=== PATIENT | male | born 1950 | race Caucasian/White ===

== ENCOUNTER → 2016-11-02 | Outpatient (CLI) | payer MEDICARE, OTHER ==
[2016-07-17 03:30] VITALS: BP 88/50
[~2016-11-02] MED LIST: AMLO10TA2 PO; ASPI-630 PO; ATORVASTATIN CA80 MG PO; AZIT250T6 PO; CARV12.52 PO; CEFP200T PO; FERR325T72 PO; FURO20TA3 PO; LEVO150T5 PO; LEVO175T2 PO; LORA1TAB PO; MONT10TA6 PO; PILO5TAB16 PO; POLY17PO5 PO; POTA10CA PO; SERT100T PO; ZOLP10TA4 PO
--- NOTE | 2016-11-02 15:09 | RAD ---
Right lower extremity venous ultrasound, 11/02/2016 : History: Leg swelling, cellulitis Duplex evaluation including grayscale, color flow and spectral Doppler analysis was performed. The femoral and popliteal veins show no filling defects to suggest DVT. The visualized calf veins are unremarkable. In the anterior aspect of the right lower leg at the level of the patient's known wound there is an elongated irregularly marginated hypoechoic process in the superficial soft tissues. The appearance suggests a complex fluid collection such as an abscess or hematoma. It measures 5.8 x 3.4 x 1.8 cm. IMPRESSION: 1. There is no sonographic evidence of deep vein thrombosis in the right lower extremity. 2. Elongated complex fluid collection in the soft tissues of the right lower leg at the level the patient's known wound, raising the possibility of abscess.
== END | disposition home or self-care (01) ==
LOC: US 13:35
PROVIDERS: ATTEND Family Medicine
DX: M79.89 Other specified soft tissue disorders (principal); R22.41 Localized swelling, mass and lump, right lower limb
CPT/HCPCS: 93971

== ENCOUNTER → 2017-08-04 | Outpatient (CLI) | payer MEDICARE, OTHER ==
[2016-07-17 03:30] VITALS: BP 88/50
[~2017-08-04] MED LIST changes: -SERT100T PO; +SERT20OR PO
--- NOTE | 2017-08-04 17:15 | RAD ---
Supine and upright views of the abdomen. 08/04/2017 Clinical indication: Retained foreign body. Comparison: CT abdomen and pelvis 02/25/2016. Findings: There is a percutaneous gastrostomy tube overlying the left upper quadrant of the abdomen. Irregular sclerotic density overlying the left sacroiliac articulation and projects outside of the bowel lumen, likely related to degenerative changes. No radiopaque foreign body identified. No pneumoperitoneum. The small large bowel loops are normal in caliber without obstruction. Impression: 1. No evidence of radiopaque foreign body. 2. No bowel obstruction or pneumoperitoneum.
== END | disposition home or self-care (01) ==
LOC: RAD 16:20
PROVIDERS: ATTEND Specialist
DX: Z18.9 Retained foreign body fragments, unspecified material (principal); I11.0 Hypertensive heart disease with heart failure; I50.9 Heart failure, unspecified; E03.9 Hypothyroidism, unspecified; Z87.891 Personal history of nicotine dependence
CPT/HCPCS: 74021

== ENCOUNTER 2017-09-25 11:48 | Inpatient (IN) | payer MEDICARE, OTHER ==
[2017-09-25] VITALS (7 sets, daily range): BP systolic 96–114; BP diastolic 50–60
[~2017-09-25] VITALS: Ht 175.3 cm; Wt 86.2 kg
[~2017-09-25 11:48] MED LIST changes: +SERT100T PO; -SERT20OR PO
[2017-09-25] MEDS ORDERED: IV NORMAL SALINE 1,000ML 1,000 ML IV SCH ×2 (11:51→12:58)
[2017-09-25] MEDS ORDERED: 0.9 % SODIUM CHLORIDE 10 ML DISP.SYRIN. IV ONE (12:00)
--- NOTE | 2017-09-25 12:14 | PHYS DOC ---
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 He was actually intubated and hospitalized for a hypoxic event that occurred while on vacation in [place]. Patient is been increasingly forgetful and mildly demented on 4 L nasal cannula is at all times who presents with increasing difficulty breathing and hypoxia despite by mouth oxygen therapy. at the bedside admits he has been very stubborn not wanting to be evaluated here in the emergency department today was seen at his PCPs facility and advised immediate evaluation erythema department for possible aspiration pneumonia and admission to hospital for treatment. At this time patient is resting comfortably is able to answer all my questions in a complaint of chest pain he is mildly short of breath with a productive cough that he describes going on for last 3 or 4 days. Patient admits she's been outside in the cold weather and having decreased excess tonsil with a productive cough and increased oxygen demand they're worried he may have aspirated. He only takes small sips of fluids orally mostly when he is fed and infused into his body is through the PEG tube. Denies abdominal pain, denies any diarrhea, fevers, chills or other symptoms. Differential diagnosis: Acute myocardial ischemia, heart failure, cardiac tamponade, bronchospasm, pulmonary embolism, pneumothorax, pulmonary infection i.e. bronchitis or pneumonia, upper airway obstruction, anaphylaxis, aspiration , psychogenic, pulmonary contusion, toxidrome, pneumomediastinum, noncardiogenic pulmonary edema or ARDS, COPD, tuberculosis, cystic fibrosis, asthma, high altitude pulmonary edema, valvular dysfunction, cardiac dysrhythmia , stroke, neuromuscular diseases like myasthenia gravis gravis, ALS, Guillain- Napier syndrome, metabolic acidosis to include diabetic ketoacidosis, sepsis, and obstructive disorders like massive obesity Review of Systems Review of Systems Constitutional: Denies fever positive for subjective chills Eyes: Denies change in visual acuity, redness, or eye pain [] HENT: Denies nasal congestion or sore throat [] Respiratory positive for cough and shortness of breath on exertion. Positive for increased oxygen demand Cardiovascular: No additional information not addressed in HPI [] GI: Denies abdominal pain, nausea, vomiting, bloody stools or diarrhea [] : Denies dysuria or hematuria [] Musculoskeletal: Denies back pain or joint pain [] Integument: Denies rash or skin lesions [] Neurologic: Denies headache, focal weakness or sensory changes increased at the status confusion according to the at bedside [] Endocrine: Denies polyuria or polydipsia [] All other systems were reviewed and found to be within normal limits, except as documented in this note. Current Medications Current Medications Current Medications Medications (Trade) Dose Ordered Sig/Gauri Start Time Stop Time Status Last Admin Dose Admin Sodium Chloride 1,000 ml @ 1,000 mls/hr Q1H 09/25/17 11:51 09/25/17 12:50 Sodium Chloride (Normal Saline Flush) 10 ml 1X ONCE 09/25/17 12:00 09/25/17 12:02 DC Allergies Allergies Allergies Coded Allergies Type Severity Reaction Last Updated Verified ciprofloxacin Allergy Intermediate 07/17/16 Yes codeine Allergy Intermediate 07/17/16 Yes Physical Exam Physical Exam Other vital signs on the chart patient is noted to be hypoxia satting at 91% despite being on 4 L nasal cannulas. He isn't tachypneic or febrile he is mildly hypertensive. Constitutional: he is thin very dry in appearance cachectic but is no apparent distress nontoxic able to have conversations speaking in 12 word sentences without issue HENT: Normocephalic, atraumatic, bilateral external ears normal, oropharynx very dry with no dentition mild erythema no tonsillar hypertrophy, no oral exudates, nose normal. [] Eyes: PERRLA, EOMI, conjunctiva normal, no discharge. [] Neck: Normal range of motion, no tenderness, supple, no stridor. No anterior lymphadenopathy[] Cardiovascular:Heart rate regular rhythm, no murmur [] Lungs & Thorax: Patient has coarse breath sounds are out with significant rhonchi and rales at the bases bilaterally wound right greater than left Abdomen: Bowel sounds normal, soft, no tenderness, no masses, no pulsatile masses PEG tube in place no warmth tenderness or soft tissue swelling.. [] Skin: Warm, dry, no erythema, no rash. [] Back: No tenderness, no CVA tenderness. [] Extremities: No tenderness, no cyanosis, no clubbing, ROM intact, no edema. [] Neurologic: Alert and oriented X 3, normal motor function, Psychologic: Affect normal, judgement normal, mood normal. [] EKG EKG []Patient's EKG read by me at 12:22 PM 09/25/2017 demonstrates a heart rate of 69 there is a P wave there were QRS normal sinus rhythm NE interval 190 which is normal, QS with 90 which is normal, QTC of 409 which is also normal patient has an inferior Q wave in lead [address] segment elevation or T-wave changes consistent with acute cardiac ischemia today is an abnormal EKG Radiology/Procedures Radiology/Procedures [] Signed PATIENT: KUSH HARGROVE ACCOUNT: [id number] : 1950 LOCATION: ER AGE: 67 SEX: M EXAM STATUS: REG ER ORD. PHYSICIAN: JUSTIN BUTLER MD REASON: cough and sob PROCEDURE: CHEST PA & LATERAL CHEST PA LATERAL History: cough, short of breath Comparison: AP chest July 17, 2016. Findings: The cardiomediastinal silhouette is stable. Pulmonary vasculature is normal. The right posterior costophrenic sulcus is partially outside of the [id number] on the lateral view. There is right upper lobe airspace disease. There may also be mild airspace disease in the right lung base. There is linear airspace disease in the left lung base that may be discoid atelectasis or scarring or early infiltrate. No pleural effusion or pneumothorax is seen. There is no acute bone abnormality. IMPRESSION: 1. There is right upper lobe pneumonia or atelectasis. Radiographic follow-up to resolution is recommended to exclude malignancy. 2. Linear airspace disease in the left lung base. Electronically signed by: Foreign Mccormick MD (09/25/2017 12:20 PM) [id number] DICTATED AND SIGNED BY: FOREIGN MCCORMICK MD DATE: 09/25/17 1214 CC: JESENIA BOWSER MD; JUSTIN BUTLER MD ~ Course & Med Decision Making Course & Med Decision Making Pertinent Labs and Imaging studies reviewed. (See chart for details) []he is a pleasant 67-year-old male not feeling well for last 3-4 days with a productive cough increasing work of breathing and family is worried he might of aspiration pneumonia. He is normally on oxygen of 4 L all the time for his chronic lung issues and presents with increasing oxygen demand with satting 91% on 4 L nasal cannula's. Patient's pH is 7.425, CO2 of 54 PaO2 51 satting 85% on 4 L. Patient will definitely need more oxygenation to help reverse the parents are noted on his vital signs. Differential diagnosis: Acute myocardial ischemia, heart failure, cardiac tamponade, bronchospasm, pulmonary embolism, pneumothorax, pulmonary infection i.e. bronchitis or pneumonia, upper airway obstruction, anaphylaxis, aspiration , psychogenic, pulmonary contusion, toxidrome, pneumomediastinum, noncardiogenic pulmonary edema or ARDS, COPD, tuberculosis, cystic fibrosis, asthma, high altitude pulmonary edema, valvular dysfunction, cardiac dysrhythmia , stroke, neuromuscular diseases like myasthenia gravis gravis, ALS, Guillain- Napier syndrome, metabolic acidosis to include diabetic ketoacidosis, sepsis, and obstructive disorders like massive obesity Was considered upon arrival based on patient's presentation and decreased lung sounds in the left and right lungs by worry is an obstructive process like pneumonia or extra fluid like pulmonary edema. At this point blood cultures been completed, CBC, CMP, troponin, proBNP, chest x-ray EKG. Patient is gotten likely gastritis also drawn he'll be given Rocephin and azithromycin in anticipation is a pulmonary infection. He is also given a liter of fluids because he does not have a history of congestive heart failure. He is not hypoxic or hypotensive. He does not do any signs of Sirs Impression CBC does states a left shift with a white count of 15,100 which is likely indicative of stress and infection. Patient's troponin is also mildly elevated 0.116 this may be secondary to anoxic injury or hypoxic stress base and the fact these are hypoxic. He denies any chest pain or shortness breath at this time we will continue to monitor his symptoms is been admitted to the telemetry floor. Commercial Green Building Architect note: Dr. Grover Commercial Green Building Architect called at of the service internal medicine service Consult called back at paged initially at 12:50 PM called back at 12:52 PM Discussed the case I presented and they agreed with admission. Time of acceptance 12:52 PM "I have assessed this patient clinically and believe that their condition requires an admission to the hospital. After consulting the admitting physician about this case, they have asked that I admit this patient to their service as an inpatient based on the clinical presentation and my impression." Course of his ER stay patient became increasingly hypoxic despite being on oxygen. His pH was 7.42 with a PCO2 51 and PO2 of 50 unfortunate as he began to get more fluids over the course of his evaluation he became increasingly hypoxic. He has a history of congestive heart failure and his proBNP was 4100. Given the extra 600 mL he received her in the emergency department visit visit to include fluids with antibiotics and 350 mL of normal saline I believe patient may be having a touch of fluid overload as well. We will give him a small dose of Lasix raise that of the bed and see if we can get him to diurese and improve his oxygenation. He still mentating well we'll move him from telemetry to the ICU for continued monitoring and evaluation. Is also noted that his troponin was mildly elevated. Patient's influenza swab was negative for influenza A and B. He also exhibited a little hypertension which may be requiring pressor support. Critical Care: The high probability of sudden, clinically significant deterioration in the patient's condition required the highest level of my preparedness to intervene urgently. The services I provided to this patient were to treat and/or prevent clinically significant deterioration. Services included the following: chart data review, reviewing nursing notes and/or old charts, documentation time, contact center consultant collaboration regarding findings and treatment options, medication orders and management, direct patient care, vital sign assessments and ordering, interpreting and reviewing diagnostic studies/ lab tests. Aggregate critical care time includes only time during which I was engaged in work directly related to the patient's care, as described above, whether at the bedside or elsewhere in the Emergency Department. It did not include time spent performing other reported procedures or the services of nurses or physician assistants. Critical Care Time: 45 Dragon Disclaimer Dragon Disclaimer This electronic medical record was generated, in whole or in part, using a voice recognition dictation system. Departure Departure: Impression: Primary Impression: Community acquired pneumonia Additional Impression: Acute congestive heart failure Disposition: 09 ADMITTED INPATIENT Admitting Physician: Ariela Grover Condition: GUARDED Referrals: JESENIA BOWSER MD (PCP) Problem Qualifiers JUSTIN BUTLER MD Sep 25, 2017 12:14
--- NOTE | 2017-09-25 12:23 | RAD ---
CHEST PA LATERAL History: cough, short of breath Comparison: AP chest July 17, 2016. Findings: The cardiomediastinal silhouette is stable. Pulmonary vasculature is normal. The right posterior costophrenic sulcus is partially outside of the [id number] on the lateral view. There is right upper lobe airspace disease. There may also be mild airspace disease in the right lung base. There is linear airspace disease in the left lung base that may be discoid atelectasis or scarring or early infiltrate. No pleural effusion or pneumothorax is seen. There is no acute bone abnormality. IMPRESSION: 1. There is right upper lobe pneumonia or atelectasis. Radiographic follow-up to resolution is recommended to exclude malignancy. 2. Linear airspace disease in the left lung base. Electronically signed by: Foreign Mccormick MD (09/25/2017 12:20 PM) [id number]
[2017-09-25 12:40] LABS: BASO % 0 % (0-3); EOS % 0 % (0-3); HEMATOCRIT 37.2 % (39.0-53.0); HEMOGLOBIN 12.1 g/dL (13.0-17.5); LYMPH # 1.1 x10^3/uL (1.0-4.8); LYMPH % 8 % (24-48); MEAN CORPUSCULAR HEMOGLOBIN 30 pg (25-35); MEAN CORPUSCULAR HGB CONC 33 g/dL (31-37); MEAN CORPUSCULAR VOLUME 92 fL (79-100); MONO # 1.2 x10^3/uL (0.0-1.1); MONO % 8 % (0-9); NEUT # 12.8 x10^3uL (1.8-7.7); NEUT % 85 % (31-73); PLATELET COUNT 168 x10^3/uL (140-400); RED BLOOD COUNT 4.06 x10^6/uL (4.30-5.70); RED CELL DISTRIBUTION WIDTH 14.1 % (11.5-14.5); WHITE BLOOD COUNT 15.1 x10^3/uL (4.0-11.0)
[2017-09-25 12:54] LABS: BGAS PH 7.43 (7.35-7.46)
[2017-09-25] MEDS ORDERED: cefTRIAXone IV Push 1 GM VIAL. IVP ONE (13:00)
[2017-09-25] MEDS ORDERED: AZITHROMYCIN 500 MG in IV NORMAL SALINE 250ML 250 ML IV ONE (13:00)
[2017-09-25] MEDS ORDERED: ONDANSETRON PF 4 MG/2 ML VIAL. IV PRN (13:00)
[2017-09-25] MEDS ORDERED: AZITHROMYCIN 250 MG TABLET. PO ONE (13:00)
--- NOTE | 2017-09-25 13:01 | EKG ---
[address] [address] Test Date: 2017-09-25 Test Time: 12:22:15 Pat Name: KUSH HARGROVE Department: Room: Gender: M [facility] Customer Service: EZIO : 1950 Requested By: JUSTIN BUTLER Order Number: [id number] Reading MD: Jacinto Kemp MD Measurements Intervals [place] Rate: 69 P: 28 AR: 192 QRS: 6 QRSD: 98 T: 36 QT: 380 QTc: 409 Interpretive Statements SINUS RHYTHM Electronically Signed On 09-28-2017 14:09:59 CDT by Jacinto Kemp MD
[2017-09-25] MEDS ORDERED: IV NORMAL SALINE 250ML 250 ML ONE (13:05)
[2017-09-25] MEDS ORDERED: AZITHROMYCIN 500 MG VIAL. IV ONE (13:05)
[2017-09-25 13:08] LABS: ALBUMIN 2.7 g/dL (3.4-5.0); CALCIUM 9.2 mg/dL (8.5-10.1); CREATININE 0.8 mg/dL (0.7-1.3); DIRECT BILIRUBIN 0.2 mg/dL (0.0-0.2); GFR 96.7; MAGNESIUM 2.3 mg/dL (1.8-2.4); POTASSIUM 4.1 mmol/L (3.5-5.1); TOTAL BILIRUBIN 0.6 mg/dL (0.2-1.0); TOTAL PROTEIN 7.9 g/dL (6.4-8.2)
[2017-09-25] MEDS ORDERED: IPRATRPIUM/ALBUTEROL 0.5/2.5MG 3 ML NEBU. ONE (13:23)
[2017-09-25 13:28] LABS: INFLUENZA A PATIENT NEGATIVE (NEGATIVE); INFLUENZA B PATIENT NEGATIVE (NEGATIVE)
[2017-09-25] MEDS ORDERED: IPRATRPIUM/ALBUTEROL 0.5/2.5MG 3 ML NEBU. NEB ONE (13:30)
[2017-09-25 13:31] LABS: % BANDS 7 % (0-9); % LYMPHS 7 % (24-48); % MONOS 9 % (0-10); % SEGS 77 % (35-66); PLT ESTIMATE ADEQUATE (ADEQUATE)
[2017-09-25 13:32] LABS: TOXIC GRANULATION MOD
[2017-09-25] MEDS ORDERED: FUROSEMIDE 40 MG/4 ML VIAL IVP ONE (14:00)
[2017-09-25 14:44] LABS: BACTERIA,URINE 0 /HPF (0-FEW); BILIRUBIN,URINE NEG (NEG); CLARITY,URINE CLEAR; COLOR,URINE YELLOW; GLUCOSE,URINE NEG (NEG); HYALINE CASTS, URINE OCC /HPF; NITRITE,URINE NEG (NEG); RBC,URINE OCC /HPF (0-2); SQUAMOUS EPITHELIAL CELL,UR OCC /LPF; UROBILINOGEN,URINE 0.2 mg/dL (0.2 mg/dL); WBC,URINE OCC /HPF (0-4)
[2017-09-25] MEDS ORDERED: PIPERACILLIN/TAZOBACTAM 3.375 GM in IV NORMAL SALINE 50ML 50 ML IV SCH (18:00)
[2017-09-25] MEDS ORDERED: LORazepam 1 MG TABLET PO PRN (18:00)
[2017-09-25] MEDS: PIPERACILLIN/TAZOBACTAM 3.375 GM in IV NORMAL SALINE 50ML 50 ML IV SCH ×2 (18:40→21:32)
--- NOTE | 2017-09-25 19:14 | HP ---
ADMIT DATE: 09/25/2017 HISTORY OF PRESENT ILLNESS: The patient is a 67-year-old male patient who was noted by his to be weak and hypoxic despite increasing his oxygen to 6 liters. She could not get his oxygen saturation more than 70%. He was seen today, but his primary care physician, Dr. Alexander and basically, a decision was made to send him to the Emergency Room where he was extensively evaluated, was found to have pneumonia and leukocytosis and after obtaining appropriate culture, he was admitted for inpatient treatment with IV antibiotic given that he has propensity to aspiration. PAST MEDICAL HISTORY: Significant for tonsillectomy, radical neck dissection in 2007, and carpal tunnel 2013. He has a percutaneous endoscopic colostomy tube placed and he is now on tube feeding in the form of Fibersource. Multiple admissions for pneumonias with severe pneumonia in 2014, history of tongue cancer with radiation in 2007, hypothyroidism, hypertension, hyperlipidemia, hypercholesterolemia, myocardial infarction 09/2014, is also known to have peripheral vascular disease, gastroesophageal reflux disease, benign prostatic hypertrophy, insomnia, and B12 deficiency. FAMILY HISTORY: Positive for myocardial infarction, colon cancer, COPD, anxiety, and depression. ALLERGIES: He is allergic to CIPRO and CODEINE. MEDICATIONS: He is currently on a Flonase 2 sprays to each nostril once a day, lorazepam 1 mg as needed, sertraline 100 mg, takes hpf-aax-t-half tablet once a day, Ambien 10 mg at bedtime, pilocarpine 5 mg tablet 1 tablet by mouth 3 times a day. He is on Crestor 40 mg at bedtime, carvedilol 12.5 mg twice a day, amlodipine 10 mg once a day, furosemide 20 mg once a day, potassium chloride 10 mEq once a day, sildenafil citrate 20 mg 30 to 60 minutes prior to sexual intercourse, aspirin 81 mg once a day. REVIEW OF SYSTEMS: As per history of present illness. PHYSICAL EXAMINATION: GENERAL: On arrival to the Emergency Room, the patient was slightly tachypneic, pale, but no jaundice, cyanosis, or thyromegaly. No jugular venous distension. No lower limb edema. VITAL SIGNS: His heart rate was 76, blood pressure was 108/65, temperature was 98.6, respiratory rate was 26, and oxygen saturation was 90% on 4 liters of oxygen. HEAD, EYES, EAR, NOSE, AND THROAT: Showed normocephalic, atraumatic. NECK: Supple. HEART: Showed normal first and second heart sounds. No gallop, rub or murmur. CHEST: Shows centered trachea, equal bilateral chest expansion, air entry, vesicular breath sounds, I could not really appreciate any crepitation or rhonchi. ABDOMEN: Scaphoid, soft with gastrostomy tube in place. There is no guarding or rigidity. No organomegaly or hernial orifice intact. Bowel sounds normal. NEUROLOGIC: He was awake, alert, responding appropriately. Cranial nerves intact. EXTREMITIES: He moves extremities without difficulty, ambulates without assistance or assistive devices. LABORATORY DATA: While in the Emergency Room, he had lab work done, which showed that his white cell count was elevated at 15,100, hemoglobin 12, hematocrit 37, MCV 92, and platelet count 268,000. His chemistry showed a serum sodium 139, potassium 4.1, chloride 98, bicarbonate 35, anion gap of 6, BUN 24, creatinine 0.8, estimated GFR was 97 mL per minute, his glucose was 113, and lactic acid was 1.3. Calcium was 9.2, magnesium 2.3. Total bilirubin, AST, ALT, alkaline phosphatase were normal. His CK was 1442, and beta natriuretic peptide was 4817, troponin was 0.116. Total protein was 7.9, albumin was 2.7. Lipase was 57. Urinalysis was essentially unremarkable. His blood gases showed a pH of 7.43, pCO2 of 45, pO2 of 50, bicarbonate 36, oxygen saturation was 85% and FiO2 36%. His influenza A and B were negative. His chest x-ray showed that his cardiomediastinal silhouette is stable. Pulmonary vasculature is normal. The right posterior costophrenic sulcus is partially outside of the field of view on the lateral view. There is right upper lobe airspace disease. This may also be mild airspace disease in the right lung base. There is linear airspace disease in the left lung base and that may be discoid atelectasis, scarring or early infiltrate, no pleural effusion or pneumothorax seen. There are no acute bony abnormalities. IMPRESSION: The impression is the patient has right upper lobe pneumonia or atelectasis. Radiographic followup to resolution recommended to exclude malignancy, he has also linear airspace disease in the left lung base. The patient was admitted to the Intensive Care Unit, was started on intravenous antibiotic initially was given Zithromax and Rocephin. I decided to expand the coverage given that this is likely to be aspiration pneumonia and I switched him to get Zosyn and Zyvox. He had blood cultures sent and will continue with oxygen supplementation as needed CPAP and he had at home and obviously, if he requires that we have to use our machine here with empirical numbers by the RT, develop blood gases after an hour to make sure that he is improving. KAYLEE ANAND MD DR: AKILAH/juliana JOB#: [id number] / [id number]
[2017-09-25] MEDS: IPRATRPIUM/ALBUTEROL 0.5/2.5MG 3 ML NEBU. NEB SCH (20:32)
[2017-09-25] MEDS: LACTOBACILLUS RHAMNOSUS GG 1 CAPSULE. PO SCH (20:34)
[2017-09-25] MEDS: ZOLPIDEM 5 MG TABLET. PO SCH (20:35)
[2017-09-25] MEDS: ATORVASTATIN CALCIUM 20 MG TABLET PO SCH (20:35)
[2017-09-25] MEDS: PILOCARPINE 5 MG TABLET. PO SCH (20:35)
[2017-09-25] MEDS ORDERED: VANCOMYCIN 2 GM in IV NORMAL SALINE 500ML 500 ML IV ONE (21:30)
[2017-09-25] MEDS: VANCOMYCIN PER PHARMACY MC PRN (21:50)
[2017-09-26] VITALS (22 sets, daily range): BP systolic 90–121; BP diastolic 44–67
[2017-09-26] MEDS: PIPERACILLIN/TAZOBACTAM 3.375 GM in IV NORMAL SALINE 50ML 50 ML IV SCH ×3 (05:28→22:55)
[2017-09-26 06:06] LABS: CALCIUM 8.8 mg/dL (8.5-10.1); CREATININE 0.7 mg/dL (0.7-1.3); GFR 112.8; POTASSIUM 3.6 mmol/L (3.5-5.1)
[2017-09-26] MEDS: IPRATRPIUM/ALBUTEROL 0.5/2.5MG 3 ML NEBU. NEB SCH ×4 (06:11→21:22)
[2017-09-26 06:19] LABS: BASO % 0 % (0-3); EOS % 0 % (0-3); HEMATOCRIT 35.3 % (39.0-53.0); HEMOGLOBIN 11.6 g/dL (13.0-17.5); LYMPH # 1.2 x10^3/uL (1.0-4.8); LYMPH % 9 % (24-48); MEAN CORPUSCULAR HEMOGLOBIN 30 pg (25-35); MEAN CORPUSCULAR HGB CONC 33 g/dL (31-37); MEAN CORPUSCULAR VOLUME 92 fL (79-100); MONO # 1.3 x10^3/uL (0.0-1.1); MONO % 10 % (0-9); NEUT # 10.3 x10^3uL (1.8-7.7); NEUT % 80 % (31-73); PLATELET COUNT 176 x10^3/uL (140-400); RED BLOOD COUNT 3.83 x10^6/uL (4.30-5.70); RED CELL DISTRIBUTION WIDTH 14.1 % (11.5-14.5); WHITE BLOOD COUNT 12.9 x10^3/uL (4.0-11.0)
[2017-09-26] MEDS ORDERED: ACETAMINOPHEN 650 MG/20.3 ML SOLUTION. PO PRN (07:15)
[2017-09-26] MEDS: LACTOBACILLUS RHAMNOSUS GG 1 CAPSULE. PO SCH ×2 (07:58→21:20)
[2017-09-26] MEDS: SERTRALINE 100 MG TABLET. PO SCH (07:59)
[2017-09-26] MEDS: PILOCARPINE 5 MG TABLET. PO SCH ×2 (07:59→21:20)
[2017-09-26] MEDS: LEVOTHYROXINE 175 MCG TABLET PO SCH (07:59)
[2017-09-26] MEDS: ASPIRIN 81 MG TAB.CHEW PO SCH (07:59)
[2017-09-26] MEDS: POLYETHYLENE GLYCOL 3350 17 GM PACKET. PO SCH (08:00)
[2017-09-26] MEDS: CARVEDILOL 12.5 MG TABLET PO SCH ×2 (08:00→16:03)
[2017-09-26] MEDS ORDERED: FERROUS SULFATE 325 MG TABLET. PO SCH (08:00)
[2017-09-26] MEDS ORDERED: POTASSIUM CHLORIDE 10 MEQ TABLET.ER. PO SCH (08:00)
--- NOTE | 2017-09-26 08:12 | RAD ---
CHEST AP ONLY Clinical Indication: pneumonia Comparison: AP chest, prior day. Findings: The cardiomediastinal silhouette is stable. Right upper lobe airspace disease is unchanged. Left basilar airspace disease is worse. Mild right basilar airspace disease is unchanged. There is no pneumothorax. No pleural effusion is appreciated. No acute bone abnormality. IMPRESSION: 1. Right upper lobe pneumonia is unchanged. 2. Left basilar airspace disease is worse. Electronically signed by: Foreign Mccormick MD (09/26/2017 8:09 AM) [id number]
[2017-09-26] MEDS ORDERED: IPRATRPIUM/ALBUTEROL 0.5/2.5MG 3 ML NEBU. NEB SCH (08:30)
[2017-09-26] MEDS: amLODIPine BESYLATE 10 MG TABLET PO SCH (09:00)
[2017-09-26] MEDS: VANCOMYCIN 1.25 GM in IV NORMAL SALINE 250ML 250 ML IV SCH ×2 (09:50→21:04)
[2017-09-26] MEDS: FUROSEMIDE 20 MG TABLET PO SCH (09:50)
[2017-09-26] MEDS: ZOLPIDEM 5 MG TABLET. PO SCH (21:19)
[2017-09-26] MEDS: ATORVASTATIN CALCIUM 20 MG TABLET PO SCH (21:20)
--- NOTE | 2017-09-26 22:31 | PN ---
DATE: 09/26/2017 SUBJECTIVE: The patient is resting slightly propped up in bed, no apparent distress. He continued to have some shortness of breath, cough. Denied any fevers, chills or rigor. Denies any chest pain. PHYSICAL EXAMINATION: GENERAL: When I examined him, he was sitting slightly propped up in bed, in no apparent respiratory distress, pale. No jaundice, cyanosis, or thyromegaly. No jugular venous distension. No limb edema. VITAL SIGNS: Her heart rate was 65, blood pressure 100/57. His temperature was 98.2, respiratory rate was 20, and oxygen saturation was 93% on 4.5 liters of oxygen. HEAD, EYES, EARS, NOSE AND THROAT: Showed normocephalic, atraumatic. NECK: Supple. HEART: Showed normal first and second heart sounds with no gallop, rub or murmur. CHEST: Shows central trachea, equal bilateral expansion, air entry, vesicular sounds with crepitation mostly in the right side and to a lesser extent in the left side posteriorly inferiorly. ABDOMEN: Soft, nontender. No guarding or rigidity. No organomegaly. All hernial orifices intact. Bowel sounds normal. NEUROLOGIC: He is awake, alert, responding appropriately. Cranial nerves intact. He moves extremities without difficulty, ambulates without assistance or assistive devices. His intake over the last 24 hours was 1300, output was 1925. LABORATORY DATA: This morning showed a serum sodium 140, potassium 3.6, chloride 99, bicarbonate 36, anion gap of 5, BUN 18, creatinine 0.7, estimated GFR was 113 mL per minute. His calcium was 8.8. He has 3 sets of cardiac enzymes showed that his troponin was 0.16 and then the 2nd was 0.98 and the third one was 0.079. TSH is high at 14.5. White cell count is down to 12,900, hemoglobin 11.6, hematocrit 35, MCV 92, and platelet count of 176,000 with manual differential showed 80% polymorphs, 9% lymphocytes, 7% monocytes. ASSESSMENT: 1. This is a 67-year-old male patient who was admitted with pneumonia, most likely aspiration. 2. The patient has nasopharyngeal carcinoma, status post radical dissection. 3. Dysphagia, status post gastrostomy tube placement. 4. Apparently, he has had multiple admissions for pneumonias with severe pneumonia in 2014. He has a history of tongue cancer with radiation therapy in 2007, hypothyroidism, hypertension, hyperlipidemia, myocardial infarction on 09/2014. He is also known to have peripheral vascular disease, gastroesophageal reflux disease, benign prostatic hypertrophy, and B12 deficiency. PLAN: My plan is to continue with IV antibiotic in the form of vancomycin and Zosyn. I will check his T3, T4, free T4 and adjust the Synthroid accordingly. KAYLEE ANAND MD DR: AKILAH/juliana JOB#: [id number] / [id number]
[2017-09-27] VITALS (12 sets, daily range): BP systolic 90–123; BP diastolic 53–73
[2017-09-27] MEDS: PIPERACILLIN/TAZOBACTAM 3.375 GM in IV NORMAL SALINE 50ML 50 ML IV SCH ×3 (05:38→22:07)
[2017-09-27] MEDS: IPRATRPIUM/ALBUTEROL 0.5/2.5MG 3 ML NEBU. NEB SCH ×4 (05:49→21:17)
[2017-09-27] MEDS: amLODIPine BESYLATE 10 MG TABLET PO SCH (07:35)
[2017-09-27] MEDS: PILOCARPINE 5 MG TABLET. PO SCH ×2 (07:58→21:32)
[2017-09-27] MEDS: LEVOTHYROXINE 175 MCG TABLET PO SCH (07:58)
[2017-09-27] MEDS: SERTRALINE 100 MG TABLET. PO SCH (07:58)
[2017-09-27] MEDS: ASPIRIN 81 MG TAB.CHEW PO SCH (07:59)
[2017-09-27] MEDS: LACTOBACILLUS RHAMNOSUS GG 1 CAPSULE. PO SCH ×2 (07:59→21:32)
[2017-09-27] MEDS ORDERED: FERROUS SULFATE ORAL 220 MG/5 ML SOLUTION. PO SCH (08:00)
[2017-09-27] MEDS: CARVEDILOL 12.5 MG TABLET PO SCH ×2 (08:00→21:31)
[2017-09-27] MEDS: POTASSIUM CHLORIDE 20 MEQ/15 ML ORAL LIQUID. FT SCH (08:01)
[2017-09-27] MEDS: FUROSEMIDE 20 MG TABLET PO SCH (08:02)
[2017-09-27] MEDS: POLYETHYLENE GLYCOL 3350 17 GM PACKET. PO SCH (08:18)
--- NOTE | 2017-09-27 08:24 | RAD ---
Single view of the Chest 09/27/2017 11:00 AM Indication: pneumonia Comparison: Chest radiograph, yesterday Findings: Diffuse right-sided infiltrates, most prominent in the upper lobe are similar prior exam. No pneumothorax is seen. Probable trace left pleural effusion noted. Heart size appears to be top normal given portable technique. No acute bony abnormalities are identified. Impression: 1.Similar appearing right-sided infiltrates, most prominent in the right upper lobe. 2. Trace left pleural effusion
[2017-09-27 09:14] LABS: BASO % 0 % (0-3); EOS # 0.1 x10^3/uL (0.0-0.7); EOS % 1 % (0-3); HEMATOCRIT 36.5 % (39.0-53.0); HEMOGLOBIN 11.8 g/dL (13.0-17.5); LYMPH # 1.1 x10^3/uL (1.0-4.8); LYMPH % 9 % (24-48); MEAN CORPUSCULAR HEMOGLOBIN 30 pg (25-35); MEAN CORPUSCULAR HGB CONC 32 g/dL (31-37); MEAN CORPUSCULAR VOLUME 92 fL (79-100); MONO # 1.2 x10^3/uL (0.0-1.1); MONO % 9 % (0-9); NEUT % 81 % (31-73); PLATELET COUNT 220 x10^3/uL (140-400); RED BLOOD COUNT 3.98 x10^6/uL (4.30-5.70); RED CELL DISTRIBUTION WIDTH 14.4 % (11.5-14.5); WHITE BLOOD COUNT 12.4 x10^3/uL (4.0-11.0)
[2017-09-27 09:28] LABS: ALBUMIN 2.3 g/dL (3.4-5.0); ALBUMIN/GLOBULIN RATIO 0.5 (1.0-1.7); CALCIUM 8.9 mg/dL (8.5-10.1); CREATININE 0.7 mg/dL (0.7-1.3); GFR 112.8; POTASSIUM 4.5 mmol/L (3.5-5.1); TOTAL BILIRUBIN 0.6 mg/dL (0.2-1.0); TOTAL PROTEIN 7.3 g/dL (6.4-8.2)
[2017-09-27 09:29] LABS: VANC TR 13.7 mcg/mL (10.0-20.0)
[2017-09-27] MEDS: VANCOMYCIN 1.25 GM in IV NORMAL SALINE 250ML 250 ML IV SCH ×2 (09:48→21:30)
[2017-09-27] MEDS: VANCOMYCIN PER PHARMACY MC PRN (10:27)
--- NOTE | 2017-09-27 16:47 | CONS ---
DATE OF CONSULTATION: 09/27/2017 REASON FOR CONSULTATION: Elevated troponin. HISTORY OF PRESENT ILLNESS: The patient is a pleasant 67-year-old man with past medical history as noted below, who presents to the hospital in the setting of possible aspiration pneumonia. He is being currently treated for such. He was noted to have an elevation in his troponin in the setting of hypoxia and this acute aspiration pneumonia. The patient denies any exertional angina, dyspnea, orthopnea, PND or lower extremity edema. He has not had any palpitations or syncope. He has been increasing his intake with respect to his tube feeds and says that he has had some struggles with aspiration in the past. He was seen approximately a year and half ago in the setting of heart failure. At that time, he had evaluation including echocardiogram, which did not reveal any significant pathology and previous cardiac catheterization performed in 2014 did had no significant obstructive coronary disease. He was treated medically and discharged home in stable condition. He was also seen in our clinic recently and was in stable health. PAST MEDICAL HISTORY: 1. Type 2 non-ST elevation myocardial infarction with preserved LV systolic function and negative coronary angiogram in 2014. 2. Hypertension. 3. Neck cancer. 4. Prior history of diastolic heart failure. SOCIAL HISTORY: The patient denies any alcohol, tobacco or illicit drug use. FAMILY HISTORY: Noncontributory. REVIEW OF SYSTEMS: Negative for 10 out of 14 systems reviewed, unless otherwise mentioned above in HPI. PHYSICAL EXAMINATION: VITAL SIGNS: Stable. CARDIAC: Regular rate and rhythm without any murmurs, rubs or gallops. LUNGS: Fairly clear to auscultation bilaterally. ABDOMEN: Soft, nontender, nondistended. EXTREMITIES: No significant clubbing, cyanosis or edema. NEUROLOGIC: No focal deficits. DIAGNOSTIC TESTING: Initial troponin elevated to 0.11, now down trending to 0.079. No significant EKG changes. IMPRESSION: 1. Elevated troponin in setting of pulmonary issues. 2. Known hypertension. RECOMMENDATIONS: Continue supportive care from a cardiac standpoint. No further cardiovascular testing necessary at this time. Thank you for this consultation. HUONG JUSTICE MD DR: JORGE/juliana JOB#: [id number] / [id number]
[2017-09-27 19:13] LABS: THYROXINE 4.6 ug/dL (4.5-12.0)
--- NOTE | 2017-09-27 19:38 | PN ---
DATE: 09/27/2017 SUBJECTIVE: The patient is sitting comfortably in his chair in no apparent distress. On questioning him, he denied any complaints and that he is feeling much better. He has been up and about, walking. The nursing staff stated that he still requires about 3-1/2 liters of oxygen. OBJECTIVE: GENERAL: When I examined him, he looked pale, no jaundice, cyanosis, lymphadenopathy or thyromegaly. No jugular venous distension. No limb edema. VITAL SIGNS: Her heart rate was 67, blood pressure was 92/57, temperature was 99.2, respiratory rate was 24, and oxygen saturation was 91% on 3 liters of oxygen nasal cannula. HEAD, EYES, EARS, NOSE AND THROAT: Showed normocephalic, atraumatic. NECK: Supple. HEART: Showed normal first and second heart sounds with no gallop, rub or murmur. CHEST: Clear to auscultation. No crepitation or rhonchi. ABDOMEN: Distended, soft with gastrostomy tube in place. There is no guarding or rigidity. No organomegaly. Hernial orifice intact. Bowel sounds normal. NEUROLOGIC: He is awake, alert, responding appropriately. All cranial nerves intact. He moves extremities without difficulty. He ambulates without assistance or assistive devices. Intake was 4400, output was 4150. LABORATORY DATA: As of this morning, his serum sodium was 139, potassium 4.5, chloride 100, bicarbonate 34, anion gap of 5, BUN 14, creatinine 0.7, estimated GFR was 112 mL per minute. His glucose was 119, calcium was 8.9. Total bilirubin 0.6. AST, ALT slightly elevated. Alkaline phosphatase was normal. His total protein was 7.3, albumin 2.3. TSH was high at 14.5; however, T3, T4, free T4 are still pending at the time of this dictation. So far, his sputum and blood cultures are negative. ASSESSMENT: 1. Aspiration pneumonia. 2. History of nasopharyngeal carcinoma, status post radical neck dissection. 3. Dysphagia, status post gastrostomy tube placement. 4. Tongue cancer with addition to tracheal radiation therapy in 2007. 5. Hypothyroidism. 6. Hypertension. 7. Hyperlipidemia. 8. Coronary artery disease, status post myocardial infarction in 2014. However, his cardiac enzymes are elevated. We would consult the pretzel twister this time again. 9. Peripheral vascular disease. 10. Gastroesophageal reflux disease. 11. Benign prostatic hypertrophy. 12. B12 deficiency. PLAN: My plan is to continue with antibiotic in the form of vancomycin and Zosyn. Await the level of T3, T4, free T4, await Cardiology consult. KAYLEE ANAND MD DR: AKILAH/juliana JOB#: [id number] / [id number]
[2017-09-27] MEDS: ATORVASTATIN CALCIUM 20 MG TABLET PO SCH (21:32)
[2017-09-27] MEDS: ZOLPIDEM 5 MG TABLET. PO SCH (21:32)
[2017-09-28] MEDS: PIPERACILLIN/TAZOBACTAM 3.375 GM in IV NORMAL SALINE 50ML 50 ML IV SCH (05:52)
[2017-09-28] MEDS: IPRATRPIUM/ALBUTEROL 0.5/2.5MG 3 ML NEBU. NEB SCH ×2 (05:52→09:37)
[2017-09-28 06:00] VITALS: BP 113/65
[2017-09-28 06:28] LABS: BASO % 0 % (0-3); EOS # 0.3 x10^3/uL (0.0-0.7); EOS % 4 % (0-3); HEMATOCRIT 36.1 % (39.0-53.0); HEMOGLOBIN 11.8 g/dL (13.0-17.5); LYMPH # 1.2 x10^3/uL (1.0-4.8); LYMPH % 15 % (24-48); MEAN CORPUSCULAR HEMOGLOBIN 30 pg (25-35); MEAN CORPUSCULAR HGB CONC 33 g/dL (31-37); MEAN CORPUSCULAR VOLUME 92 fL (79-100); MONO % 12 % (0-9); NEUT # 5.7 x10^3uL (1.8-7.7); NEUT % 68 % (31-73); PLATELET COUNT 214 x10^3/uL (140-400); RED BLOOD COUNT 3.93 x10^6/uL (4.30-5.70); RED CELL DISTRIBUTION WIDTH 14.5 % (11.5-14.5); WHITE BLOOD COUNT 8.3 x10^3/uL (4.0-11.0)
[2017-09-28 06:33] LABS: CALCIUM 9.2 mg/dL (8.5-10.1); CREATININE 0.6 mg/dL (0.7-1.3); GFR 134.8
[2017-09-28] MEDS: LEVOTHYROXINE 175 MCG TABLET PO SCH (07:55)
[2017-09-28] MEDS: PILOCARPINE 5 MG TABLET. PO SCH (07:56)
[2017-09-28] MEDS: amLODIPine BESYLATE 10 MG TABLET PO SCH (07:56)
[2017-09-28] MEDS: SERTRALINE 100 MG TABLET. PO SCH (07:56)
[2017-09-28] MEDS: LACTOBACILLUS RHAMNOSUS GG 1 CAPSULE. PO SCH (07:56)
[2017-09-28] MEDS: FUROSEMIDE 20 MG TABLET PO SCH (07:56)
[2017-09-28] MEDS: ASPIRIN 81 MG TAB.CHEW PO SCH (07:56)
[2017-09-28] MEDS: POTASSIUM CHLORIDE 20 MEQ/15 ML ORAL LIQUID. FT SCH (07:57)
[2017-09-28] MEDS: CARVEDILOL 12.5 MG TABLET PO SCH (07:57)
[2017-09-28] MEDS: POLYETHYLENE GLYCOL 3350 17 GM PACKET. PO SCH (07:57)
--- NOTE | 2017-09-28 08:31 | RAD ---
Single view of the Chest 09/28/2017 11:00 AM Indication: pneumonia Comparison: Chest radiograph, yesterday Findings: Right upper lobe infiltrate persists, similar to prior exam. Left basilar infiltrate is more prominent than on comparison study. No pneumothorax is identified. There are possible trace bilateral pleural effusions. Heart size is top normal given portable technique. No acute osseous changes are identified in the interim. Impression: 1. Similar right upper lobe infiltrate 2. Increased left basilar infiltrate 3. Possible trace bilateral effusions
[2017-09-28 08:38] VITALS: BP 108/62
[2017-09-28] MEDS: VANCOMYCIN 1.25 GM in IV NORMAL SALINE 250ML 250 ML IV SCH (09:43)
[2017-09-28] MEDS ORDERED: AMOX1TAB61 PO (11:18)
--- NOTE | 2017-09-28 22:09 | DS ---
DATE OF DISCHARGE: 09/28/2017 SUBJECTIVE: The patient is a 67-year-old male patient who was admitted with acute hypoxic respiratory failure secondary to aspiration pneumonia, treated with IV antibiotic in the form of vancomycin and Zosyn. He did well, has been afebrile since admission. His white cell count as stated came down from 15,000-8300. His oxygen requirement dropped down to 1.5 liters, maintaining his oxygen saturation of 94% and the decision was made to discharge him home to continue antibiotic treatment in the form of Augmentin 875 mg twice a day for 7 days. OBJECTIVE: GENERAL: When I saw him this afternoon, he looked well and was clearly in no apparent respiratory distress, slightly pale, no jaundice, cyanosis, lymphadenopathy, or thyromegaly. No jugular venous distension. No lower limb edema. VITAL SIGNS: Her heart rate was 68, blood pressure was 108/62, temperature was 97.9, respiratory rate was 16 and oxygen saturation was 94%. HEAD, EYES, EARS, NOSE AND THROAT: Showed normocephalic, atraumatic. NECK: Supple. HEART: Showed normal first and second heart sounds with no gallop, rub or murmur. CHEST: Clear to auscultation. No crepitation or rhonchi. ABDOMEN: Distended, soft with gastrostomy tube in place. There is no guarding or rigidity. No organomegaly. Hernial orifices intact. Bowel sounds normal. NEUROLOGIC: He was awake, alert, responding appropriately. Cranial nerves intact. He moves extremities without difficulty, ambulates without assistance or assistive devices. His intake over the last 24 hours was 4,000, output was 4350. LABORATORY DATA: His lab work as of this morning showed a white cell count of 8300, hemoglobin was 11.8, hematocrit 36, MCV 92, and platelet count 214,000. His chemistry showed a serum sodium of 139, potassium 4, chloride 102, bicarbonate 34, anion gap of 3, BUN 13, creatinine 0.6, estimated GFR was 134 mL per minute. His glucose was 89, calcium was 9.2. His TSH was high at 14.5; however, his total T4 and free T4 were within normal range. ASSESSMENT: 1. Aspiration pneumonia. 2. Acute hypoxic hypercapnic respiratory failure. 3. History of nasopharyngeal carcinoma, status post radical neck dissection. 4. Dysphagia, status post gastrostomy tube placement. 5. Tongue cancer, treated with radiation therapy in 2007. 6. Hypothyroidism, although her TSH was slightly high, free T4 and total T4 were within normal range. 7. Hypertension, hyperlipidemia, coronary artery disease status post myocardial infarction in 2014, peripheral vascular disease. 8. Gastroesophageal reflux disease. 9. Benign prostatic hypertrophy. 10. B12 deficiency. KAYLEE ANAND MD DR: AKILAH/juliana JOB#: [id number] / [id number]
== END 2017-09-28 12:30 | disposition home health service (06) | DRG 177 ==
LOC: ER 11:48 → OBSVTOIN 12:53 → INTOOBSV 12:53 → ICU 12:53
PROVIDERS: ADMIT Internal Medicine; ATTEND Internal Medicine
PROC: 5A09357 Assistance with Respiratory Ventilation, Less than 24 Consecutive Hours, Continuous Positive Airway Pressure (ICD-10-PCS; 2017-09-25)
PROC: 5A09357 Assistance with Respiratory Ventilation, Less than 24 Consecutive Hours, Continuous Positive Airway Pressure (ICD-10-PCS; principal; 2017-09-27)
DX: J69.0 Pneumonitis due to inhalation of food and vomit (principal); J96.21 Acute and chronic respiratory failure with hypoxia; I11.0 Hypertensive heart disease with heart failure; I50.9 Heart failure, unspecified; J96.22 Acute and chronic respiratory failure with hypercapnia; K21.9 Gastro-esophageal reflux disease without esophagitis; E53.8 Deficiency of other specified B group vitamins; N40.0 Benign prostatic hyperplasia without lower urinary tract symptoms; E78.5 Hyperlipidemia, unspecified; I25.10 Atherosclerotic heart disease of native coronary artery without angina pectoris; I73.9 Peripheral vascular disease, unspecified; E03.9 Hypothyroidism, unspecified; E78.00 Pure hypercholesterolemia, unspecified; G47.00 Insomnia, unspecified; I25.2 Old myocardial infarction; Z82.5 Family history of asthma and other chronic lower respiratory diseases; Z82.49 Family history of ischemic heart disease and other diseases of the circulatory system; Z81.8 Family history of other mental and behavioral disorders; Z80.0 Family history of malignant neoplasm of digestive organs; Z92.3 Personal history of irradiation; Z85.810 Personal history of malignant neoplasm of tongue; Z85.818 Personal history of malignant neoplasm of other sites of lip, oral cavity, and pharynx; Z93.1 Gastrostomy status; Z93.3 Colostomy status; Z88.5 Allergy status to narcotic agent; Z88.1 Allergy status to other antibiotic agents; Z90.89 Acquired absence of other organs; Z79.899 Other long term (current) drug therapy; Z79.82 Long term (current) use of aspirin; Z92.21 Personal history of antineoplastic chemotherapy
CPT/HCPCS: 36415; 71045; 71046; 80048; 80053; 80076; 80202; 81001; 82553; 82803; 83605; 83690; 83735; 83880; 84436; 84439; 84443; 84480; 84484; 85007; 85025; 87040; 87070; 87205; 87641; 87804; 93005; 94640; 96365; 96375; G0238; J0456; J0696; J1940; J2543; J3370; J7040; J7050; J7620; 99291-25; J7030

== ENCOUNTER 2017-11-26 01:32 | Inpatient (IN) | payer MEDICARE, OTHER ==
[~2017-11-26] VITALS: Ht 175.3 cm; Wt 86.8 kg
[2017-11-26] VITALS (11 sets, daily range): BP systolic 85–111; BP diastolic 45–63
[~2017-11-26 01:32] MED LIST changes: +AMOX1TAB61 PO; +LORA-254 PO; -LORA1TAB PO
[2017-11-26] MEDS: IV RINGERS SOLUTION,LACTATED 1,000 ML IV SCH ×3 (01:47→07:19)
--- NOTE | 2017-11-26 01:47 | ED.ADGEN ---
Past History Past Medical History: CAD, Cancer, CHF, Hypertension, Hypothyroid, [place], Pneumonia, Other Past Surgical History: Cancer Surgery, Tonsillectomy, Other Alcohol Use: None Drug Use: None Adult General Chief Complaint Chief Complaint ".. I was out today a concert for about hour... and did go to [employer]... and [employer].. and I worked on a dog run... but tonight I got more short of breath.. and fevers...".. " I am coughing up some stuff... I ve had pneumonia before and this neck and tongue cancer ..." HPI HPI Patient is a 67 year old male who presents with above hx and complaints of dyspnea. Pt. hx of Throat cancer with surgery, chemo, and radiation tx. in 2008. Pt. Hx. of aspiration pneumonia since surgery in 2008. Pt. normally on 2 Lit. with CPAP at night. Pt. on arrival sats. in 80% on room air. Pt. has had some subjective complaints of fever and chills. Hx of productive cough with discolored sputum. No travel or specific ill contacts. No changes in meds. Pt. normally follow with Dr. Alexander. Review of Systems Review of Systems Constitutional: Hx of fever and chills [] Eyes: Denies change in visual acuity, redness, or eye pain [] HENT: Denies nasal congestion or sore throat [] Respiratory: Hx. cough and shortness of breath [] Cardiovascular: No additional information not addressed in HPI [] GI: Denies abdominal pain, nausea, vomiting, bloody stools or diarrhea [] : Denies dysuria or hematuria [] Musculoskeletal: Denies back pain or joint pain [] Integument: Denies rash or skin lesions [] Neurologic: Denies headache, focal weakness or sensory changes [] Endocrine: Denies polyuria or polydipsia [] All other systems were reviewed and found to be within normal limits, except as documented in this note. Family History Family History Non- contributory Current Medications Current Medications Current Medications Medications (Trade) Dose Ordered Sig/Gauri Start Time Stop Time Status Last Admin Dose Admin Azithromycin (Zithromax) 500 mg STK-MED ONCE 11/26/17 03:17 11/26/17 03:18 DC Azithromycin 500 mg/Sodium Chloride 250 ml @ 250 mls/hr 1X ONCE 11/26/17 02:15 11/26/17 03:14 DC 11/26/17 03:15 250 MLS/HR Ceftriaxone Sodium 1 gm/ Sodium Chloride 50 ml @ 100 mls/hr 1X ONCE 11/26/17 03:45 11/26/17 05:41 DC Ceftriaxone Sodium 2 gm/ Sodium Chloride 100 ml @ 200 mls/hr 1X ONCE 11/26/17 02:15 11/26/17 02:44 DC Clindamycin Phosphate 50 ml @ 100 mls/hr ONCE ONCE 11/26/17 04:00 11/26/17 04:29 DC 11/26/17 04:00 100 MLS/HR Enoxaparin Sodium (Lovenox 80mg Syringe) 80 mg 1X STAT 11/26/17 03:38 11/26/17 03:42 DC 11/26/17 03:38 80 MG Info (Anti-Coagulation Monitoring By Pharmacy) 1 each PRN DAILY PRN 11/26/17 04:00 Info (Do NOT chart on this entry -- for MONITORING) 1 each PRN DAILY PRN 11/26/17 03:45 11/28/17 03:44 Iohexol (Omnipaque 300 Mg/ml) 75 ml 1X ONCE 11/26/17 03:45 11/26/17 03:46 DC 11/26/17 04:38 75 ML Lactated Ringer's 1,000 ml @ 100 mls/hr Q10H 11/26/17 01:47 11/26/17 11:46 11/26/17 01:47 100 MLS/HR Sodium Chloride 250 ml @ As Directed STK-MED ONCE 11/26/17 03:17 11/26/17 03:18 DC See nursing for home medications Allergies Allergies Allergies Coded Allergies Type Severity Reaction Last Updated Verified ciprofloxacin Allergy Intermediate 07/17/16 Yes codeine Allergy Intermediate 07/17/16 Yes Physical Exam Physical Exam Constitutional: In acute distress, non-toxic appearance. [] HENT: Normocephalic, atraumatic, bilateral external ears normal, oropharynx moist, no oral exudates, nose normal. []Scaring on Rt. Eyes: PERRLA, EOMI, conjunctiva normal, no discharge. [] Neck: Normal range of motion, no tenderness, supple, no stridor. [] Extensive scaring Rt. Cardiovascular:Heart rate regular rhythm, no murmur [] Lungs & Thorax: Bilateral breath sounds diffuse rhonchi, more or Lt. and crackles on auscultation [] Scar. Abdomen: Bowel sounds normal, soft, no tenderness, no masses, no pulsatile masses. [] Gastric feeding tube. Skin: Warm, dry, no erythema, no rash. Poor turgor Back: No tenderness, no CVA tenderness. [] Extremities: No tenderness, no cyanosis, no clubbing, ROM intact, 2+ ankle edema. [] Neurologic: Alert and oriented X 3, moves all ext. on request, no gross focal deficits noted. [] Psychologic: Affect anxious, judgement normal, mood depressed. Current Patient Data Vital Signs Vital Signs Date Time Temp Pulse Resp B/P (MAP) Pulse Ox O2 Delivery O2 Flow Rate FiO2 11/26/17 03:30 79 16 94/49 (64) 92 Nasal Cannula 2.0 11/26/17 01:32 101.1 Lab Results Laboratory Tests Test 11/26/17 01:45 White Blood Count 12.8 x10^3/uL (4.0-11.0) H Red Blood Count 4.01 x10^6/uL (4.30-5.70) L Hemoglobin 11.8 g/dL (13.0-17.5) L Hematocrit 36.3 % (39.0-53.0) L Mean Corpuscular Volume 90 fL (79-100) Mean Corpuscular Hemoglobin 29 pg (25-35) Mean Corpuscular Hemoglobin Concent 32 g/dL (31-37) Red Cell Distribution Width 15.5 % (11.5-14.5) H Platelet Count 165 x10^3/uL (140-400) Neutrophils (%) (Auto) 87 % (31-73) H Lymphocytes (%) (Auto) 5 % (24-48) L Monocytes (%) (Auto) 7 % (0-9) Eosinophils (%) (Auto) 0 % (0-3) Basophils (%) (Auto) 1 % (0-3) Neutrophils # (Auto) 11.1 x10^3uL (1.8-7.7) H Lymphocytes # (Auto) 0.6 x10^3/uL (1.0-4.8) L Monocytes # (Auto) 0.9 x10^3/uL (0.0-1.1) Eosinophils # (Auto) 0.0 x10^3/uL (0.0-0.7) Basophils # (Auto) 0.1 x10^3/uL (0.0-0.2) Prothrombin Time 10.8 SEC (9.4-11.4) Prothrombin Time INR 1.1 (0.9-1.1) PTT 27 SEC (23-33) D-Dimer (Leela) 1.12 mg/L (0.00-0.50) H Blood pH 7.43 (7.35-7.46) Blood Gas PCO2 57 mmHg (35-46) H Blood Gas PO2 32 mmHg (80-100) *L Blood Gas HCO3 38 mmol/L (21-28) H Arterial Bld O2 Saturation (Calc) 62 % (92-99) L FiO2 21 % Sodium Level 139 mmol/L (136-145) Potassium Level 4.1 mmol/L (3.5-5.1) Chloride Level 100 mmol/L (98-107) Carbon Dioxide Level 34 mmol/L (21-32) H Anion Gap 5 (6-14) L Blood Urea Nitrogen 24 mg/dL (8-26) Creatinine 0.7 mg/dL (0.7-1.3) Estimated GFR (Cockcroft-Gault) 112.8 Glucose Level 104 mg/dL (70-99) H Calcium Level 8.6 mg/dL (8.5-10.1) Magnesium Level 2.1 mg/dL (1.8-2.4) Total Bilirubin 0.6 mg/dL (0.2-1.0) Direct Bilirubin 0.2 mg/dL (0.0-0.2) Aspartate Amino Transferase (AST) 26 U/L (15-37) Alanine Aminotransferase (ALT) 25 U/L (16-63) Alkaline Phosphatase 78 U/L (46-116) Creatine Kinase 114 U/L (39-308) Creatine Kinase MB (Mass) 0.8 ng/mL (0.0-3.6) Creatine Kinase MB Relative Index 0.7 % (0-4) Troponin I Quantitative < 0.017 ng/mL (0-0.055) IU-Mzs-E-Type Natriuretic Peptide 561 pg/mL (0-124) H Total Protein 7.2 g/dL (6.4-8.2) Albumin 2.9 g/dL (3.4-5.0) L Lipase 78 U/L (73-393) EKG EKG I interpretation of EKG shows a sinus rhythm at 81 bpm. There is left axis. No findings acute STEMI of contralateral changes.[] Radiology/Procedures Radiology/Procedures My interpretation of chest x-ray shows[]bilateral infiltrates, more consolidation or Rt. . Prominent Pul. Art. Old surgery clips CT chest pending at time of admit. Course & Med Decision Making Course & Med Decision Making Pertinent Labs and Imaging studies reviewed. (See chart for details) Critical care - 60 min. Discussed presentation, testing and tx. plan with Dr. Grover. will admit for further eval. and tx. . [] Final Impression Final Impression 1. Respiratory Failure- Hypoxia 2. Hx. Respiratory Pneumonitis 3. Hx. of Throat , neck and tongue CA- s/p surgery, chemo and radiation tx - 2008. 4. [Pneumonia 5. CHF] 6. Elevated D-dimer 7. Leukocytosis 8. Anemia 9. Malnutrition Alb. 2.9 10. CHF Dragon Disclaimer Dragon Disclaimer This electronic medical record was generated, in whole or in part, using a voice recognition dictation system. AURORA JONES MD Nov 26, 2017 01:47
[2017-11-26 02:01] LABS: BASO # 0.1 x10^3/uL (0.0-0.2); BASO % 1 % (0-3); EOS % 0 % (0-3); HEMATOCRIT 36.3 % (39.0-53.0); HEMOGLOBIN 11.8 g/dL (13.0-17.5); LYMPH # 0.6 x10^3/uL (1.0-4.8); LYMPH % 5 % (24-48); MEAN CORPUSCULAR HEMOGLOBIN 29 pg (25-35); MEAN CORPUSCULAR HGB CONC 32 g/dL (31-37); MEAN CORPUSCULAR VOLUME 90 fL (79-100); MONO # 0.9 x10^3/uL (0.0-1.1); MONO % 7 % (0-9); NEUT # 11.1 x10^3uL (1.8-7.7); NEUT % 87 % (31-73); PLATELET COUNT 165 x10^3/uL (140-400); RED BLOOD COUNT 4.01 x10^6/uL (4.30-5.70); RED CELL DISTRIBUTION WIDTH 15.5 % (11.5-14.5); WHITE BLOOD COUNT 12.8 x10^3/uL (4.0-11.0)
[2017-11-26 02:05] LABS: BGAS PH 7.43 (7.35-7.46)
[2017-11-26] MEDS ORDERED: AZITHROMYCIN 500 MG in IV NORMAL SALINE 250ML 250 ML IV ONE (02:15)
[2017-11-26 02:22] LABS: ALBUMIN 2.9 g/dL (3.4-5.0); CALCIUM 8.6 mg/dL (8.5-10.1); CREATININE 0.7 mg/dL (0.7-1.3); DIRECT BILIRUBIN 0.2 mg/dL (0.0-0.2); GFR 112.8; MAGNESIUM 2.1 mg/dL (1.8-2.4); POTASSIUM 4.1 mmol/L (3.5-5.1); TOTAL BILIRUBIN 0.6 mg/dL (0.2-1.0); TOTAL PROTEIN 7.2 g/dL (6.4-8.2)
[2017-11-26] MEDS ORDERED: IV NORMAL SALINE 250ML 250 ML ONE (03:17)
[2017-11-26] MEDS ORDERED: AZITHROMYCIN 500 MG VIAL. IV ONE (03:17)
[2017-11-26] MEDS ORDERED: ENOXAPARIN ** NOTE DOSE ** SYRINGE SQ STA (03:38)
[2017-11-26] MEDS ORDERED: IOHEXOL 300 MG/ML 75 ML VIAL. IV ONE (03:45)
[2017-11-26] MEDS ORDERED: CONTRAST GIVEN MC PRN (03:45)
[2017-11-26] MEDS ORDERED: CLINDAMYCIN 600MG PREMIX 50 ML IV SCH (03:54)
[2017-11-26] MEDS ORDERED: ANTI-COAG MONITOR BY PHARMACY. MC PRN (04:00)
[2017-11-26] MEDS ORDERED: CLINDAMYCIN 600MG PREMIX 50 ML IV ONE (04:00)
--- NOTE | 2017-11-26 05:20 | RAD ---
INDICATION: Omni 300, 75ml IV. Elevated d-dimer, respiratory failure, hx tongue/esophageal cancer COMPARISON: June 2016 TECHNIQUE: Axial CT images obtained through the chest. Intravenous contrast utilized. Angiogram 3D images processed per protocol. One or more of the following individualized dose reduction techniques were utilized for this examination: 1. Automated exposure control; 2. Adjustment of the mA and/or kV according to patient size; 3. Use of iterative reconstruction technique. FINDINGS: Bilateral dense opacities at the left greater than right lung most severe within the lower lungs but patchy opacities are seen elsewhere as well. Lymphadenopathy is again seen within the mediastinum and bilateral hilum. For example adjacent to the aortic arch on the left measuring up to 18 mm short axis and was previously 14 mm short axis. Partial visualization of large left renal cystic lesion measuring up to at least 8.3 cm. There is possible calcification within. Additional low-density lesion of the left kidney measuring approximately 24 mm. Partially visualized spleen appears prominent in size. Portions of thoracic aorta not well evaluated secondary to motion but no definite aneurysm or dissection flap in visualized portions. There is some calcific atherosclerosis of the coronary arteries. Percutaneous gastrostomy tube. Degenerative changes of spine. No central pulmonary embolus but limited peripherally secondary to the patient's airspace consolidation. The pulmonary arteries are prominent in size. For example the right main pulmonary artery measures approximately 32 mm. IMPRESSION: No definite embolus in the main, right main or left main pulmonary artery with limitation peripherally secondary to consolidation within the lungs and contrast bolus timing. The pulmonary arteries do appear prominent in size. Would correlate for possible causes such as pulmonary artery hypertension. Dense opacities within the bilateral lungs, left greater than right. Could be infectious or inflammatory in nature with some other possible causes including aspiration. Neoplastic causes also within the differential and follow-up could be obtained to ensure that this decreases in severity. Lymphadenopathy within the mediastinum and hilum is again seen and some these appear slightly increased from prior. Could be reactive or neoplastic in nature. This includes adjacent to the esophagus. Electronically signed by: Theo Nino MD (11/26/2017 5:17 AM) [id number]
--- NOTE | 2017-11-26 06:25 | EKG ---
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
[2017-11-26 06:37] LABS: BILIRUBIN,URINE NEG (NEG); CLARITY,URINE CLEAR; COLOR,URINE YELLOW; GLUCOSE,URINE NEG (NEG); NITRITE,URINE NEG (NEG); RBC,URINE 0 /HPF (0-2); UROBILINOGEN,URINE 1 mg/dL (0.2 mg/dL)
[2017-11-26 06:38] LABS: AMORPHOUS SEDIMENT,UR PRESENT /HPF; BACTERIA,URINE 0 /HPF (0-FEW); SQUAMOUS EPITHELIAL CELL,UR OCC /LPF; WBC,URINE RARE /HPF (0-4)
[2017-11-26] MEDS ORDERED: LEVO200T5 PO (07:06)
[2017-11-26] MEDS ORDERED: CRESTOR40 MG PO (07:06)
--- NOTE | 2017-11-26 08:36 | RAD ---
Portable chest, 11/26/2017: HISTORY: Dyspnea, previous congestive heart failure and pneumonia Comparison is made to a study from 09/28/2017. The heart is mildly enlarged. There is worsening infiltrate in the left lower chest with probable associated pleural fluid. Previously seen right upper lobe infiltrate has cleared. The pulmonary vascularity appears to be within normal limits. No right-sided pleural fluid is evident. IMPRESSION: 1. Interval clearing of the right upper lobe. 2. Worsening moderate left basilar infiltrate with possible pleural fluid. Pneumonia is suspected. Electronically signed by: Morales Quezada MD (11/26/2017 8:32 AM) [facility]
[2017-11-26] MEDS ORDERED: ENOXAPARIN ** NOTE DOSE ** SYRINGE SQ SCH (09:00)
--- NOTE | 2017-11-26 11:53 | RAD ---
Bilateral lower extremity venous ultrasound, 11/26/2017: History: Bilateral lower extremity swelling Duplex evaluation of the deep veins in the lower extremities was performed including grayscale, color-flow and spectral Doppler analysis. The femoral and popliteal veins demonstrate normal compressibility and normal responses to distal augmentation maneuvers. There is partial duplication of the femoral veins bilaterally. Color imaging of those vessels shows no evidence of intraluminal clot. The visualized deep veins in both calves are patent. IMPRESSION: There is no sonographic evidence of deep vein thrombosis in either lower extremity. Electronically signed by: Morales Quezada MD (11/26/2017 11:49 AM) [facility]
[2017-11-26] MEDS ORDERED: LORazepam 1 MG TABLET PO PRN (12:00)
[2017-11-26] MEDS: ENOXAPARIN 40 MG/0.4 ML SYRINGE. SQ SCH (12:52)
[2017-11-26] MEDS ORDERED: FERROUS SULFATE 325 MG TABLET. PO SCH (13:00)
[2017-11-26] MEDS ORDERED: SERT100T PO (13:44)
[2017-11-26] MEDS: FUROSEMIDE 20 MG TABLET PO SCH (14:01)
[2017-11-26] MEDS: LEVOTHYROXINE 100 MCG TABLET PO SCH (14:01)
[2017-11-26] MEDS: POTASSIUM CHLORIDE 10 MEQ TABLET.ER. PO SCH (14:01)
[2017-11-26] MEDS: LACTOBACILLUS RHAMNOSUS GG 1 CAPSULE. PO SCH ×2 (14:01→23:01)
[2017-11-26] MEDS: SERTRALINE 100 MG TABLET. PO SCH (14:02)
[2017-11-26] MEDS: ASPIRIN 81 MG TAB.CHEW PO SCH (14:02)
[2017-11-26] MEDS: CLINDAMYCIN 600MG PREMIX 50 ML IV SCH ×2 (14:02→23:01)
--- NOTE | 2017-11-26 15:27 | HP ---
ADMIT DATE: 11/26/2017 HISTORY OF PRESENT ILLNESS: The patient is a 67-year-old male patient, who came to the Emergency Room with complaint of cough, shortness of breath and fever. Apparently, his says that his temperature went up to 101.8 last night and he came to the Emergency Room where he was evaluated and was diagnosed with pneumonia and was admitted with diagnosis of acute hypoxic respiratory failure, left lower lobe pneumonia. He was also found to have anemia, elevated D-dimer. He underwent CT angio, which showed that there are no definite emboli in his main and right and left pulmonary arteries; however, the patient has dense opacities within the bilateral lungs, left greater than right. It could be infectious, inflammatory in nature with some other possible causes including aspiration neoplastic also within the differential. He has also lymphadenopathy within the mediastinum and hilum is again seen and some of these appear slightly increased from prior could be reactive or neoplastic in nature. The patient was admitted and was started on IV clindamycin as well as azithromycin together with ceftriaxone. PAST MEDICAL HISTORY: Significant for history of tongue cancer treated with radiation in 2007. He has also tonsillectomy and radical neck dissection in 2007, hypertension, hypothyroidism, hyperlipidemia, coronary artery disease, status post myocardial infarction, peripheral vascular disease, gastroesophageal reflux disease, benign prostatic hypertrophy, insomnia, vitamin B12 deficiency as well as dysphagia. PAST SURGICAL HISTORY: Significant for tonsillectomy, radical neck dissection in 2007. He has also history of tongue cancer treated with radiation in 2007 and percutaneous endoscopic gastrostomy tube placement. FAMILY HISTORY: Positive for myocardial infarction, colon cancer, COPD, anxiety and depression. ALLERGIES: He is allergic to CIPRO and CODEINE. SOCIAL HISTORY: The patient denied any alcohol, tobacco or illicit drug use. REVIEW OF SYSTEMS: As per history of present illness. MEDICATIONS: He is currently on following medications: He is on ferrous sulfate 325 mg once a day with breakfast, Crestor 40 mg at bedtime, carvedilol 12.5 mg twice a day, amlodipine besylate 10 mg once a day, aspirin 81 mg once a day, lorazepam 1 mg at bedtime, Ambien 10 mg at bedtime, potassium chloride 10 mEq daily, furosemide 20 mg once a day, levothyroxine sodium 200 mcg once a day. PHYSICAL EXAMINATION: GENERAL: On arrival to the Emergency Room; the patient was slightly pale, but not jaundiced, cyanosis, thyromegaly. No jugular venous distension. No lower limb edema. VITAL SIGNS: His heart rate was 79, blood pressure 107/70, temperature was 101.1, respiratory rate was 16 and oxygen saturation was 92%. HEAD, EYES, EARS, NOSE AND THROAT: Showed normocephalic, atraumatic. NECK: Supple. HEART: Showed normal first and second heart sounds. No gallop, rub or murmur. CHEST: Shows central trachea, equal bilateral expansion, equal air entry, vesicular sounds anteriorly. The patient has bilateral crepitation, more so on the left than the right. I could not appreciate any rhonchi. ABDOMEN: Scaphoid, soft with gastrostomy tube in place. There is no guarding or rigidity. No organomegaly. All hernial orifice intact. Bowel sounds normal. NEUROLOGIC: He is awake, alert, responding appropriately. All cranial nerves intact. EXTREMITIES: He moves extremities without difficulty. LABORATORY DATA: Showed a white cell count 12,800, hemoglobin 11.8, hematocrit 36.3, MCV 90 and platelet count of 165,000. His serum sodium was 139, potassium 4.1, chloride 100, bicarbonate 34, anion gap of 5, BUN 24, creatinine 0.7, estimated GFR was 113 mL per minute. His glucose was 104, lactic acid was only 0.9, calcium was 8.6, magnesium 2.1. Total bilirubin, AST, ALT, alkaline phosphatase were normal. His beta natriuretic peptide was 561. Total protein was 7.2, albumin 2.9. His TSH was slightly elevated at 6.039. His pH was 7.43, pCO2 of 57, pO2 of 32, bicarbonate 38, and oxygen saturation was 62% on FiO2 of 21%. His prothrombin time was 10.8, INR 1.1, aPTT was 27. His D-dimer was elevated at 1.12 mg/dL. Urinalysis was unremarkable. His chest x-ray showed an interval clearing of the right upper lobe. Worsening moderate left bibasilar infiltrate with possible pleural effusion, pneumonia suspected. Given his elevated D-dimer the patient has CT angio of the chest showed no definite embolus in the right main and left main pulmonary artery with limitation peripherally secondary to consolidation within the lung and contrast bolus timing. The pulmonary arteries do appear prominent in size, which can correlate for possible cause such as primary pulmonary artery hypertension, dense opacities within the bilateral lungs, left greater than right with the Infectious inflammatory in nature with some other possible causes including aspiration, neoplastic cause also are within the differential. Follow up could be obtained to ensure that this decrease in size. He has also lymphadenopathy within the mediastinum and hilum with again seen and some of these appear to be slightly increased from prior could be reactive or neoplastic in nature. He did have also Doppler ultrasound of both lower extremities, the result of which is still pending. IMPRESSION: In summary, this is a 67-year-old male patient with past medical history significant for tongue cancer for which he underwent tonsillectomy and radical neck dissection. He has dysphagia and came with community-acquired pneumonia involving this time left side. He has infiltrate also on the right side and he has also hilar and mediastinal lymphadenopathy. ASSESSMENT AND PLAN: The patient was started on Zithromax, Rocephin and clindamycin. We will resume all his medication and continue his tube feeding. Monitor him closely and once we have the cultures might be able to discharge him to continue treatment as an outpatient oral antibiotic through his gastrostomy tube. KAYLEE ANAND MD DR: AKILAH/juliana JOB#: [id number] / [id number]
[2017-11-26] MEDS: CARVEDILOL 12.5 MG TABLET PO SCH (18:00)
[2017-11-26] MEDS: ATORVASTATIN CALCIUM 20 MG TABLET PO SCH (23:01)
[2017-11-26] MEDS: AZITHROMYCIN 500 MG in IV NORMAL SALINE 250ML 250 ML IV SCH (23:01)
[2017-11-26] MEDS: ZOLPIDEM 5 MG TABLET. PO SCH (23:01)
[2017-11-27] VITALS (20 sets, daily range): BP systolic 80–117; BP diastolic 39–65
[2017-11-27] MEDS: CLINDAMYCIN 600MG PREMIX 50 ML IV SCH ×3 (06:05→21:16)
[2017-11-27 06:34] LABS: BASO % 0 % (0-3); EOS # 0.1 x10^3/uL (0.0-0.7); EOS % 1 % (0-3); HEMATOCRIT 39.5 % (39.0-53.0); HEMOGLOBIN 12.6 g/dL (13.0-17.5); LYMPH # 1.5 x10^3/uL (1.0-4.8); LYMPH % 16 % (24-48); MEAN CORPUSCULAR HEMOGLOBIN 30 pg (25-35); MEAN CORPUSCULAR HGB CONC 32 g/dL (31-37); MEAN CORPUSCULAR VOLUME 93 fL (79-100); MONO # 0.8 x10^3/uL (0.0-1.1); MONO % 9 % (0-9); NEUT # 6.9 x10^3uL (1.8-7.7); NEUT % 73 % (31-73); PLATELET COUNT 182 x10^3/uL (140-400); RED BLOOD COUNT 4.27 x10^6/uL (4.30-5.70); RED CELL DISTRIBUTION WIDTH 15.8 % (11.5-14.5); WHITE BLOOD COUNT 9.3 x10^3/uL (4.0-11.0)
[2017-11-27 06:50] LABS: ALBUMIN 2.8 g/dL (3.4-5.0); ALBUMIN/GLOBULIN RATIO 0.5 (1.0-1.7); CALCIUM 8.7 mg/dL (8.5-10.1); CREATININE 0.6 mg/dL (0.7-1.3); GFR 134.8; POTASSIUM 3.9 mmol/L (3.5-5.1); TOTAL BILIRUBIN 0.6 mg/dL (0.2-1.0)
[2017-11-27] MEDS: amLODIPine BESYLATE 10 MG TABLET PO SCH (07:25)
[2017-11-27] MEDS: CARVEDILOL 12.5 MG TABLET PO SCH ×2 (07:25→17:00)
[2017-11-27] MEDS: ASPIRIN 81 MG TAB.CHEW PO SCH (07:40)
[2017-11-27] MEDS: LACTOBACILLUS RHAMNOSUS GG 1 CAPSULE. PO SCH ×2 (07:40→21:15)
[2017-11-27] MEDS: POTASSIUM CHLORIDE 10 MEQ TABLET.ER. PO SCH (07:40)
[2017-11-27] MEDS: SERTRALINE 100 MG TABLET. PO SCH (07:40)
[2017-11-27] MEDS: LEVOTHYROXINE 100 MCG TABLET PO SCH (07:41)
[2017-11-27] MEDS: IPRATRPIUM/ALBUTEROL 0.5/2.5MG 3 ML NEBU. NEB SCH ×4 (08:00→20:39)
[2017-11-27] MEDS: FUROSEMIDE 20 MG TABLET PO SCH (09:00)
[2017-11-27] MEDS: ENOXAPARIN 40 MG/0.4 ML SYRINGE. SQ SCH (11:07)
[2017-11-27] MEDS: AZITHROMYCIN 500 MG in IV NORMAL SALINE 250ML 250 ML IV SCH (21:15)
[2017-11-27] MEDS: ZOLPIDEM 5 MG TABLET. PO SCH (21:15)
[2017-11-27] MEDS: ATORVASTATIN CALCIUM 20 MG TABLET PO SCH (21:15)
[2017-11-28] VITALS (8 sets, daily range): BP systolic 97–114; BP diastolic 48–68
--- NOTE | 2017-11-28 01:41 | PN ---
DATE: 11/27/2017 SUBJECTIVE: The patient is resting, slightly propped up, sleeping comfortably in no apparent distress. Nursing staff is concerned about him. His blood pressure is borderline, but has no further episodes of, no fever, no shortness of breath. OBJECTIVE: GENERAL: When I examined him, he looked well and was slightly pale, but no jaundice or cyanosis. No lymphadenopathy, no thyromegaly. No jugular venous distention. No limb edema. VITAL SIGNS: His heart rate was 57, blood pressure was 112/55, temperature was 98, respiratory rate was 18 and oxygen saturation was 98% on 4 liters of oxygen by nasal cannula. HEAD, EYES, EARS, NOSE AND THROAT: Showed normocephalic, atraumatic. NECK: Supple. HEART: Showed normal first and second sounds. No gallop, rub or murmur. ABDOMEN: Distended, soft, nontender. No guarding or rigidity. No organomegaly. Hernial orifices intact. Bowel sounds normal. CHEST: Showed as equal bilateral expansion, air entry. Diffuse bilateral scattered rhonchi and crepitation, more so on the left than the right. NEUROLOGIC: He was sleepy, but arousable. All cranial nerves are intact. He moves extremities without difficulty, ambulates without assistance or assistive devices. His intake was 6600, output was 4800. LABORATORY DATA: Showed a white cell count is down to 9300, hemoglobin 12.6, hematocrit 39, MCV 93, and platelet count of 182,000. His chemistry showed a serum sodium of 139, potassium 3.9, chloride 102, bicarbonate 37, anion gap of 0, BUN of 11, creatinine 0.6, estimated GFR was 134 mL per minute, his glucose 106, calcium was 8.7. Total bilirubin, AST, ALT, alkaline phosphatase were normal. His total protein was 8, albumin was 2.8. TSH was slightly elevated at 6.038. His blood cultures are so far negative. PLAN: Continue with IV ceftriaxone and Zithromax. Continue with all other medication. ASSESSMENT: 1. Community-acquired pneumonia with chest x-ray showing left lower lobe infiltrate for which he is now on Rocephin and Zithromax. 2. Tongue cancer for which he underwent tonsillectomy, radical neck dissection. Other medical problems include: A. Hypertension. B. Hypothyroidism. C. Hyperlipidemia. D. Coronary artery disease, status post myocardial infarction. E. Peripheral vascular disease. The patient will be evaluated again tomorrow and we will decide on the further management if the patient is ready for discharge. KAYLEE ANAND MD DR: AKILAH/juliana JOB#: [id number] / [id number]
[2017-11-28] MEDS: IPRATRPIUM/ALBUTEROL 0.5/2.5MG 3 ML NEBU. NEB SCH ×2 (04:27→10:41)
[2017-11-28] MEDS: CLINDAMYCIN 600MG PREMIX 50 ML IV SCH (05:15)
[2017-11-28] MEDS ORDERED: cefTRIAXone IV Push 1 GM VIAL. IVP SCH (06:00)
[2017-11-28 06:39] LABS: HEMATOCRIT 34.4 % (39.0-53.0); HEMOGLOBIN 11.3 g/dL (13.0-17.5); RED BLOOD COUNT 3.75 x10^6/uL (4.30-5.70); RED CELL DISTRIBUTION WIDTH 15.6 % (11.5-14.5); WHITE BLOOD COUNT 4.8 x10^3/uL (4.0-11.0)
[2017-11-28 06:52] LABS: ALBUMIN 2.3 g/dL (3.4-5.0); ALBUMIN/GLOBULIN RATIO 0.5 (1.0-1.7); CALCIUM 8.3 mg/dL (8.5-10.1); CREATININE 0.5 mg/dL (0.7-1.3); GFR 166.4; POTASSIUM 3.9 mmol/L (3.5-5.1); TOTAL BILIRUBIN 0.5 mg/dL (0.2-1.0); TOTAL PROTEIN 6.8 g/dL (6.4-8.2)
[2017-11-28] MEDS: POTASSIUM CHLORIDE 10 MEQ TABLET.ER. PO SCH (07:50)
[2017-11-28] MEDS: LACTOBACILLUS RHAMNOSUS GG 1 CAPSULE. PO SCH (07:52)
[2017-11-28] MEDS: CARVEDILOL 12.5 MG TABLET PO SCH (07:52)
[2017-11-28] MEDS: FUROSEMIDE 20 MG TABLET PO SCH (07:52)
[2017-11-28] MEDS: LEVOTHYROXINE 100 MCG TABLET PO SCH (07:52)
[2017-11-28] MEDS: amLODIPine BESYLATE 10 MG TABLET PO SCH (07:53)
[2017-11-28] MEDS: ASPIRIN 81 MG TAB.CHEW PO SCH (07:53)
[2017-11-28] MEDS: SERTRALINE 100 MG TABLET. PO SCH (07:53)
[2017-11-28] MEDS: ENOXAPARIN 40 MG/0.4 ML SYRINGE. SQ SCH (07:59)
[2017-11-28] MEDS ORDERED: CEFP200T PO (10:09)
[2017-11-28] MEDS ORDERED: AZIT250T PO (10:09)
[2017-11-28 21:11] LABS: THYROXINE 4.7 ug/dL (4.5-12.0)
== END 2017-11-28 11:00 | disposition home or self-care (01) | DRG 871 ==
LOC: ER 01:32 → ICU 04:32
PROVIDERS: ADMIT Internal Medicine; ATTEND Internal Medicine
DX: A41.9 Sepsis, unspecified organism (principal); J18.9 Pneumonia, unspecified organism; J96.01 Acute respiratory failure with hypoxia; E46 Unspecified protein-calorie malnutrition; D64.9 Anemia, unspecified; E03.9 Hypothyroidism, unspecified; E78.5 Hyperlipidemia, unspecified; I11.0 Hypertensive heart disease with heart failure; I25.10 Atherosclerotic heart disease of native coronary artery without angina pectoris; I25.2 Old myocardial infarction; I50.9 Heart failure, unspecified; I73.9 Peripheral vascular disease, unspecified; K21.9 Gastro-esophageal reflux disease without esophagitis; N40.0 Benign prostatic hyperplasia without lower urinary tract symptoms; R79.1 Abnormal coagulation profile; R13.10 Dysphagia, unspecified; G47.00 Insomnia, unspecified; Z80.0 Family history of malignant neoplasm of digestive organs; Z82.49 Family history of ischemic heart disease and other diseases of the circulatory system; Z82.5 Family history of asthma and other chronic lower respiratory diseases; Z85.810 Personal history of malignant neoplasm of tongue; Z87.01 Personal history of pneumonia (recurrent); Z92.3 Personal history of irradiation; Z90.49 Acquired absence of other specified parts of digestive tract; Z88.8 Allergy status to other drugs, medicaments and biological substances; Z68.28 Body mass index [BMI] 28.0-28.9, adult
CPT/HCPCS: 36415; 36600; 71045; 71275; 80048; 80053; 80076; 81001; 82553; 82803; 83605; 83690; 83735; 83880; 84436; 84439; 84443; 84480; 84484; 85025; 85027; 85379; 85610; 85730; 87040; 87641; 93005; 93970; 94640; 96365; 96366; 96368; 96372; J0456; J0696; J1650; J3490; J7050; J7120; J7620; Q9967; 99291-25

== ENCOUNTER → 2018-01-09 | Outpatient (CLI) | payer MEDICARE ==
[2017-11-28 07:52] VITALS: BP 97/56
[~2018-01-09] MED LIST changes: +AZIT250T PO; +CRESTOR40 MG PO; +LEVO200T5 PO
--- NOTE | 2018-01-10 10:57 | CARD ---
MR#: [id number] Date of Study: 01/09/2018 Ordering Physician: HUONG JUSTICE, Referring Physician: HUONG JUSTICE, Tech: HEATHER Schulz APPROVED REPORT EXAM: Two-dimensional and M-mode echocardiogram with Doppler and color Doppler. Other Information Quality : Good Technically limited study due to body habitus. INDICATION Lower Extremity Edema 2D DIMENSIONS Left Atrium(2D)5.8 (1.6-4.0cm)IVSd0.9 (0.7-1.1cm) LVDd5.7 (3.9-5.9cm)LVOT Diameter2.3 (1.8-2.4cm) PWd1.0 (0.7-1.1cm)LVDs4.2 (2.5-4.0cm) FS (%) 24.0 %SV78.8 ml LVEF(%)55.0 (>50%) Aortic Valve AoV Peak Siddharth.150.0cm/Justin Peak GR.9.0mmHg LVOT Peak Siddharth.84.2cm/sAVA (VMAX)2.32cm2 Mitral Valve MV E Qdfcgqju15.1cm/sMV DECEL [id number] MV A Desohfcd64.0cm/sE/A Ratio1.2 Tricuspid Valve TR P. Hjwxorrt271ge/sRAP [id number] TR Peak Gr.25kvPePUSP52myFv LEFT VENTRICLE The left ventricle is normal size. A false tendon is noted at the apex. There is normal left ventricu lar wall thickness. The left ventricular systolic function is normal and the ejection fraction is wit hin normal range. The Ejection Fraction is 55-60%. There is normal LV segmental wall motion. Tissue D oppler imaging reveals mild left ventricular diastolic dysfunction. RIGHT VENTRICLE The right ventricle is normal size. There is normal right ventricular wall thickness. The right ventr icular systolic function is normal. ATRIA The left atrium is severely dilated. The right atrium is mildly dilated. The interatrial septum is in tact with no evidence for an atrial septal defect or patent foramen ovale as noted on 2-D or Doppler imaging. AORTIC VALVE The aortic valve is probably trileaflet but not well visualized. The aortic valve is mildly sclerotic . Doppler and Color Flow revealed trace aortic regurgitation. There is no significant aortic valvular stenosis. MITRAL VALVE The mitral valve is normal in structure and function. There is no mitral valve stenosis. Doppler and Color-flow revealed trace mitral regurgitation. TRICUSPID VALVE The tricuspid valve is normal in structure and function. Doppler and Color Flow revealed trace tricus pid regurgitation. There is no tricuspid valve stenosis. PULMONIC VALVE The pulmonic valve is not well visualized. Doppler and Color Flow revealed trace pulmonic valvular re gurgitation. There is no pulmonic valvular stenosis. GREAT VESSELS The aortic root is normal in size. The pulmonary artery is mildly dilated. The IVC is normal in size and collapses >50% with inspiration. PERICARDIAL EFFUSION There is no pleural effusion. There is no evidence of significant pericardial effusion. Critical Notification Critical Value: No <Conclusion> The left ventricular systolic function is normal and the ejection fraction is within normal range. The Ejection Fraction is 55-60%. There is normal LV segmental wall motion. Signed by : Huong Justice, Electronically Approved : 01/10/2018 10:56:54
== END | disposition home or self-care (01) ==
LOC: ECHO 12:59
PROVIDERS: ATTEND Internal Medicine Cardiovascular Disease
DX: R60.0 Localized edema (principal); I11.0 Hypertensive heart disease with heart failure; I50.9 Heart failure, unspecified; K21.9 Gastro-esophageal reflux disease without esophagitis; E11.9 Type 2 diabetes mellitus without complications; E78.5 Hyperlipidemia, unspecified; E03.9 Hypothyroidism, unspecified; I25.10 Atherosclerotic heart disease of native coronary artery without angina pectoris; Z85.01 Personal history of malignant neoplasm of esophagus; Z87.891 Personal history of nicotine dependence; Z85.810 Personal history of malignant neoplasm of tongue; Z92.3 Personal history of irradiation
CPT/HCPCS: 93306

== ENCOUNTER 2018-01-21 14:12 | Emergency (ER) | payer MEDICARE ==
[~2018-01-21] VITALS: Ht 175.3 cm; Wt 82.6 kg
[2018-01-21 14:20] VITALS: BP 117/57
[2018-01-21] MEDS ORDERED: ACETAMINOPHEN 650 MG/20.3 ML SOLUTION. PO ONE (15:15)
--- NOTE | 2018-01-21 15:19 | RAD ---
EXAM: Right index finger, 3 views. HISTORY: Laceration. COMPARISON: None. FINDINGS: Frontal, lateral and oblique views of the right index finger are obtained. There is a soft tissue defect within the tip of the second finger due to a laceration. No fracture or retained foreign body is seen. IMPRESSION: Soft tissue defect at this tip of the index finger. Electronically signed by: Tiffany Samuel MD (01/21/2018 3:15 PM) [facility]
--- NOTE | 2018-01-21 15:37 | PHYS DOC ---
Past History Past Medical History: CAD, Cancer, CHF, Hypertension, Hypothyroid, IA, Pneumonia Past Surgical History: Cancer Surgery, Tonsillectomy, Other Alcohol Use: Rarely Drug Use: None Adult General Chief Complaint Chief Complaint: FINGER INJURY HPI HPI 67-year-old right-handed male patient states he was using a leaf blower and his right index finger stuck in it's fan with injury to tip of index finger patient denies other injuries. Patient rated his pain moderate. Patient is up-to-date with his tetanus immunization. Review of Systems Review of Systems Constitutional: Denies fever or chills [] Eyes: Denies change in visual acuity, redness, or eye pain [] HENT: Denies nasal congestion or sore throat [] Respiratory: Denies cough or shortness of breath [] Cardiovascular: No additional information not addressed in HPI [] GI: Denies abdominal pain, nausea, vomiting, bloody stools or diarrhea [] : Denies dysuria or hematuria [] Musculoskeletal: Denies back pain, reports joint pain [] Integument: Denies rash or skin lesions [] Neurologic: Denies headache, focal weakness or sensory changes [] Endocrine: Denies polyuria or polydipsia [] All other systems were reviewed and found to be within normal limits, except as documented in this note. Current Medications Current Medications Current Medications Medications (Trade) Dose Ordered Sig/Gauri Start Time Stop Time Status Last Admin Dose Admin Acetaminophen (Tylenol Oral Soln) 650 mg 1X ONCE 01/21/18 15:15 01/21/18 15:16 DC Allergies Allergies Allergies Coded Allergies Type Severity Reaction Last Updated Verified ciprofloxacin Allergy Intermediate 07/17/16 Yes codeine Allergy Intermediate 07/17/16 Yes Physical Exam Physical Exam Constitutional: Well developed, well nourished, mild distress, non-toxic appearance. [] HENT: Normocephalic, atraumatic Eyes: PERRLA, EOMI, conjunctiva normal, no discharge. [] Neck: Normal range of motion, no tenderness, supple, no stridor. [] Cardiovascular:Heart rate regular rhythm, no murmur [] Lungs & Thorax: Bilateral breath sounds clear to auscultation [ Abdomen: PEG tube in place] Skin: Warm, dry, no erythema, no rash. [] Extremities: Right index finger with a small part missing of tip of finger and mild injury to nail bed without neurovascular deficit or active bleeding Neurologic: Alert and oriented X 3, normal motor function, normal sensory function, no focal deficits noted. [] Psychologic: Affect normal, judgement normal, mood normal. [] Current Patient Data Vital Signs Vital Signs Date Time Temp Pulse Resp B/P (MAP) Pulse Ox O2 Delivery O2 Flow Rate FiO2 01/21/18 14:20 98.5 68 16 95 Room Air EKG EKG [] Radiology/Procedures Radiology/Procedures [][address] [address] IMAGING REPORT Signed PATIENT: KUSH HARGROVE ACCOUNT: [id number] : 1950 LOCATION: ER AGE: 67 SEX: M EXAM STATUS: PRE ER ORD. PHYSICIAN: CHARLIE AYALA MD REASON: index finger injury PROCEDURE: FINGER(S) RIGHT EXAM: Right index finger, 3 views. HISTORY: Laceration. COMPARISON: None. FINDINGS: Frontal, lateral and oblique views of the right index finger are obtained. There is a soft tissue defect within the tip of the second finger due to a laceration. No fracture or retained foreign body is seen. IMPRESSION: Soft tissue defect at this tip of the index finger. Electronically signed by: Tiffany Wilson MD (01/21/2018 3:15 PM) [facility] DICTATED AND SIGNED BY: TIFFANY WILSON MD DATE: 01/21/18 [id number] CC: JESENIA BOWSER MD; CHARLIE AYALA MD ~ Course & Med Decision Making Course & Med Decision Making Pertinent Imaging studies reviewed. (See chart for details) Evaluation of patient in ER showed 67-year-old male patient with injury to tip of right index finger with missing tissue with unremarkable x-ray. Nonadhesive dressing was applied and patient instructed to change dressing and follow with his primary care physician. Dragon Disclaimer Dragon Disclaimer This electronic medical record was generated, in whole or in part, using a voice recognition dictation system. 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
== END 2018-01-21 15:48 | disposition home or self-care (01) ==
LOC: ER 14:12
DX: S68.620A Partial traumatic transphalangeal amputation of right index finger, initial encounter (principal); I25.10 Atherosclerotic heart disease of native coronary artery without angina pectoris; I11.0 Hypertensive heart disease with heart failure; I50.9 Heart failure, unspecified; E03.9 Hypothyroidism, unspecified; I25.2 Old myocardial infarction; Z88.1 Allergy status to other antibiotic agents; Z88.5 Allergy status to narcotic agent; W31.89XA Contact with other specified machinery, initial encounter; Y93.89 Activity, other specified; Y92.89 Other specified places as the place of occurrence of the external cause; Y99.8 Other external cause status
CPT/HCPCS: 73140; 99284

== ENCOUNTER 2018-07-01 17:44 | Inpatient (IN) | payer MEDICARE ==
[~2018-07-01] VITALS: Ht 175.3 cm; Wt 81.0 kg
[~2018-07-01 17:44] MED LIST changes: -AMLO10TA2 PO; +AMLO10TA6 PO; -CARV12.52 PO; +CARV12.547 PO
--- NOTE | 2018-07-01 17:49 | ED.ADGEN ---
Past History Past Medical History: CAD, Cancer, CHF, Hypertension, Hypothyroid, [place], Pneumonia, Other Past Surgical History: Cancer Surgery, Tonsillectomy, Other Alcohol Use: Rarely Drug Use: None Adult General Chief Complaint Chief Complaint ".. I ve been getting sick the last couple days...today .. I had to turn up my oxygen... to keep my sat's up... I feel like I caught something from my ..... she been sick.. but I did have some vomiting last night several times..." HPI HPI Patient is a 68 year old male who presents with above hx. and complaints increased dyspnea, malaise and oxygen to maintain saturations. Patient has significant medical history with previous coronary artery disease, cancer, CHF, COPD, hypertension, hypothyroid, myocardial infarct. He is recently had upper respiratory bronchitis-like infection. Patient has had no recent travel or others sick contacts. Patient has been taking meds and as previous directed for his underlying chronic medical, issues. Patient normally follows Dr. Alexander. Patient normally O2 dependent at 2 L. Currently requiring 4 L maintain sats above 90%. Pt. suspect may have a component of aspiration pneumonitis. Review of Systems Review of Systems Constitutional: Checked a history of fever or chills [] Eyes: Denies change in visual acuity, redness, or eye pain [] HENT: History of nasal congestion and sore throat [] Respiratory: History of cough and shortness of breath [] Cardiovascular: No additional information not addressed in HPI [] GI: Denies abdominal pain, nausea, vomiting, bloody stools or diarrhea [] : Denies dysuria or hematuria [] Musculoskeletal: Denies back pain or joint pain [] Integument: Denies rash or skin lesions [] Neurologic: Denies headache, focal weakness or sensory changes [] Endocrine: Denies polyuria or polydipsia [] All other systems were reviewed and found to be within normal limits, except as documented in this note. Family History Family History currently ill with upper respiratory and bronchitis . Current Medications Current Medications Current Medications Medications (Trade) Dose Ordered Sig/Gauri Start Time Stop Time Status Last Admin Dose Admin Albuterol/ Ipratropium (Duoneb) 3 ml RTQID 07/01/18 20:00 07/02/18 19:59 1/13/19 21:24 3 ML Aspirin (Children'S Aspirin) 324 mg 1X ONCE 07/01/18 18:45 07/01/18 18:46 DC 07/01/18 18:53 324 MG Ceftriaxone Sodium 1 gm/ Sodium Chloride 50 ml @ 100 mls/hr 1X ONCE 07/01/18 20:00 07/01/18 20:29 DC 07/01/18 21:00 100 MLS/HR Iohexol (Omnipaque 350 Mg/ml) 100 ml 1X ONCE 07/01/18 20:00 07/01/18 20:03 DC 07/01/18 20:14 100 ML Lactated Ringer's 1,000 ml @ 100 mls/hr Q10H 07/01/18 18:13 07/02/18 04:12 07/01/18 18:54 100 MLS/HR Methylprednisolone Sodium Succinate (SOLU-Medrol 125MG VIAL) 125 mg 1X ONCE 07/01/18 20:15 07/01/18 20:16 DC 07/01/18 21:00 125 MG Ondansetron HCl (Zofran) 4 mg PRN Q4HRS PRN 07/01/18 20:00 07/02/18 19:59 Allergies Allergies Allergies Coded Allergies Type Severity Reaction Last Updated Verified ciprofloxacin Allergy Intermediate 07/01/18 Yes codeine Allergy Intermediate 07/17/16 Yes Physical Exam Physical Exam Constitutional: Moderate acute distress, non-toxic appearance. [] HENT: Normocephalic, atraumatic, bilateral external ears normal, oropharynx moist, no oral exudates, nose clear rhinorrhea Eyes: PERRLA, EOMI, conjunctiva normal, no discharge. [] Neck: Normal range of motion, no tenderness, supple, no stridor. [] Cardiovascular:Heart rate regular rhythm, PMI to the left, no murmur [] Lungs & Thorax: Bilateral breath sounds equal apexes, scattered wheezing and some marked bi- basilar rhonchi and crackle on auscultation []Seems to have more rhonchi on right. Abdomen: Bowel sounds normal, soft, no tenderness, no masses, no pulsatile masses. []G-tube. Skin: Warm, dry, no erythema, no rash. [] Poor turgor Back: No tenderness, no CVA tenderness. [] Extremities: No tenderness, no cyanosis, no clubbing, ROM intact, no edema. [] Arthritic changes Neurologic: Alert and oriented X 3, normal motor function, normal sensory function, no focal deficits noted. [] Psychologic: Affect anxious, judgement normal, mood normal. [] Current Patient Data Vital Signs Vital Signs Date Time Temp Pulse Resp B/P (MAP) Pulse Ox O2 Delivery O2 Flow Rate FiO2 07/01/18 19:36 72 20 114/66 (82) 94 Nasal Cannula 4.0 07/01/18 17:44 98.0 Lab Results Laboratory Tests Test 07/01/18 18:42 07/01/18 18:49 07/01/18 18:58 White Blood Count 6.9 x10^3/uL (4.0-11.0) Red Blood Count 3.96 x10^6/uL (4.30-5.70) L Hemoglobin 11.9 g/dL (13.0-17.5) L Hematocrit 36.4 % (39.0-53.0) L Mean Corpuscular Volume 92 fL (79-100) Mean Corpuscular Hemoglobin 30 pg (25-35) Mean Corpuscular Hemoglobin Concent 33 g/dL (31-37) Red Cell Distribution Width 13.9 % (11.5-14.5) Platelet Count 138 x10^3/uL (140-400) L Neutrophils (%) (Auto) 67 % (31-73) Lymphocytes (%) (Auto) 17 % (24-48) L Monocytes (%) (Auto) 15 % (0-9) H Eosinophils (%) (Auto) 1 % (0-3) Basophils (%) (Auto) 0 % (0-3) Neutrophils # (Auto) 4.6 x10^3uL (1.8-7.7) Lymphocytes # (Auto) 1.2 x10^3/uL (1.0-4.8) Monocytes # (Auto) 1.0 x10^3/uL (0.0-1.1) Eosinophils # (Auto) 0.1 x10^3/uL (0.0-0.7) Basophils # (Auto) 0.0 x10^3/uL (0.0-0.2) Prothrombin Time 10.8 SEC (9.4-11.4) Prothrombin Time INR 1.1 (0.9-1.1) PTT 31 SEC (23-33) D-Dimer (Leela) 1.06 mg/L (0.00-0.50) H Sodium Level 139 mmol/L (136-145) Potassium Level 4.5 mmol/L (3.5-5.1) Chloride Level 99 mmol/L (98-107) Carbon Dioxide Level 36 mmol/L (21-32) H Anion Gap 4 (6-14) L Blood Urea Nitrogen 24 mg/dL (8-26) Creatinine 0.8 mg/dL (0.7-1.3) Estimated GFR (Cockcroft-Gault) 96.4 Glucose Level 111 mg/dL (70-99) H Lactic Acid Level 0.6 mmol/L (0.4-2.0) Calcium Level 8.7 mg/dL (8.5-10.1) Magnesium Level 2.3 mg/dL (1.8-2.4) Total Bilirubin 0.6 mg/dL (0.2-1.0) Direct Bilirubin 0.2 mg/dL (0.0-0.2) Aspartate Amino Transferase (AST) 26 U/L (15-37) Alanine Aminotransferase (ALT) 26 U/L (16-63) Alkaline Phosphatase 93 U/L (46-116) Creatine Kinase 48 U/L (39-308) Troponin I Quantitative < 0.017 ng/mL (0-0.055) VV-Tey-V-Type Natriuretic Peptide 750 pg/mL (0-124) H Total Protein 7.3 g/dL (6.4-8.2) Albumin 2.8 g/dL (3.4-5.0) L Lipase 89 U/L (73-393) Urine Collection Type Unknown Urine Color Yellow Urine Clarity Clear Urine pH 7.0 Urine Specific [place] 1.010 Urine Protein Trace (NEG-TRACE) Urine Glucose (UA) Neg mg/dL (NEG) Urine Ketones (Stick) Neg mg/dL (NEG) Urine Blood Trace (NEG) Urine Nitrite Neg (NEG) Urine Bilirubin Neg (NEG) Urine Urobilinogen Dipstick 1 mg/dL (0.2 mg/dL) Urine Leukocyte Esterase Neg (NEG) Urine RBC Occ /HPF (0-2) Urine WBC Occ /HPF (0-4) Urine Squamous Epithelial Cells Few /LPF Urine Bacteria 0 /HPF (0-FEW) Urine Opiates Screen Neg (NEG) Urine Methadone Screen Neg (NEG) Urine Barbiturates Neg (NEG) Urine Phencyclidine Screen Neg (NEG) Urine Amphetamine/Methamphetamine Neg (NEG) Urine Benzodiazepines Screen Neg (NEG) Urine Cocaine Screen Neg (NEG) Urine Cannabinoids Screen Neg (NEG) Urine Ethyl Alcohol Neg (NEG) Influenza Type A (Rapid) Negative (NEGATIVE) Influenza Type B (Rapid) Negative (NEGATIVE) Group A Streptococcus Rapid Negative (NEGATIVE) EKG EKG My interpretation EKG shows a sinus rhythm at 74 bpm. There are occasional PACs. No findings acute STEMI with contralateral changes[] Radiology/Procedures Radiology/Procedures My interpretation of CXR shows cardiomegaly. Bibasilar infiltrates. Does have hilar adenopathy. No free air in the diaphragm. Lateral film shows some air broncho grams in the base. and lung consolidation. Some findings similar prior x -rays on file. Course & Med Decision Making Course & Med Decision Making Pertinent Labs and Imaging studies reviewed. (See chart for details) Pt. to be admitted to Dr. Grover - for further tx. and evaluation. Suspect probable component of Pneumonitis from aspiration with pt. hx. vomiting last night. Pt. CT pending at time of admission. [] Final Impression Final Impression 1. Dyspnea[]-Bilateral basilar pneumonia 2. Acute on Chronic Respiratory Failure- Hypoxia 3. Anemia 11.9 4. Elevated D. Dimer 1.05 5. Elevated BNP 750 6. Malnutrition Alb. 28 7. COPD exacerbation 8. Aspiration Pneumonitis. ?- Prior hx of Aspiration 9. Hx. Naso/Pharyngeal / Tongue CA- Tx. with Radiation 2007. 10. Hx. BPH Dragon Disclaimer Dragon Disclaimer This electronic medical record was generated, in whole or in part, using a voice recognition dictation system. Dragon Disclaimer This chart was dictated in whole or in part using Voice Recognition software in a busy, high-work load, and often noisy Emergency Department environment. It may contain unintended and wholly unrecognized errors or omissions. Discharge Summary Brief Hospital Course Allergies Allergies Coded Allergies Type Severity Reaction Last Updated Verified ciprofloxacin Allergy Intermediate 07/01/18 Yes codeine Allergy Intermediate 07/17/16 Yes Vital Signs Vital Signs Date Time Temp Pulse Resp B/P (MAP) Pulse Ox O2 Delivery O2 Flow Rate FiO2 07/01/18 19:36 72 20 114/66 (82) 94 Nasal Cannula 4.0 07/01/18 17:44 98.0 Lab Results Laboratory Tests Test 07/01/18 18:42 07/01/18 18:49 07/01/18 18:58 White Blood Count 6.9 x10^3/uL (4.0-11.0) Red Blood Count 3.96 x10^6/uL (4.30-5.70) Hemoglobin 11.9 g/dL (13.0-17.5) Hematocrit 36.4 % (39.0-53.0) Mean Corpuscular Volume 92 fL (79-100) Mean Corpuscular Hemoglobin 30 pg (25-35) Mean Corpuscular Hemoglobin Concent 33 g/dL (31-37) Red Cell Distribution Width 13.9 % (11.5-14.5) Platelet Count 138 x10^3/uL (140-400) Neutrophils (%) (Auto) 67 % (31-73) Lymphocytes (%) (Auto) 17 % (24-48) Monocytes (%) (Auto) 15 % (0-9) Eosinophils (%) (Auto) 1 % (0-3) Basophils (%) (Auto) 0 % (0-3) Neutrophils # (Auto) 4.6 x10^3uL (1.8-7.7) Lymphocytes # (Auto) 1.2 x10^3/uL (1.0-4.8) Monocytes # (Auto) 1.0 x10^3/uL (0.0-1.1) Eosinophils # (Auto) 0.1 x10^3/uL (0.0-0.7) Basophils # (Auto) 0.0 x10^3/uL (0.0-0.2) Prothrombin Time 10.8 SEC (9.4-11.4) Prothromb Time International Ratio 1.1 (0.9-1.1) Activated Partial Thromboplast Time 31 SEC (23-33) D-Dimer (Leela) 1.06 mg/L (0.00-0.50) Sodium Level 139 mmol/L (136-145) Potassium Level 4.5 mmol/L (3.5-5.1) Chloride Level 99 mmol/L (98-107) Carbon Dioxide Level 36 mmol/L (21-32) Anion Gap 4 (6-14) Blood Urea Nitrogen 24 mg/dL (8-26) Creatinine 0.8 mg/dL (0.7-1.3) Estimated GFR (Cockcroft-Gault) 96.4 Glucose Level 111 mg/dL (70-99) Lactic Acid Level 0.6 mmol/L (0.4-2.0) Calcium Level 8.7 mg/dL (8.5-10.1) Magnesium Level 2.3 mg/dL (1.8-2.4) Total Bilirubin 0.6 mg/dL (0.2-1.0) Direct Bilirubin 0.2 mg/dL (0.0-0.2) Aspartate Amino Transf (AST/SGOT) 26 U/L (15-37) Alanine Aminotransferase (ALT/SGPT) 26 U/L (16-63) Alkaline Phosphatase 93 U/L (46-116) Creatine Kinase 48 U/L (39-308) Troponin I Quantitative < 0.017 ng/mL (0-0.055) KW-Rot-F-Type Natriuretic Peptide 750 pg/mL (0-124) Total Protein 7.3 g/dL (6.4-8.2) Albumin 2.8 g/dL (3.4-5.0) Lipase 89 U/L (73-393) Urine Collection Type Unknown Urine Color Yellow Urine Clarity Clear Urine pH 7.0 Urine Specific [place] 1.010 Urine Protein Trace (NEG-TRACE) Urine Glucose (UA) Neg mg/dL (NEG) Urine Ketones (Stick) Neg mg/dL (NEG) Urine Blood Trace (NEG) Urine Nitrite Neg (NEG) Urine Bilirubin Neg (NEG) Urine Urobilinogen Dipstick 1 mg/dL (0.2 mg/dL) Urine Leukocyte Esterase Neg (NEG) Urine RBC Occ /HPF (0-2) Urine WBC Occ /HPF (0-4) Urine Squamous Epithelial Cells Few /LPF Urine Bacteria 0 /HPF (0-FEW) Urine Opiates Screen Neg (NEG) Urine Methadone Screen Neg (NEG) Urine Barbiturates Neg (NEG) Urine Phencyclidine Screen Neg (NEG) Urine Amphetamine/Methamphetamine Neg (NEG) Urine Benzodiazepines Screen Neg (NEG) Urine Cocaine Screen Neg (NEG) Urine Cannabinoids Screen Neg (NEG) Urine Ethyl Alcohol Neg (NEG) Influenza Type A (Rapid) Negative (NEGATIVE) Influenza Type B (Rapid) Negative (NEGATIVE) Group A Streptococcus Rapid Negative (NEGATIVE) Brief Hospital Course Mr. Bustamante is a 68 old male who presented with acute on chronic respiratory failure. Appear have bilateral basilar pneumonia and respiratory aspiration pneumonitis. Admitted to Dr. Grover Discharge Information Condition at Discharge: Improved, Comment Dischare Medications Current Medications Albuterol/ Ipratropium (Duoneb) 3 ml STK-MED ONCE .ROUTE ; Start 07/01/18 at 18: 05; Stop 07/01/18 at 18:07; Status DC Aspirin (Children'S Aspirin) 324 mg 1X ONCE PO Last administered on 07/01/18at 18:53; Admin Dose 324 MG; Start 07/01/18 at 18:45; Stop 07/01/18 at 18:46; Status DC Lactated Ringer's 1,000 ml @ 100 mls/hr Q10H IV Last administered on at 18:54; Admin Dose 100 MLS/HR; Start 07/01/18 at 18:13; Stop 07/02/18 at 04: 12 Ceftriaxone Sodium 1 gm/ Sodium Chloride 50 ml @ 100 mls/hr 1X ONCE IV Last administered on 07/01/18at 21:00; Admin Dose 100 MLS/HR; Start 07/01/18 at 20:00 ; Stop 07/01/18 at 20:29; Status DC Methylprednisolone Sodium Succinate (SOLU-Medrol 125MG VIAL) 125 mg 1X ONCE IV Last administered on 07/01/18at 21:00; Admin Dose 125 MG; Start 07/01/18 at 20: 15; Stop 07/01/18 at 20:16; Status DC Iohexol (Omnipaque 350 Mg/ml) 100 ml 1X ONCE IV Last administered on at 20:14; Admin Dose 100 ML; Start 07/01/18 at 20:00; Stop 07/01/18 at 20:03; Status DC Ondansetron HCl (Zofran) 4 mg PRN Q4HRS PRN IV NAUSEA/VOMITING; Start 07/01/18 at 20:00; Stop 07/02/18 at 19:59 Albuterol/ Ipratropium (Duoneb) 3 ml RTQID NEB Last administered on 07/01/18at 21:24; Admin Dose 3 ML; Start 07/01/18 at 20:00; Stop 07/02/18 at 19:59 Active Scripts Active Zithromax (Azithromycin) 250 Mg Tablet 250 Mg PO DAILY 7 Days Cefpodoxime Proxetil 200 Mg Tablet 1 Tab PO BID Potassium Chloride 10 Meq Capsule.er 1 Cap PO DAILY Furosemide 20 Mg Tablet 20 Mg PO DAILY Carvedilol 12.5 Mg Tablet 12.5 Mg PO BIDWMEALS Amlodipine Besylate 10 Mg Tablet 10 Mg PO DAILY Reported Zoloft (Sertraline Hcl) 100 Mg Tablet 1 Tab PO DAILY Levothyroxine Sodium 200 Mcg Tablet 200 Mcg PO DAILYAC Crestor (Rosuvastatin Calcium) 40 Mg Tablet 40 Mg PO HS Ativan (Lorazepam) 1 Mg Tablet 1 Mg PO PRN QHS PRN Zolpidem Tartrate 10 Mg Tablet 10 Mg PO HS Aspirin 81 Mg Tab.chew 81 Mg PO DAILY AURORA JONES MD Jul 01, 2018 17:49
[2018-07-01] MEDS ORDERED: IPRATRPIUM/ALBUTEROL 0.5/2.5MG 3 ML NEBU. ONE (18:05)
[2018-07-01] MEDS ORDERED: IV RINGERS SOLUTION,LACTATED 1,000 ML IV SCH (18:13)
--- NOTE | 2018-07-01 18:27 | EKG ---
[address] [address] Test Date: 2018-07-01 Test Time: 18:00:10 Pat Name: KUSH HARGROVE Department: Room: Gender: M Care Aid: : 1950 Requested By: AURORA JONES Order Number: [id number] Reading MD: Jacinto Kemp MD Measurements Intervals [place]ake Rate: 74 P: -6 ID: [id number] QRS: -1 QRSD: 94 T: 33 QT: 364 QTc: 409 Interpretive Statements SINUS RHYTHM Electronically Signed On 07-03-2018 11:10:04 [employer]NAGER [employer] by Jacinto Kemp MD
[2018-07-01] MEDS ORDERED: ASPIRIN 81 MG TAB.CHEW PO ONE (18:45)
--- NOTE | 2018-07-01 18:54 | RAD ---
Chest, PA and Lateral: Technique: PA and lateral views of the chest were obtained. History: Chest pain. Comparison: 11/26/2017. Findings: Low lung volumes accentuate heart size and pulmonary vascularity.. Mild bibasilar lung airspace opacities likely atelectasis or infiltrates.. . Impression: Mild bibasilar lung airspace opacities likely atelectasis or infiltrates. Follow-up to resolution. Electronically signed by: Neil Aguero MD (07/01/2018 6:49 PM) [id number]
[2018-07-01 19:15] LABS: BASO % 0 % (0-3); EOS # 0.1 x10^3/uL (0.0-0.7); EOS % 1 % (0-3); HEMATOCRIT 36.4 % (39.0-53.0); HEMOGLOBIN 11.9 g/dL (13.0-17.5); LYMPH # 1.2 x10^3/uL (1.0-4.8); LYMPH % 17 % (24-48); MEAN CORPUSCULAR HEMOGLOBIN 30 pg (25-35); MEAN CORPUSCULAR HGB CONC 33 g/dL (31-37); MEAN CORPUSCULAR VOLUME 92 fL (79-100); MONO % 15 % (0-9); NEUT # 4.6 x10^3uL (1.8-7.7); NEUT % 67 % (31-73); PLATELET COUNT 138 x10^3/uL (140-400); RED BLOOD COUNT 3.96 x10^6/uL (4.30-5.70); RED CELL DISTRIBUTION WIDTH 13.9 % (11.5-14.5); WHITE BLOOD COUNT 6.9 x10^3/uL (4.0-11.0)
[2018-07-01 19:16] LABS: BARBITURATES NEG (NEG); BENZODIAZEPINES NEG (NEG); CANNABINOIDS NEG (NEG); COCAINE NEG (NEG); METHADONE NEG (NEG); OPIATES NEG (NEG); PHENCYCLIDINE NEG (NEG)
[2018-07-01 19:20] LABS: AMPHETAMINE/METHAMPHETAMINE NEG (NEG)
[2018-07-01 19:26] LABS: ALBUMIN 2.8 g/dL (3.4-5.0); CALCIUM 8.7 mg/dL (8.5-10.1); CREATININE 0.8 mg/dL (0.7-1.3); DIRECT BILIRUBIN 0.2 mg/dL (0.0-0.2); GFR 96.4; MAGNESIUM 2.3 mg/dL (1.8-2.4); POTASSIUM 4.5 mmol/L (3.5-5.1); TOTAL BILIRUBIN 0.6 mg/dL (0.2-1.0); TOTAL PROTEIN 7.3 g/dL (6.4-8.2)
[2018-07-01 19:27] LABS: BILIRUBIN,URINE NEG (NEG); CLARITY,URINE CLEAR; COLOR,URINE YELLOW; GLUCOSE,URINE NEG (NEG); UROBILINOGEN,URINE 1 mg/dL (0.2 mg/dL)
[2018-07-01 19:28] LABS: BACTERIA,URINE 0 /HPF (0-FEW); NITRITE,URINE NEG (NEG); RBC,URINE OCC /HPF (0-2); SQUAMOUS EPITHELIAL CELL,UR FEW /LPF; WBC,URINE OCC /HPF (0-4)
[2018-07-01 19:33] LABS: INFLUENZA A PATIENT NEGATIVE (NEGATIVE); INFLUENZA B PATIENT NEGATIVE (NEGATIVE)
[2018-07-01] MEDS ORDERED: ONDANSETRON PF 4 MG/2 ML VIAL. IV PRN (20:00)
[2018-07-01] MEDS ORDERED: IOHEXOL 350 MG/ML 100 ML VIAL. IV ONE (20:00)
[2018-07-01] MEDS ORDERED: methylPREDNISolone SOD SUCC PF 125 MG/2 ML VIAL. IV ONE (20:15)
[2018-07-01] MEDS ORDERED: cefTRIAXone SODIUM 1 GM VIAL IV ONE (20:51)
[2018-07-01] MEDS ORDERED: IV NORMAL SALINE 50ML 50 ML ONE (20:51)
[2018-07-01] MEDS ORDERED: ENOXAPARIN ** NOTE DOSE ** SYRINGE SQ SCH (21:00)
[2018-07-01] MEDS ORDERED: AZITHROMYCIN 200 MG/5 ML ORAL.SUSP. PEG SCH (21:00)
--- NOTE | 2018-07-01 21:15 | RAD ---
Examination: CT angiography chest HISTORY: History of chest pain, shortness of breath, pneumonia COMPARISON: 11/26/2017 TECHNIQUE: Axial CT angiographic images of chest were performed with IV contrast. Coronal and sagittal 3-D MIP reformats are performed Exposure: One or more of the following individualized dose reduction techniques were utilized for this examination: 1. Automated exposure control 2. Adjustment of the mA and/or kV according to patient size 3. Use of iterative reconstruction technique FINDINGS: Moderate cardiomegaly. The caliber of the aorta grossly appears unremarkable. Coronary artery calcifications identified. There is no evidence of filling defect identified in the main pulmonary arterial trunk and right and left main pulmonary arteries and the visualized lobar, segmental branch of the pulmonary arteries. Multiple enlarged mediastinal and bilateral hilar lymph nodes again identified similar to prior exam. There is moderate narrowing of the right lower lobe bronchus. Dense bibasilar lung consolidation changes with air bronchograms and patchy diffuse airspace opacities identified in the bilateral lungs throughout likely multifocal pneumonia. The visualized liver, spleen, grossly appears unremarkable. Moderate degenerative changes thoracic spine. IMPRESSION: 1. No evidence of pulmonary embolism. 2. Dense bibasilar lung moderate consolidation changes with air bronchograms with diffuse scattered airspace opacities identified in the bilateral lungs throughout likely multifocal pneumonia. Follow-up to resolution. Underlying neoplasm is not completely excluded. There is moderate narrowing of the right lower lobe bronchus. 2. Enlarged appearing mediastinal and bilateral hilar lymph nodes identified probably reactive lymphadenopathy. Electronically signed by: Neil Aguero MD (07/01/2018 9:11 PM) [id number]
[2018-07-01] MEDS: IPRATRPIUM/ALBUTEROL 0.5/2.5MG 3 ML NEBU. NEB SCH (21:24)
[2018-07-01 21:43] VITALS: BP 132/69
[2018-07-01] MEDS: CLINDAMYCIN 600MG PREMIX 50 ML IV SCH (22:17)
[2018-07-02] MEDS: IPRATRPIUM/ALBUTEROL 0.5/2.5MG 3 ML NEBU. NEB SCH ×4 (05:35→20:25)
[2018-07-02 05:49] VITALS: BP 118/69
[2018-07-02] MEDS: CLINDAMYCIN 600MG PREMIX 50 ML IV SCH ×3 (06:00→21:11)
[2018-07-02 06:46] LABS: BASO % 0 % (0-3); EOS % 0 % (0-3); HEMATOCRIT 39.2 % (39.0-53.0); HEMOGLOBIN 12.8 g/dL (13.0-17.5); LYMPH # 0.5 x10^3/uL (1.0-4.8); LYMPH % 11 % (24-48); MEAN CORPUSCULAR HEMOGLOBIN 30 pg (25-35); MEAN CORPUSCULAR HGB CONC 33 g/dL (31-37); MEAN CORPUSCULAR VOLUME 91 fL (79-100); MONO # 0.1 x10^3/uL (0.0-1.1); MONO % 2 % (0-9); NEUT # 3.7 x10^3uL (1.8-7.7); NEUT % 87 % (31-73); PLATELET COUNT 146 x10^3/uL (140-400); RED CELL DISTRIBUTION WIDTH 14.4 % (11.5-14.5); WHITE BLOOD COUNT 4.3 x10^3/uL (4.0-11.0)
[2018-07-02 06:58] LABS: CALCIUM 8.4 mg/dL (8.5-10.1); CREATININE 0.6 mg/dL (0.7-1.3); GFR 134.4
[2018-07-02] MEDS ORDERED: SODIUM CHL/ALOE VERA NASAL GEL 14.1GM TUBE. NS PRN (08:30)
[2018-07-02] MEDS: ENOXAPARIN 40 MG/0.4 ML SYRINGE. SQ SCH (09:07)
[2018-07-02] MEDS: methylPREDNISolone SOD SUCC PF 125 MG/2 ML VIAL. IV SCH (09:12)
[2018-07-02 11:04] VITALS: BP 111/71
--- NOTE | 2018-07-02 12:22 | RAD ---
Bilateral lower extremity venous ultrasound, 07/02/2017: History: Leg edema, elevated d-dimer Duplex evaluation of the deep veins in the lower extremities was performed including grayscale, color-flow and spectral Doppler analysis. The femoral and popliteal veins demonstrate normal compressibility and normal responses to distal augmentation maneuvers. Color imaging of those vessels shows no evidence of intraluminal clot. The visualized deep veins in both calves are patent. IMPRESSION: There is no sonographic evidence of deep vein thrombosis in either lower extremity. Electronically signed by: Morales Quezada MD (07/02/2018 12:17 PM) [facility]
[2018-07-02] MEDS ORDERED: LORazepam 1 MG TABLET PO PRN (14:15)
--- NOTE | 2018-07-02 14:43 | HP ---
ADMIT DATE: 07/02/2018 HISTORY OF PRESENT ILLNESS: The patient is a 68-year-old male patient, who came to the Emergency Room complaining that he is getting sick for the last couple of days. He is hypoxic and has difficulty keeping his oxygen saturation up. He has had fever on Monday and also vomited once and was brought to the Emergency Room where he was evaluated. His chest x-ray showed that he has dense bibasilar lung with moderate consolidation changes with air bronchogram with diffuse scattered airspace opacities identified in the bilateral lung throughout, likely multifocal pneumonia. Followup the resolution, underlying neoplasm is not completely excluded. There is moderate narrowing of the right lower lobe bronchus, has enlarged appearing mediastinal and bilateral lymph nodes identified, probably reactive lymphadenopathy. D-dimer was elevated. He also had ultrasound, which showed no sonographic evidence of deep vein thrombosis in either lower extremities and was admitted with acute hypoxic respiratory failure, COPD exacerbation and community-acquired pneumonia. I start continuing on IV antibiotic in the form of Rocephin, Zithromax as well as clindamycin. He has also continued on bronchodilators and Solu-Medrol. PAST MEDICAL HISTORY: Significant for tongue cancer treated with radiation in 2007. He also had tonsillectomy and radical neck dissection in 2007, hypertension, hypothyroidism, hyperlipidemia, coronary artery disease, status post myocardial infarction, peripheral vascular disease, gastroesophageal reflux disease, benign prostatic hypertrophy, insomnia, vitamin B12 deficiency as well as dysphagia. PAST SURGICAL HISTORY: Significant for tonsillectomy, radical neck dissection in 2007. He also had a history of tongue cancer, treated with radiation in 2007; percutaneous endoscopic gastrostomy tube placement. FAMILY HISTORY: Positive for myocardial infarction, colon cancer, COPD, anxiety and depression. ALLERGIES: He is allergic to CIPRO and CODEINE. SOCIAL HISTORY: He lives with his . He does not smoke, drink alcohol or use recreational drugs. REVIEW OF SYSTEMS: As per history of present illness. MEDICATIONS: He is currently on following medications: He is on Crestor 40 mg at bedtime, carvedilol 12.5 mg twice a day with meals, amlodipine besylate 10 mg once a day, sertraline 100 mg daily, lorazepam 1 mg at bedtime, Ambien 10 mg at bedtime, potassium chloride 10 mEq daily, furosemide 20 mg once a day, levothyroxine 225 mcg daily. PHYSICAL EXAMINATION: GENERAL: On arrival to the Emergency Room, he looked well and was clearly in no apparent respiratory distress, somewhat pale, but no jaundice, cyanosis, or thyromegaly. No jugular venous distension. No lower limb edema. VITAL SIGNS: His heart rate was 73, blood pressure was 114/66, temperature was 98, respiratory rate 21 and oxygen saturation was 94%. HEAD, EYES, EARS, NOSE AND THROAT: Showed normocephalic, atraumatic. NECK: Supple. HEART: Showed normal first and second heart sounds with no gallop, rub or murmur. CHEST: Shows central trachea, equal bilateral chest expansion, air entry, vesicular sounds with bilateral crepitation. I could not appreciate any rhonchi. ABDOMEN: Distended, soft with gastrostomy tube in place. There is no tenderness. No guarding or rigidity. No organomegaly. All hernial orifices intact. Bowel sounds normal. NEUROLOGIC: He was awake, alert, responding appropriately. All cranial nerves intact. EXTREMITIES: He moves extremities without difficulty, ambulates without assistance or assistive devices. LABORATORY DATA: On arrival to the Emergency Room showed a white cell count of 6900, hemoglobin 11.9, hematocrit 36, MCV 92, and platelet count of 138,000. Serum sodium 139, potassium 4.5, chloride 99, bicarbonate 36, anion gap of 4, BUN 24, creatinine was 0.8, estimated GFR was 96 mL per minute. His glucose was 111, calcium was 8.7, magnesium was 2.3. Total bilirubin, AST, ALT, alkaline phosphatase were normal. CK was 48. Beta natriuretic peptide was 750. Total protein was 7.3, albumin was 2.8. Lipase was 89. His TSH was slightly elevated at 8.068. His prothrombin time was 10.8, INR of 1.1, aPTT was 31 and D-dimer was 1.06. Urinalysis was essentially unremarkable. Toxic screen was essentially negative and his influenza A and B were negative as well as rapid group A streptococcus test negative. His chest x-ray showed that he has mild bibasilar lung airspace opacities, likely atelectasis or infiltrate. Followup to resolution CT angio of the chest showed that the patient has no evidence of pulmonary embolism; however, he has dense bibasilar lung, moderate consolidation changes with air bronchogram with diffuse scattered airspace opacities identified in the bilateral lung throughout, likely multifocal pneumonia. Followup to resolution underlying neoplasm is not completely excluded. There is moderate narrowing of the right lower lobe bronchus. He has enlarged appearing mediastinal bilateral hilar lymph nodes identified, probably reactive lymphadenopathy. The Doppler ultrasound of both lower extremities was negative for deep vein thrombosis. ASSESSMENT: The patient was admitted with: 1. Acute hypoxic respiratory failure. 2. Chronic obstructive pulmonary disease exacerbation. 3. Community-acquired pneumonia. 4. Nasopharyngeal and tongue carcinoma resection and radiation therapy, benign prostatic hypertrophy. PLAN: To continue with IV Solu-Medrol. Continue with IV Rocephin, clindamycin as well as Zithromax. Continue with nutritional support. Continue with bronchodilator. Continue with incentive spirometry. We will follow him closely and decide on further management accordingly. KAYLEE ANAND MD DR: AKILAH/juliana JOB#: [id number] / [id number]
[2018-07-02 15:19] VITALS: BP 103/61
[2018-07-02] MEDS: cefTRIAXone IV Push 1 GM VIAL. IVP SCH (18:00)
[2018-07-02] MEDS: CARVEDILOL 12.5 MG TABLET PO SCH (18:08)
[2018-07-02 19:49] VITALS: BP 103/58
[2018-07-02] MEDS: AZITHROMYCIN 250 MG TABLET. PO SCH (20:01)
[2018-07-02] MEDS: ATORVASTATIN CALCIUM 20 MG TABLET PO SCH (20:01)
[2018-07-02] MEDS: ZOLPIDEM 5 MG TABLET. PO SCH (20:01)
[2018-07-03 01:20] VITALS: BP 107/55
[2018-07-03] MEDS: IPRATRPIUM/ALBUTEROL 0.5/2.5MG 3 ML NEBU. NEB SCH ×4 (05:19→20:31)
[2018-07-03] MEDS: CLINDAMYCIN 600MG PREMIX 50 ML IV SCH ×3 (05:27→22:12)
[2018-07-03 05:35] VITALS: BP 100/54
[2018-07-03] MEDS: LEVOTHYROXINE 125 MCG TABLET PO SCH (05:35)
[2018-07-03] MEDS: LEVOTHYROXINE 100 MCG TABLET PO SCH (05:35)
[2018-07-03] MEDS: CARVEDILOL 12.5 MG TABLET PO SCH ×2 (08:48→17:31)
[2018-07-03] MEDS: SERTRALINE 100 MG TABLET. PO SCH (08:49)
[2018-07-03] MEDS: POTASSIUM CHLORIDE 10 MEQ TABLET.ER. PO SCH (08:49)
[2018-07-03] MEDS: FUROSEMIDE 20 MG TABLET PO SCH (08:49)
[2018-07-03] MEDS: methylPREDNISolone SOD SUCC PF 125 MG/2 ML VIAL. IV SCH (08:50)
[2018-07-03] MEDS: ENOXAPARIN 40 MG/0.4 ML SYRINGE. SQ SCH (08:50)
[2018-07-03] MEDS: amLODIPine BESYLATE 10 MG TABLET PO SCH (08:55)
[2018-07-03 11:37] VITALS: BP 101/59
[2018-07-03 16:24] VITALS: BP 122/69
[2018-07-03] MEDS: ZOLPIDEM 5 MG TABLET. PO SCH (19:34)
[2018-07-03] MEDS: cefTRIAXone IV Push 1 GM VIAL. IVP SCH (19:34)
[2018-07-03] MEDS: AZITHROMYCIN 250 MG TABLET. PO SCH (19:34)
[2018-07-03] MEDS: ATORVASTATIN CALCIUM 20 MG TABLET PO SCH (19:34)
[2018-07-03 20:35] VITALS: BP 116/65
[2018-07-03 23:05] VITALS: BP 105/63
--- NOTE | 2018-07-03 23:41 | PN ---
DATE: 07/03/2018 SUBJECTIVE: The patient is resting, slightly propped up in bed, in no apparent distress. He continued to have some cough and shortness of breath. Denied any further episodes of nausea and vomiting. Denied any chills, rigors or fever. PHYSICAL EXAMINATION: GENERAL: When I examined him, slightly propped up in bed, in no apparent respiratory distress, slightly pale, but no jaundice, cyanosis, or thyromegaly. No jugular venous distension. No lower limb edema. VITAL SIGNS: His heart rate was 70, blood pressure was 101/59, temperature was 97.4, respiratory rate 20 and oxygen saturation was 95%. HEAD, EYES, EARS, NOSE AND THROAT: Normocephalic, atraumatic. NECK: Supple. HEART: Showed normal first and second heart sounds. No gallop, rub or murmur. CHEST: Clear to auscultation. No crepitation or rhonchi. ABDOMEN: Distended, soft with a gastrostomy tube in place. NEUROLOGIC: He is awake, alert, responding appropriately. Cranial nerves are intact. He moves extremities without difficulty, ambulates without assistance or assistive devices. His intake was 1450, output was 2100. LABORATORY DATA: Lab work this morning showed a white cell count of 4300, hemoglobin 12.8, hematocrit 39, MCV 91 and platelet count of 146,000. Serum sodium was 140, potassium 4, chloride 101, bicarbonate 34, anion gap of 5, BUN 17, creatinine 0.6, estimated GFR was 134 mL per minute. His calcium was 8.4. TSH is high at 8.068. His prothrombin time was 10.8, INR 1.1, aPTT was 31. D-dimer was high at 1.06. ASSESSMENT: 1. Acute hypoxic respiratory failure. 2. Chronic obstructive pulmonary disease exacerbation. 3. Community-acquired pneumonia. 4. Nasopharyngeal and tongue carcinoma resection, radiation therapy. 5. Benign prostatic hypertrophy. 6. Dysphagia. PLAN: To continue the IV Solu-Medrol. Continue with IV Rocephin, clindamycin and Zithromax. Continue with nutritional support. Continue with bronchodilator. Continue with the incentive spirometry. We will repeat his labs tomorrow and will be discharged if he remains stable to continue on oral antibiotic. KAYLEE ANAND MD DR: Britney JOB#: [id number] / [id number]
[2018-07-04] MEDS: IPRATRPIUM/ALBUTEROL 0.5/2.5MG 3 ML NEBU. NEB SCH ×2 (05:24→10:24)
[2018-07-04] MEDS: LEVOTHYROXINE 100 MCG TABLET PO SCH (05:44)
[2018-07-04] MEDS: LEVOTHYROXINE 125 MCG TABLET PO SCH (05:44)
[2018-07-04] MEDS: CLINDAMYCIN 600MG PREMIX 50 ML IV SCH (05:44)
[2018-07-04 06:01] VITALS: BP 102/56
[2018-07-04] MEDS: amLODIPine BESYLATE 10 MG TABLET PO SCH (08:47)
[2018-07-04] MEDS: POTASSIUM CHLORIDE 10 MEQ TABLET.ER. PO SCH (08:48)
[2018-07-04] MEDS: FUROSEMIDE 20 MG TABLET PO SCH (08:48)
[2018-07-04] MEDS: CARVEDILOL 12.5 MG TABLET PO SCH (08:48)
[2018-07-04] MEDS: methylPREDNISolone SOD SUCC PF 125 MG/2 ML VIAL. IV SCH (08:48)
[2018-07-04] MEDS: ENOXAPARIN 40 MG/0.4 ML SYRINGE. SQ SCH (08:49)
[2018-07-04] MEDS: SERTRALINE 100 MG TABLET. PO SCH (08:49)
[2018-07-04] MEDS ORDERED: CLIN300C8 PO (10:18)
[2018-07-04] MEDS ORDERED: CEFP200T PO (10:18)
[2018-07-04] MEDS ORDERED: AZIT250T PO (10:18)
[2018-07-04 10:21] VITALS: BP 120/63
--- NOTE | 2018-07-04 13:11 | DS ---
DATE OF DISCHARGE: 07/04/2018 HOSPITAL COURSE: The patient is a 68-year-old male patient who came with a complaint of shortness of breath, cough and decreased oxygen requirement. He has also had one episode of emesis, was evaluated in the Emergency Room, was found to have qjood-tr-yqdugip hypoxic respiratory failure, chronic obstructive pulmonary disease exacerbation and bilateral lung infiltrate, who was started on IV antibiotic in the form of Rocephin, Zithromax and clindamycin. He did well. He remained afebrile, hemodynamically stable with normal white cell count and a decision was made to discharge him home to continue treatment as an outpatient. PHYSICAL EXAMINATION: GENERAL: When I examined him today, he was resting slightly propped up in bed, in no apparent respiratory distress. No pallor, jaundice, cyanosis or thyromegaly. No jugular venous distention. No limb edema. VITAL SIGNS: His heart rate was 67, blood pressure was 102/56, temperature was 98, respiratory rate was 20, and oxygen saturation was 94% on 2 liters of oxygen by nasal cannula. HEAD, EYES, EARS, NOSE AND THROAT: Showed normocephalic, atraumatic. NECK: Supple. HEART: Showed normal first and second heart sounds. No gallop, rub or murmur. CHEST: Clear to auscultation. No crepitation or rhonchi. ABDOMEN: Scaphoid, soft with gastrostomy tube in place. NEUROLOGIC: He is awake, alert, responding appropriately. Cranial nerves intact. He moves extremities without difficulty. His intake over the last 24 hours was 1000. No output was recorded. LABORATORY WORK: Showed a serum sodium 140, potassium 4, chloride 101, bicarbonate 34, anion gap of 5, BUN 17, creatinine 0.6, estimated GFR was 134 mL per minute. His glucose was 176, calcium was 8.4. Her TSH slightly elevated at 8.068. His white cell count was 4300, hemoglobin 12.8, hematocrit 39, MCV 91, and platelet count of 146. DISCHARGE MEDICATIONS: He was discharged home to continue on azithromycin 250 mg once a day for 7 days, cefpodoxime proxetil 200 mg twice a day and clindamycin 300 mg twice a day for 7 days, amlodipine 10 mg once a day, carvedilol 12.5 mg twice a day, furosemide 20 mg daily, levothyroxine 125 mcg once a day, lorazepam 1 mg at bedtime, potassium chloride 10 mEq once a day, Crestor 40 mg once a day, sertraline for Zoloft 100 mg once a day and zolpidem tartrate 10 mg at bedtime. FINAL DISCHARGE DIAGNOSES: Agbpp-aq-eemqzey hypoxic respiratory failure, exacerbation of chronic obstructive pulmonary disease, community-acquired pneumonia. Other medical problems include nasopharyngeal and tongue carcinoma status post resection and radiation therapy, benign prostatic hypertrophy, dysphagia, hypothyroidism. The patient is on 225 mcg of Synthroid. His TSH is slightly elevated. KAYLEE ANAND MD DR: AKILAH/juliana JOB#: [id number] / [id number]
== END 2018-07-04 10:45 | disposition home or self-care (01) | DRG 177 ==
LOC: ER 17:44 → 1 SOUTH 20:43
PROVIDERS: ADMIT Internal Medicine; ATTEND Internal Medicine
DX: J69.0 Pneumonitis due to inhalation of food and vomit (principal); J96.01 Acute respiratory failure with hypoxia; J96.21 Acute and chronic respiratory failure with hypoxia; J44.0 Chronic obstructive pulmonary disease with (acute) lower respiratory infection; J44.1 Chronic obstructive pulmonary disease with (acute) exacerbation; C02.9 Malignant neoplasm of tongue, unspecified; E03.9 Hypothyroidism, unspecified; E78.5 Hyperlipidemia, unspecified; I11.0 Hypertensive heart disease with heart failure; I25.10 Atherosclerotic heart disease of native coronary artery without angina pectoris; I25.2 Old myocardial infarction; I50.9 Heart failure, unspecified; G47.00 Insomnia, unspecified; I73.9 Peripheral vascular disease, unspecified; K21.9 Gastro-esophageal reflux disease without esophagitis; N40.0 Benign prostatic hyperplasia without lower urinary tract symptoms; R13.10 Dysphagia, unspecified; Z80.0 Family history of malignant neoplasm of digestive organs; Z82.49 Family history of ischemic heart disease and other diseases of the circulatory system; Z82.5 Family history of asthma and other chronic lower respiratory diseases; Z85.810 Personal history of malignant neoplasm of tongue; Z92.3 Personal history of irradiation; Z99.81 Dependence on supplemental oxygen; Z88.1 Allergy status to other antibiotic agents; Z88.5 Allergy status to narcotic agent
CPT/HCPCS: 36415; 71046; 71275; 80048; 80076; 80307; 81001; 82550; 82947; 83605; 83690; 83735; 83880; 84443; 84484; 85025; 85379; 85610; 85730; 87040; 87070; 87804; 87880; 93005; 93970; 94640; 96361; 96374; J0456; J0696; J1650; J2930; J3490; J7120; J7620; Q9967; 99285-25

== ENCOUNTER 2018-11-14 21:10 | Inpatient (IN) | payer MEDICARE ==
[~2018-11-14] VITALS: Ht 175.3 cm; Wt 76.8 kg
[~2018-11-14 21:10] MED LIST changes: -AMLO10TA6 PO; +AMLO10TA8 PO; +CLIN300C8 PO; +CRESTOR40 MG PEG; -CRESTOR40 MG PO; +LEVO200T5 PEG; -LEVO200T5 PO; +LORA-254 PEG; -LORA-254 PO; +SERT100T PEG; +ZOLP10TA4 PEG; -ZOLP10TA4 PO
--- NOTE | 2018-11-14 21:25 | ED.ADGEN ---
Past History Past Medical History: Arthritis, Bronchitis, CAD, Cancer, CHF, COPD, Hypertension, Hypothyroid, [place], Pneumonia, Other Past Surgical History: Cancer Surgery, Tonsillectomy, Other Past Surgical History Nasal, pharyngeal esophageal cancer- surgery and radiation Alcohol Use: Rarely Drug Use: None Adult General Chief Complaint Chief Complaint ".. He probably got pneumonia again.. He also had a spell where he passed out.. but they put him on oxygen and he was fine... but now more coughing.. shortness of breath... " HPI HPI Patient is a 68 year old male who presents with above hx and complaints of dyspnea with hypoxia. Patient has had episodes of increased cough. An increased oxygen requirement. Patient has history of acute on chronic hypoxia respiratory failure, COPD, bilateral lung infiltrates, CHF, hypertension, hypothyroidism, myocardial infarcts, peripheral vascular disease, hypothyroidism, hyperlipidemia, coronary artery disease, GERD, dysphagia, insomnia, vitamin B12 deficiency, hx recurrent pneumonia and aspiration pneumonitis. Patient has history of esophageal / Naso/Pharyngeal/ Tongue cancer- treated with surgery and radiation 2007 and dysphagia requiring gastric feeding tube. Patient also gives history of recent episode of syncope after choking on celery. ( Pt. not to be eating because of his dysphagia.). Pt. normally not on oxygen unless sleeping or very active., Normal max oxygen requirement is 2 lit. N/C. Pt. was hypoxic on arrival to ED. Pt. required 6 Lit. of oxygen to keep saturations above 90%. Patient denies any specific ill contacts. Patient denies any travel. Patient did have a similar episode of hypoxia felt to be due to pneumonia and aspiration pneumonitis in June of this year. Pt. follow s with Dr. Alexander Review of Systems Review of Systems Constitutional: Denies fever or chills [] Eyes: Denies change in visual acuity, redness, or eye pain [] HENT: Denies nasal congestion or sore throat [] Respiratory: Complaints of cough and shortness of breath [] Cardiovascular: No additional information not addressed in HPI [] GI: Denies abdominal pain, nausea, vomiting, bloody stools or diarrhea [] : Denies dysuria or hematuria [] Musculoskeletal: Denies back pain or joint pain [] Integument: Denies rash or skin lesions [] Neurologic: Denies headache, focal weakness or sensory changes [] Endocrine: Denies polyuria or polydipsia [] All other systems were reviewed and found to be within normal limits, except as documented in this note. Family History Family History Hx. of MIs, colon cancer, COPD, depression, anxiety Current Medications Current Medications Current Medications Medications (Trade) Dose Ordered Sig/Gauri Start Time Stop Time Status Last Admin Dose Admin Albuterol/ Ipratropium (Duoneb) 3 ml 1X ONCE 11/14/18 21:45 11/14/18 21:46 DC 11/14/18 23:15 3 ML Aspirin (Children'S Aspirin) 81 mg 1X ONCE 11/14/18 21:45 11/14/18 21:46 DC 11/14/18 22:47 81 MG Azithromycin 500 mg/Sodium Chloride 250 ml @ 250 mls/hr 1X ONCE 11/14/18 21:45 11/14/18 22:44 DC 11/14/18 23:36 250 MLS/HR Ceftriaxone Sodium 1 gm/ Sodium Chloride 50 ml @ 100 mls/hr 1X ONCE 11/14/18 21:45 11/14/18 22:14 DC 11/14/18 22:48 100 MLS/HR Ceftriaxone Sodium (Rocephin) 1 gm STK-MED ONCE 11/14/18 22:43 11/14/18 22:44 DC Lactated Ringer's 1,000 ml @ 100 mls/hr Q10H 11/14/18 21:45 11/15/18 07:44 11/14/18 22:48 100 MLS/HR Sodium Chloride 50 ml @ As Directed STK-MED ONCE 11/14/18 22:43 11/14/18 22:44 DC Vancomycin HCl (Vanco Per Pharmacy) 1 each PRN DAILY PRN 11/14/18 21:45 Vancomycin HCl 1 gm/Sodium Chloride 250 ml @ 250 mls/hr 1X ONCE 11/14/18 21:45 11/14/18 22:06 DC Vancomycin HCl 2 gm/Sodium Chloride 500 ml @ 250 mls/hr 1X ONCE 11/14/18 22:15 11/15/18 00:15 DC 11/15/18 01:19 250 MLS/HR Allergies Allergies Allergies Coded Allergies Type Severity Reaction Last Updated Verified ciprofloxacin Allergy Intermediate 07/01/18 Yes codeine Allergy Intermediate 07/17/16 Yes Physical Exam Physical Exam Constitutional: in acute distress, non-toxic appearance. Sitting in Tripod position. HENT: Normocephalic, atraumatic, bilateral external ears normal, oropharynx moist, no oral exudates, nose normal. [] Eyes: PERRLA, EOMI, conjunctiva normal, no discharge. [] Neck: Normal range of motion, no tenderness, supple, no stridor. [] Cardiovascular:Heart rate regular rhythm, no murmur , PMI to Lt. Lungs & Thorax: Bilateral breath sounds at apexes with scattered wheezes, rhonchi on auscultation []Has increase rhonchi on Rt upper lung lawson. (Some clearing with cough). Has bibasilar crackles. Abdomen: Bowel sounds normal, soft, no tenderness, no masses, no pulsatile masses. [] Gastric feeding port. Skin: Warm, dry, no erythema, no rash. Poor turgor. Back: No tenderness, no CVA tenderness. [] Extremities: No tenderness, no cyanosis, no clubbing, ROM intact, no edema. [] Arthritic changes. Decreased pulses and cap refill in feet. Neurologic: Alert and oriented X 3, Moves all ext. on request, has distal sensory function, no focal deficits noted. Logging Equipment Operator equal. No drift. Psychologic: Affect anxious, judgement normal, mood depressed. Current Patient Data Vital Signs Lab Results Laboratory Tests Test 11/14/18 21:35 11/14/18 21:36 White Blood Count 9.1 x10^3/uL (4.0-11.0) Red Blood Count 4.70 x10^6/uL (4.30-5.70) Hemoglobin 14.0 g/dL (13.0-17.5) Hematocrit 43.2 % (39.0-53.0) Mean Corpuscular Volume 92 fL (79-100) Mean Corpuscular Hemoglobin 30 pg (25-35) Mean Corpuscular Hemoglobin Concent 33 g/dL (31-37) Red Cell Distribution Width 15.1 % (11.5-14.5) H Platelet Count 140 x10^3/uL (140-400) Neutrophils (%) (Auto) 84 % (31-73) H Lymphocytes (%) (Auto) 8 % (24-48) L Monocytes (%) (Auto) 8 % (0-9) Eosinophils (%) (Auto) 0 % (0-3) Basophils (%) (Auto) 0 % (0-3) Neutrophils # (Auto) 7.7 x10^3uL (1.8-7.7) Lymphocytes # (Auto) 0.7 x10^3/uL (1.0-4.8) L Monocytes # (Auto) 0.7 x10^3/uL (0.0-1.1) Eosinophils # (Auto) 0.0 x10^3/uL (0.0-0.7) Basophils # (Auto) 0.0 x10^3/uL (0.0-0.2) Erythrocyte Sedimentation Rate 30 (0-15) H Prothrombin Time 10.4 SEC (9.4-11.4) Prothrombin Time INR 1.0 (0.9-1.1) PTT 28 SEC (23-33) D-Dimer (Leela) 0.57 mg/L (0.00-0.50) H Sodium Level 140 mmol/L (136-145) Potassium Level 4.1 mmol/L (3.5-5.1) Chloride Level 99 mmol/L (98-107) Carbon Dioxide Level 35 mmol/L (21-32) H Anion Gap 6 (6-14) Blood Urea Nitrogen 17 mg/dL (8-26) Creatinine 0.8 mg/dL (0.7-1.3) Estimated GFR (Cockcroft-Gault) 96.4 Glucose Level 104 mg/dL (70-99) H Lactic Acid Level 1.1 mmol/L (0.4-2.0) Calcium Level 9.6 mg/dL (8.5-10.1) Magnesium Level 2.0 mg/dL (1.8-2.4) Total Bilirubin 0.8 mg/dL (0.2-1.0) Direct Bilirubin 0.2 mg/dL (0.0-0.2) Aspartate Amino Transferase (AST) 22 U/L (15-37) Alanine Aminotransferase (ALT) 19 U/L (16-63) Alkaline Phosphatase 90 U/L (46-116) Creatine Kinase 76 U/L (39-308) Troponin I Quantitative < 0.017 ng/mL (0-0.055) KT-Srf-F-Type Natriuretic Peptide 547 pg/mL (0-124) H Total Protein 8.7 g/dL (6.4-8.2) H Albumin 3.5 g/dL (3.4-5.0) Lipase 113 U/L (73-393) Blood pH 7.36 (7.35-7.46) Blood Gas PCO2 62 mmHg (35-46) *H Blood Gas PO2 58 mmHg (80-100) L Blood Gas HCO3 35 mmol/L (21-28) H Arterial Bld O2 Saturation (Calc) 87 % (92-99) L FiO2 36 % EKG EKG My interpretation EKG shows a sinus rhythm at 83 bpm. There are by multiple P waves and left lawson. Left axis/LVH. No findings of acute STEMI with contralateral changes.[] Radiology/Procedures Radiology/Procedures My interpretation of chest x-ray shows cardiomegaly. By bilateral infiltrates prominent hilar structures, bibasilar atelectasis/infiltrate. Somewhat more p rominent on the left.. Compared to prior films. See formal report when available. My interpretation CT of head shows no shift, mass, edema, bleed, or fracture. See formal report when available Carotid Dopplers and leg ultrasound pending at time of admission. Course & Med Decision Making Course & Med Decision Making Pertinent Labs and Imaging studies reviewed. (See chart for details) Pt. sat's did improve with breathing tx while in ED. Overall labs are somewhat improved from prior visit. Malnutrition improved. Pt. and both request admission here if at all possible. Patient admitted to Dr. Grover for further tx. and evaluation. Suspect acute on chronic respiratory failure- Hypoxia, Suspect component of aspiration. Suspect syncopal episode earlier last week also due to aspiration and choking. Will cover for pneumonia . [] Final Impression Final Impression 1. Dyspnea[]- Multi factorial 2. Respiratory Failure- hypoxia - Acute on Chronic 3. Hx. of Pneumonia 4. Elevated D-dimer 0.57 5. Hx. Aspiration Pneumonitis- ( suspect primary component of his increased oxygen needs tonight) 6. COPD 7. Hx. Syncope 8. Hx. Naso/Pharyngeal/Tongue Ca - Tx. surgery and Radiation 2007 9. Hx. BPH 10. BNP= 547 Hx CHF 11. Elevated SED= 30 Dragon Disclaimer Dragon Disclaimer This electronic medical record was generated, in whole or in part, using a voice recognition dictation system. Discharge Summary Brief Hospital Course Allergies Allergies Coded Allergies Type Severity Reaction Last Updated Verified ciprofloxacin Allergy Intermediate 07/01/18 Yes codeine Allergy Intermediate 07/17/16 Yes Lab Results Laboratory Tests Test 11/14/18 21:35 11/14/18 21:36 White Blood Count 9.1 x10^3/uL (4.0-11.0) Red Blood Count 4.70 x10^6/uL (4.30-5.70) Hemoglobin 14.0 g/dL (13.0-17.5) Hematocrit 43.2 % (39.0-53.0) Mean Corpuscular Volume 92 fL (79-100) Mean Corpuscular Hemoglobin 30 pg (25-35) Mean Corpuscular Hemoglobin Concent 33 g/dL (31-37) Red Cell Distribution Width 15.1 % (11.5-14.5) Platelet Count 140 x10^3/uL (140-400) Neutrophils (%) (Auto) 84 % (31-73) Lymphocytes (%) (Auto) 8 % (24-48) Monocytes (%) (Auto) 8 % (0-9) Eosinophils (%) (Auto) 0 % (0-3) Basophils (%) (Auto) 0 % (0-3) Neutrophils # (Auto) 7.7 x10^3uL (1.8-7.7) Lymphocytes # (Auto) 0.7 x10^3/uL (1.0-4.8) Monocytes # (Auto) 0.7 x10^3/uL (0.0-1.1) Eosinophils # (Auto) 0.0 x10^3/uL (0.0-0.7) Basophils # (Auto) 0.0 x10^3/uL (0.0-0.2) Erythrocyte Sedimentation Rate 30 (0-15) Prothrombin Time 10.4 SEC (9.4-11.4) Prothromb Time International Ratio 1.0 (0.9-1.1) Activated Partial Thromboplast Time 28 SEC (23-33) D-Dimer (Leela) 0.57 mg/L (0.00-0.50) Sodium Level 140 mmol/L (136-145) Potassium Level 4.1 mmol/L (3.5-5.1) Chloride Level 99 mmol/L (98-107) Carbon Dioxide Level 35 mmol/L (21-32) Anion Gap 6 (6-14) Blood Urea Nitrogen 17 mg/dL (8-26) Creatinine 0.8 mg/dL (0.7-1.3) Estimated GFR (Cockcroft-Gault) 96.4 Glucose Level 104 mg/dL (70-99) Lactic Acid Level 1.1 mmol/L (0.4-2.0) Calcium Level 9.6 mg/dL (8.5-10.1) Magnesium Level 2.0 mg/dL (1.8-2.4) Total Bilirubin 0.8 mg/dL (0.2-1.0) Direct Bilirubin 0.2 mg/dL (0.0-0.2) Aspartate Amino Transf (AST/SGOT) 22 U/L (15-37) Alanine Aminotransferase (ALT/SGPT) 19 U/L (16-63) Alkaline Phosphatase 90 U/L (46-116) Creatine Kinase 76 U/L (39-308) Troponin I Quantitative < 0.017 ng/mL (0-0.055) QH-Jek-H-Type Natriuretic Peptide 547 pg/mL (0-124) Total Protein 8.7 g/dL (6.4-8.2) Albumin 3.5 g/dL (3.4-5.0) Lipase 113 U/L (73-393) Blood Gas pH 7.36 (7.35-7.46) Blood Gas PCO2 62 mmHg (35-46) Blood Gas PO2 58 mmHg (80-100) Blood Gas HCO3 35 mmol/L (21-28) Arterial Bld O2 Saturation (Calc) 87 % (92-99) FiO2 36 % Brief Hospital Course Mr. Bustamante is a 68 old male who presented with respiratory failure acute on chronic. Suspect aspiration primary cause. Admitted Dr. Grover Discharge Information Condition at Discharge: Improved Dischare Medications Current Medications Aspirin (Children'S Aspirin) 81 mg 1X ONCE PO Last administered on 11/14/18at 22:47; Admin Dose 81 MG; Start 11/14/18 at 21:45; Stop 11/14/18 at 21:46; Status DC Lactated Ringer's 1,000 ml @ 100 mls/hr Q10H IV Last administered on 11/14/18at 22:48; Admin Dose 100 MLS/HR; Start 11/14/18 at 21:45; Stop 11/15/18 at 07:44 Albuterol/ Ipratropium (Duoneb) 3 ml 1X ONCE NEB Last administered on 11/14/18at 23:15; Admin Dose 3 ML; Start 11/14/18 at 21:45; Stop 11/14/18 at 21:46; Status DC Ceftriaxone Sodium 1 gm/ Sodium Chloride 50 ml @ 100 mls/hr 1X ONCE IV Last administered on 11/14/18at 22:48; Admin Dose 100 MLS/HR; Start 11/14/18 at 21:45; Stop 11/14/18 at 22:14; Status DC Azithromycin 500 mg/Sodium Chloride 250 ml @ 250 mls/hr 1X ONCE IV Last administered on 11/14/18at 23:36; Admin Dose 250 MLS/HR; Start 11/14/18 at 21:45; Stop 11/14/18 at 22:44; Status DC Vancomycin HCl (Vanco Per Pharmacy) 1 each PRN DAILY PRN MC SEE COMMENTS; Start 11/14/18 at 21:45 Vancomycin HCl 1 gm/Sodium Chloride 250 ml @ 250 mls/hr 1X ONCE IV ; Start 11/14/18 at 21:45; Stop 11/14/18 at 22:06; Status DC Vancomycin HCl 2 gm/Sodium Chloride 500 ml @ 250 mls/hr 1X ONCE IV Last administered on 11/15/18at 01:19; Admin Dose 250 MLS/HR; Start 11/14/18 at 22:15; Stop 11/15/18 at 00:15; Status DC Sodium Chloride 50 ml @ As Directed STK-MED ONCE .ROUTE ; Start 11/14/18 at 22:43; Stop 11/14/18 at 22:44; Status DC Ceftriaxone Sodium (Rocephin) 1 gm STK-MED ONCE .ROUTE ; Start 11/14/18 at 22:43; Stop 11/14/18 at 22:44; Status DC Active Scripts Active Clindamycin Hcl 300 Mg Capsule 1 Cap PO QID 7 Days Potassium Chloride 10 Meq Capsule.er 1 Cap PO DAILY Furosemide 20 Mg Tablet 20 Mg PO DAILY Carvedilol (Carvedilol) 12.5 Mg Tablet 12.5 Mg PO BIDWMEALS Amlodipine Besylate 10 Mg Tablet 10 Mg PO DAILY Cefpodoxime Proxetil 200 Mg Tablet 1 Tab PO BID 7 Days Zithromax (Azithromycin) 250 Mg Tablet 250 Mg PO DAILY 7 Days Reported Zoloft (Sertraline Hcl) 100 Mg Tablet 1 Tab PO DAILY TAKE TOMORROW Levothyroxine Sodium 200 Mcg Tablet 225 Mcg PO DAILYAC TAKE TOMORROW MORNING Crestor (Rosuvastatin Calcium) 40 Mg Tablet 40 Mg PO HS TAKE TONIGHT AT HOME Ativan (Lorazepam) 1 Mg Tablet 1 Mg PO PRN QHS PRN TAKE AT BEDTIME Zolpidem Tartrate 10 Mg Tablet 10 Mg PO HS TAKE AT BEDTIME Dragon Disclaimer This chart was dictated in whole or in part using Voice Recognition software in a busy, high-work load, and often noisy Emergency Department environment. It may contain unintended and wholly unrecognized errors or omissions. AURORA JONES MD November 14, 2018 21:25
[2018-11-14] MEDS ORDERED: IV RINGERS SOLUTION,LACTATED 1,000 ML IV SCH (21:45)
[2018-11-14] MEDS ORDERED: VANCOMYCIN 1 GM in IV NORMAL SALINE 250ML 250 ML IV ONE (21:45)
[2018-11-14] MEDS ORDERED: AZITHROMYCIN 500 MG in IV NORMAL SALINE 250ML 250 ML IV ONE (21:45)
[2018-11-14] MEDS ORDERED: IPRATRPIUM/ALBUTEROL 0.5/2.5MG 3 ML NEBU. NEB ONE (21:45)
[2018-11-14] MEDS ORDERED: ASPIRIN 81 MG TAB.CHEW PO ONE (21:45)
[2018-11-14 21:50] LABS: BASO % 0 % (0-3); EOS % 0 % (0-3); HEMATOCRIT 43.2 % (39.0-53.0); LYMPH # 0.7 x10^3/uL (1.0-4.8); LYMPH % 8 % (24-48); MEAN CORPUSCULAR HEMOGLOBIN 30 pg (25-35); MEAN CORPUSCULAR HGB CONC 33 g/dL (31-37); MEAN CORPUSCULAR VOLUME 92 fL (79-100); MONO # 0.7 x10^3/uL (0.0-1.1); MONO % 8 % (0-9); NEUT # 7.7 x10^3uL (1.8-7.7); NEUT % 84 % (31-73); PLATELET COUNT 140 x10^3/uL (140-400); RED CELL DISTRIBUTION WIDTH 15.1 % (11.5-14.5); WHITE BLOOD COUNT 9.1 x10^3/uL (4.0-11.0)
[2018-11-14 22:08] LABS: ALBUMIN 3.5 g/dL (3.4-5.0); CALCIUM 9.6 mg/dL (8.5-10.1); CREATININE 0.8 mg/dL (0.7-1.3); DIRECT BILIRUBIN 0.2 mg/dL (0.0-0.2); GFR 96.4; POTASSIUM 4.1 mmol/L (3.5-5.1); TOTAL BILIRUBIN 0.8 mg/dL (0.2-1.0); TOTAL PROTEIN 8.7 g/dL (6.4-8.2)
[2018-11-14] MEDS ORDERED: VANCOMYCIN 2 GM in IV NORMAL SALINE 500ML 500 ML IV ONE (22:15)
[2018-11-14] MEDS ORDERED: IV NORMAL SALINE 50ML 50 ML ONE (22:43)
[2018-11-14] MEDS ORDERED: cefTRIAXone SODIUM 1 GM VIAL ONE (22:43)
[2018-11-14 23:29] LABS: BGAS PH 7.36 (7.35-7.46)
[2018-11-14] MEDS ORDERED: IV NORMAL SALINE 250ML 250 ML ONE (23:30)
[2018-11-14] MEDS ORDERED: AZITHROMYCIN 500 MG VIAL. IV ONE (23:30)
[2018-11-14] MEDS ORDERED: ONDANSETRON PF 4 MG/2 ML VIAL. IV PRN (23:30)
[2018-11-15 00:24] LABS: BARBITURATES NEG (NEG); BENZODIAZEPINES NEG (NEG); CANNABINOIDS NEG (NEG); COCAINE NEG (NEG); METHADONE NEG (NEG); OPIATES NEG (NEG); PHENCYCLIDINE NEG (NEG)
[2018-11-15 00:25] LABS: AMPHETAMINE/METHAMPHETAMINE NEG (NEG)
[2018-11-15 00:29] VITALS: BP 120/64
[2018-11-15 00:31] LABS: AMORPHOUS SEDIMENT,UR PRESENT /HPF; BACTERIA,URINE 0 /HPF (0-FEW); BILIRUBIN,URINE NEG (NEG); CLARITY,URINE HAZY; COLOR,URINE YELLOW; GLUCOSE,URINE NEG (NEG); NITRITE,URINE NEG (NEG); RBC,URINE 0 /HPF (0-2); SQUAMOUS EPITHELIAL CELL,UR OCC /LPF; UROBILINOGEN,URINE 1 mg/dL (0.2 mg/dL); WBC,URINE OCC /HPF (0-4)
[2018-11-15] MEDS ORDERED: ENOXAPARIN ** NOTE DOSE ** SYRINGE SQ ONE (00:45)
--- NOTE | 2018-11-15 01:23 | RAD ---
AP portable chest radiograph 11/14/2018 Clinical History: Pneumonia. Aspiration. An AP erect portable digital radiograph of the chest was obtained. Comparison study is dated 07/01/2018. The cardiac silhouette is mildly enlarged. The thoracic aorta is mildly tortuous. Areas of atelectasis and/or infiltrate are seen involving both lower lobes, left greater than right. Prominence of pulmonary vasculature is seen involving both lungs. No pneumothorax or pleural effusion is seen. The osseous structures are unchanged. Impression: Bilateral lower lobe atelectasis and or infiltrate, left greater than right. Electronically signed by: Manfred Rodriguez MD (11/15/2018 1:20 AM) [facility]
[2018-11-15 01:25] LABS: SEDIMENTATION RATE 30 (0-15)
--- NOTE | 2018-11-15 02:08 | RAD ---
PQRS Compliance statement: One or more of the following individualized dose reduction techniques were utilized for this examination: 1. Automated exposure control. 2. Adjustment of the mA and/or kV according to patient size. 3. Use of iterative reconstruction technique. Indication:Syncope TECHNIQUE: CT head without IV contrast COMPARISON:None FINDINGS: No pathologic extra-axial or intra-axial fluid collection. The ventricles and basal cisterns are within normal limits. No acute intracranial bleed. No focal loss of lewis-white differentiation. Orbits within normal limits. No acute calvarial fractures. The paranasal sinuses and mastoid air cells are clear. IMPRESSION: No acute intracranial bleed. If concern for acute ischemic stroke is high, please consider MRI brain. Electronically signed by: Benitez Perez DO (11/15/2018 2:05 AM) [facility]
[2018-11-15] MEDS ORDERED: ACYC-63 PEG (03:43)
[2018-11-15] MEDS ORDERED: POTA10TA10 PEG (03:43)
[2018-11-15] MEDS ORDERED: AMLO10TA8 PEG (03:43)
[2018-11-15] MEDS ORDERED: CARV12.547 PEG (03:43)
[2018-11-15] MEDS ORDERED: FURO20TA3 PEG (03:43)
[2018-11-15] MEDS ORDERED: ALLO100T PEG (03:43)
[2018-11-15] MEDS ORDERED: LORazepam 1 MG TABLET PEG PRN (05:45)
[2018-11-15 05:57] VITALS: BP 96/54
[2018-11-15] MEDS ORDERED: CLINDAMYCIN 600MG PREMIX 50 ML IV SCH (06:00)
[2018-11-15] MEDS ORDERED: LEVOTHYROXINE SODIUM 225 MCG PEG SCH (06:00)
[2018-11-15] MEDS: LEVOTHYROXINE 100 MCG TABLET PEG SCH (06:10)
[2018-11-15] MEDS: LEVOTHYROXINE 125 MCG TABLET PEG SCH (06:10)
[2018-11-15 06:32] LABS: BASO % 0 % (0-3); EOS % 0 % (0-3); HEMATOCRIT 36.1 % (39.0-53.0); LYMPH # 1.2 x10^3/uL (1.0-4.8); LYMPH % 11 % (24-48); MEAN CORPUSCULAR HEMOGLOBIN 30 pg (25-35); MEAN CORPUSCULAR HGB CONC 33 g/dL (31-37); MEAN CORPUSCULAR VOLUME 91 fL (79-100); MONO # 1.1 x10^3/uL (0.0-1.1); MONO % 11 % (0-9); NEUT # 7.9 x10^3uL (1.8-7.7); NEUT % 78 % (31-73); PLATELET COUNT 121 x10^3/uL (140-400); RED BLOOD COUNT 3.95 x10^6/uL (4.30-5.70); WHITE BLOOD COUNT 10.2 x10^3/uL (4.0-11.0)
[2018-11-15 06:36] LABS: CALCIUM 8.8 mg/dL (8.5-10.1); CREATININE 0.6 mg/dL (0.7-1.3); GFR 134.4; POTASSIUM 3.6 mmol/L (3.5-5.1)
[2018-11-15] MEDS: PIPERACILLIN/TAZOBACTAM 3.375 GM in IV NORMAL SALINE 50ML 50 ML IV SCH ×4 (06:44→21:13)
[2018-11-15] MEDS: ALLOPURINOL 100 MG TABLET. PEG SCH (07:59)
[2018-11-15] MEDS: SERTRALINE 100 MG TABLET. PEG SCH (07:59)
[2018-11-15] MEDS ORDERED: POTASSIUM CHLORIDE 10 MEQ TABLET.ER. PO SCH (08:00)
[2018-11-15] MEDS: CARVEDILOL 12.5 MG TABLET PEG SCH ×2 (08:00→17:00)
[2018-11-15] MEDS: FUROSEMIDE 20 MG TABLET PEG SCH (08:00)
[2018-11-15] MEDS: amLODIPine BESYLATE 10 MG TABLET PEG SCH (08:00)
[2018-11-15] MEDS: IPRATRPIUM/ALBUTEROL 0.5/2.5MG 3 ML NEBU. NEB SCH ×4 (08:00→21:01)
[2018-11-15] MEDS: VANCOMYCIN PER PHARMACY MC PRN (08:27)
[2018-11-15] MEDS ORDERED: ENOXAPARIN ** NOTE DOSE ** SYRINGE SQ SCH (09:00)
--- NOTE | 2018-11-15 09:28 | EKG ---
[address] [address] Test Date: 2018-11-14 Test Time: 21:19:39 Pat Name: KUSH HARGROVE Department: Room: Gender: M Switchman: : 1950 Requested By: AURORA JONES Order Number: [id number] Reading MD: Measurements Intervals [place] Rate: 83 P: -16 [place]: 174 QRS: -6 QRSD: 96 T: 34 QT: 358 QTc: 421 Interpretive Statements SINUS RHYTHM LEFT ATRIAL ABNORMALITY LEFTWARD AXIS ABNORMAL ECG RI6.01 No previous ECG available for comparison
[2018-11-15 11:29] VITALS: BP 93/53
--- NOTE | 2018-11-15 11:34 | RAD ---
Examination: Lower Extremity Venous Doppler Ultrasound History: Elevated d-dimer, hypoxia Comparison: 11/02/2016 Procedure: Holley scale, color flow 2D and spectal waveform analysis images are obtained with and without compression in the area of the common femoral vein, superficial femoral vein - femoral vein junction, main femoral vein (superficial femoral vein) and popliteal vein. Veins of the proximal calf are also imaged. Findings: There is normal duplex flow, color flow and compressibility of all visualized vein segments. No evidence of deep venous thrombus is present. Impression: No evidence of DVT in the visualized bilateral lower extremity venous system.. Electronically signed by: Neil Aguero MD (11/15/2018 11:31 AM) [place] [id number]
--- NOTE | 2018-11-15 11:41 | RAD ---
Clinical Indications: Syncope. Exam : Carotid Duplex with Grayscale Ultrasound and Spectral and Color Doppler Analysis: PQRS Compliance Statement - Stenosis calculations for CT, MR and conventional angiography are based upon measurement of the distal ICA diameter in accordance with the NASCET methodology. Stenosis calculations for carotid ultrasound studies are derived from validated velocity criteria which are known to correlate with the NASCET methodology. Comparison study: None available. Findings: The common, internal and external carotid arteries were examined by grayscale, color and spectral Doppler ultrasound. Moderate atherosclerotic plaque identified in the bilateral carotid bulbs and the proximal internal and external carotid arteries. Flow in both vertebral arteries was antegrade and normal. The following are the velocities and ratios in the carotid arteries on both sides: RIGHT ICA PV: 141cm/sec RIGHT CCA PV: 80cm/sec RIGHT ICA ED: 44cm/sec RIGHT IC/CCPV: 1.7 RIGHT VERTEBRAL: antegrade flow RIGHT % STENOSIS: 50-69% LEFT ICA PV: 201cm/sec LEFT CCA PV: 106cm/sec LEFT ICA ED: 57cm/sec LEFT IC/CCPV: 1.9 LEFT VERTEBRAL: antegrade flow LEFT % STENOSIS: 50-69% <50% ICA Stenosis: PSV < 125cm/s (EDV < 40cm/s; SVR < 2.0) 50-69% ICA Stenosis: PSV < 125-229cm/s (EDV 40-99cm/s; SVR 2.0-3.9) >70% ICA Stenosis: PSV > 230cm/s (EDV >100cm/s; SVR >4.0) Impression: 1. 50-69% stenosis identified in the bilateral internal carotid arteries. Electronically signed by: Neil Aguero MD (11/15/2018 11:38 AM) [place] [id number]
[2018-11-15] MEDS: VANCOMYCIN 1.25 GM in IV NORMAL SALINE 250ML 250 ML IV SCH (12:23)
[2018-11-15 15:26] VITALS: BP 103/56
[2018-11-15] MEDS ORDERED: SALIVA STIMULANT AGENT 44ML SPRAY BOTTLE. PO PRN (18:00)
[2018-11-15] MEDS ORDERED: IOHEXOL 350 MG/ML 100 ML VIAL. IV ONE (18:15)
--- NOTE | 2018-11-15 18:26 | HP ---
ADMIT DATE: 11/14/2018 HISTORY OF PRESENT ILLNESS: The patient is a 68-year-old male patient who came to the Emergency Room complaining of shortness of breath and hypoxia. The patient has had episodes of cough and increased oxygen requirement, is known to have throat cancer, facial, nasopharyngeal, tongue cancer treated with surgery and radiation in 2007 and dysphagia requiring gastrostomy tube placement. He also had a history of syncope after choking on celery. Patient is not supposed to be eating because of his dysphagia. He normally is only on 2 liters of oxygen, but he has been escalating his oxygen more without improvement in his symptoms. Did complain of chills and rigors, although no documented fever. He was evaluated in the Emergency Room and his lab work showed that his white cell count was normal at 9100. His blood gases showed that he has compensated chronic respiratory failure. His pH was 7.36, pCO2 of 62, a pO2 of 58, bicarbonate 35, and oxygen saturation was 87% on FiO2 of 36%. His D-dimer was slightly elevated at 0.57. His chemistry was unrevealing. Urinalysis was unremarkable and toxic screen was essentially negative. His chest x-ray showed he has bilateral lower lobe atelectasis and/or infiltrate, left greater than right. The patient was admitted and was treated with IV vancomycin, Zosyn as well as Zithromax. PAST MEDICAL HISTORY: Significant for facial, nasopharyngeal and tongue cancer treated with radiation. He also had tonsillectomy and radical neck dissection in 2007, hypertension, hypothyroidism, hyperlipidemia, coronary artery disease, status post myocardial infarction, peripheral vascular disease, gastroesophageal reflux disease, benign prostatic hypertrophy, insomnia, vitamin B12 deficiency as well as dysphagia for which he has a percutaneous endoscopic gastrostomy tube placed. PAST SURGICAL HISTORY: Significant for tonsillectomy, radical neck dissection, also had a history of tongue treated with radiation. He has had percutaneous endoscopic gastrostomy tube placed. FAMILY HISTORY: Positive for myocardial infarction, colon cancer, COPD, anxiety and depression. ALLERGIES: He is allergic to CIPRO and CODEINE. SOCIAL HISTORY: He lives with his . He does not smoke, drink alcohol or use any recreational drugs. REVIEW OF SYSTEMS: As per history of present illness. MEDICATIONS: He is currently on following medications: He is on acyclovir 200 mg capsule 3 times a day as needed for herpes, Crestor 40 mg at bedtime, carvedilol 12.5 mg twice a day with meals, amlodipine 10 mg daily, sertraline 100 mg per feeding tube daily, lorazepam 1 mg at bedtime as needed, Ambien 15 mg at bedtime. He is on potassium chloride 10 mEq once a day and levothyroxine sodium 225 mcg per feeding tube daily. PHYSICAL EXAMINATION: GENERAL: On arrival to the Emergency Room, the patient was clearly pale, no jaundice, cyanosis, or thyromegaly. No jugular venous distension. No lower limb edema. VITAL SIGNS: His heart rate was 89, blood pressure was 134/62, temperature was 99.2, respiratory rate was 28 and oxygen saturation was 79%. HEAD, EYES, EARS, NOSE AND THROAT: Showed normocephalic, atraumatic. NECK: Supple. HEART: Showed normal first and second heart sounds. No gallop or murmur. CHEST: Shows central trachea, equally reduced expansion, reduced air entry, vesicular breath sounds with bilateral basal crepitation, more on the left than the right. I could not appreciate any rhonchi. ABDOMEN: Distended, soft, nontender with a gastrostomy tube in place. There is no guarding or rigidity. No organomegaly. All hernial orifice intact. Bowel sounds normal. NEUROLOGIC: He is awake, alert, responding appropriately. All cranial nerves intact. He moves extremities without difficulty, ambulates without assistance or assistive devices. LABORATORY DATA: His lab work on arrival showed that his white cell count was 9100, hemoglobin 14, hematocrit 43, MCV 92, and platelet count of 140,000. His blood gases showed a pH of 7.36, pCO2 of 62, pO2 of 58, bicarbonate 35, oxygen saturation was 87% on FiO2 of 36%. His prothrombin time was 10.4, INR of 1, aPTT was 28, and D-dimer was 0.57. His chemistry showed a serum sodium 140, potassium 4.1, chloride 99, bicarbonate 35, anion gap of 6, BUN 17, creatinine 0.8, estimated GFR was 96 mL per minute, his glucose was 104, calcium was 9.6, magnesium 2. Total bilirubin, AST, ALT, alkaline phosphatase were normal. His beta natriuretic peptide was 547. Total protein was 8.7, albumin was 3.5. TSH was 1.495. His urinalysis was unremarkable. Toxic screen was negative. Has had a CT scan of the head, which showed no pathological extraaxial or intraaxial fluid collection. The ventricles and basal cisterns are within normal limits. No acute intracranial bleed. No focal loss of lewis-white differentiation. The orbits are within normal limits. No acute calvarial fracture. The paranasal sinuses and mastoid air cells are clear. His Doppler ultrasound of both lower extremities showed no evidence of DVT in the visualized bilateral lower extremity venous system. He underwent bilateral carotid Doppler ultrasound, which showed that the patient has 50-69% stenosis identified in the bilateral internal carotid arteries. ASSESSMENT AND PLAN: In summary, this is a 68-year-old male patient who came in with syncope/syncopal episode. He also had hypoxia, increased shortness of breath, increased requirement of oxygen. His chest x-ray showed he has bilateral infiltrate and he was admitted with [id number]-em-hyvisyr hypoxic respiratory failure, bilateral lung infiltrate. He was started on IV vancomycin, azithromycin, as well as Zosyn. We will continue all his medication. I will arrange for him to have a CT scan of the chest with PE protocol and to rule out the possibility of pulmonary emboli as his kidney function is normal at 0.6 and we will continue with Lovenox for now. If there is no evidence of pulmonary emboli, we will switch it to prophylactic dose. KAYLEE ANAND MD DR: AKILAH/juliana JOB#: [id number] / [id number]
[2018-11-15] MEDS: LORazepam 1 MG TABLET PEG PRN (18:40)
[2018-11-15] MEDS: IV DEXTROSE 5 %-0.45 % NACL 1,000 ML IV SCH (18:40)
--- NOTE | 2018-11-15 20:07 | RAD ---
CTA scan of the Chest with Contrast (Pulmonary Embolism protocol) 11/15/2018 Clinical History: Hypoxia and shortness of breath. Elevated d-dimer. Technique: After the intravenous administration of 90 cc of Omnipaque 350, contiguous, 0.625 mm axial sections were obtained through the chest. 3 mm axial and 3D MIP coronal and sagittal reconstructed images were obtained. One or more of the following individualized dose reduction techniques were utilized for this study: 1. Automated exposure control. 2. Adjustment of the mA and/or kV according to patient size. 3. Use of iterative reconstruction technique. Findings: Comparison study is dated 07/01/2018. No filling defect is seen within the major branches of either pulmonary artery. There is no CT evidence of pulmonary embolism. Atherosclerotic calcification of the thoracic aorta is seen. The thoracic aorta is mildly tortuous but tapers normally. There is mild cardiomegaly. Areas of extensive atelectasis and/or infiltrate are seen involving both lower lobes, left greater than right and to lesser extent the lingula and right middle lobe. No pneumothorax or pleural effusion is seen. Impression: There is no CT evidence of pulmonary embolism. Electronically signed by: Manfred Rodriguez MD (11/15/2018 8:04 PM) [facility]
[2018-11-15 20:18] VITALS: BP 104/62
[2018-11-15] MEDS: ENOXAPARIN 40 MG/0.4 ML SYRINGE. SQ SCH (21:01)
[2018-11-15] MEDS: ZOLPIDEM 5 MG TABLET. PEG SCH (21:02)
[2018-11-15] MEDS: ATORVASTATIN CALCIUM 20 MG TABLET PEG SCH (21:02)
[2018-11-15] MEDS: AZITHROMYCIN 250 MG in IV NORMAL SALINE 250ML 250 ML IV SCH (21:48)
[2018-11-15 23:19] VITALS: BP 119/67
[2018-11-16] VITALS (7 sets, daily range): BP systolic 93–116; BP diastolic 50–66
[2018-11-16 01:14] LABS: VANC TR 9.9 mcg/mL (10.0-20.0)
[2018-11-16] MEDS: VANCOMYCIN 1.25 GM in IV NORMAL SALINE 250ML 250 ML IV SCH ×3 (01:25→18:31)
[2018-11-16] MEDS: VANCOMYCIN PER PHARMACY MC PRN (02:13)
[2018-11-16] MEDS: IPRATRPIUM/ALBUTEROL 0.5/2.5MG 3 ML NEBU. NEB SCH (05:32)
[2018-11-16] MEDS: PIPERACILLIN/TAZOBACTAM 3.375 GM in IV NORMAL SALINE 50ML 50 ML IV SCH ×3 (05:53→21:50)
[2018-11-16] MEDS: LEVOTHYROXINE 125 MCG TABLET PEG SCH (05:53)
[2018-11-16] MEDS: LEVOTHYROXINE 100 MCG TABLET PEG SCH (05:53)
[2018-11-16 06:35] LABS: HEMATOCRIT 41.9 % (39.0-53.0); HEMOGLOBIN 13.5 g/dL (13.0-17.5); RED BLOOD COUNT 4.52 x10^6/uL (4.30-5.70); RED CELL DISTRIBUTION WIDTH 15.4 % (11.5-14.5); WHITE BLOOD COUNT 8.1 x10^3/uL (4.0-11.0)
[2018-11-16 06:48] LABS: ALBUMIN 2.7 g/dL (3.4-5.0); ALBUMIN/GLOBULIN RATIO 0.5 (1.0-1.7); CALCIUM 9.2 mg/dL (8.5-10.1); CREATININE 0.6 mg/dL (0.7-1.3); GFR 134.4; POTASSIUM 3.8 mmol/L (3.5-5.1); TOTAL BILIRUBIN 0.6 mg/dL (0.2-1.0); TOTAL PROTEIN 7.8 g/dL (6.4-8.2)
--- NOTE | 2018-11-16 07:37 | PDOC2 ---
CHRISS CORTEZ OTR OWNER OPERATOR 11/16/18 0737: CARDIAC CONSULT DATE OF CONSULT Date Of Consult DATE: 11/16/18 TIME: 07:30 REASON FOR CONSULT Reason for Consult Syncope Carotid stenosis REFERRING PHYSICIAN Referring Physician Dr. Grover SOURCE Source: Chart review, Patient HPI History of Present Illness This is a 68 yo male who presented secondary to shortness of breath. Patient has history of tongue CA and dysphagia with recurrent aspiration PNA. On chronic O2. Has PEG tube and takes nothing by mouth. Over the last couple day, developed progressive shortness of breath. The day of arrival, developed fevers, chills. Had difficulty keeping oxygen level up despite increasing oxygen from 2L to 4LNC. Oxygen level remained in the 80's. Given history of recurrent PNA, patient came into the ED for further evaluation and treatment. Patient reports having syncopal episode 2 weeks ago, which prompted this consult. Report that he was sitting in living room visiting with neighbors. Stood up to say goodbye at they were leaving. Suddenly became "woozy". Sat back down in the chair and subsequently passed out. reports he was unconscious for a minute or so. Does report occasional dizziness upon standing, but has had no further episode of passing out since. Reports cardiac cath in 2015 without significant obstructive disease. PAST MEDICAL HISTORY Cardiovascular: CAD, CHF, HTN, hyperipidemia Pulmonary: Pneumonia, Other (YAYO) GI: GERD Heme/Onc: Anemia NOS, Cancer (tongue ) Hepatobiliary: No pertinent hx Psych: Anxiety, Depression Musculoskeletal: Osteoarthritis Rheumatologic: Gout Infectious disease: No pertinent hx ENT: No pertinent hx Renal/: Benign prostatic enlarg. Endocrine: Hypothyroidism Dermatology: No pertinent hx PAST SURGICAL HISTORY Past Surgical History: Tonsillectomy, Other (PED placement. Lymph node removal in neck) SOCIAL HISTORY Smoke: Quit (1982) ALCOHOL: none Drugs: None Lives: with Family CURRENT MEDICATIONS Current Medications Current Medications Aspirin (Children'S Aspirin) 81 mg 1X ONCE PO Last administered on 11/14/18at 22:47; Start 11/14/18 at 21:45; Stop 11/14/18 at 21:46; Status DC Lactated Ringer's 1,000 ml @ 100 mls/hr Q10H IV Last administered on 11/14/18at 22:48; Start 11/14/18 at 21:45; Stop 11/15/18 at 07:44; Status DC Albuterol/ Ipratropium (Duoneb) 3 ml 1X ONCE NEB Last administered on 11/14/18at 23:15; Start 11/14/18 at 21:45; Stop 11/14/18 at 21:46; Status DC Ceftriaxone Sodium 1 gm/ Sodium Chloride 50 ml @ 100 mls/hr 1X ONCE IV Last administered on 11/14/18at 22:48; Start 11/14/18 at 21:45; Stop 11/14/18 at 22:14; Status DC Azithromycin 500 mg/Sodium Chloride 250 ml @ 250 mls/hr 1X ONCE IV Last administered on 11/14/18at 23:36; Start 11/14/18 at 21:45; Stop 11/14/18 at 22:44; Status DC Vancomycin HCl (Vanco Per Pharmacy) 1 each PRN DAILY PRN MC SEE COMMENTS Last administered on 11/16/18at 02:13; Start 11/14/18 at 21:45 Vancomycin HCl 1 gm/Sodium Chloride 250 ml @ 250 mls/hr 1X ONCE IV ; Start 11/14/18 at 21:45; Stop 11/14/18 at 22:06; Status DC Vancomycin HCl 2 gm/Sodium Chloride 500 ml @ 250 mls/hr 1X ONCE IV Last administered on 11/15/18at 01:19; Start 11/14/18 at 22:15; Stop 11/15/18 at 00:15; Status DC Sodium Chloride 50 ml @ As Directed STK-MED ONCE .ROUTE ; Start 11/14/18 at 22:43; Stop 11/14/18 at 22:44; Status DC Ceftriaxone Sodium (Rocephin) 1 gm STK-MED ONCE .ROUTE ; Start 11/14/18 at 22:43; Stop 11/14/18 at 22:44; Status DC Ondansetron HCl (Zofran) 4 mg PRN Q4HRS PRN IV NAUSEA/VOMITING; Start 11/14/18 at 23:30; Stop 11/15/18 at 23:29; Status DC Albuterol/ Ipratropium (Duoneb) 3 ml RTQID NEB Last administered on 11/16/18at 05:32; Start 11/15/18 at 08:00; Stop 11/16/18 at 07:59 Ceftriaxone Sodium 1 gm/ Sodium Chloride 50 ml @ 100 mls/hr Q24H IV ; Start 11/15/18 at 21:00; Stop 11/15/18 at 21:00; Status DC Azithromycin 250 mg/Sodium Chloride 250 ml @ 250 mls/hr Q24H IV Last administered on 11/15/18at 21:48; Start 11/15/18 at 22:00 Sodium Chloride 250 ml @ As Directed STK-MED ONCE .ROUTE ; Start 11/14/18 at 23:30; Stop 11/14/18 at 23:31; Status DC Azithromycin (Zithromax) 500 mg STK-MED ONCE IV ; Start 11/14/18 at 23:30; Stop 11/14/18 at 23:31; Status DC Enoxaparin Sodium (Lovenox 80mg Syringe) 80 mg BID SQ Last administered on 11/15/18at 08:00; Start 11/15/18 at 09:00; Stop 11/15/18 at 20:18; Status DC Enoxaparin Sodium (Lovenox 60mg Syringe) 60 mg ONCE ONCE SQ Last administered on 11/15/18at 01:20; Start 11/15/18 at 00:45; Stop 11/15/18 at 00:46; Status DC Clindamycin Phosphate 50 ml @ 100 mls/hr Q8HRS IV ; Start 11/15/18 at 06:00; S top 11/15/18 at 06:00; Status DC Piperacillin Sod/ Tazobactam Sod 3.375 gm/Sodium Chloride 50 ml @ 100 mls/hr Q8HRS IV Last administered on 11/16/18at 05:53; Start 11/15/18 at 06:00 Carvedilol (Coreg) 12.5 mg BIDWMEALS PEG ; Start 11/15/18 at 08:00 Furosemide (Lasix) 20 mg DAILY PEG ; Start 11/15/18 at 09:00 Lorazepam (Ativan) 1 mg PRN QHS PRN PEG ANXIETY; Start 11/15/18 at 05:45; Stop 11/15/18 at 18:00; Status DC Sertraline HCl (Zoloft) 100 mg DAILY PEG Last administered on 11/15/18at 07:59; Start 11/15/18 at 09:00 Allopurinol (Zyloprim) 100 mg DAILY PEG Last administered on 5/30/19at 07:59; Start 11/15/18 at 09:00 Amlodipine Besylate (Norvasc) 10 mg DAILY PEG ; Start 11/15/18 at 09:00 Non-Formulary Medication (Levothyroxine Sodium ) 225 mcg DAILY06 PEG ; Start 11/15/18 at 06:00; Status UNV Potassium Chloride (Klor-Con) 10 meq DAILY08 PO Last administered on 11/15/18 07:59; Start 11/15/18 at 08:00; Stop 11/15/18 at 14:57; Status DC Atorvastatin Calcium (Lipitor) 80 mg QHS PEG Last administered on 11/15/18 21:02; Start 11/15/18 at 21:00 Zolpidem Tartrate (Ambien) 5 mg QHS PEG Last administered on 11/15/18 21:02; Start 11/15/18 at 21:00 Levothyroxine Sodium (Synthroid) 125 mcg DAILY06 PEG Last administered on 11/16/18 05:53; Start 11/15/18 at 06:00 Levothyroxine Sodium (Synthroid) 100 mcg DAILY06 PEG Last administered on 11/16/18 05:53; Start 11/15/18 at 06:00 Vancomycin HCl 1.25 gm/Sodium Chloride 250 ml @ 167 mls/hr Q12H IV Last administered on 11/16/18 01:25; Start 11/15/18 at 13:00; Stop 11/16/18 at 02:06; Status DC Vancomycin HCl (Vancomycin Trough Level) 1 each 1X ONCE MC Last administered on 11/16/18 00:30; Start 11/16/18 at 00:30; Stop 11/16/18 at 00:31; Status DC Potassium Chloride (Klor-Con) 10 meq DAILY08 PO ; Start 11/16/18 at 08:00 Saliva Substitute (Biotene Moisturizing Mouth) 2 spray PRN Q15MIN PRN PO DRY MOUTH Last administered on 11/15/18 21:09; Start 11/15/18 at 18:00 Dextrose/Sodium Chloride 1,000 ml @ 75 mls/hr [id number] IV Last administered on 11/15/18 18:40; Start 11/15/18 at 18:00 Lorazepam (Ativan) 1 mg PRN TID PRN PEG ANXIETY Last administered on 11/15/18at 18:40; Start 11/15/18 at 18:15 Iohexol (Omnipaque 350 Mg/ml) 100 ml 1X ONCE IV Last administered on 11/15/18at 19:07; Start 11/15/18 at 18:15; Stop 11/15/18 at 18:16; Status DC Enoxaparin Sodium (Lovenox 40mg Syringe) 40 mg Q24H SQ Last administered on 11/15/18at 21:01; Start 11/15/18 at 20:30 Vancomycin HCl 1.25 gm/Sodium Chloride 250 ml @ 167 mls/hr Q8H IV ; Start 11/16/18 at 09:00 Vancomycin HCl (Vancomycin Trough Level) 1 each 1X ONCE MC ; Start 11/17/18 at 08:30; Stop 11/17/18 at 08:31 Active Scripts Active Reported Acyclovir 200 Mg Capsule Unknown Dose PEG PRN TID PRN Potassium Chloride 10 Meq Tablet.er 10 Meq PEG DAILY Amlodipine Besylate 10 Mg Tablet 10 Mg PEG DAILY Carvedilol (Carvedilol) 12.5 Mg Tablet 12.5 Mg PEG BIDWMEALS Zoloft (Sertraline Hcl) 100 Mg Tablet 1 Tab PEG DAILY Levothyroxine Sodium 200 Mcg Tablet 225 Mcg PEG DAILY06 Crestor (Rosuvastatin Calcium) 40 Mg Tablet 40 Mg PEG HS Ativan (Lorazepam) 1 Mg Tablet 1 Mg PEG PRN QHS PRN Zolpidem Tartrate 10 Mg Tablet 15 Mg PEG HS ALLERGIES Allergies: Coded Allergies: ciprofloxacin (Verified Allergy, Intermediate, 07/01/18) codeine (Verified Allergy, Intermediate, 07/17/16) ROS Review of Systems 14 point ROS conducted with pertinent positives noted above in HPI. PHYSICAL EXAM General: Alert, Oriented X3, Cooperative, No acute distress HEENT: Atraumatic, Mucous membr. moist/pink Lungs: Other (bilateral rhonchi ) Heart: Regular rate, Normal S1, Normal S2, Other (2/6 systolic murmur ) Extremities: No edema, Normal pulses Skin: No breakdown Neuro: Normal speech, Sensation intact Psych/Mental Status: Mental status NL, Mood NL MUSCULOSKELETAL: Osteoarthritic changes both hands VITALS Vital Signs Vital Signs Date Time Temp Pulse Resp B/P (MAP) Pulse Ox O2 Delivery O2 Flow Rate FiO2 11/16/18 06:28 98.2 71 20 116/60 (78) 94 Nasal Cannula 4.0 LABS LABS Laboratory Tests Test 11/14/18 21:24 11/14/18 21:35 11/14/18 21:36 11/14/18 23:45 Thyroid Stimulating Hormone (TSH) 1.495 uIU/mL (0.358-3.740) White Blood Count 9.1 x10^3/uL (4.0-11.0) Red Blood Count 4.70 x10^6/uL (4.30-5.70) Hemoglobin 14.0 g/dL (13.0-17.5) Hematocrit 43.2 % (39.0-53.0) Mean Corpuscular Volume 92 fL (79-100) Mean Corpuscular Hemoglobin 30 pg (25-35) Mean Corpuscular Hemoglobin Concent 33 g/dL (31-37) Red Cell Distribution Width 15.1 % (11.5-14.5) Platelet Count 140 x10^3/uL (140-400) Neutrophils (%) (Auto) 84 % (31-73) Lymphocytes (%) (Auto) 8 % (24-48) Monocytes (%) (Auto) 8 % (0-9) Eosinophils (%) (Auto) 0 % (0-3) Basophils (%) (Auto) 0 % (0-3) Neutrophils # (Auto) 7.7 x10^3uL (1.8-7.7) Lymphocytes # (Auto) 0.7 x10^3/uL (1.0-4.8) Monocytes # (Auto) 0.7 x10^3/uL (0.0-1.1) Eosinophils # (Auto) 0.0 x10^3/uL (0.0-0.7) Basophils # (Auto) 0.0 x10^3/uL (0.0-0.2) Erythrocyte Sedimentation Rate 30 (0-15) Prothrombin Time 10.4 SEC (9.4-11.4) Prothromb Time International Ratio 1.0 (0.9-1.1) Activated Partial Thromboplast Time 28 SEC (23-33) D-Dimer (Leela) 0.57 mg/L (0.00-0.50) Sodium Level 140 mmol/L (136-145) Potassium Level 4.1 mmol/L (3.5-5.1) Chloride Level 99 mmol/L (98-107) Carbon Dioxide Level 35 mmol/L (21-32) Anion Gap 6 (6-14) Blood Urea Nitrogen 17 mg/dL (8-26) Creatinine 0.8 mg/dL (0.7-1.3) Estimated GFR (Cockcroft-Gault) 96.4 Glucose Level 104 mg/dL (70-99) Lactic Acid Level 1.1 mmol/L (0.4-2.0) Calcium Level 9.6 mg/dL (8.5-10.1) Magnesium Level 2.0 mg/dL (1.8-2.4) Total Bilirubin 0.8 mg/dL (0.2-1.0) Direct Bilirubin 0.2 mg/dL (0.0-0.2) Aspartate Amino Transf (AST/SGOT) 22 U/L (15-37) Alanine Aminotransferase (ALT/SGPT) 19 U/L (16-63) Alkaline Phosphatase 90 U/L (46-116) Creatine Kinase 76 U/L (39-308) Troponin I Quantitative < 0.017 ng/mL (0-0.055) [id number]-Type Natriuretic Peptide 547 pg/mL (0-124) Total Protein 8.7 g/dL (6.4-8.2) Albumin 3.5 g/dL (3.4-5.0) Lipase 113 U/L (73-393) Blood Gas pH 7.36 (7.35-7.46) Blood Gas PCO2 62 mmHg (35-46) Blood Gas PO2 58 mmHg (80-100) Blood Gas HCO3 35 mmol/L (21-28) Arterial Bld O2 Saturation (Calc) 87 % (92-99) FiO2 36 % Urine Collection Type Unknown Urine Color Yellow Urine Clarity Hazy Urine pH 7.5 Urine Specific Spickard 1.015 Urine Protein 30 mg/dl (NEG-TRACE) Urine Glucose (UA) Neg mg/dL (NEG) Urine Ketones (Stick) Neg mg/dL (NEG) Urine Blood Neg (NEG) Urine Nitrite Neg (NEG) Urine Bilirubin Neg (NEG) Urine Urobilinogen Dipstick 1 mg/dL (0.2 mg/dL) Urine Leukocyte Esterase Neg (NEG) Urine RBC 0 /HPF (0-2) Urine WBC Occ /HPF (0-4) Urine Squamous Epithelial Cells Occ /LPF Urine Amorphous Sediment Present /HPF Urine Bacteria 0 /HPF (0-FEW) Urine Opiates Screen Neg (NEG) Urine Methadone Screen Neg (NEG) Urine Barbiturates Neg (NEG) Urine Phencyclidine Screen Neg (NEG) Urine Amphetamine/Methamphetamine Neg (NEG) Urine Benzodiazepines Screen Neg (NEG) Urine Cocaine Screen Neg (NEG) Urine Cannabinoids Screen Neg (NEG) Urine Ethyl Alcohol Neg (NEG) Test 11/15/18 05:52 11/16/18 00:40 11/16/18 05:52 White Blood Count 10.2 x10^3/uL (4.0-11.0) 8.1 x10^3/uL (4.0-11.0) Red Blood Count 3.95 x10^6/uL (4.30-5.70) 4.52 x10^6/uL (4.30-5.70) Hemoglobin 12.0 g/dL (13.0-17.5) 13.5 g/dL (13.0-17.5) Hematocrit 36.1 % (39.0-53.0) 41.9 % (39.0-53.0) Mean Corpuscular Volume 91 fL (79-100) 93 fL (79-100) Mean Corpuscular Hemoglobin 30 pg (25-35) 30 pg (25-35) Mean Corpuscular Hemoglobin Concent 33 g/dL (31-37) 32 g/dL (31-37) Red Cell Distribution Width 15.0 % (11.5-14.5) 15.4 % (11.5-14.5) Platelet Count 121 x10^3/uL (140-400) 145 x10^3/uL (140-400) Neutrophils (%) (Auto) 78 % (31-73) Lymphocytes (%) (Auto) 11 % (24-48) Monocytes (%) (Auto) 11 % (0-9) Eosinophils (%) (Auto) 0 % (0-3) Basophils (%) (Auto) 0 % (0-3) Neutrophils # (Auto) 7.9 x10^3uL (1.8-7.7) Lymphocytes # (Auto) 1.2 x10^3/uL (1.0-4.8) Monocytes # (Auto) 1.1 x10^3/uL (0.0-1.1) Eosinophils # (Auto) 0.0 x10^3/uL (0.0-0.7) Basophils # (Auto) 0.0 x10^3/uL (0.0-0.2) Sodium Level 141 mmol/L (136-145) 142 mmol/L (136-145) Potassium Level 3.6 mmol/L (3.5-5.1) 3.8 mmol/L (3.5-5.1) Chloride Level 103 mmol/L (98-107) 103 mmol/L (98-107) Carbon Dioxide Level 35 mmol/L (21-32) 37 mmol/L (21-32) Anion Gap 3 (6-14) 2 (6-14) Blood Urea Nitrogen 13 mg/dL (8-26) 9 mg/dL (8-26) Creatinine 0.6 mg/dL (0.7-1.3) 0.6 mg/dL (0.7-1.3) Estimated GFR (Cockcroft-Gault) 134.4 134.4 Glucose Level 95 mg/dL (70-99) 97 mg/dL (70-99) Calcium Level 8.8 mg/dL (8.5-10.1) 9.2 mg/dL (8.5-10.1) Vancomycin Level Trough 9.9 mcg/mL (10.0-20.0) Vancomycin Last Dose Date 11/15/2018 Vancomycin Last Dose Time 1300 BUN/Creatinine Ratio 15 (6-20) Total Bilirubin 0.6 mg/dL (0.2-1.0) Aspartate Amino Transf (AST/SGOT) 14 U/L (15-37) Alanine Aminotransferase (ALT/SGPT) 15 U/L (16-63) Alkaline Phosphatase 77 U/L (46-116) Total Protein 7.8 g/dL (6.4-8.2) Albumin 2.7 g/dL (3.4-5.0) Albumin/Globulin Ratio 0.5 (1.0-1.7) ECHOCARDIOGRAM Echocardiogram <Conclusion> The left ventricular systolic function is normal and the ejection fraction is within normal range. The Ejection Fraction is 55-60%. There is normal LV segmental wall motion. DATE: 01/10/18 1056 HEART CATH Heart Cath Previous cardiac catheterization performed in 2014 that had no significant o bstructive coronary disease. ASSESSMENT/PLAN Assessment/Plan 1. Acute on chronic respiratory failure secondary to #2 2. PNA, fevers 3. Syncope; etiology unclear 4. Tongue CA 5. Dysphagia with recurrent aspiration PNA 6. Chronic diastolic HF; clinically compensated 7. Hypertension; controlled 8. Hyperlipidemia; statin 9. Carotid artery stenosis; moderate plaquing bilaterally Recommendations Echo to assess LV systolic function Orthostatic vitals Lipid panel Continue statin, Add ASA Ongoing antibiotic therapy as per PCP Consider outpatient event monitor to r/o contributing arrhythmias HEIDI LEBRON MD 11/16/18 1758: CARDIAC CONSULT ASSESSMENT/PLAN Assessment/Plan Patient seen and examined He reports feeling better this afternoon. Acute on chronic respiratory failure. PNA Continuing present treatment. Diastolic heart failure. Reasonably compensated. Continue present treatment. Check an ECHO. Syncope. Patient is feeling better. Rhythm stable. HTN. Controlled on present medications. HLD. Statin. Checking a lipid panel. Moderate carotid lesions. Continuing medical treatment. History of CA of his tongue. Thank you for allowing us to participate in the care of your patient. CHRISS CORTEZ APRN November 16, 2018 07:37 HEIDI LEBRON MD November 16, 2018 17:58
[2018-11-16] MEDS: FUROSEMIDE 20 MG TABLET PEG SCH (08:31)
[2018-11-16] MEDS: POTASSIUM CHLORIDE 20 MEQ TABLET.ER. PO SCH (08:31)
[2018-11-16] MEDS: ALLOPURINOL 100 MG TABLET. PEG SCH (08:31)
[2018-11-16] MEDS: SERTRALINE 100 MG TABLET. PEG SCH (08:31)
[2018-11-16] MEDS: CARVEDILOL 12.5 MG TABLET PEG SCH ×2 (08:32→18:29)
[2018-11-16] MEDS: amLODIPine BESYLATE 10 MG TABLET PEG SCH (08:32)
[2018-11-16] MEDS: ASPIRIN 81 MG TAB.CHEW PO SCH (08:39)
[2018-11-16] MEDS: LORazepam 1 MG TABLET PEG PRN (13:44)
[2018-11-16] MEDS: IV DEXTROSE 5 %-0.45 % NACL 1,000 ML IV SCH ×2 (13:46→20:40)
--- NOTE | 2018-11-16 17:43 | PN ---
DATE: 11/15/2018 SUBJECTIVE: The patient is sitting slightly propped up in bed, in no apparent respiratory distress. Despite being on 4 liters of oxygen, his oxygen saturation is only 90-91%. He is also extremely anxious and would like to have his lorazepam increased as his D-dimer was elevated. I will arrange for him to have a CT scan of the chest with PE protocol. PHYSICAL EXAMINATION: GENERAL: When I saw him this afternoon, he was resting slightly propped up in bed, in no apparent distress. Slightly pale. No jaundice, cyanosis, or thyromegaly. No jugular venous distension. No limb edema. VITAL SIGNS: His heart rate was 75, blood pressure was 103/58, temperature was 98.7, respiratory rate 20, and oxygen saturation was 93% on 4 liters of oxygen. HEAD, EYES, EARS, NOSE AND THROAT: Showed normocephalic, atraumatic. NECK: Supple. HEART: Showed normal first and second heart sounds. No gallop, rub or murmur. CHEST: Showed central trachea, equal bilateral expansion, air entry. Vesicular breath sounds with bilateral crepitations, more so on the left than the right. I could not appreciate any rhonchi. ABDOMEN: Slightly distended, soft with gastrostomy tube in place. There is no tenderness. No guarding or rigidity. No organomegaly. All hernial orifices are intact. Bowel sounds normal. NEUROLOGIC: He was awake, alert, responding appropriately. All cranial nerves are intact. He moves extremities without difficulty. LABORATORY DATA: His intake over the last 24 hours was 1515, no output was recorded. His lab work this morning showed a white cell count of 10,000, hemoglobin 12, hematocrit 36, MCV 91, and platelet count of 121,000 with normal manual differential. His chemistry showed a serum sodium 141, potassium 3.6, chloride 103, bicarbonate 35, anion gap of 3, BUN 13, creatinine 0.6, estimated GFR was 134 mL per minute. His glucose was 95, lactic acid is only 1.1 and calcium was 8.8. ASSESSMENT: 1. Community-acquired pneumonia versus aspiration pneumonia. 2. Acute on chronic hypoxic hypercapnic respiratory failure. 3. The patient has esophageal, nasopharyngeal and tongue cancer, status post radical neck dissection. 4. Dysphagia, for which he has a percutaneous endoscopic gastrostomy tube placed. Other medical problems include COPD, hypertension, hypothyroidism. PLAN: My plan is to arrange for him to start him on IV fluid, do a CT scan of the chest with PE protocol. Continue with IV antibiotic and also given that he has syncope and also his carotid Doppler ultrasound showed that he has 50-69% stenosis, I would consult the Cardiology team. KAYLEE ANAND MD DR: AKILAH/juliana JOB#: [id number] / [id number]
[2018-11-16] MEDS: ZOLPIDEM 5 MG TABLET. PEG SCH (20:52)
[2018-11-16] MEDS: ENOXAPARIN 40 MG/0.4 ML SYRINGE. SQ SCH (20:53)
[2018-11-16] MEDS: ATORVASTATIN CALCIUM 20 MG TABLET PEG SCH (20:53)
[2018-11-16] MEDS: AZITHROMYCIN 250 MG in IV NORMAL SALINE 250ML 250 ML IV SCH (22:23)
[2018-11-17] MEDS: VANCOMYCIN 1.25 GM in IV NORMAL SALINE 250ML 250 ML IV SCH ×2 (01:27→09:00)
[2018-11-17] MEDS: LORazepam 1 MG TABLET PEG PRN ×2 (03:05→15:12)
--- NOTE | 2018-11-17 04:04 | PN ---
DATE: 11/16/2018 SUBJECTIVE: The patient is resting, slightly propped up in bed, in no apparent respiratory distress. He has had no further episodes of dizziness and lightheadedness, but his blood pressure is on the lower side. There is no evidence of postural hypotension. He has been up and about. Unfortunately, he continued to desaturate very quickly, although his oxygen is much better than yesterday. PHYSICAL EXAMINATION: GENERAL: When I examined him, he looked pale. No jaundice, cyanosis, or thyromegaly. No jugular venous distention. No lower limb edema. VITAL SIGNS: His heart rate was 71, blood pressure was 93/50, temperature was 97, respiratory rate was 20, and oxygen saturation was 94% on 4 liters of oxygen. HEAD, EYES, EARS, NOSE AND THROAT: Normocephalic, atraumatic. NECK: Supple. HEART: Showed normal first and second heart sounds. No gallop, rub or murmur. CHEST: Shows central trachea, equally reduced expansion, reduced air entry, vesicular breath sounds with crepitation both sides posteriorly, more so on the left than the right. I could not appreciate any rhonchi. ABDOMEN: Slightly distended, soft with gastrostomy tube in place. NEUROLOGIC: He is awake, alert, responding appropriately. All cranial nerves intact. He moves extremities without difficulty. His intake was 1550, no output was recorded. LABORATORY DATA: His lab work this morning showed a white cell count of 8000, hemoglobin 13.5, hematocrit 42, MCV 93, and platelet count of 145,000. Serum sodium was 142, potassium 3.8, chloride 103, bicarbonate 37, anion gap of 2, BUN 9, creatinine 0.6, estimated GFR was 34 mL per minute. His glucose was 97, calcium was 9.2. Total bilirubin, AST, ALT, alkaline phosphatase were normal. Total protein was 7.8, albumin was 2.7. His blood cultures are so far negative. ASSESSMENT: 1. Syncopal episode. His blood pressure is low, but without any postural hypotension. 2. Acute hypoxic respiratory failure with bilateral lower lobe infiltrate for which he is on triple antibiotic. 3. Acute on chronic hypoxic hypercapnic respiratory failure. 4. He has multiple other medical problems including hypertension, hypothyroidism, hyperlipidemia, coronary artery disease, status post myocardial infarction, peripheral vascular disease, gastroesophageal reflux disease, benign prostatic hypertrophy. PLAN: To continue with IV antibiotic. Continue with IV fluid, continue with DVT prophylaxis. Once we have the culture and sensitivity, we will deescalate antibiotics. KAYLEE ANAND MD DR: AKILAH/juliana JOB#: [id number] / [id number]
[2018-11-17 05:37] VITALS: BP 104/55
[2018-11-17] MEDS: LEVOTHYROXINE 125 MCG TABLET PEG SCH (05:58)
[2018-11-17] MEDS: PIPERACILLIN/TAZOBACTAM 3.375 GM in IV NORMAL SALINE 50ML 50 ML IV SCH ×3 (05:58→21:49)
[2018-11-17] MEDS: LEVOTHYROXINE 100 MCG TABLET PEG SCH (05:58)
[2018-11-17 08:52] LABS: VANC TR 20.4 mcg/mL (10.0-20.0)
[2018-11-17] MEDS: POTASSIUM CHLORIDE 20 MEQ TABLET.ER. PO SCH (09:10)
[2018-11-17] MEDS: FUROSEMIDE 20 MG TABLET PEG SCH (09:11)
[2018-11-17] MEDS: ASPIRIN 81 MG TAB.CHEW PO SCH (09:11)
[2018-11-17] MEDS: ALLOPURINOL 100 MG TABLET. PEG SCH (09:11)
[2018-11-17] MEDS: SERTRALINE 100 MG TABLET. PEG SCH (09:11)
[2018-11-17] MEDS: amLODIPine BESYLATE 10 MG TABLET PEG SCH (09:12)
[2018-11-17] MEDS: CARVEDILOL 12.5 MG TABLET PEG SCH ×2 (09:12→18:44)
[2018-11-17] MEDS: IV DEXTROSE 5 %-0.45 % NACL 1,000 ML IV SCH (09:37)
[2018-11-17] MEDS: VANCOMYCIN PER PHARMACY MC PRN (11:22)
--- NOTE | 2018-11-17 15:02 | PN ---
DATE: 11/17/2018 SUBJECTIVE: The patient is resting, slightly propped up in bed, clearly in no apparent respiratory distress. He denied any complaint, in particular any chest pain, denied any cough, phlegm or hemoptysis. He has no fever. PHYSICAL EXAMINATION: GENERAL: When I examined him, he looked well and was clearly in no apparent respiratory distress. No pallor, jaundice, cyanosis, or thyromegaly. No jugular venous distension. No limb edema. VITAL SIGNS: His heart rate was 65, blood pressure 104/55, temperature was 97.9, respiratory rate was 20, and oxygen saturation was 90% on 4 liters of oxygen. HEAD, EYES, EARS, NOSE AND THROAT: Showed normocephalic, atraumatic. NECK: Supple. HEART: Showed normal first and second heart sounds. No gallop, rub or murmur. CHEST: Shows central trachea, equally reduced expansion, reduced air entry, vesicular sounds, bilateral basal crepitation, more so on the left than the right. However, I could not appreciate any rhonchi. ABDOMEN: Slightly distended, soft with gastrostomy tube in place. There is no guarding or rigidity. No organomegaly. All hernial orifices intact. Bowel sounds normal. NEUROLOGIC: He was awake, alert, responding appropriately. All cranial nerves intact. He moves extremities without difficulty. His intake over the last 24 hours was 2400, no output was recorded. LABORATORY DATA: His most recent lab work showed white cell count of 8000, hemoglobin 13.5, hematocrit 42, MCV 93, and platelet count of 145,000. His chemistry showed serum sodium 142, potassium 3.8, chloride 103, bicarbonate 37, anion gap of 2, BUN 9, creatinine was 0.6, estimated GFR was 134 mL per minute, his glucose 97, calcium was 9.2. Total bilirubin, AST, ALT, alkaline phosphatase were normal. Total protein was 7.8, albumin 2.7. Serum triglycerides were 26. Total cholesterol was 99, LDL was 26, VLDL was 5, HDL cholesterol was 68 and the ratio was 1. His vancomycin trough level was high today at 20 and his blood cultures are negative for more than 2 days. ASSESSMENT: 1. Syncopal episode, resolved. He has had no further episode of syncope. He has no evidence of postural hypertension. 2. Acute hypoxic respiratory failure with bilateral lower lobe infiltrate for which he is on triple antibiotic. 3. Other medical problems include: A. Hypertension. B. Hypothyroidism. C. Hyperlipidemia. D. Coronary artery disease. E. Peripheral vascular disease. F. Gastroesophageal reflux disease. G. Benign prostatic hypertrophy. PLAN: My plan is to discontinue vancomycin, continue with Zosyn and azithromycin. Continue with DVT prophylaxis. I will discontinue the IV fluid also and will repeat his labs tomorrow and decide the further management accordingly. KAYLEE ANAND MD DR: AKILAH/juliana JOB#: [id number] / [id number]
[2018-11-17 16:04] VITALS: BP 107/62
[2018-11-17] MEDS ORDERED: VANCOMYCIN 1 GM in IV NORMAL SALINE 250ML 250 ML IV SCH (17:00)
[2018-11-17 19:40] VITALS: BP 107/63
[2018-11-17] MEDS: ATORVASTATIN CALCIUM 20 MG TABLET PEG SCH (20:32)
[2018-11-17] MEDS: ENOXAPARIN 40 MG/0.4 ML SYRINGE. SQ SCH (20:32)
[2018-11-17] MEDS: ZOLPIDEM 5 MG TABLET. PEG SCH (20:32)
[2018-11-17] MEDS: AZITHROMYCIN 250 MG in IV NORMAL SALINE 250ML 250 ML IV SCH (21:50)
[2018-11-18 05:42] VITALS: BP 120/69
[2018-11-18] MEDS: LEVOTHYROXINE 100 MCG TABLET PEG SCH (05:50)
[2018-11-18] MEDS: LEVOTHYROXINE 125 MCG TABLET PEG SCH (05:50)
[2018-11-18] MEDS: PIPERACILLIN/TAZOBACTAM 3.375 GM in IV NORMAL SALINE 50ML 50 ML IV SCH (05:51)
[2018-11-18 06:51] LABS: RED BLOOD COUNT 4.02 x10^6/uL (4.30-5.70); RED CELL DISTRIBUTION WIDTH 14.9 % (11.5-14.5)
[2018-11-18 07:04] LABS: ALBUMIN 2.2 g/dL (3.4-5.0); ALBUMIN/GLOBULIN RATIO 0.5 (1.0-1.7); CALCIUM 8.6 mg/dL (8.5-10.1); CREATININE 0.6 mg/dL (0.7-1.3); GFR 134.4; POTASSIUM 3.9 mmol/L (3.5-5.1); TOTAL BILIRUBIN 0.5 mg/dL (0.2-1.0); TOTAL PROTEIN 6.8 g/dL (6.4-8.2)
[2018-11-18] MEDS: ASPIRIN 81 MG TAB.CHEW PO SCH (08:39)
[2018-11-18] MEDS: SERTRALINE 100 MG TABLET. PEG SCH (08:40)
[2018-11-18] MEDS: amLODIPine BESYLATE 10 MG TABLET PEG SCH (08:40)
[2018-11-18] MEDS: ALLOPURINOL 100 MG TABLET. PEG SCH (08:40)
[2018-11-18] MEDS: POTASSIUM CHLORIDE 20 MEQ TABLET.ER. PO SCH (08:40)
[2018-11-18] MEDS: CARVEDILOL 12.5 MG TABLET PEG SCH (08:41)
[2018-11-18] MEDS: FUROSEMIDE 20 MG TABLET PEG SCH (08:41)
[2018-11-18 10:41] VITALS: BP 106/63
[2018-11-18 10:44] VITALS: BP 106/63
[2018-11-18] MEDS ORDERED: AZIT250T PO (12:12)
[2018-11-18] MEDS ORDERED: LORA0.5T PO (12:12)
[2018-11-18] MEDS ORDERED: AMOX1TAB61 PO (12:12)
--- NOTE | 2018-11-18 18:18 | DS ---
DATE OF DISCHARGE: 11/18/2018 HOSPITAL COURSE: The patient is a 68-year-old male patient who came in with increasing shortness of breath, hypoxia. He also had a syncopal episode. He was extensively evaluated and was found to have bilateral lower lobe infiltrate. He was treated with IV fluid as well as IV antibiotic in the form of vancomycin, Zosyn as well as azithromycin. The patient did very well. His oxygen saturation improved. He is now back on his 3 liters, maintaining his oxygen saturation at 95%, has had no chest pain, no shortness of breath. OBJECTIVE: GENERAL: When I examined him this morning, he was sitting slightly propped up in bed, in no apparent respiratory distress. No pallor, jaundice, cyanosis, or thyromegaly. No jugular venous distension. No limb edema. VITAL SIGNS: His heart rate was 64, blood pressure was 106/63, temperature was 97.4, respiratory rate 20, and oxygen saturation was 95% on 3 liters of oxygen by nasal cannula. HEAD, EYES, EARS, NOSE AND THROAT: Showed normocephalic, atraumatic. NECK: Supple. HEART: Showed normal first and second heart sounds. No gallop, rub or murmur. CHEST: Clear to auscultation. No crepitation or rhonchi. ABDOMEN: Distended, soft, nontender. He has a gastrostomy tube in place. NEUROLOGIC: He is awake, alert, responding appropriately. All his cranial nerves are intact. He moves extremities without difficulty, ambulates without assistance or assistive devices. LABORATORY DATA: Lab work this morning showed a serum sodium 143, potassium 3.9, chloride 103, bicarbonate 39, anion gap of 1, BUN of 9, creatinine was 0.6, estimated GFR was 134 mL per minute, his glucose was 85, calcium was 8.5. Total bilirubin, AST, ALT, alkaline phosphatase were normal. Total protein was 6.8, albumin 2.2. His white cell count was 5000, hemoglobin 12, hematocrit 37, MCV 92, and platelet count of 142,000. DISCHARGE MEDICATIONS: He was discharged home to continue on following medications: Augmentin 875 mg twice a day for 7 days, azithromycin 250 mg once a day for 7 days, lorazepam 0.5 mg 1 tablet 3 times a day for anxiety as needed, acyclovir 200 mg 3 times a day, amlodipine besylate 10 mg once a day, carvedilol 12.5 mg twice a day, levothyroxine sodium 225 mcg per feeding tube daily, potassium chloride 10 mEq once a day, Crestor 40 mg at bedtime, sertraline for Zoloft 100 mg daily, and Ambien 50 mg per feeding tube at bedtime. FINAL DISCHARGE DIAGNOSES: 1. Acute on chronic hypoxic respiratory failure. 2. Syncopal episode, likely dehydration, resolved. 3. Community-acquired pneumonia. 4. He has multiple other medical problems including: A. Hypertension. B. Hypothyroidism. C. Hyperlipidemia. D. Coronary artery disease. E. Peripheral vascular disease. F. Gastroesophageal reflux disease. G. Benign prostatic hypertrophy. 5. The patient is known to have esophageal, laryngeal, lingual carcinoma, status post tonsillectomy and radical neck dissection with resultant dysphagia. KAYLEE ANAND MD DR: AKILAH/juliana JOB#: [id number] / [id number]
--- NOTE | 2018-11-19 08:20 | CARD ---
MR#: [id number] Date of Study: 11/16/2018 Ordering Physician: CHRISS CORTEZ, Referring Physician: KAYLEE ANAND, Tech: Charley Ibrahim APPROVED REPORT EXAM: Two-dimensional and M-mode echocardiogram with Doppler and color Doppler. Other Information Quality : AverageHR: 68bpm Rhythm : NSR INDICATION Dyspnea CAD Syncope RISK FACTORS Hypertension Hyperlipidemia 2D DIMENSIONS RVDd3.0 (2.9-3.5cm)Left Atrium(2D)5.2 (1.6-4.0cm) IVSd1.0 (0.7-1.1cm)Aortic Root(2D)3.6 (2.0-3.7cm) LVDd6.4 (3.9-5.9cm)LVOT Diameter2.3 (1.8-2.4cm) PWd1.2 (0.7-1.1cm)LVDs3.6 (2.5-4.0cm) FS (%) 43.5 %SV153.4 ml LVEF(%)73.6 (>50%) Aortic Valve AoV Peak Siddharth.172.1cm/sAoV VTI40.3cm AO Peak GR.11.8mmHgLVOT Peak Siddharth.136.9cm/s LVOT VTI 27.88cmAO Mean GR.7mmHg AWILDA (VMAX)3.84gh6MGO (VTI)2.88cm2 Mitral Valve MV E Jzdhqdry22.2cm/sMV DECEL ZOGA996oj MV A Vzgbmidf14.2cm/sE/A Ratio1.3 Pulmonary Valve PV Peak Dpqcahic831.2cm/sPV Peak Grad.5mmHg Tricuspid Valve TR P. Uepswqzh785gk/sRAP SFIEUNGC8rfHl TR Peak Gr.79gqHqNSMQ06pdYv Pulmonary Vein S1 Oygwzfbg57.0cm/sD2 Txdvuweg88.4cm/s LEFT VENTRICLE The Left Ventricle is mildly dilated. There is mild concentric left ventricular hypertrophy. The left ventricular systolic function is normal and the ejection fraction is within normal range. The Ejecti on Fraction is >55%. There is normal LV segmental wall motion. Transmitral Doppler flow pattern is Gr deonte II-pseudonormal filling dynamics. RIGHT VENTRICLE The right ventricle is normal size. There is normal right ventricular wall thickness. The right ventr icular systolic function is normal. ATRIA The left atrium is borderline dilated. The right atrium is borderline dilated. The interatrial septum is intact with no evidence for an atrial septal defect or patent foramen ovale as noted on 2-D or Do ppler imaging. AORTIC VALVE The aortic valve is normal in structure and function. Doppler and Color Flow revealed no significant aortic regurgitation. There is no significant aortic valvular stenosis. MITRAL VALVE The mitral valve is normal in structure and function. There is no evidence of mitral valve prolapse. There is no mitral valve stenosis. Doppler and Color-flow revealed trace mitral regurgitation. TRICUSPID VALVE The tricuspid valve is normal in structure and function. Doppler and Color Flow revealed trace tricus pid regurgitation with an estimated PAP of 37 mmHg. There is no tricuspid valve prolapse or vegetatio n. There is no tricuspid valve stenosis. PULMONIC VALVE Doppler and Color Flow revealed no pulmonic valvular regurgitation. There is no pulmonic valvular jessi nosis. GREAT VESSELS The aortic root is normal in size. The IVC was not visualized. PERICARDIAL EFFUSION There is no evidence of significant pericardial effusion. Critical Notification Critical Value: No <Conclusion> The left ventricular systolic function is normal and the ejection fraction is within normal range. Th e Ejection Fraction is >55%. There is normal LV segmental wall motion. Signed by : Jacinto Kemp, Electronically Approved : 11/19/2018 08:19:29
== END 2018-11-18 12:33 | disposition home or self-care (01) | DRG 177 ==
LOC: ER 21:10 → 1 SOUTH 23:00
PROVIDERS: ADMIT Internal Medicine; ATTEND Internal Medicine
DX: J69.0 Pneumonitis due to inhalation of food and vomit (principal); J96.21 Acute and chronic respiratory failure with hypoxia; J96.22 Acute and chronic respiratory failure with hypercapnia; I50.32 Chronic diastolic (congestive) heart failure; I25.10 Atherosclerotic heart disease of native coronary artery without angina pectoris; I11.0 Hypertensive heart disease with heart failure; J44.9 Chronic obstructive pulmonary disease, unspecified; E03.9 Hypothyroidism, unspecified; I25.2 Old myocardial infarction; M19.90 Unspecified osteoarthritis, unspecified site; F32.9 Major depressive disorder, single episode, unspecified; F41.9 Anxiety disorder, unspecified; G47.00 Insomnia, unspecified; E78.5 Hyperlipidemia, unspecified; K21.9 Gastro-esophageal reflux disease without esophagitis; I73.9 Peripheral vascular disease, unspecified; N40.0 Benign prostatic hyperplasia without lower urinary tract symptoms; G47.33 Obstructive sleep apnea (adult) (pediatric); M10.9 Gout, unspecified; R13.10 Dysphagia, unspecified; I65.29 Occlusion and stenosis of unspecified carotid artery; E86.0 Dehydration; Z85.01 Personal history of malignant neoplasm of esophagus; Z92.3 Personal history of irradiation; Z82.5 Family history of asthma and other chronic lower respiratory diseases; Z80.0 Family history of malignant neoplasm of digestive organs; Z81.8 Family history of other mental and behavioral disorders; Z82.49 Family history of ischemic heart disease and other diseases of the circulatory system; Z88.1 Allergy status to other antibiotic agents; Z88.5 Allergy status to narcotic agent; Z99.81 Dependence on supplemental oxygen; Z85.810 Personal history of malignant neoplasm of tongue; Z93.1 Gastrostomy status; Z87.01 Personal history of pneumonia (recurrent)
CPT/HCPCS: 36415; 70450; 71045; 71275; 80048; 80053; 80061; 80076; 80202; 80307; 81001; 82550; 82803; 83605; 83690; 83735; 83880; 84443; 84484; 85025; 85027; 85379; 85610; 85651; 85730; 87040; 93005; 93306; 93880; 93970; 94640; 96365; 96367; J0456; J0696; J1650; J2543; J3370; J7040; J7050; J7120; J7620; Q9967; 99285-25

== ENCOUNTER 2019-02-14 10:21 | Emergency (ER) | payer MEDICARE ==
[~2019-02-14 10:21] MED LIST changes: +ACYC-63 PEG; +ALLO100T PEG; +AMLO10TA8 PEG; +CARV12.547 PEG; +FURO20TA3 PEG; +LORA0.5T PO; -MONT10TA6 PO; +MONT10TA80 PO; +POTA10TA10 PEG
[2019-02-14] MEDS ORDERED: ONDANSETRON PF 4 MG/2 ML VIAL. ONE (10:55)
[2019-02-14] MEDS ORDERED: IPRATRPIUM/ALBUTEROL 0.5/2.5MG 3 ML NEBU. ONE (10:57)
[2019-02-14] MEDS ORDERED: ONDANSETRON PF 4 MG/2 ML VIAL. IV ONE (11:00)
[2019-02-14] MEDS ORDERED: IPRATRPIUM/ALBUTEROL 0.5/2.5MG 3 ML NEBU. NEB ONE (11:00)
[2019-02-14 11:08] LABS: BASO # 0.1 x10^3/uL (0.0-0.2); BASO % 1 % (0-3); EOS % 1 % (0-3); HEMATOCRIT 46.7 % (39.0-53.0); LYMPH # 1.2 x10^3/uL (1.0-4.8); LYMPH % 13 % (24-48); MEAN CORPUSCULAR HEMOGLOBIN 30 pg (25-35); MEAN CORPUSCULAR HGB CONC 32 g/dL (31-37); MEAN CORPUSCULAR VOLUME 95 fL (79-100); MONO # 0.3 x10^3/uL (0.0-1.1); MONO % 3 % (0-9); NEUT # 7.6 x10^3uL (1.8-7.7); NEUT % 83 % (31-73); PLATELET COUNT 183 x10^3/uL (140-400); RED BLOOD COUNT 4.94 x10^6/uL (4.30-5.70); RED CELL DISTRIBUTION WIDTH 15.2 % (11.5-14.5); WHITE BLOOD COUNT 9.2 x10^3/uL (4.0-11.0)
--- NOTE | 2019-02-14 11:09 | PHYS DOC ---
Past History Past Medical History: Arthritis, Bronchitis, CAD, Cancer, CHF, COPD, Hypertension, Hypothyroid, [place], Pneumonia, Other Past Surgical History: Cancer Surgery, Tonsillectomy, Other Alcohol Use: Rarely Drug Use: None Adult General Chief Complaint Chief Complaint: SHORTNESS OF BREATH [facility] HPI 68-year-old male presents with shortness of breath. The patient has been having some increased shortness of breath for about the last 1 week. He uses oxygen intermittently, but has been using 2 L all day for a few days. He thought he was feeling better the last 2 days, then believes he aspirated his liquid diet last night. He is much more short of breath today. He has been increasing his oxygen without relief. On arrival to the emergency room he was on 6 L and had O2 sats in the mid 80s. Patient is alert and aware. He is able to answer questions. He denies fever or chills. He denies chest pain or diaphoresis. Review of Systems Review of Systems Constitutional: Denies fever or chills [] Eyes: Denies change in visual acuity, redness, or eye pain [] HENT: Denies nasal congestion or sore throat [] Respiratory: shortness of breath [] Cardiovascular: No additional information not addressed in HPI [] GI: Denies abdominal pain, nausea, vomiting, bloody stools or diarrhea [] : Denies dysuria or hematuria [] Musculoskeletal: Denies back pain or joint pain [] Integument: Denies rash or skin lesions [] Neurologic: Denies headache, focal weakness or sensory changes [] Endocrine: Denies polyuria or polydipsia [] All other systems were reviewed and found to be within normal limits, except as documented in this note. Current Medications Current Medications Current Medications Medications (Trade) Dose Ordered Sig/Gauri Start Time Stop Time Status Last Admin Dose Admin Albuterol/ Ipratropium (Duoneb) 3 ml STK-MED ONCE 02/14/19 10:57 02/14/19 10:57 DC Ondansetron HCl (Zofran) 4 mg 1X ONCE 02/14/19 11:00 02/14/19 11:01 Allergies Allergies Allergies Coded Allergies Type Severity Reaction Last Updated Verified ciprofloxacin Allergy Intermediate 07/01/18 Yes codeine Allergy Intermediate 07/17/16 Yes Physical Exam Physical Exam Constitutional: Well developed, well nourished, moderate acute distress, non- toxic appearance. [] HENT: Normocephalic, atraumatic, bilateral external ears normal, oropharynx moist, no oral exudates, nose normal. [] Eyes: PERRLA, EOMI, conjunctiva normal, no discharge. [] Neck: Normal range of motion, no tenderness, supple, no stridor. [] Cardiovascular:Heart rate 126, regular rhythm, no murmur [] Lungs & Thorax: Expiratory rales at the right base[] Abdomen: Bowel sounds normal, soft, no tenderness, no masses, no pulsatile mas ses. [] Skin: Warm, dry, no erythema, no rash. [] Back: No tenderness, no CVA tenderness. [] Extremities: No tenderness, no cyanosis, no clubbing, ROM intact, no edema. [] Neurologic: Alert and oriented X 3, normal motor function, normal sensory function, no focal deficits noted. [] Psychologic: Affect normal, judgement normal, mood normal. [] EKG EKG Poor tracing. Sinus rhythm, rate 126, waxes, no ST elevation or depression.[] Radiology/Procedures Radiology/Procedures [] Impressions: CHEST AP ONLY Clinical indications: Shortness of breath. COMPARISON: November 14, 2018. Findings: Dense consolidative infiltrates within the right mid and lower lung zone. Small right-sided pleural effusion may be present as well. Persistent unchanged left lung base infiltrate is seen. No pneumothorax is evident.The heart size, pulmonary vasculature, mediastinum and both geovany are stable. Impression: Consolidative infiltrate within the right mid and lower lung zone which may represent pneumonia. Stable left lung base infiltrate. Electronically signed by: Narinder Navarro MD (02/14/2019 11:39 AM) [id number] DICTATED AND SIGNED BY: NARINDER NAVARRO MD DATE: 02/14/19 1139 CC: JESENIA BOWSER MD; EDYTA LOPEZ DO ~ Course & Med Decision Making Course & Med Decision Making Pertinent Labs and Imaging studies reviewed. (See chart for details) The patient has significant right-sided pneumonia. This is likely aspiration pneumonia. I will treat him with Unasyn. I do not believe there is risk of healthcare acquired pneumonia. His ABG showed a pH of 7.36, CO2 59, O2 62, bicarbonate 33 O2 sat 89. The patient is on a nonrebreather mask at 12 L with 93% O2 sat. His respiration rate is about 30. The patient meets criteria for sepsis. We will give him the appropriate fluid dose. We will hold off on BiPAP at this time. I spoke with our hospitalist, Dr. Loza and he believes this patient should be transferred to [facility]. I spoke with the hospitalist there, Dr. Ambriz and she has accepted the patient for transfer and admission to the ICU. 30 minutes of critical care time was spent on this patient exclusive of other billable procedures. [] Dragon Disclaimer Dragon Disclaimer This electronic medical record was generated, in whole or in part, using a voice recognition dictation system. Departure Departure: Impression: Primary Impression: Aspiration pneumonia Additional Impressions: Acute respiratory failure with hypoxemia Acute respiratory failure with hypercapnia Disposition: [facility] Condition: GUARDED Referrals: JESENIA BOWSER MD (PCP) Problem Qualifiers Primary Impression: Aspiration pneumonia Aspiration pneumonia type: due to regurgitated food Laterality: bilateral Lung location: lower lobe of lung Qualified Codes: J69.0 - Pneumonitis due to inhalation of food and vomit EDYTA LOPEZ DO Feb 14, 2019 11:09
[2019-02-14 11:26] LABS: ALBUMIN 3.6 g/dL (3.4-5.0); ALBUMIN/GLOBULIN RATIO 0.7 (1.0-1.7); CALCIUM 9.6 mg/dL (8.5-10.1); CREATININE 0.7 mg/dL (0.7-1.3); GFR 112.5; POTASSIUM 4.5 mmol/L (3.5-5.1); TOTAL BILIRUBIN 0.4 mg/dL (0.2-1.0); TOTAL PROTEIN 8.6 g/dL (6.4-8.2)
[2019-02-14 11:32] LABS: BGAS PH 7.36 (7.35-7.46)
--- NOTE | 2019-02-14 11:42 | RAD ---
CHEST AP ONLY Clinical indications: Shortness of breath. COMPARISON: November 14, 2018. Findings: Dense consolidative infiltrates within the right mid and lower lung zone. Small right-sided pleural effusion may be present as well. Persistent unchanged left lung base infiltrate is seen. No pneumothorax is evident.The heart size, pulmonary vasculature, mediastinum and both geovany are stable. Impression: Consolidative infiltrate within the right mid and lower lung zone which may represent pneumonia. Stable left lung base infiltrate. Electronically signed by: Alen Navarro MD (02/14/2019 11:39 AM) [id number]
[2019-02-14] MEDS ORDERED: AMPICILLIN/SULBACTAM 3 GM in IV NORMAL SALINE 100ML 100 ML IV ONE (12:15)
[2019-02-14] MEDS: IV NORMAL SALINE 1,000ML 1,000 ML IV SCH ×2 (13:25→13:45)
[2019-02-14 14:33] VITALS: BP 121/73
--- NOTE | 2019-02-14 14:45 | EKG ---
[address] [address] Test Date: 2019-02-14 Test Time: 10:57:27 Pat Name: KUSH HARGROVE Department: Room: Gender: M Search Consultant: EZIO : 1950 Requested By: EDYTA LOPEZ Order Number: [id number] Reading MD: Jacinto Kemp MD Measurements Intervals Sharon Rate: 126 P: -141 ID: 90 QRS: 22 QRSD: 92 T: 52 QT: 340 QTc: 493 Interpretive Statements SINUS TACHYCARDIA NON-SPECIFIC ST/T CHANGES Electronically Signed On 02-21-2019 16:31:02 CDT by Jacinto Kmep MD
== END 2019-02-14 16:27 | disposition short-term general hospital (02) ==
LOC: ER 10:21
DX: J69.0 Pneumonitis due to inhalation of food and vomit (principal); J96.02 Acute respiratory failure with hypercapnia; J96.01 Acute respiratory failure with hypoxia; M19.90 Unspecified osteoarthritis, unspecified site; I25.10 Atherosclerotic heart disease of native coronary artery without angina pectoris; I11.0 Hypertensive heart disease with heart failure; I50.9 Heart failure, unspecified; J44.9 Chronic obstructive pulmonary disease, unspecified; E03.9 Hypothyroidism, unspecified; I25.2 Old myocardial infarction; Z88.1 Allergy status to other antibiotic agents; Z88.5 Allergy status to narcotic agent
CPT/HCPCS: 36415; 71045; 80053; 82803; 83605; 83880; 84484; 85025; 87040; 93005; 94640; 96374; 96375; 99291; J0295; J2405; J7620; 99285-25; J7030

== ENCOUNTER → 2019-04-02 | Outpatient (CLI) | payer MEDICARE ==
[~2019-04-02] MED LIST changes: +IOHEXOL 350 MG/ML 100 ML VIAL. IV ONE
--- NOTE | 2019-04-02 12:36 | RAD ---
CT study of the soft tissues of the neck with contrast Clinical indications: Localized swelling and mass in the neck. TECHNIQUE: After IV infusion of 75 cc of Omnipaque 350,, helical CT scanning of the soft tissues of the neck was performed from base of skull down to the lung apices. PQRS compliance Statement One or more of the following individualized dose reduction techniques were utilized for this study: 1. Automated exposure control 2. Adjustment of the mA and/or kV according to patient size 3. Use of iterative reconstruction technique COMPARISON: No previous neck CT available. Chest CT dated October 19, 2018. FINDINGS: There is a large soft tissue defect of the right side of the neck consistent with a previous neck dissection. No soft tissue mass is evident on this side. On the left side, there is submandibular soft tissue edema without a discrete fluid collection or abscess. No soft tissue mass or enlarged cervical lymphadenopathy is evident. The left parotid gland is unremarkable. Fatty atrophy of the right parotid gland is seen. The right submandibular salivary gland is not visualized and may have been surgically resected. No left submandibular salivary gland is seen. It is in the region of soft tissue edema. Therefore, it may be atrophic with fatty replacement and could possibly be inflamed as well. The patient is edentulous. No lytic process is evident. No air-fluid levels of the maxillary or sphenoid sinuses are seen. The paranasal sinuses are not completely seen in this study. There is opacification of a few mastoid air cells on the left side. There is opacification of the right mastoid sinus but the aditus ad antrum is clear. There is no opacification of either middle ear cavity. Cerumen is seen within the left external auditory canal. No lung apical consolidative infiltrate is seen. However, there is a new small groundglass lung nodule anteriorly in the left upper lobe measuring 6 mm seen on image 18 series 4. IMPRESSION: Soft tissue edema of the left submandibular area without soft tissue abscess or fluid collection. The left submandibular salivary gland is not identified and may be atrophic with fatty replacement. It is in the area of edema and therefore could be inflamed. Groundglass lung nodule within the left upper lobe which is new. Bilateral apical pulmonary fibrosis is seen. Recommend continued chest CT follow-up in 12 months. Opacification of the right mastoid sinus. Electronically signed by: Alen Navarro MD (04/02/2019 12:32 PM) [place] [id number]
== END | disposition home or self-care (01) ==
LOC: CT 11:24
PROVIDERS: ATTEND Family Medicine
DX: J34.89 Other specified disorders of nose and nasal sinuses (principal); R91.1 Solitary pulmonary nodule; J84.10 Pulmonary fibrosis, unspecified; R60.0 Localized edema; K11.8 Other diseases of salivary glands; I10 Essential (primary) hypertension
CPT/HCPCS: 70491; Q9967

== ENCOUNTER 2019-04-04 10:12 | Emergency (ER) | payer MEDICARE ==
[~2019-04-04] VITALS: Ht 175.3 cm; Wt 73.5 kg
[~2019-04-04 10:12] MED LIST changes: -IOHEXOL 350 MG/ML 100 ML VIAL. IV ONE
[2019-04-04] MEDS ORDERED: IPRATRPIUM/ALBUTEROL 0.5/2.5MG 3 ML NEBU. ONE (10:21)
--- NOTE | 2019-04-04 10:33 | EKG ---
[address] [address] Test Date: 2019-04-04 Test Time: 10:30:49 Pat Name: KUSH HARGROVE Department: Room: Gender: M Hospital Nurse Liaison: : 1950 Requested By: CHERYL GOODMAN Order Number: [id number] Reading MD: Jacinto Kemp MD Measurements Intervals [place] Rate: 69 P: 25 NE: 180 QRS: 4 QRSD: 92 T: 24 QT: 388 QTc: 417 Interpretive Statements SINUS RHYTHM Electronically Signed On 04-09-2019 15:41:54 CDT by Jacinto Kemp MD
--- NOTE | 2019-04-04 10:41 | PHYS DOC ---
Past History Past Medical History: CAD, Cancer (Tongue), COPD, Heart Disease, Hypertension Past Surgical History: Cancer Surgery (Tongue) Smoking: Quit Greater Than 1 Year Alcohol Use: Occasionally Drug Use: None Adult General Chief Complaint Chief Complaint: SHORTNESS OF BREATH HPI HPI 68-year-old male presents via EMS with report of low oxygenation at home. EMS reports home health nurse reported patient's O2 sat down to "38% on room air". EMS reports placing patient on supplemental O2 and able to get his saturation of 100%. Patient with history of COPD as well as tongue cancer. Patient with history of recent admission for aspiration pneumonia for which patient is currently on antibiotics. Review of Systems Review of Systems Constitutional: Denies fever or chills Eyes: Denies redness or eye pain HENT: Denies nasal congestion or sore throat Respiratory: Reports cough and shortness of breath Cardiovascular: Denies chest pain or palpitations GI: Denies abdominal pain, nausea, or vomiting : Denies dysuria or hematuria Musculoskeletal: Denies back pain or joint pain Integument: Denies rash or skin lesions Neurologic: Denies headache, focal weakness or sensory changes Complete systems were reviewed and found to be within normal limits, except as documented in this note.. Current Medications Current Medications Current Medications Medications (Trade) Dose Ordered Sig/Gauri Start Time Stop Time Status Last Admin Dose Admin Albuterol/ Ipratropium (Duoneb) 3 ml STK-MED ONCE 04/04/19 10:21 04/04/19 10:21 DC Dexamethasone Sodium Phosphate (Decadron) 10 mg 1X ONCE 04/04/19 10:45 04/04/19 10:46 04/04/19 10:30 10 MG Allergies Allergies Allergies Coded Allergies Type Severity Reaction Last Updated Verified ciprofloxacin Allergy Intermediate 04/04/19 Yes codeine Allergy Intermediate 04/04/19 Yes Physical Exam Physical Exam Constitutional: Well developed, well nourished, no acute distress, non-toxic appearance HENT: Normocephalic, atraumatic, oropharynx moist Eyes: Conjunctiva normal, no discharge Neck: Normal range of motion, no tenderness, supple Cardiovascular: Heart rate normal, regular rhythm Lungs & Thorax: Bilateral breath sounds diminished at bases, rhonchi noted, no wheezing Skin: Warm, dry, no erythema, no rash Back: No tenderness, no CVA tenderness Extremities: No tenderness, ROM intact, no edema Neurologic: Alert and oriented X 3, no focal deficits noted Psychologic: Affect normal, judgement normal EKG EKG @1030 NSR at 69bpm, NO ST elevation, QRS 92ms, QT/QTc 388/417ms Radiology/Procedures Radiology/Procedures PROCEDURE: CT ANGIOGRAPHY CHEST CT ANGIOGRAPHY CHEST INDICATION: Hypoxia, elevated d-dimer. Comparison: Chest radiograph 04/04/2019. CTA 02/17/2019. TECHNIQUE: Following the uneventful administration of intravenous contrast, 75 cc Isovue-370, axial CT sections were obtained through the lungs and upper abdomen. Multiplanar reconstructions and MIP images were obtained. RS compliance statement: One or more of the following individualized dose reduction techniques were utilized for this examination: 1. Automated exposure control 2. Adjustment of the mA and/or kV according to patient size 3. Use of iterative reconstruction technique FINDINGS: Pulmonary vasculature: No evidence of pulmonary thromboembolic disease. Dilated pulmonary trunk measures 33 mm. Lungs and Airways: Bilateral lower lobe consolidations, which have improved from the prior exam. Extensive mid and lower lung predominant centrilobular groundglass nodules. Marked bronchial wall thickening with mild bronchiectasis. Debris in the trachea and lower lobe bronchi. Pleura: The pleural spaces are normal. Heart and Mediastinum: The visualized thyroid is normal in size and attenuation. No axillary or supraclavicular lymphadenopathy. Cardiomegaly. No pericardial effusion. Coronary artery atherosclerotic disease. Improving mediastinal and hilar lymphadenopathy, for example enlarged right lower paratracheal lymph node measuring 1.4 cm previously measured 1.9 cm (series 6 image 47). Atherosclerosis of the thoracic aorta. Abdomen: Partially visualized left renal cysts. Bones and Soft Tissues: Degenerative changes of the spine. IMPRESSION: 1. No evidence of pulmonary thromboembolic disease. Dilated pulmonary trunk, which can be seen with pulmonary hypertension. 2. Bilateral lower lobe consolidations have improved from the prior exam. Extensive mid and lower lung predominant centrilobular groundglass nodules. Debris in the central airways and lower lobe bronchi. Persistence of these findings are most concerning for recurrent/chronic aspiration. Superimposed infection or neoplasm is not excluded. 3. Persistent mediastinal and hilar lymphadenopathy, improved from exam of 02/17/2019. Electronically signed by: Scott Dewitt MD (04/04/2019 1:01 PM) [id number] Course & Med Decision Making Course & Med Decision Making Pertinent Labs and Imaging studies reviewed. (See chart for details) Patient with past medical history of tongue cancer with recent admission for aspiration pneumonia on antibiotics presents with report of low O2 saturation. Patient improved on supplemental O2. Labs obtained and posted to chart. EKG stable. CTA chest without PE but noted improvement of previously seen infiltrat ions. Patient offered admission. Patient declined. Patient elected to be discharged home and will follow-up closely with PCP. Patient stable for discharge with outpatient follow-up with PCP. Discussed findings and plan with patient and family, who acknowledge understanding and agreement. Dragon Disclaimer Dragon Disclaimer This electronic medical record was generated, in whole or in part, using a voice recognition dictation system. Departure Departure: Impression: Primary Impression: Aspiration into airway Additional Impression: Hypoxia Disposition: 01 HOME, SELF-CARE Condition: IMPROVED Referrals: JESENIA BOWSER MD (PCP) Patient Instructions: Aspiration Pneumonia Additional Instructions: Please take recently prescribed antibiotics until gone. Use supplemental O2 to keep Sats > 92%. Use nebulizer treatments as prescribed. Critical Care Time Critical care time was 30 minutes which includes time at bedside, spent in discussion of patient's care with specialists and/or family members, with int erpretation of laboratory and/or radiological studies and is exclusive of procedures. Problem Qualifiers Primary Impression: Aspiration into airway Encounter type: initial encounter Qualified Codes: T17.908A - Unspecified foreign body in respiratory tract, part unspecified causing other injury, initial encounter CHERYL GOODMAN DO Apr 04, 2019 10:41
[2019-04-04] MEDS ORDERED: DEXAMETHASONE SOD PHOS 4 MG/ML VIAL IVP ONE (10:45)
[2019-04-04] MEDS ORDERED: IPRATRPIUM/ALBUTEROL 0.5/2.5MG 3 ML NEBU. NEB ONE (10:45)
--- NOTE | 2019-04-04 10:45 | RAD ---
PORTABLE CHEST 1V History: Dyspnea Comparison: February 14, 2019 Findings: Single view of the chest is submitted. Previously seen prominent right base infiltrate is no longer present. There is mild increased left base airspace opacity. There is interstitial/reticular opacity greatest of mid to inferior hemithoraces bilaterally more similar to November 14, 2018 exam. Cardiac silhouette is similar. Trace right pleural effusion is difficult to exclude by this exam. Poorly evaluated, there is probable gaseous distention of esophagus. No pneumothorax is identified. Impression: 1. Right base infiltrate has resolved although increased mild left base atelectasis or infiltrate. 2. There is likely gas distention of esophagus. Electronically signed by: Scott Thakkar MD (04/04/2019 10:42 AM) [id number]
[2019-04-04 11:02] LABS: BASO % 0 % (0-3); EOS % 0 % (0-3); HEMATOCRIT 35.1 % (39.0-53.0); HEMOGLOBIN 11.3 g/dL (13.0-17.5); LYMPH # 0.4 x10^3/uL (1.0-4.8); LYMPH % 5 % (24-48); MEAN CORPUSCULAR HEMOGLOBIN 30 pg (25-35); MEAN CORPUSCULAR HGB CONC 32 g/dL (31-37); MEAN CORPUSCULAR VOLUME 95 fL (79-100); MONO # 0.6 x10^3/uL (0.0-1.1); MONO % 8 % (0-9); NEUT # 6.4 x10^3uL (1.8-7.7); NEUT % 86 % (31-73); PLATELET COUNT 227 x10^3/uL (140-400); RED BLOOD COUNT 3.72 x10^6/uL (4.30-5.70); RED CELL DISTRIBUTION WIDTH 17.2 % (11.5-14.5); WHITE BLOOD COUNT 7.5 x10^3/uL (4.0-11.0)
[2019-04-04 11:33] LABS: ALBUMIN 2.3 g/dL (3.4-5.0); ALBUMIN/GLOBULIN RATIO 0.5 (1.0-1.7); CALCIUM 8.7 mg/dL (8.5-10.1); CREATININE 0.7 mg/dL (0.7-1.3); GFR 112.5; MAGNESIUM 2.1 mg/dL (1.8-2.4); POTASSIUM 4.8 mmol/L (3.5-5.1); TOTAL BILIRUBIN 0.4 mg/dL (0.2-1.0); TOTAL PROTEIN 6.6 g/dL (6.4-8.2)
[2019-04-04 11:41] LABS: INFLUENZA A PATIENT NEGATIVE (NEGATIVE); INFLUENZA B PATIENT NEGATIVE (NEGATIVE)
[2019-04-04] MEDS ORDERED: IV NORMAL SALINE 1,000ML 1,000 ML IV ONE (12:30)
[2019-04-04] MEDS ORDERED: ASPIRIN 325 MG TABLET PO ONE (12:45)
[2019-04-04] MEDS ORDERED: IOHEXOL 350 MG/ML 100 ML VIAL. IV ONE (12:45)
--- NOTE | 2019-04-04 13:04 | RAD ---
CT ANGIOGRAPHY CHEST INDICATION: Hypoxia, elevated d-dimer. Comparison: Chest radiograph 04/04/2019. CTA 02/17/2019. TECHNIQUE: Following the uneventful administration of intravenous contrast, 75 cc Isovue-370, axial CT sections were obtained through the lungs and upper abdomen. Multiplanar reconstructions and MIP images were obtained. RS compliance statement: One or more of the following individualized dose reduction techniques were utilized for this examination: 1. Automated exposure control 2. Adjustment of the mA and/or kV according to patient size 3. Use of iterative reconstruction technique FINDINGS: Pulmonary vasculature: No evidence of pulmonary thromboembolic disease. Dilated pulmonary trunk measures 33 mm. Lungs and Airways: Bilateral lower lobe consolidations, which have improved from the prior exam. Extensive mid and lower lung predominant centrilobular groundglass nodules. Marked bronchial wall thickening with mild bronchiectasis. Debris in the trachea and lower lobe bronchi. Pleura: The pleural spaces are normal. Heart and Mediastinum: The visualized thyroid is normal in size and attenuation. No axillary or supraclavicular lymphadenopathy. Cardiomegaly. No pericardial effusion. Coronary artery atherosclerotic disease. Improving mediastinal and hilar lymphadenopathy, for example enlarged right lower paratracheal lymph node measuring 1.4 cm previously measured 1.9 cm (series 6 image 47). Atherosclerosis of the thoracic aorta. Abdomen: Partially visualized left renal cysts. Bones and Soft Tissues: Degenerative changes of the spine. IMPRESSION: 1. No evidence of pulmonary thromboembolic disease. Dilated pulmonary trunk, which can be seen with pulmonary hypertension. 2. Bilateral lower lobe consolidations have improved from the prior exam. Extensive mid and lower lung predominant centrilobular groundglass nodules. Debris in the central airways and lower lobe bronchi. Persistence of these findings are most concerning for recurrent/chronic aspiration. Superimposed infection or neoplasm is not excluded. 3. Persistent mediastinal and hilar lymphadenopathy, improved from exam of 02/17/2019. Electronically signed by: Scott Dewitt MD (04/04/2019 1:01 PM) [facility]
[2019-04-04 14:15] LABS: BACTERIA,URINE FEW /HPF (0-FEW); BILIRUBIN,URINE NEG (NEG); CLARITY,URINE CLOUDY; COLOR,URINE YELLOW; GLUCOSE,URINE NEG (NEG); NITRITE,URINE NEG (NEG); SQUAMOUS EPITHELIAL CELL,UR OCC /LPF; UROBILINOGEN,URINE 2 mg/dL (0.2 mg/dL)
[2019-04-04 14:16] LABS: AMORPHOUS SEDIMENT,UR PRESENT /HPF; HYALINE CASTS, URINE OCC /HPF
[2019-04-04 14:20] VITALS: BP 117/67
== END 2019-04-04 14:23 | disposition home or self-care (01) ==
LOC: ER 10:12
DX: T17.908A Unspecified foreign body in respiratory tract, part unspecified causing other injury, initial encounter (principal); R09.02 Hypoxemia; Z88.1 Allergy status to other antibiotic agents; Z88.5 Allergy status to narcotic agent; X58.XXXA Exposure to other specified factors, initial encounter; Y93.89 Activity, other specified; Y92.89 Other specified places as the place of occurrence of the external cause; Y99.8 Other external cause status
CPT/HCPCS: 36415; 71045; 71275; 80053; 81001; 82553; 83605; 83735; 83880; 84484; 85025; 85379; 85610; 85730; 87040; 87804; 93005; 94640; 96374; 99285; J1100; J7620; Q9967; J7030

== ENCOUNTER 2019-08-14 14:23 | Inpatient (IN) | payer MEDICARE ==
[~2019-08-14] VITALS: Ht 175.3 cm; Wt 78.2 kg
[2019-08-14] MEDS ORDERED: IPRATRPIUM/ALBUTEROL 0.5/2.5MG 3 ML NEBU. ONE (14:53)
[2019-08-14] MEDS ORDERED: IPRATROPIUM BROMIDE 0.5 MG/2.5 ML NEBU. NEB ONE (15:00)
--- NOTE | 2019-08-14 15:10 | RAD ---
PORTABLE CHEST 1V History: Cough Comparison: April 04, 2019 Findings: Patchy bilateral mid and basilar opacities. No definite pleural effusion. Low lung volumes. No pneumothorax. Normal heart size. Bilateral acromioclavicular DJD. Prominence of the bilateral geovany likely related to hilar lymphadenopathy, unchanged. Impression: 1. Patchy bilateral mid and basilar opacities, similar compared to prior. Findings may relate to chronic consolidations although superimposed infectious process is possible. Electronically signed by: Parveen Guo DO (08/14/2019 3:07 PM) [id number]
[2019-08-14 15:19] LABS: BASO % 0 % (0-3); EOS % 0 % (0-3); HEMATOCRIT 37.6 % (39.0-53.0); HEMOGLOBIN 11.8 g/dL (13.0-17.5); LYMPH # 1.8 x10^3/uL (1.0-4.8); LYMPH % 15 % (24-48); MEAN CORPUSCULAR HEMOGLOBIN 29 pg (25-35); MEAN CORPUSCULAR HGB CONC 31 g/dL (31-37); MEAN CORPUSCULAR VOLUME 92 fL (79-100); MONO # 1.2 x10^3/uL (0.0-1.1); MONO % 10 % (0-9); NEUT # 9.4 x10^3uL (1.8-7.7); NEUT % 75 % (31-73); PLATELET COUNT 187 x10^3/uL (140-400); RED BLOOD COUNT 4.11 x10^6/uL (4.30-5.70); RED CELL DISTRIBUTION WIDTH 15.3 % (11.5-14.5); WHITE BLOOD COUNT 12.5 x10^3/uL (4.0-11.0)
[2019-08-14 15:29] LABS: CALCIUM 8.3 mg/dL (8.5-10.1); CREATININE 0.7 mg/dL (0.7-1.3); GFR 112.1; POTASSIUM 4.3 mmol/L (3.5-5.1)
[2019-08-14 15:40] LABS: INFLUENZA A PATIENT NEGATIVE (NEGATIVE); INFLUENZA B PATIENT NEGATIVE (NEGATIVE)
[2019-08-14 15:44] LABS: ALBUMIN 2.8 g/dL (3.4-5.0); ALBUMIN/GLOBULIN RATIO 0.6 (1.0-1.7); TOTAL BILIRUBIN 0.4 mg/dL (0.2-1.0); TOTAL PROTEIN 7.4 g/dL (6.4-8.2)
--- NOTE | 2019-08-14 16:16 | PHYS DOC ---
Past History Past Medical History: CAD, Cancer, COPD, Heart Disease, Hypertension Additional Past Medical Histor: tongue cancer 2010, had radiation and chemotherapy Past Surgical History: Cancer Surgery Additional Past Surgical Histo: skin cancer removed right neck Smoking: Quit Greater Than 1 Year Alcohol Use: None Drug Use: None Adult General Chief Complaint Chief Complaint: FLU SYMPTOM HPI HPI Patient is a 69-year-old male who presents with complaint of cough and worsening shortness of breath over the past couple of days. Patient states that he uses oxygen at home only at night when he goes to sleep but states that he has been having to use the oxygen for the last 2 days throughout the entire day. Patient states that the shortness of breath is worsened with minimal exertion. He states that his cough is been productive of green sputum. Patient states that he has had pneumonia in the past and he feels just like he did before when he had pneumonia. Patient states that he feels like he was running a fever last night but is not sure.[] Review of Systems Review of Systems Constitutional: Denies fever or chills [] Respiratory: Positive cough and shortness of breath [] Cardiovascular: No additional information not addressed in HPI [] GI: Denies abdominal pain, nausea, vomiting, bloody stools or diarrhea [] Integument: Denies rash or skin lesions [] Neurologic: Denies headache, focal weakness or sensory changes [] All other systems were reviewed and found to be within normal limits, except as documented in this note. Current Medications Current Medications Current Medications Medications (Trade) Dose Ordered Sig/Gauri Start Time Stop Time Status Last Admin Dose Admin Albuterol/ Ipratropium (Duoneb) 3 ml STK-MED ONCE 08/14/19 14:53 08/14/19 14:54 DC Azithromycin (Zithromax) 500 mg 1X ONCE 08/14/19 16:15 08/14/19 16:16 UNV Ceftriaxone Sodium 1 gm/ Sodium Chloride 50 ml @ 100 mls/hr 1X ONCE 08/14/19 16:45 08/14/19 17:14 Ipratropium [place] (Atrovent) 0.5 mg 1X ONCE 08/14/19 15:00 08/14/19 15:01 DC Allergies Allergies Allergies Coded Allergies Type Severity Reaction Last Updated Verified ciprofloxacin Allergy Intermediate 04/04/19 Yes codeine Allergy Intermediate 04/04/19 Yes Physical Exam Physical Exam Constitutional: Well developed, well nourished, no acute distress, non-toxic appearance. [] HENT: Normocephalic, atraumatic, bilateral external ears normal, oropharynx mo ist, no oral exudates, nose normal. [] Eyes: PERRLA, EOMI, conjunctiva normal, no discharge. [] Neck: Normal range of motion, no tenderness, supple, no stridor. [] Cardiovascular: Regular rate and rhythm[] Lungs & Thorax: Coarse rhonchi are noted bilaterally to auscultation [] Abdomen: Bowel sounds normal, soft, no tenderness. [] Skin: Warm, dry, no erythema, no rash. [] Extremities: No tenderness, no cyanosis, no clubbing, ROM intact, no edema. [] Neurologic: Alert and oriented X 3, no focal deficits noted. [] Current Patient Data Vital Signs Vital Signs Date Time Temp Pulse Resp B/P (MAP) Pulse Ox O2 Delivery O2 Flow Rate FiO2 08/14/19 15:03 96 Nasal Cannula 2.0 08/14/19 15:02 98.3 96 20 131/69 (89) Lab Results Laboratory Tests Test 08/14/19 14:50 08/14/19 14:55 White Blood Count 12.5 x10^3/uL (4.0-11.0) H Red Blood Count 4.11 x10^6/uL (4.30-5.70) L Hemoglobin 11.8 g/dL (13.0-17.5) L Hematocrit 37.6 % (39.0-53.0) L Mean Corpuscular Volume 92 fL (79-100) Mean Corpuscular Hemoglobin 29 pg (25-35) Mean Corpuscular Hemoglobin Concent 31 g/dL (31-37) Red Cell Distribution Width 15.3 % (11.5-14.5) H Platelet Count 187 x10^3/uL (140-400) Neutrophils (%) (Auto) 75 % (31-73) H Lymphocytes (%) (Auto) 15 % (24-48) L Monocytes (%) (Auto) 10 % (0-9) H Eosinophils (%) (Auto) 0 % (0-3) Basophils (%) (Auto) 0 % (0-3) Neutrophils # (Auto) 9.4 x10^3uL (1.8-7.7) H Lymphocytes # (Auto) 1.8 x10^3/uL (1.0-4.8) Monocytes # (Auto) 1.2 x10^3/uL (0.0-1.1) H Eosinophils # (Auto) 0.0 x10^3/uL (0.0-0.7) Basophils # (Auto) 0.0 x10^3/uL (0.0-0.2) Sodium Level 138 mmol/L (136-145) Potassium Level 4.3 mmol/L (3.5-5.1) Chloride Level 101 mmol/L (98-107) Carbon Dioxide Level 37 mmol/L (21-32) H Anion Gap 0 (6-14) L Blood Urea Nitrogen 22 mg/dL (8-26) Creatinine 0.7 mg/dL (0.7-1.3) Estimated GFR (Cockcroft-Gault) 112.1 BUN/Creatinine Ratio 31 (6-20) H Glucose Level 141 mg/dL (70-99) H Lactic Acid Level 1.2 mmol/L (0.4-2.0) Calcium Level 8.3 mg/dL (8.5-10.1) L Total Bilirubin 0.4 mg/dL (0.2-1.0) Aspartate Amino Transferase (AST) 17 U/L (15-37) Alanine Aminotransferase (ALT) 15 U/L (16-63) L Alkaline Phosphatase 97 U/L (46-116) WP-Irs-E-Type Natriuretic Peptide 298 pg/mL (0-124) H Total Protein 7.4 g/dL (6.4-8.2) Albumin 2.8 g/dL (3.4-5.0) L Albumin/Globulin Ratio 0.6 (1.0-1.7) L Influenza Type A (Rapid) Negative (NEGATIVE) Influenza Type B (Rapid) Negative (NEGATIVE) EKG EKG [] Radiology/Procedures Radiology/Procedures [] Impressions: PROCEDURE: PORTABLE CHEST 1V PORTABLE CHEST 1V History: Cough Comparison: April 04, 2019 Findings: Patchy bilateral mid and basilar opacities. No definite pleural effusion. Low lung volumes. No pneumothorax. Normal heart size. Bilateral acromioclavicular DJD. Prominence of the bilateral geovany likely related to hilar lymphadenopathy, unchanged. Impression: 1. Patchy bilateral mid and basilar opacities, similar compared to prior. Findings may relate to chronic consolidations although superimposed infectious process is possible. Electronically signed by: Parveen Guo DO (08/14/2019 3:07 PM) [id number] Course & Med Decision Making Course & Med Decision Making Pertinent Labs and Imaging studies reviewed. (See chart for details) [] Dragon Disclaimer Dragon Disclaimer This electronic medical record was generated, in whole or in part, using a voice recognition dictation system. Departure Departure: Impression: Primary Impression: Community acquired pneumonia Additional Impression: COPD exacerbation Disposition: ADMITTED INPATIENT Admitting Physician: Ariela Grover Condition: IMPROVED Referrals: JESENIA BOWSER MD (PCP) Problem Qualifiers Primary Impression: Community acquired pneumonia Laterality: unspecified laterality Qualified Codes: J18.9 - Pneumonia, unspecified organism LAVERNE CALVIN Jr., DO Aug 14, 2019 16:16
[2019-08-14 16:28] LABS: BACTERIA,URINE 0 /HPF (0-FEW); BILIRUBIN,URINE NEG (NEG); CLARITY,URINE CLEAR; COLOR,URINE YELLOW; GLUCOSE,URINE NEG (NEG); NITRITE,URINE NEG (NEG); SQUAMOUS EPITHELIAL CELL,UR FEW /LPF; WBC,URINE OCC /HPF (0-4)
[2019-08-14] MEDS ORDERED: ONDANSETRON PF 4 MG/2 ML VIAL. IV PRN (16:30)
[2019-08-14] MEDS ORDERED: cefTRIAXone SODIUM 1 GM VIAL ONE (16:37)
[2019-08-14] MEDS ORDERED: IV NORMAL SALINE 50ML 50 ML ONE (16:37)
[2019-08-14] MEDS ORDERED: AZITHROMYCIN 250 MG TABLET. PO ONE (16:45)
[2019-08-14 16:47] LABS: BGAS PH 7.4 (7.35-7.46)
--- NOTE | 2019-08-14 18:05 | EKG ---
[address] [address] Test Date: 2019-08-14 Test Time: 15:00:55 Pat Name: KUSH HARGROVE Department: Room: Gender: M Car Cooper: : 1950 Requested By: LAVERNE CALVIN Order Number: [id number] Reading MD: Measurements Intervals [place] Rate: 86 P: 13 [place]: 170 QRS: 1 QRSD: 94 T: 37 QT: 348 QTc: 419 Interpretive Statements SINUS RHYTHM OTHERWISE NORMAL ECG RI6.01 No previous ECG available for comparison
[2019-08-14 18:58] VITALS: BP 128/75
[2019-08-14] MEDS: IPRATRPIUM/ALBUTEROL 0.5/2.5MG 3 ML NEBU. NEB SCH (20:33)
[2019-08-14] MEDS ORDERED: SERT100T8 PO (20:39)
[2019-08-14] MEDS ORDERED: FURO-69 PO (20:39)
[2019-08-14] MEDS ORDERED: LORA-254 PO (21:07)
[2019-08-14] MEDS ORDERED: ZOLPIDEM 5 MG TABLET. PEG PRN (21:30)
[2019-08-14 22:18] VITALS: BP 113/63
[2019-08-14] MEDS: ATORVASTATIN CALCIUM 20 MG TABLET PEG SCH (22:39)
[2019-08-14] MEDS: ZOLPIDEM 5 MG TABLET. PEG SCH (22:39)
[2019-08-14] MEDS: LORazepam 0.5 MG TABLET PO SCH (22:39)
[2019-08-15] MEDS ORDERED: ZOLP10TA PO (01:00)
[2019-08-15] MEDS: IPRATRPIUM/ALBUTEROL 0.5/2.5MG 3 ML NEBU. NEB SCH ×4 (04:31→20:53)
[2019-08-15 05:24] VITALS: BP 98/62
[2019-08-15] MEDS: LEVOTHYROXINE 125 MCG TABLET PEG SCH (06:20)
[2019-08-15] MEDS: LEVOTHYROXINE 100 MCG TABLET PEG SCH (06:20)
[2019-08-15 07:06] LABS: BASO % 0 % (0-3); EOS % 1 % (0-3); HEMATOCRIT 36.6 % (39.0-53.0); HEMOGLOBIN 11.8 g/dL (13.0-17.5); LYMPH # 1.6 x10^3/uL (1.0-4.8); LYMPH % 19 % (24-48); MEAN CORPUSCULAR HEMOGLOBIN 29 pg (25-35); MEAN CORPUSCULAR HGB CONC 32 g/dL (31-37); MEAN CORPUSCULAR VOLUME 91 fL (79-100); MONO # 0.7 x10^3/uL (0.0-1.1); MONO % 8 % (0-9); NEUT # 6.2 x10^3uL (1.8-7.7); NEUT % 72 % (31-73); PLATELET COUNT 179 x10^3/uL (140-400); RED BLOOD COUNT 4.03 x10^6/uL (4.30-5.70); RED CELL DISTRIBUTION WIDTH 15.6 % (11.5-14.5); WHITE BLOOD COUNT 8.5 x10^3/uL (4.0-11.0)
[2019-08-15 07:12] LABS: CALCIUM 8.7 mg/dL (8.5-10.1); CREATININE 0.6 mg/dL (0.7-1.3)
[2019-08-15] MEDS: FUROSEMIDE 20 MG TABLET PO SCH (08:30)
[2019-08-15] MEDS: SERTRALINE 100 MG TABLET. PO SCH (08:31)
[2019-08-15] MEDS: LORazepam 0.5 MG TABLET PO SCH ×2 (08:31→16:12)
[2019-08-15 11:43] VITALS: BP 126/68
[2019-08-15 15:30] VITALS: BP 132/70
[2019-08-15] MEDS: AZITHROMYCIN 250 MG TABLET. PO SCH (16:12)
[2019-08-15] MEDS ORDERED: LORazepam 0.5 MG TABLET GT PRN (16:15)
--- NOTE | 2019-08-15 17:36 | HP ---
ADMIT DATE: 08/14/2019 HISTORY OF PRESENT ILLNESS: The patient is a 69-year-old male patient who came to the Emergency Room complaining of cough with worsening shortness of breath over the past couple of days. The patient states that he uses oxygen at home only at nighttime when he goes to sleep, but states that he has been having to use oxygen for the last 2 days throughout the entire day. He stated that shortness of breath is worsened with minimal exertion. He states his cough has been productive with greenish sputum. The patient stated he has pneumonia in the past and he feels just like he did before when he had pneumonia. The patient stated he feels like he was running fever last night, but is not sure. He was extensively investigated. His lab work showed that he has mild leukocytosis with a white cell count 12,500. His chemistry was mostly unremarkable. His blood gases showed a pH of 7.4, pCO2 of 60, pO2 of 68, bicarbonate 37 and oxygen saturation was 93%. His chest x-ray showed that the patient has patchy bilateral mid and basilar opacities similar compared to prior. Findings may relate to chronic consolidation, although superimposed infectious process is possible. The patient was admitted and was treated with IV Rocephin and Zithromax for community-acquired pneumonia. PAST MEDICAL HISTORY: Significant for tongue cancer treated with radiation in 2007. He also had tonsillectomy and radical neck dissection in 2007, hypertension, hypothyroidism, hyperlipidemia, coronary artery disease, status post myocardial infarction, peripheral vascular disease, gastroesophageal reflux disease, benign prostatic hypertrophy, insomnia, vitamin B12 deficiency as well as dysphagia. PAST SURGICAL HISTORY: Significant for tonsillectomy, radical neck dissection in 2007. He has also history of tongue cancer treated with radiation in 2007, percutaneous endoscopic gastrostomy tube placement. FAMILY HISTORY: Positive for myocardial infarction, colon cancer, COPD, anxiety and depression. ALLERGIES: CIPRO AND CODEINE. SOCIAL HISTORY: He lives with his . He does not smoke, drink alcohol or use any recreational drugs. REVIEW OF SYSTEMS: As per history of present illness. MEDICATIONS: He is currently on following medications: He is on Crestor 40 mg at bedtime, sertraline 150 mg daily, lorazepam 0.5 mg twice a day, Ambien 10 mg at bedtime, furosemide 20 mg daily, levothyroxine sodium 25 mcg once a day. PHYSICAL EXAMINATION: GENERAL: On arrival to the Emergency Room, he was slightly tachypneic, but there is no pallor, jaundice, cyanosis or thyromegaly. No jugular venous distention. No limb edema. VITAL SIGNS: Heart rate was 96, blood pressure 131/70, temperature was 98.3, respiratory rate was 20, and oxygen saturation was 84% on room air that increased to 96% on 2 liters of oxygen. HEAD, EYES, EARS, NOSE AND THROAT: Showed normocephalic, atraumatic. NECK: Supple. CARDIAC: Normal first and second heart sounds. No gallop or murmur. CHEST: Shows central trachea, equal bilateral expansion, air entry, vesicular sounds with bilateral basal crepitation, very few scattered rhonchi. ABDOMEN: Distended, soft with Robert-Gross button. No tenderness. No guarding or rigidity. No organomegaly. All hernial orifice intact. Bowel sounds normal. NEUROLOGIC: He was awake, alert, responding appropriately. All cranial nerves intact. EXTREMITIES: He moves extremities without difficulty, ambulates without assistance or assistive devices. LABORATORY DATA: On admission showed a white cell count 12,500, hemoglobin 12, hematocrit 37, MCV 92, and platelet count of 187,000. His serum sodium was 138, potassium 4.3, chloride 101, bicarbonate 37, anion gap of 0, BUN 22, creatinine 0.7, estimated GFR was 112 mL per minute. Glucose 141. Lactic acid was 1.2, calcium was 8.3. Total bilirubin, AST, ALT, alkaline phosphatase were normal. His total protein was 7.4, albumin was 2.8. His blood gases showed a pH of 7.40, pCO2 of 60, pO2 of 68, bicarbonate 37 and oxygen saturation was 93% on FiO2 of 28%. Urinalysis showed the urine was yellow, clear with a pH of 6.5, specific gravity of 1.010. The urine was negative for protein, glucose, ketones, there was small amount of blood, negative for nitrite and leukocyte esterase, there were occasional wbc's, 0 bacteria. His influenza A and B were negative. ASSESSMENT AND PLAN: In summary, this is a 69-year-old male patient who was admitted with community-acquired pneumonia, was started on IV Rocephin and Zithromax. We will obviously follow his lab work, his blood cultures and we will decide the further management accordingly. KAYLEE ANAND MD DR: AKILAH/juliana JOB#: [id number] / [id number]
[2019-08-15 19:20] VITALS: BP 115/68
--- NOTE | 2019-08-15 20:25 | PN ---
DATE: 08/15/2019 SUBJECTIVE: The patient is resting, slightly propped up in bed, in no apparent distress. He is feeling generally much improved. PHYSICAL EXAMINATION: GENERAL: When I saw him this afternoon, he looked well and was clearly in no apparent respiratory distress. No pallor, jaundice, cyanosis or thyromegaly. No jugular venous distension. No lower limb edema. VITAL SIGNS: His heart rate was 78, blood pressure was 132/70, temperature 98.3, respiratory rate 20 and oxygen saturation was 96% on 2 liters of oxygen. HEAD, EYES, EARS, NOSE AND THROAT: Showed normocephalic, atraumatic. NECK: Supple. HEART: Normal first and second heart sounds. No gallop or murmur. CHEST: Shows central trachea, equal reduced expansion, reduced air entry, vesicular sounds with crepitation bilaterally. Very few scattered rhonchi. ABDOMEN: Distended, soft. NEUROLOGIC: He is awake, alert, responding appropriately. All cranial nerves intact. He moves extremities without difficulty. LABORATORY DATA: His white cell count is down to 8500, hemoglobin 12, hematocrit 36, MCV 91, platelet count of 179,000. His chemistry showed a serum sodium 142, potassium 4, chloride 103, bicarbonate 36, anion gap of 3, BUN 14, creatinine 0.6, estimated GFR was 34 mL per minute. His glucose was 93, calcium was 8.7. ASSESSMENT: In summary, this is a 69-year-old male patient who was admitted with community-acquired pneumonia, who seems to be responding. He is stable. All his vital signs stable. He is afebrile. His white cell count is trending down. PLAN: To continue with IV ceftriaxone and Zithromax. Continue with all his other medications. We will follow his labs closely and switch him to oral antibiotic once he is feeling much better and can be discharged home. KAYLEE ANAND MD DR: AKILAH/juliana JOB#: [id number] / [id number]
[2019-08-15] MEDS: ATORVASTATIN CALCIUM 20 MG TABLET PEG SCH (20:30)
[2019-08-15] MEDS: ZOLPIDEM 5 MG TABLET. PEG SCH (20:31)
[2019-08-15] MEDS ORDERED: NON FORMULARY ITEM (Zolpidem Tartrate (Ambien) 10 MG) PO SCH (21:00)
[2019-08-15 23:14] VITALS: BP 126/71
[2019-08-16] MEDS: IPRATRPIUM/ALBUTEROL 0.5/2.5MG 3 ML NEBU. NEB SCH ×4 (04:44→21:20)
[2019-08-16 05:32] VITALS: BP 120/68
[2019-08-16] MEDS: LEVOTHYROXINE 125 MCG TABLET PEG SCH (05:35)
[2019-08-16] MEDS: LEVOTHYROXINE 100 MCG TABLET PEG SCH (05:35)
[2019-08-16 06:37] LABS: HEMATOCRIT 38.1 % (39.0-53.0); HEMOGLOBIN 12.1 g/dL (13.0-17.5); RED BLOOD COUNT 4.2 x10^6/uL (4.30-5.70); RED CELL DISTRIBUTION WIDTH 15.5 % (11.5-14.5)
[2019-08-16 06:49] LABS: ALBUMIN 2.7 g/dL (3.4-5.0); ALBUMIN/GLOBULIN RATIO 0.6 (1.0-1.7); CALCIUM 8.8 mg/dL (8.5-10.1); CREATININE 0.6 mg/dL (0.7-1.3); TOTAL BILIRUBIN 0.3 mg/dL (0.2-1.0); TOTAL PROTEIN 7.6 g/dL (6.4-8.2)
[2019-08-16] MEDS: POLYETHYLENE GLYCOL 3350 17 GM PACKET. PO SCH (08:12)
[2019-08-16] MEDS: LORazepam 0.5 MG TABLET PO SCH ×2 (08:12→20:30)
[2019-08-16] MEDS: SERTRALINE 100 MG TABLET. PO SCH (08:12)
[2019-08-16] MEDS: FUROSEMIDE 20 MG TABLET PO SCH (08:12)
[2019-08-16 10:25] VITALS: BP 96/55
[2019-08-16 14:57] VITALS: BP 107/62
[2019-08-16] MEDS: AZITHROMYCIN 250 MG TABLET. PO SCH (17:02)
--- NOTE | 2019-08-16 19:21 | PN ---
DATE: 08/16/2019 SUBJECTIVE: The patient is resting, slightly propped up in bed, in no apparent distress. His cough is much better. His oxygen requirement is down to 2 liters. He is afebrile. His white cell count is also trending down. PHYSICAL EXAMINATION: GENERAL: When I examined him this afternoon, he looked well and was clearly in no apparent respiratory distress. No pallor, jaundice, cyanosis or thyromegaly. No jugular venous distention. No limb edema. VITAL SIGNS: His heart rate was 86, blood pressure was 96/55, temperature 97.7, respiratory rate was 20, and oxygen saturation was 93% on 2 liters of oxygen. HEAD, EYES, EARS, NOSE AND THROAT: Showed he is normocephalic, atraumatic. NECK: Supple. CARDIAC: Normal first and second heart sounds. No gallop or murmur. CHEST: Shows central trachea, equally reduced expansion, reduced air entry, vesicular sounds with bilateral basal crepitation and very few scattered rhonchi. ABDOMEN: Scaphoid, soft, nontender with Robert-Gross button in place. NEUROLOGIC: He was awake, alert, responding appropriately. His intake and output is incompletely recorded. LABORATORY DATA: His white cell count this morning was 6000, hemoglobin 12, hematocrit 38, MCV 91, and platelet count 296,000. His serum sodium 142, potassium 4, chloride 103, bicarbonate 35, anion gap of 4, BUN 18, creatinine 0.6, estimated GFR was 134 mL per minute. His glucose was 94, calcium was 8.8. Total bilirubin, AST, ALT, alkaline phosphatase were normal. Total protein was 7.6, albumin 2.7. Urinalysis was essentially unremarkable. ASSESSMENT: Healthcare-associated pneumonia, resolving slowly. Other medical problems include: A. Tongue cancer treated with radiation. B. Tonsillectomy and radical neck dissection in 2007. C. Hypertension. D. Hypothyroidism. E. Hyperlipidemia. F. Coronary artery disease, status post myocardial infarction. G. Peripheral vascular disease. PLAN: To continue with IV antibiotic. Continue with nebulized albuterol and Atrovent. KAYLEE ANAND MD DR: AKILAH/juliana JOB#: [id number] / [id number]
[2019-08-16 20:05] VITALS: BP 94/52
[2019-08-16] MEDS: ZOLPIDEM 5 MG TABLET. PEG SCH (20:30)
[2019-08-16] MEDS: ATORVASTATIN CALCIUM 20 MG TABLET PEG SCH (20:30)
[2019-08-16 23:45] VITALS: BP 118/69
[2019-08-17] MEDS ORDERED: morphine solution SL (04:57)
[2019-08-17] MEDS: IPRATRPIUM/ALBUTEROL 0.5/2.5MG 3 ML NEBU. NEB SCH ×2 (05:49→11:49)
[2019-08-17] MEDS: LEVOTHYROXINE 125 MCG TABLET PEG SCH (05:55)
[2019-08-17] MEDS: LEVOTHYROXINE 100 MCG TABLET PEG SCH (05:55)
[2019-08-17 06:01] VITALS: BP 112/69
[2019-08-17] MEDS: SERTRALINE 100 MG TABLET. PO SCH (09:32)
[2019-08-17] MEDS: LORazepam 0.5 MG TABLET PO SCH (09:32)
[2019-08-17] MEDS: POLYETHYLENE GLYCOL 3350 17 GM PACKET. PO SCH (09:32)
[2019-08-17] MEDS: FUROSEMIDE 20 MG TABLET PO SCH (09:32)
[2019-08-17 11:19] VITALS: BP 105/66
[2019-08-17] MEDS ORDERED: AZIT250T PO (12:42)
[2019-08-17] MEDS ORDERED: CEFD300C PO (12:42)
[2019-08-17] MEDS ORDERED: CEFDINIR 300 MG CAPSULE PO SCH ×2 (13:00→21:00)
--- NOTE | 2019-08-17 13:21 | DS ---
DATE OF DISCHARGE: HOSPITAL COURSE: The patient is a 69-year-old male patient who yet again came with another episode of shortness of breath, cough with greenish sputum. He was extensively evaluated and was found in the Emergency Room, was found to have leukocytosis. Chest x-ray showed that he has bilateral infiltrate and was admitted and started on IV antibiotic for community-acquired pneumonia. He was started on ceftriaxone as well as Zithromax. The patient did very well. He remained afebrile, hemodynamically stable. His white cell count has trended down from 12,500 to 6000. His oxygen requirement came down from 5 liters to 2 liters. As he is feeling generally very well, a decision was made to discharge him home to finish treatment as an outpatient with oral antibiotic. PHYSICAL EXAMINATION: GENERAL: When I saw him this afternoon, he looked well and was clearly in no apparent respiratory distress. No pallor, jaundice, cyanosis or thyromegaly. No jugular venous distention. No lower limb edema. VITAL SIGNS: His heart rate was 82, blood pressure was 105/66, temperature was 97.5, respiratory rate 20, and oxygen saturation was 95% on 2 liters of oxygen. HEAD, EYES, EARS, NOSE AND THROAT: Showed normocephalic, atraumatic. NECK: Supple. HEART: Showed normal first and second heart sounds. No gallop or murmur. CHEST: Showed central trachea, equally reduced expansion, reduced air entry, vesicular sounds with bilateral basal crepitation. I could not appreciate any rhonchi. ABDOMEN: Slightly distended with Robert-Gross button in place, no tenderness. No guarding or rigidity. No organomegaly. All hernial orifice intact. Bowel sounds normal. NEUROLOGIC: He was awake, alert, responding appropriately. All cranial nerves intact. EXTREMITIES: He moves extremities without difficulty. He ambulates without assistance or assistive devices. LABORATORY DATA: Showed his white cell count to be down to 6000, hemoglobin 12, hematocrit 38, MCV 91, and platelet count of 196,000. His chemistry showed a serum sodium 142, potassium 4, chloride 103, bicarbonate 35, anion gap of 4, BUN 18, creatinine 0.6 and estimated GFR 134 mL per minute, his glucose was 94, calcium was 8.8. Total bilirubin, AST, ALT, alkaline phosphatase were normal. Total protein was 7.6, albumin was 2.7. His influenza A and B were negative. Blood cultures were negative. DISCHARGE MEDICATIONS: The patient was discharged home to continue on cefdinir 300 mg twice a day for 6 more days and Zithromax 250 mg once a day for 4 more days. He should continue on furosemide 20 mg once a day, levothyroxine sodium 225 mcg once a day, lorazepam 0.5 mg twice a day, Crestor 40 mg at bedtime, sertraline 150 mg daily and Ambien 10 mg at bedtime. FINAL DISCHARGE DIAGNOSES: Community-acquired pneumonia, resolving, tongue cancer treated with radiation, tonsillectomy and radical neck dissection in 2007, hypertension, hypothyroidism, hyperlipidemia, coronary artery disease, status post myocardial infarction and peripheral vascular disease. KAYLEE ANAND MD DR: AKILAH/juliana JOB#: [id number] / [id number]
== END 2019-08-17 13:25 | disposition home or self-care (01) | DRG 871 ==
LOC: ER 14:49 → 1 SOUTH 16:20
PROVIDERS: ADMIT Internal Medicine; ATTEND Internal Medicine
DX: A41.9 Sepsis, unspecified organism (principal); J18.9 Pneumonia, unspecified organism; J44.0 Chronic obstructive pulmonary disease with (acute) lower respiratory infection; I25.10 Atherosclerotic heart disease of native coronary artery without angina pectoris; Y95 Nosocomial condition; I10 Essential (primary) hypertension; E03.9 Hypothyroidism, unspecified; N40.0 Benign prostatic hyperplasia without lower urinary tract symptoms; E78.5 Hyperlipidemia, unspecified; I73.9 Peripheral vascular disease, unspecified; K21.9 Gastro-esophageal reflux disease without esophagitis; I25.2 Old myocardial infarction; Z85.828 Personal history of other malignant neoplasm of skin; Z85.810 Personal history of malignant neoplasm of tongue; Z92.3 Personal history of irradiation; Z92.21 Personal history of antineoplastic chemotherapy; Z87.891 Personal history of nicotine dependence; Z82.49 Family history of ischemic heart disease and other diseases of the circulatory system; Z87.01 Personal history of pneumonia (recurrent); Z99.81 Dependence on supplemental oxygen; Z88.5 Allergy status to narcotic agent; Z88.8 Allergy status to other drugs, medicaments and biological substances; Z82.5 Family history of asthma and other chronic lower respiratory diseases; Z80.0 Family history of malignant neoplasm of digestive organs
CPT/HCPCS: 36415; 71045; 80048; 80053; 81001; 82803; 83605; 83880; 85025; 85027; 87040; 87804; 93005; 94640; 96365; J0456; J0696; 99285-25

== ENCOUNTER 2019-12-11 14:58 | Inpatient (IN) | payer MEDICARE ==
[~2019-12-11] VITALS: Ht 175.3 cm; Wt 77.5 kg
[~2019-12-11 14:58] MED LIST changes: +CEFD300C PO; +FURO-69 PO; +LORA-254 PO; +SERT100T8 PO; +ZOLP10TA PO; +morphine solution SL
--- NOTE | 2019-12-11 15:44 | PHYS DOC ---
Past History Past Medical History: Anxiety, CAD, Cancer, COPD, Depression, Heart Disease, Hypertension, Hypothyroid Additional Past Medical Histor: tongue cancer 2010, had radiation and chemotherapy Past Surgical History: Cancer Surgery, Tonsillectomy, Other Additional Past Surgical Histo: skin cancer removed right neck; PEG tube placement; right carpal tunneling Smoking: Quit Greater Than 1 Year Alcohol Use: None Drug Use: None General Adult EDM: Chief Complaint: COUGH HPI: HPI: 69-year-old male with past medical history of COPD and tongue and throat cancer s/p radiation and chemotherapy presents with report of chronic cough that has become more productive over the last several days. Patient reports he is currently been coughing up some "greenish "sputum. Patient reports associated chills mostly at night. Patient has also had to increase his normal O2 requirement of 2 L via nasal cannula to 3 L due to shortness of air. Patient reports he is prone to aspiration pneumonia and is concerned that might have reoccurred. Patient reports he gets tube feeds through his PEG tube but sometimes does "chew some food and spit it out". Denies known sick contacts. Denies known exposure to COVID-19. Review of Systems: Review of Systems: Constitutional: Denies fever; reports nocturnal chills Eyes: Denies redness or eye pain HENT: Denies nasal congestion or sore throat Respiratory: Reports cough and shortness of breath Cardiovascular: Denies chest pain or palpitations GI: Denies abdominal pain, nausea, or vomiting : Denies dysuria or hematuria Musculoskeletal: Denies back pain or joint pain Integument: Denies rash or skin lesions Neurologic: Denies headache, focal weakness or sensory changes Complete systems were reviewed and found to be within normal limits, except as documented in this note. Allergies: Allergies: Allergies Coded Allergies Type Severity Reaction Last Updated Verified ciprofloxacin Allergy Intermediate 04/04/19 Yes codeine Allergy Intermediate 04/04/19 Yes Physical Exam: PE: Constitutional: Well developed, no acute distress, non-toxic appearance HENT: Normocephalic, atraumatic Eyes: Conjunctiva normal, no discharge Neck: Normal range of motion, no tenderness, supple Lungs & Thorax: No respiratory distress, equal chest rise and fall Abdomen: Soft, no tenderness, [place] button to LUQ Skin: Warm, dry, no erythema, no rash Extremities: No tenderness, ROM intact, no edema Neurologic: Alert and oriented X 3, no focal deficits noted Psychologic: Affect normal, judgment normal Current Patient Data: Vital Signs: Vital Signs Date Time Temp Pulse Resp B/P (MAP) Pulse Ox O2 Delivery O2 Flow Rate FiO2 12/11/19 14:58 99.0 107 24 142/97 (112) 91 Room Air EKG: EKG: @1536 NSR at 92bpm, NO ST elevation, QRS 92ms, QT/QTc 332/415ms Radiology/Procedures: Radiology/Procedures: PROCEDURE: CHEST AP ONLY EXAM: AP View of the chest DATE: 12/11/2019 3:40 PM INDICATION: SOA, cough COMPARISON: 08/14/2019, 04/04/2019 FINDINGS: Heart is mildly enlarged. Aorta is tortuous. Mediastinal and hilar contours are stable. Left greater than right lung base airspace opacities are seen. Small left pleural effusion and trace right pleural effusion. No pneumothorax. IMPRESSION: Left greater than right lung base airspace opacities may represent developing consolidative process or atelectasis. Electronically signed by: Rehan Robles MD (12/11/2019 3:55 PM) D[facility] Course & Med Decision Making: Course & Med Decision Making Pertinent Labs and Imaging studies reviewed. (See chart for details) Patient presents with report of productive cough with associated shortness of air. Patient does have a history of COPD. Patient also with history of throat and tongue cancer status post radiation and chemotherapy and now requires PEG tube feedings. Patient reports he is prone to aspiration pneumonia. Patient is afebrile upon arrival. Labs obtained and posted to chart. EKG stable. Chest x-ray concerning for possible bilateral lower lobe pneumonia. Empiric antibiotic initiated. Cannot fully exclude COVID-19. COVID testing therefore obtained. Patient requiring admission for further evaluation and treatment. Discussed with Dr. Loza (hospitalist) who is in agreement with admission. Discussed findings and plan with patient, who acknowledges understanding and agreement. COVID-19 CRITERIA: The patient was evaluated during the global COVID-19 pandemic, and that diagnosis was suspected/considered upon their initial presentation. Their evaluation, treatment and testing was consistent with current guidelines for patients who present with complaints or symptoms that may be related to COVID-19. Dragon Disclaimer: Dragon Disclaimer: This electronic medical record was generated, in whole or in part, using a voice recognition dictation system. Departure Departure: Impression: Primary Impression: COPD exacerbation Additional Impression: Pneumonia Qualified Codes: J18.9 - Pneumonia, unspecified organism Disposition: ADMITTED INPATIENT Admitting Physician: Les Loza Condition: STABLE Referrals: JESENIA BOWSER MD (PCP) Justification of Admission: Justification of Admission: Justification of Admission Dx: Yes Comments: COPD Exacerbation, Pneumonia COVID-19 Assessment COVID-19 Patient Risks: Age 65 or older: Yes Sign of co-morbidity: Yes Exp to person + for COVID: No Exp to PUI: No Travel from affected area: No Lower respiratory symptoms: Yes Fever: Yes PPE Use: Full PPE with N95 mask or PAPR: Yes CHERYL GOODMAN DO Dec 11, 2019 15:44
--- NOTE | 2019-12-11 15:58 | RAD ---
EXAM: AP View of the chest DATE: 12/11/2019 3:40 PM INDICATION: SOA, cough COMPARISON: 08/14/2019, 04/04/2019 FINDINGS: Heart is mildly enlarged. Aorta is tortuous. Mediastinal and hilar contours are stable. Left greater than right lung base airspace opacities are seen. Small left pleural effusion and trace right pleural effusion. No pneumothorax. IMPRESSION: Left greater than right lung base airspace opacities may represent developing consolidative process or atelectasis. Electronically signed by: Rehan Robles MD (12/11/2019 3:55 PM) DARIO
[2019-12-11 15:59] LABS: BASO % 0 % (0-3); EOS # 0.1 x10^3/uL (0.0-0.7); EOS % 1 % (0-3); HEMATOCRIT 39.5 % (39.0-53.0); HEMOGLOBIN 12.8 g/dL (13.0-17.5); LYMPH # 1.6 x10^3/uL (1.0-4.8); LYMPH % 15 % (24-48); MEAN CORPUSCULAR HEMOGLOBIN 30 pg (25-35); MEAN CORPUSCULAR HGB CONC 32 g/dL (31-37); MEAN CORPUSCULAR VOLUME 93 fL (79-100); MONO # 0.9 x10^3/uL (0.0-1.1); MONO % 8 % (0-9); NEUT # 7.9 x10^3uL (1.8-7.7); NEUT % 75 % (31-73); PLATELET COUNT 173 x10^3/uL (140-400); RED BLOOD COUNT 4.24 x10^6/uL (4.30-5.70); WHITE BLOOD COUNT 10.5 x10^3/uL (4.0-11.0)
[2019-12-11 16:13] LABS: CALCIUM 8.8 mg/dL (8.5-10.1); CREATININE 0.9 mg/dL (0.7-1.3); GFR 83.9; POTASSIUM 4.3 mmol/L (3.5-5.1)
[2019-12-11] MEDS ORDERED: PIPERACILLIN/TAZOBACTAM 4.5 GM in IV NORMAL SALINE 50ML 50 ML IV ONE (16:15)
[2019-12-11] MEDS ORDERED: IV NORMAL SALINE 50ML 50 ML ONE ×2 (16:23→17:03)
[2019-12-11] MEDS ORDERED: PIPERACILLIN/TAZOBACTAM 4.5 GM VIAL IV ONE (16:23)
[2019-12-11 16:27] LABS: INFLUENZA A PATIENT NEGATIVE (NEGATIVE); INFLUENZA B PATIENT NEGATIVE (NEGATIVE)
[2019-12-11 16:29] LABS: ALBUMIN 3.1 g/dL (3.4-5.0); ALBUMIN/GLOBULIN RATIO 0.6 (1.0-1.7); MAGNESIUM 2.2 mg/dL (1.8-2.4); TOTAL BILIRUBIN 0.8 mg/dL (0.2-1.0); TOTAL PROTEIN 7.9 g/dL (6.4-8.2)
[2019-12-11] MEDS ORDERED: ONDANSETRON PF 4 MG/2 ML VIAL. IVP PRN (17:00)
[2019-12-11] MEDS ORDERED: IPRATRPIUM/ALBUTEROL 0.5/2.5MG 3 ML NEBU. NEB PRN (17:00)
[2019-12-11] MEDS ORDERED: cefTRIAXone SODIUM 1 GM VIAL ONE (17:03)
--- NOTE | 2019-12-11 17:50 | NUR ---
Patient arrived to unit via EMS. Patient is stable at time of admission. VS obtained. Patient is offered boxed lunch. Patient is calm and compliant with assessment. Patient is resting in room at this time. Dr. SHERIFF notified of admission. Will continue to monitor.
[2019-12-11 18:04] VITALS: BP 143/74
[2019-12-11] MEDS ORDERED: ATORVASTATIN CA80 MG PO (18:09)
[2019-12-11] MEDS ORDERED: ZOLP10TA PO (18:09)
[2019-12-11] MEDS ORDERED: SILD20TA2 PO (19:28)
[2019-12-11 19:38] VITALS: BP 149/72
[2019-12-11] MEDS: ZOLPIDEM 5 MG TABLET. PO PRN (20:30)
[2019-12-11] MEDS: LORazepam 0.5 MG TABLET PO PRN (20:30)
[2019-12-11] MEDS: ATORVASTATIN CALCIUM 20 MG TABLET PO SCH (20:30)
[2019-12-11 22:07] VITALS: BP 134/69
[2019-12-11 22:12] LABS: BILIRUBIN,URINE NEG (NEG); CLARITY,URINE CLEAR; COLOR,URINE YELLOW; GLUCOSE,URINE NEG (NEG)
[2019-12-11 22:13] LABS: BACTERIA,URINE 0 /HPF (0-FEW); NITRITE,URINE NEG (NEG); RBC,URINE RARE /HPF (0-2); SQUAMOUS EPITHELIAL CELL,UR OCC /LPF; UROBILINOGEN,URINE 0.2 mg/dL (0.2 mg/dL); WBC,URINE RARE /HPF (0-4)
--- NOTE | 2019-12-12 05:39 | NUR ---
Pt. maintained sats on rm air while awake. Pts brought CPAP from home, set up for HS with 2L O2 bled in. Pt. received dose of Ambien at HS and slept well. Pt. awakes now at 05:42 with complaint of headache. Pt. is being given Acetaminophen, will continue to monitor. KETURAH Dee
[2019-12-12] MEDS ORDERED: ACETAMINOPHEN 325 MG TABLET PO ONE (05:43)
[2019-12-12] MEDS ORDERED: ACETAMINOPHEN 325 MG TABLET PO PRN (05:45)
[2019-12-12 05:49] VITALS: BP 147/66
[2019-12-12] MEDS: LEVOTHYROXINE 100 MCG TABLET PO SCH (05:54)
[2019-12-12] MEDS: LEVOTHYROXINE 125 MCG TABLET PO SCH (05:54)
--- NOTE | 2019-12-12 06:59 | NUR ---
Pt's brought in pt's own formula for tube feeds as well as raffy-ANDUJAR button tubing. Pt able to manage own tube feeds.
--- NOTE | 2019-12-12 09:54 | HP ---
ADMIT DATE: 12/11/2019 ATTENDING PHYSICIAN: Dr. Sheriff. CHIEF COMPLAINT: Shortness of breath. HISTORY OF PRESENT ILLNESS: The patient is a 69-year-old gentleman admitted through the ED with some congestion, shortness of breath and cough. He has frequent aspiration pneumonia. He feels like an episode coming on. Workup in the ED showed a linear infiltrate on the left lower lobe consistent with atelectasis and consolidation pneumonia cannot be ruled out. He had a low-grade temperature. He was admitted then for further treatment and evaluation. PAST MEDICAL HISTORY: Complicated. In 2009, he had a tongue cancer treated with radiation and chemotherapy. He has generalized anxiety, depression, hypertension, hypothyroidism, on replacement. PAST SURGICAL HISTORY: Includes tonsillectomy, head and neck surgery, multiple PEG site placed. He has a PEG now, this is his fifth one in the last 4 years. He has had right carpal tunnel repair. He was a smoker. He quit several years ago. He is not exposed to any recent COVID-19 exposure, any travel, cough is minimally productive of greenish sputum. He does not take anything orally. He uses a button PEG for all his oral intake. ALLERGIES: HE HAS MULTIPLE ALLERGIES INCLUDING CIPRO, CODEINE AND SPINACH, EXACT ETIOLOGY IS UNCLEAR. CURRENT MEDICINES: At home shows that he has a CPAP machine for sleep apnea at night. In addition, he takes scheduled albuterol, Lipitor, Synthroid, lorazepam and Ambien at bedtime. He also takes Zoloft 50 mg daily along with Lipitor 80 mg daily, Lasix 20 mg daily. SOCIAL HISTORY: He was a heavy smoker in the past. He has since quit. He denies any alcohol use. He is and lives with his . FAMILY HISTORY: Noncontributory. REVIEW OF SYSTEMS: Significant for frequent aspiration pneumonia. He uses his PEG. He is otherwise quite active. He denied any recent palpitations, fever, travels, cough, congestion, nausea, hematemesis. All other systems reviewed and turned to be negative. PHYSICAL EXAMINATION: GENERAL: When I saw him, this is a pleasant elderly gentleman. INITIAL VITAL SIGNS: Showed a blood pressure 134/69, pulse is 79 and regular, temperature 97.3 degrees Fahrenheit. HEENT: Head is without trauma. Pupils are reactive. Sclerae nonicteric. Oropharynx is clear. NECK: There are postoperative changes with previous resection and radiation treatments. It is supple. There is no stridor. LUNGS: Showed good breath sounds in the upper airways. There are minimal crackles at both bases. CARDIOVASCULAR: Showed distant heart tones. No obvious gallops. Peripheral pulses palpable and full. ABDOMEN: Soft, scaphoid, nontender, no organomegaly. A button PEG in the left upper quadrant is functioning. There is no redness, erythema or extravasation. EXTREMITIES: Show no cyanosis or edema. NEUROLOGIC: Focally intact. No deficits. PERTINENT LABORATORY STUDIES AND X-RAYS: The chest x-ray done on admission showed bilateral consolidation with left greater than the right airspace opacities representing consolidated process, pneumonia versus atelectasis. His hemoglobin was 12.8 g/dL with white count of 10,500. Electrolytes were within normal range. Creatinine 0.9 mg/dL. Nonfasting blood sugar 106. The 3 sets of cardiac enzymes were negative for coronary ischemia. BNP was 268. ASSESSMENT: 1. This 69-year-old gentleman has chronic aspiration pneumonia. There is a definite linear infiltrate in the left lower lobe, which is probably new. 2. Chronic obstructive pulmonary disease. 3. Acute on chronic respiratory failure. 4. History of head and neck cancer, tongue surgery with radiation. He is 10 years out from his original diagnosis. 5. Hypothyroidism, on replacement. 6. Essential hypertension. 7. Underlying anxiety with depression. 8. History of sleep apnea. PLAN: 1. Admit to the inpatient unit. 2. Intravenous antibiotics has been ordered. 3. Nebulizer therapy. 4. Tube feedings as tolerated. 5. He has some mild allergy symptoms. I have ordered some Zyrtec and pseudoephedrine. 6. He was swabbed for COVID-19. Those results are still pending at this time. TERESE SHERIFF MD DR: PORTIA/juliana JOB#: [id number] / [id number]
[2019-12-12] MEDS: CETIRIZINE HCL 10 MG TABLET PO SCH (10:20)
[2019-12-12 11:20] VITALS: BP 149/81
--- NOTE | 2019-12-12 14:38 | EKG ---
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
--- NOTE | 2019-12-12 15:08 | NUR ---
RESULT FOR COVID 19 CAME BACK NEGATIVE
[2019-12-12 15:56] VITALS: BP 145/74
[2019-12-12 19:23] VITALS: BP 160/77
[2019-12-12] MEDS: LORazepam 0.5 MG TABLET PO PRN (20:21)
[2019-12-12] MEDS: ZOLPIDEM 5 MG TABLET. PO PRN (20:21)
[2019-12-12] MEDS: ATORVASTATIN CALCIUM 20 MG TABLET PO SCH (20:21)
[2019-12-12] MEDS: PSEUDOEPHEDRINE ER 120 MG TABLET.ER. PO SCH (20:22)
[2019-12-12 22:25] VITALS: BP 113/69
--- NOTE | 2019-12-13 05:32 | NUR ---
Pt denies any complaints and manages Robert-ANDUJAR button independently. Pt. received Ambien at and slept throughout the night. Pt hopes to return home today.
[2019-12-13 05:39] VITALS: BP 149/78
[2019-12-13] MEDS: LEVOTHYROXINE 125 MCG TABLET PO SCH (05:39)
[2019-12-13] MEDS: LEVOTHYROXINE 100 MCG TABLET PO SCH (05:40)
[2019-12-13] MEDS: CETIRIZINE HCL 10 MG TABLET PO SCH (08:24)
[2019-12-13] MEDS: PSEUDOEPHEDRINE ER 120 MG TABLET.ER. PO SCH (08:50)
--- NOTE | 2019-12-13 10:40 | NUR ---
PATIENT IS DISCHARGED TO HOME, VS ARE STABLE, DISCHARGE INSTRUCTION AND PRESCRIBED MEDICATIONS ARE REVIEWED , PT VERBALIZED UNDERSTANDING. PT LEFT ROOM VIA AMBULATION ACCOMPANIED BY THIS RN. PT IS TAKEN HOME BY FAMILY MEMBER VIA PERSONAL VEHICLE.
--- NOTE | 2019-12-13 12:32 | DS ---
DATE OF DISCHARGE: 12/13/2019 ATTENDING PHYSICIAN: Dr. Sheriff FINAL DISCHARGE DIAGNOSES: 1. Recurrent aspiration pneumonia, left lower lobe. 2. History of tongue cancer. 3. Previous surgery with radiation therapy of neck. 4. Permanent percutaneous endoscopic gastrostomy placement. 5. Chronic obstructive pulmonary disease exacerbation. 6. Acute on chronic respiratory failure, improved. 7. Hypothyroidism, on replacement. 8. Essential hypertension. 9. History of sleep apnea. 10. Underlying anxiety with depression. HISTORY OF PRESENT ILLNESS: This 69-year-old gentleman with a longstanding 10-year history of head and neck cancer with previous surgery has a PEG tube for the last 4-5 years. He has recurrent aspiration. He was admitted with congestion. X-ray showed a linear infiltrate in the left lower lobe. PHYSICAL EXAMINATION: Please see the dictated note. PERTINENT LABORATORY AND X-RAY STUDIES: Chest x-ray as noted. Hemoglobin is 12.8 g/dL with white count of 10,800. Electrolytes showed stable creatinine, BUN. Three sets of cardiac enzymes negative for myocardial ischemia. Lactic acid 0.7. COURSE IN THE HOSPITAL: The patient was admitted. He received 2 full days of intravenous antibiotics with marked improvement. Home meds were continued. He did well. All meds were administered through the PEG. At this time, on the third day, he was stable. Lungs were clear. He wanted to go home. I felt this is reasonable. I recommended 7 more days of cephalexin 500 mg p.o. t.i.d., then stop. Home meds are unchanged. He will continue his Lipitor 80 mg daily, Lasix 20 mg daily, Synthroid 225 mcg per PEG, lorazepam p.r.n., Zoloft, sildenafil p.r.n. and Ambien 10 mg at bedtime. He will follow up with his regular PCP. No restriction on his diet per PEG. The patient was then discharged from our hospital in stable condition with explicit instructions and followup care. TERESE SHERIFF MD DR: PORTIA/juliana JOB#: [id number] / [id number]
== END 2019-12-13 10:35 | disposition home or self-care (01) | DRG 177 ==
LOC: ER 14:58 → 1 SOUTH 16:50
PROVIDERS: ADMIT Hospitalist; ATTEND Hospitalist
DX: J69.0 Pneumonitis due to inhalation of food and vomit (principal); J96.20 Acute and chronic respiratory failure, unspecified whether with hypoxia or hypercapnia; J44.1 Chronic obstructive pulmonary disease with (acute) exacerbation; E03.9 Hypothyroidism, unspecified; F41.1 Generalized anxiety disorder; F41.8 Other specified anxiety disorders; I10 Essential (primary) hypertension; I25.10 Atherosclerotic heart disease of native coronary artery without angina pectoris; F32.9 Major depressive disorder, single episode, unspecified; F41.9 Anxiety disorder, unspecified; G47.30 Sleep apnea, unspecified; Z79.899 Other long term (current) drug therapy; Z85.810 Personal history of malignant neoplasm of tongue; Z85.828 Personal history of other malignant neoplasm of skin; Z85.89 Personal history of malignant neoplasm of other organs and systems; Z87.891 Personal history of nicotine dependence; Z92.21 Personal history of antineoplastic chemotherapy; Z92.3 Personal history of irradiation; Z93.1 Gastrostomy status; Z88.5 Allergy status to narcotic agent; Z20.828 Contact with and (suspected) exposure to other viral communicable diseases; Z87.01 Personal history of pneumonia (recurrent)
CPT/HCPCS: 36415; 71045; 80053; 81001; 82553; 83605; 83735; 83880; 84484; 85025; 85610; 85730; 87040; 87804; 93005; 96365; 96368; J0696; J2543; 99285-25; U0003-CS

== ENCOUNTER 2019-12-20 09:21 | Emergency (ER) | payer MEDICARE ==
[~2019-12-20] VITALS: Ht 175.3 cm; Wt 77.9 kg
[~2019-12-20 09:21] MED LIST changes: +SILD20TA2 PO
--- NOTE | 2019-12-20 09:41 | PHYS DOC ---
Past History Past Medical History: Anxiety, CAD, Cancer, COPD, Depression, Heart Disease, Hypertension, Hypothyroid Additional Past Medical Histor: tongue cancer 2010, had radiation and chemotherapy Past Surgical History: Cancer Surgery, Tonsillectomy, Other Additional Past Surgical Histo: skin cancer removed right neck; PEG tube placement; right carpal tunneling Smoking: Quit Greater Than 1 Year Alcohol Use: None Drug Use: None General Adult EDM: Chief Complaint: HYPOTENSION HPI: HPI: Patient is a 69 year old male who presents for evaluation of shortness of air and a somewhat low blood pressure of 96/59. Patient is short of air when he exerts himself. Patient has a history of COPD and was just admitted about a week ago to the hospital and treated for pneumonia. Patient was COVID negative at that time. Patient uses oxygen as well as CPAP at night. His presenting sats were 96% on room air. Patient has no significant retractions and is mildly short of air on arrival. Patient has some minimal discomfort around his [place] button site. Patient uses tube feedings. He has a prior history of throat cancer. There is no reported fever and chills recently. Patient is awake alert and nontoxic-appearing Review of Systems: Review of Systems: Constitutional: Denies fever or chills Eyes: Denies change in visual acuity HENT: Denies nasal congestion or sore throat Respiratory: Denies cough has shortness of breath Cardiovascular: Denies chest pain or edema GI: Denies abdominal pain, nausea, vomiting, bloody stools or diarrhea : Denies dysuria Musculoskeletal: Denies back pain or joint pain Integument: Denies rash Neurologic: Denies headache, focal weakness or sensory changes Endocrine: Denies polyuria or polydipsia Lymphatic: Denies swollen glands Psychiatric: Denies depression or anxiety Heart Score: HEART Score for Chest Pain: HEART Score for Chest Pain Response (Comments) Value History Slighlty/Non-Suspicious 0 ECG Normal 0 Age > 65 2 Risk Factors 1 or 2 Risk Factors 1 Troponin < Normal Limit 0 Total 3 Risk Factors: Risk Factors: DM, Current or recent (<one month) smoker, HTN, HLP, family histo ry of CAD, obesity. Risk Scores: Score 0 - 3: 2.5% MACE over next 6 weeks - Discharge Home Score 4 - 6: 20.3% MACE over next 6 weeks - Admit for Clinical Observation Score 7 - 10: 72.7% MACE over next 6 weeks - Early Invasive Strategies Allergies: Allergies: Allergies Coded Allergies Type Severity Reaction Last Updated Verified spinach Allergy Severe Anaphylaxis 12/12/19 Yes ciprofloxacin Allergy Intermediate 04/04/19 Yes codeine Allergy Intermediate 04/04/19 Yes Physical Exam: PE: Constitutional: Well developed, well nourished, mild distress, non-toxic appearance. [] HENT: Normocephalic, atraumatic, bilateral external ears normal, oropharynx moist, no oral exudates, nose normal. [] Eyes: PERRL, EOMI, conjunctiva normal, no discharge. [] Neck: Normal range of motion, no tenderness, supple, no stridor. [] Cardiovascular:Heart rate regular rhythm, no murmur [] Lungs & Thorax: Bilateral breath sounds clear to auscultation [] Abdomen: Bowel sounds normal, soft, no tenderness, no masses, no pulsatile masses, minimal erythema around [place] button site. [] Skin: Warm, dry, no erythema, no rash. [] Back: No tenderness. [] Extremities: No tenderness, no cyanosis, no clubbing, ROM intact, no edema. [] Neurologic: Alert and oriented X 3, normal motor function, normal sensory function, no focal deficits noted. [] Psychologic: Affect normal, judgement normal, mood normal. [] Current Patient Data: Labs: Laboratory Tests Test 12/20/19 09:45 White Blood Count 9.6 x10^3/uL Red Blood Count 4.41 x10^6/uL Hemoglobin 13.4 g/dL Hematocrit 41.0 % Mean Corpuscular Volume 93 fL Mean Corpuscular Hemoglobin 30 pg Mean Corpuscular Hemoglobin Concent 33 g/dL Red Cell Distribution Width 14.5 % Platelet Count 170 x10^3/uL Neutrophils (%) (Auto) 78 % Lymphocytes (%) (Auto) 12 % Monocytes (%) (Auto) 8 % Eosinophils (%) (Auto) 2 % Basophils (%) (Auto) 0 % Neutrophils # (Auto) 7.5 x10^3uL Lymphocytes # (Auto) 1.1 x10^3/uL Monocytes # (Auto) 0.8 x10^3/uL Eosinophils # (Auto) 0.2 x10^3/uL Basophils # (Auto) 0.0 x10^3/uL Sodium Level 137 mmol/L Potassium Level 4.2 mmol/L Chloride Level 100 mmol/L Carbon Dioxide Level 34 mmol/L Anion Gap 3 Blood Urea Nitrogen 31 mg/dL Creatinine 1.1 mg/dL Estimated GFR (Cockcroft-Gault) 66.6 BUN/Creatinine Ratio 28 Glucose Level 160 mg/dL Lactic Acid Level 1.5 mmol/L Calcium Level 9.0 mg/dL Total Bilirubin 0.6 mg/dL Aspartate Amino Transf (AST/SGOT) 28 U/L Alanine Aminotransferase (ALT/SGPT) 27 U/L Alkaline Phosphatase 95 U/L Troponin I Quantitative < 0.017 ng/mL Total Protein 7.7 g/dL Albumin 2.9 g/dL Albumin/Globulin Ratio 0.6 Current Medications Medications (Trade) Dose Ordered Sig/Gauri Route PRN Reason Start Time Stop Time Status Last Admin Dose Admin Sodium Chloride 1,000 ml @ 1,000 mls/hr 1X ONCE IV 12/20/19 09:45 12/20/19 10:44 12/20/19 09:52 EKG: EKG: EKG showed normal sinus rhythm, rate 78, otherwise unremarkable EKG, not STEMI Radiology/Procedures: Radiology/Procedures: [place] [address] IMAGING REPORT Signed PATIENT: KUSH HARGROVE ACCOUNT: [id number] : 1950 LOCATION: ER AGE: 69 SEX: M EXAM STATUS: REG ER ORD. PHYSICIAN: ERASTO NORTON DO REASON: short of air PROCEDURE: CHEST AP ONLY Examination: CHEST AP ONLY History: Reason: short of air / Spl. Instructions: / History: Comparison: 12/11/2019 Portable Chest X-ray Exam. Findings: AP portable upright frontal view of the chest was obtained. The cardiomediastinal silhouette is normal. Lungs decreased left lateral basilar atelectasis or infiltrate is evident. Retrocardiac interstitial thickening or atelectasis again seen. There is no pneumothorax. No pleural effusion is appreciated. No acute bone abnormality. Gaseous distention of stomach noted. IMPRESSION: Decreased left lateral basal atelectasis or infiltrate. No new findings. Electronically signed by: Gasper Jaime MD (12/20/2019 10:03 AM) [id number] DICTATED AND SIGNED BY: GASPER JAIME MD DATE: 12/20/19 1003 CC: JESENIA BOWSER MD; ERASTO NORTON DO ~ [] Course & Med Decision Making: Course & Med Decision Making Pertinent Labs and Imaging studies reviewed. (See chart for details) [] Dragon Disclaimer: Dragon Disclaimer: This electronic medical record was generated, in whole or in part, using a voice recognition dictation system. 1030 stable, feeling much better at this time. Blood pressure now 110 systolic. Will ambulate before final disposition decision. Patient states he is ready to go home. Patient will call Dr. Sanchez regarding his [place] button that is starting to malfunction. Labs and x-ray are stable 1045 Stable, ambulates with a steady gait. Feeling much better now. No indication for admission at this time. Departure Departure: Impression: Primary Impression: Hypotension Qualified Codes: I95.1 - Orthostatic hypotension Additional Impression: Dyspnea on exertion Disposition: 01 HOME/RESIDENCE PRIOR TO ADM Condition: STABLE Referrals: JESENIA BOWSER MD (PCP) Patient Instructions: Orthostatic Hypotension, Shortness of Breath, [id number] Additional Instructions: Drink plenty fluids, get plenty rest, see your doctor about your [place] button that is faulty. Your blood pressure has significantly improved. Return if worsen Justification of Admission: Justification of Admission: Justification of Admission Dx: N/A ERASTO NORTON DO Dec 20, 2019 09:40
[2019-12-20] MEDS ORDERED: IV NORMAL SALINE 1,000ML 1,000 ML IV ONE (09:45)
[2019-12-20 10:01] LABS: BASO % 0 % (0-3); EOS # 0.2 x10^3/uL (0.0-0.7); EOS % 2 % (0-3); HEMOGLOBIN 13.4 g/dL (13.0-17.5); LYMPH # 1.1 x10^3/uL (1.0-4.8); LYMPH % 12 % (24-48); MEAN CORPUSCULAR HEMOGLOBIN 30 pg (25-35); MEAN CORPUSCULAR HGB CONC 33 g/dL (31-37); MEAN CORPUSCULAR VOLUME 93 fL (79-100); MONO # 0.8 x10^3/uL (0.0-1.1); MONO % 8 % (0-9); NEUT # 7.5 x10^3uL (1.8-7.7); NEUT % 78 % (31-73); PLATELET COUNT 170 x10^3/uL (140-400); RED BLOOD COUNT 4.41 x10^6/uL (4.30-5.70); RED CELL DISTRIBUTION WIDTH 14.5 % (11.5-14.5); WHITE BLOOD COUNT 9.6 x10^3/uL (4.0-11.0)
--- NOTE | 2019-12-20 10:06 | RAD ---
Examination: CHEST AP ONLY History: Reason: short of air / Spl. Instructions: / History: Comparison: 12/11/2019 Portable Chest X-ray Exam. Findings: AP portable upright frontal view of the chest was obtained. The cardiomediastinal silhouette is normal. Lungs decreased left lateral basilar atelectasis or infiltrate is evident. Retrocardiac interstitial thickening or atelectasis again seen. There is no pneumothorax. No pleural effusion is appreciated. No acute bone abnormality. Gaseous distention of stomach noted. IMPRESSION: Decreased left lateral basal atelectasis or infiltrate. No new findings. Electronically signed by: Gasper Carpenter MD (12/20/2019 10:03 AM) [id number]
[2019-12-20 10:11] LABS: CREATININE 1.1 mg/dL (0.7-1.3); GFR 66.6; POTASSIUM 4.2 mmol/L (3.5-5.1)
[2019-12-20 10:17] LABS: ALBUMIN 2.9 g/dL (3.4-5.0); ALBUMIN/GLOBULIN RATIO 0.6 (1.0-1.7); TOTAL BILIRUBIN 0.6 mg/dL (0.2-1.0); TOTAL PROTEIN 7.7 g/dL (6.4-8.2)
[2019-12-20 10:47] VITALS: BP 121/73
--- NOTE | 2019-12-20 10:50 | EKG ---
[address] [address] Test Date: 2019-12-20 Test Time: 09:47:00 Pat Name: KUSH HARGROVE Department: Room: Gender: M Paper Latcher: : 1950 Requested By: ERASTO NORTON Order Number: [id number] Reading MD: Measurements Intervals [place] Rate: 78 P: 2 MI: 184 QRS: 14 QRSD: 98 T: 51 QT: 368 QTc: 423 Interpretive Statements SINUS RHYTHM OTHERWISE NORMAL ECG RI6.02 No previous ECG available for comparison
== END 2019-12-20 10:55 | disposition home or self-care (01) ==
LOC: ER 09:21
DX: I95.9 Hypotension, unspecified (principal); R06.09 Other forms of dyspnea; F41.9 Anxiety disorder, unspecified; I25.10 Atherosclerotic heart disease of native coronary artery without angina pectoris; J44.9 Chronic obstructive pulmonary disease, unspecified; I11.9 Hypertensive heart disease without heart failure; E03.9 Hypothyroidism, unspecified; Z87.891 Personal history of nicotine dependence; Z88.1 Allergy status to other antibiotic agents; Z88.5 Allergy status to narcotic agent; Z91.018 Allergy to other foods
CPT/HCPCS: 36415; 71045; 80053; 83605; 84484; 85025; 87040; 93005; 96360; 99285; J7030

== ENCOUNTER 2020-06-10 16:53 | Emergency (ER) | payer MEDICARE ==
[~2020-06-10] VITALS: Ht 175.3 cm; Wt 77.3 kg
[~2020-06-10 16:53] MED LIST changes: +AMLO-187 PEG; +AMLO-187 PO; -AMLO10TA8 PEG; -AMLO10TA8 PO
[2020-06-10 17:06] VITALS: BP 120/60
--- NOTE | 2020-06-10 17:40 | RAD ---
AP chest. HISTORY: Trauma, fall AP view was taken of the chest. Comparison is made with a study from December. There is mild atelectasis along the left diaphragm or scarring. There is mild respiratory motion artifact. There are no acute i nfiltrates. There is bowel distention in the abdomen. Bowel distention is similar to the old study. H eart is upper normal in size. There is no definite effusion. IMPRESSION: 1. Left base linear scarring or atelectasis. 2. No other acute infiltrates. Electronically signed by: Marino Forman MD (06/10/2020 5:37 PM) [id number]
--- NOTE | 2020-06-10 17:41 | RAD ---
Supine abdomen. HISTORY: Fall, trauma Supine views were taken of the abdomen. There is distention of the colon suggesting an ileus. Stomach is also mildly distended. There is no small bowel obstruction. Lumbar spine is in normal alignment o n the AP image. There is a density superimposed on the stomach bubble possibly a gastrostomy tube. IMPRESSION: 1. Distention of the stomach and colon possible ileus. 2. No other acute finding. Electronically signed by: Marino Forman MD (06/10/2020 5:39 PM) [id number]
--- NOTE | 2020-06-10 17:42 | RAD ---
STUDY: CT head without contrast INDICATION: Fall with loss of consciousness. COMPARISON: 11/15/2018 TECHNIQUE: Axial CT imaging through the head without the use of intravenous contrast. Sagittal and co yemi reformats were obtained. One or more of the following individualized dose reduction techniques were utilized for this examinat ion: 1. Automated exposure control 2. Adjustment of the mA and/or kV according to patient size 3. Use of iterative reconstruction technique. FINDINGS: No acute intracranial hemorrhage. Holley-white matter differentiation is maintained. No localized mass effect, midline shift or hydrocephalus. Unchanged brain parenchymal attenuation pattern and volume. Intracranial calcific atherosclerosis. Frontal scalp contusion/laceration. No evidence for trauma to the orbits. No depressed calvarial frac ture. IMPRESSION: Frontal scalp contusion/laceration without an associated depressed calvarial fracture or acute intrac ranial abnormality by CT. Electronically signed by: UNA JACOBSON MD (06/10/2020 5:39 PM) [facility]
--- NOTE | 2020-06-10 17:48 | PHYS DOC ---
Past History Past Medical History: Anxiety, CAD, Cancer, COPD, Depression, Heart Disease, Hypertension, Hypothyroid Additional Past Medical Histor: tongue cancer 2010, had radiation and chemotherapy Past Surgical History: Cancer Surgery, Tonsillectomy, Other Additional Past Surgical Histo: skin cancer removed right neck; PEG tube placement; right carpal tunneling Smoking: Quit Greater Than 1 Year Alcohol Use: Heavy Additional Alcohol Information: REPORTEDLY USES HIS [employer] TO "DRINK" Drug Use: None Adult General Chief Complaint Chief Complaint: LACERATION/AVULSION HPI HPI Patient is a 70-year-old male who presents via EMS for fall. Fall occurred just prior to arrival while at home. Was witnessed by spouse, mechanism of injury was a mechanical ground-level fall down x2 steps without syncope or near syncope. The current pain level is moderate and localized to his head. Patient does not take any blood thinners. There is a laceration associated with the injury on his scalp without any other known findings or concerns. There was reported loss of consciousness but no subsequent confusion, seizure, memory impairment, neck pain, vomiting, numbness or weakness or fever. Patient's tetanus immunization is up-to-date Review of Systems Review of Systems Fourteen body systems of review of systems have been reviewed. See HPI for pertinent positives and negative responses, other sumner all other systems are negative, non-pertinent or non-contributory Allergies Allergies Allergies Coded Allergies Type Severity Reaction Last Updated Verified spinach Allergy Severe Anaphylaxis 12/20/19 Yes ciprofloxacin Allergy Intermediate 12/20/19 Yes codeine Allergy Intermediate 12/20/19 Yes Physical Exam Physical Exam TRAUMA ADULT: A: Patient vocalizing, airway intact B: Bilateral breath sounds present C: 2+ carotid and femoral pulses b/l D: GCS 15 (E4, V5, M6). MAEE E: Log rolled while maintaining c-spine stabilization. Gluteal squeeze intact. General: Appears well and comfortable Skin: Warm, dry. Normal for ethnicity. HEENT: 10 cm laceration in your shoe shape on his anterior temporal left side of head. PERRLA. Moist mucous membranes. No facial deformity. Neck: Trachea midline. No midline c-spine TTP. Respiratory: Normal WOB. CTAB w/o w/r/r. No tachypnea. Cardiovascular: Regular rate and rhythm. Normal peripheral perfusion. No edema. Chest: B/l clavicles intact. No TTP. No ecchymosis. No seatbelt sign. No deformity. Abdomen: Soft. Non tender. No distension. [place] button present and well- appearing in left upper quadrant of abdomen. Pelvis stable and intact, nontender : Normal external genitalia. Back: No midline T or L-spine TTP. No ecchymosis. Musculoskeletal: No swelling or deformity. Neuro: Alert and oriented x 4. MAEE. Cranial nerves II through XII intact Psych: Normal affect and mood. Current Patient Data Vital Signs Vital Signs Date Time Temp Pulse Resp B/P (MAP) Pulse Ox O2 Delivery O2 Flow Rate FiO2 06/10/20 17:06 98.1 86 18 120/60 (80) 93 Room Air EKG EKG [] Radiology/Procedures Radiology/Procedures STUDY: CT head without contrast INDICATION: Fall with loss of consciousness. COMPARISON: 11/15/2018 TECHNIQUE: Axial CT imaging through the head without the use of intravenous contrast. Sagittal and coronal reformats were obtained. One or more of the following individualized dose reduction techniques were utilized for this examination: 1. Automated exposure control 2. Adjustment of the mA and/or kV according to patient size 3. Use of iterative reconstruction technique. FINDINGS: No acute intracranial hemorrhage. Holley-white matter differentiation is maintained. No localized mass effect, midline shift or hydrocephalus. Unchanged brain parenchymal attenuation pattern and volume. Intracranial calcific atherosclerosis. Frontal scalp contusion/laceration. No evidence for trauma to the orbits. No depressed calvarial fracture. IMPRESSION: Frontal scalp contusion/laceration without an associated depressed calvarial fracture or acute intracranial abnormality by CT. Electronically signed by: UNA JACOBSON MD (06/10/2020 5:39 PM) [facility] AP chest. HISTORY: Trauma, fall AP view was taken of the chest. Comparison is made with a study from December. There is mild atelectasis along the left diaphragm or scarring. There is mild respiratory motion artifact. There are no acute infiltrates. There is bowel distention in the abdomen. Bowel distention is similar to the old study. Heart is upper normal in size. There is no definite effusion. IMPRESSION: 1. Left base linear scarring or atelectasis. 2. No other acute infiltrates. Electronically signed by: Marino Forman MD (06/10/2020 5:37 PM) [id number] Supine abdomen. HISTORY: Fall, trauma Supine views were taken of the abdomen. There is distention of the colon suggesting an ileus. Stomach is also mildly distended. There is no small bowel obstruction. Lumbar spine is in normal alignment on the AP image. There is a density superimposed on the stomach bubble possibly a gastrostomy tube. IMPRESSION: 1. Distention of the stomach and colon possible ileus. 2. No other acute finding. Electronically signed by: Marino Forman MD (06/10/2020 5:39 PM) [id number] Heart Score HEART Score for Chest Pain: HEART Score for Chest Pain Response (Comments) Value History Slighlty/Non-Suspicious 0 Age > 65 2 Risk Factors >3 Risk Factors or Hx CAD 2 Total 4 Risk Factors: Risk Factors: DM, Current or recent (<one month) smoker, HTN, HLP, family history of CAD, obesity. Risk Scores: Risk Factors: DM, Current or recent (<one month) smoker, HTN, HLP, family history of CAD, obesity. Course & Med Decision Making Course & Med Decision Making Discussed with the patient all findings and diagnostic testing. I discussed most likely diagnosis of noncomplicated scalp laceration that was repaired today status post fall. No foreign body or other acute bony abnormalities found during work-up today. I stressed need for close outpatient follow-up to review today's ER visit and for suture removal in upcoming 7 to 10 days time. Strict return precautions were also discussed at length with good understanding by patient. Patient voiced understanding and agreement with the plan. Patient knows to come back for repeat evaluation if concerning signs or symptoms present prior to outpatient follow-up. Hemodynamically stable, ambulatory and well- appearing at time of disposition. Dragon Disclaimer Dragon Disclaimer This electronic medical record was generated, in whole or in part, using a voice recognition dictation system. Laceration Repair Lac Repair Indication: Left forehead laceration Procedure: Patient was placed in appropriate position and alcohol prep pads were used to cleanse wound after copious irrigation, CT imaging and further exploration to ensure no foreign body. 10 cc 1% lidocaine without epinephrine was utilized for anesthesia. 4.0 Ethilon sutures were used to close wound. A total of 14 simple interrupted sutures were utilized to close skin borders appropriately to ensure great wound closure and cosmetic healing. The area was then cleansed again after repair and dressed with clean, dry and intact gauze and subsequent dressing Total repaired wound length: 10 cm Other Items: None The patient tolerated the procedure well without any observed and/or reported complications Departure Departure: Impression: Primary Impression: Fall Additional Impression: Laceration of head Disposition: 01 DC HOME SELF CARE/HOMELESS Condition: STABLE Referrals: JESENIA BOWSER MD (PCP) Patient Instructions: Laceration Care, Adult Additional Instructions: You were seen for a laceration. Keep the area clean and dry. You should return to the ED or your PCP office to get your sutures removed in 7-10 days. Return to the ED immediately if you develop any signs of infection like increased pain, redness, fever, or purulent (pus) drainage. Do not take baths, submerge the wound, or use a hot tub until your stitches are removed and the wound is healed. Is a pleasure to take care of you and I wish you the best going forward Problem Qualifiers MARICRUZ BERMUDEZ DO Jun 10, 2020 17:48
== END 2020-06-10 18:54 | disposition home or self-care (01) ==
LOC: ER 16:53
DX: S01.81XA Laceration without foreign body of other part of head, initial encounter (principal); F41.9 Anxiety disorder, unspecified; I25.10 Atherosclerotic heart disease of native coronary artery without angina pectoris; J44.9 Chronic obstructive pulmonary disease, unspecified; I11.9 Hypertensive heart disease without heart failure; E03.9 Hypothyroidism, unspecified; Z87.891 Personal history of nicotine dependence; F10.20 Alcohol dependence, uncomplicated; Z91.018 Allergy to other foods; Z88.1 Allergy status to other antibiotic agents; Z88.5 Allergy status to narcotic agent; Y90.9 Presence of alcohol in blood, level not specified; W18.39XA Other fall on same level, initial encounter; Y93.89 Activity, other specified; Y92.89 Other specified places as the place of occurrence of the external cause; Y99.8 Other external cause status
CPT/HCPCS: 12015; 70450; 71045; 74018; 99285-25

== ENCOUNTER 2020-11-15 19:12 | Emergency (ER) | payer MEDICARE ==
[~2020-11-15] VITALS: Ht 175.3 cm; Wt 82.4 kg
[~2020-11-15 19:12] MED LIST changes: -ACYC-63 PEG; +ACYC200C84 PEG; -CLIN300C8 PO; +CLIN300C9 PO; +SERT-269 PO; -SERT100T8 PO
--- NOTE | 2020-11-15 19:37 | PHYS DOC ---
Past History Past Medical History: Anxiety, CAD, Cancer, COPD, Depression, Heart Disease, Hypertension, Hypothyroid Additional Past Medical Histor: tongue cancer 2009, had radiation and chemotherapy Past Surgical History: Cancer Surgery, Tonsillectomy, Other Additional Past Surgical Histo: skin cancer removed right neck; PEG tube placement; right carpal tunneling Smoking: Quit Greater Than 1 Year Alcohol Use: Heavy Drug Use: None General Adult EDM: Chief Complaint: BLOOD IN URINE HPI: HPI: ".. Notice I had blood in my urine tonight.. had a string of blood cells... I am not having any pain.. but just concerned about the blood.. .. I ve been tr eated for tongue cancer, surgery, chemo.. and radiation.. just worried ..." Patient is a 70 year old male who presents with above hx and complaints of hematuria. Patient denies prior history of kidney stones. No history of trauma. No family history of kidney stones. Patient does have significant history of tongue cancer which has undergone surgery chemotherapy and radiation. Patient also has significant history of aspiration pneumonia secondary to his treatment of his tongue cancer diagnosis in 2009. Patient does have a history of anxiety, depression, hypertension, hypothyroidism, enlarged prostate, sleep apnea which he uses CPAP, elevated cholesterol, insomnia, depression, arthritis, recurrent episodes of aspiration pneumonitis. Patient no longer smokes tobacco. Patient has had multiple surgeries particularly of the head and neck, PEG placement x4 for feeding due to esophagitis and his tongue cancer, right carpal tunnel repair. Review of Systems: Review of Systems: Constitutional: Denies fever or chills Eyes: Denies change in visual acuity HENT: Denies nasal congestion or sore throat Respiratory: Denies cough or shortness of breath Cardiovascular: Denies chest pain or edema GI: Denies abdominal pain, nausea, vomiting, bloody stools or diarrhea : Complains of painless hematuria Musculoskeletal: Denies back pain or joint pain Integument: Denies rash Neurologic: Denies headache, focal weakness or sensory changes Endocrine: Denies polyuria or polydipsia Lymphatic: Denies swollen glands Psychiatric: Denies depression or anxiety Family History: Family History: Noncontributory to presentation Current Medications: Current Meds: See nursing for home meds Allergies: Allergies: Allergies Coded Allergies Type Severity Reaction Last Updated Verified spinach Allergy Severe Anaphylaxis 12/20/19 Yes ciprofloxacin Allergy Intermediate 12/20/19 Yes codeine Allergy Intermediate 12/20/19 Yes Physical Exam: PE: Constitutional:, no acute distress, non-toxic appearance. [] HENT: Normocephalic, atraumatic, bilateral external ears normal, oropharynx moist, no oral exudates, nose normal. Multiple neck surgery scars. Radiation woodard. Eyes: PERRLA, EOMI, conjunctiva normal, no discharge. [] Neck: Normal range of motion, no tenderness, supple, no stridor. Multiple surgery scars and radiation woodard Cardiovascular:Heart rate regular rhythm, no murmur, PMI to left Lungs & Thorax: Bilateral breath sounds equal apex with few scattered wheezes on auscultation [] Abdomen: Bowel sounds normal, soft, no tenderness, no masses, no pulsatile masses. Circumcised male. Old surgery scars. PEG. Skin: Warm, dry, no erythema, no rash. [] Back: No tenderness, no CVA tenderness. [] Extremities: No tenderness, no cyanosis, no clubbing, ROM intact, no edema. Arthritic changes. Neurologic: Alert and oriented X 3, moves all extremities on request, does have distal sensory, no focal deficits noted. [] Psychologic: Affect anxious, judgement normal, mood normal. [] EKG: EKG: [] Radiology/Procedures: Radiology/Procedures: [][address] [address] IMAGING REPORT Signed PATIENT: KUSH HARGROVE ACCOUNT: [id number] : 1950 LOCATION: ER AGE: 70 SEX: M EXAM STATUS: REG ER ORD. PHYSICIAN: AURORA JONES MD REASON: hematura, fall thurs. , flank contusion, hx cancer PROCEDURE: CT ABDOMEN PELVIS WO CONTRAST CT scan abdomen and pelvis without contrast 11/15/2020 CLINICAL HISTORY: Hematuria. Recent fall. TECHNIQUE: Unenhanced, contiguous, 2.5 mm axial sections were obtained through the abdomen and pelvis. One or more of the following individualized dose reduction techniques were utilized for this study: 1. Automated exposure control. 2. Adjustment of the mA and/or kV according to patient size. 3. Use of iterative reconstruction technique. FINDINGS: Comparison study is dated 01/05/2016. Images through the lung bases demonstrate minimal dependent subsegmental atelectasis bilaterally. There is mild cardiomegaly. The liver, spleen, pancreas, and adrenal glands are within normal limits. Nonobstructing calculi are seen involving both kidneys. These measure 2 mm to 5 mm in size. Rounded low-attenuation lesions are seen involving the left kidney which measure 1 to 7.2 cm in size. They likely represent cysts. They have not significantly changed. No further imaging evaluation is recommended. No ureteral calculus is seen. There is no evidence of obstruction of either collecting system. Atherosclerotic calcification of the abdominal aorta is seen. The abdominal aorta is ectatic but tapers normally. A gastrostomy tube is seen extending into the body of the stomach. No free fluid or free air is within the abdomen. There is no evidence of bowel obstruction. Images through the pelvis demonstrate the urinary bladder distended with urine. A small mass is seen along the left lateral aspect of the urinary bladder wall projecting into the lumen. This measures 7 mm in greatest diameter. The prostate gland is enlarged likely related to BPH. Calcifications are seen within the pelvis consistent with phleboliths. No free fluid is seen. Multiple diverticula are seen involving the sigmoid colon. No inflammatory changes are seen in the adjacent fat. No pelvic or inguinal lymphadenopathy is seen. Minimal S-shaped curvature of the thoracolumbar spine is seen. Degenerative changes are seen involving lower thoracic and throughout the lumbar spine along with both hips. IMPRESSION: 1. Bilateral nonobstructing renal calculi. 2. 7 mm mass is seen involving the left lateral aspect of the wall of the urinar y bladder concerning for a bladder neoplasm (transitional cell carcinoma). 3. No acute abnormality is seen. Electronically signed by: Manfred Rodriguez MD (11/15/2020 9:03 PM) [id number] DICTATED AND SIGNED BY: MANFRED RODRIGUEZ MD DATE: 11/15/202053 CC: JESENIA BOWSER MD; AURORA JONES MD ~MTH0 0 Heart Score: C/O Chest Pain: N/A Risk Factors: Risk Factors: DM, Current or recent (<one month) smoker, HTN, HLP, family history of CAD, obesity. Risk Scores: Score 0 - 3: 2.5% MACE over next 6 weeks - Discharge Home Score 4 - 6: 20.3% MACE over next 6 weeks - Admit for Clinical Observation Score 7 - 10: 72.7% MACE over next 6 weeks - Early Invasive Strategies Course & Med Decision Making: Course & Med Decision Making Pertinent Labs and Imaging studies reviewed. (See chart for details) Patient push fluids. Follow-up urine culture. Must follow-up with urology. Reviewed CT findings with patient. Review ED work-up with primary and oncology. Patient initiated disc of his CT. Must follow-up. Return if any concerns. Impression: 1. Painless hematuria 2. Possible bladder mass- Lt wall 3. History of tongue cancer and resection, immunotherapy and radiation 4. Diabetes glucose 145 [] Dragon Disclaimer: Dragon Disclaimer: This electronic medical record was generated, in whole or in part, using a voice recognition dictation system. Departure Departure: Referrals: JESENIA BOWSER MD (PCP) AURORA JONES MD November 15, 2020 19:37
[2020-11-15 20:21] LABS: BACTERIA,URINE 0 /HPF (0-FEW); BILIRUBIN,URINE NEG (NEG); CLARITY,URINE CLOUDY; COLOR,URINE AMBER; GLUCOSE,URINE NEG (NEG); NITRITE,URINE NEG (NEG); RBC,URINE TNTC /HPF (0-2); WBC,URINE 0 /HPF (0-4)
[2020-11-15] MEDS: IV RINGERS SOLUTION,LACTATED 1,000 ML IV SCH (20:30)
--- NOTE | 2020-11-15 21:05 | RAD ---
CT scan abdomen and pelvis without contrast 11/15/2020 CLINICAL HISTORY: Hematuria. Recent fall. TECHNIQUE: Unenhanced, contiguous, 2.5 mm axial sections were obtained through the abdomen and pelvis . One or more of the following individualized dose reduction techniques were utilized for this study: 1. Automated exposure control. 2. Adjustment of the mA and/or kV according to patient size. 3. Use of iterative reconstruction technique. FINDINGS: Comparison study is dated 01/05/2016. Images through the lung bases demonstrate minimal dependent subsegmental atelectasis bilaterally. The re is mild cardiomegaly. The liver, spleen, pancreas, and adrenal glands are within normal limits. Nonobstructing calculi are seen involving both kidneys. These measure 2 mm to 5 mm in size. Rounded low-attenuation lesions are seen involving the left kidney which measure 1 to 7.2 cm in size. They likely represent cysts. They h ave not significantly changed. No further imaging evaluation is recommended. No ureteral calculus is seen. There is no evidence of obstruction of either collecting system. Atherosclerotic calcification of the abdominal aorta is seen. The abdominal aorta is ectatic but tape rs normally. A gastrostomy tube is seen extending into the body of the stomach. No free fluid or free air is within the abdomen. There is no evidence of bowel obstruction. Images through the pelvis demonstrate the urinary bladder distended with urine. A small mass is seen along the left lateral aspect of the urinary bladder wall projecting into the lumen. This measures 7 mm in greatest diameter. The prostate gland is enlarged likely related to BPH. Calcifications are see n within the pelvis consistent with phleboliths. No free fluid is seen. Multiple diverticula are seen involving the sigmoid colon. No inflammatory changes are seen in the adjacent fat. No pelvic or ingu inal lymphadenopathy is seen. Minimal S-shaped curvature of the thoracolumbar spine is seen. Degenerative changes are seen involvin g lower thoracic and throughout the lumbar spine along with both hips. IMPRESSION: 1. Bilateral nonobstructing renal calculi. 2. 7 mm mass is seen involving the left lateral aspect of the wall of the urinary bladder concerning for a bladder neoplasm (transitional cell carcinoma). 3. No acute abnormality is seen. Electronically signed by: Manfred Rodriguez MD (11/15/2020 9:03 PM) [id number]
[2020-11-15 21:12] LABS: BASO % 0 % (0-3); EOS # 0.1 x10^3/uL (0.0-0.7); EOS % 1 % (0-3); HEMATOCRIT 40.5 % (39.0-53.0); HEMOGLOBIN 13.2 g/dL (13.0-17.5); LYMPH # 1.7 x10^3/uL (1.0-4.8); LYMPH % 25 % (24-48); MEAN CORPUSCULAR HEMOGLOBIN 31 pg (25-35); MEAN CORPUSCULAR HGB CONC 33 g/dL (31-37); MEAN CORPUSCULAR VOLUME 96 fL (79-100); MONO # 0.8 x10^3/uL (0.0-1.1); MONO % 12 % (0-9); NEUT # 4.2 x10^3uL (1.8-7.7); NEUT % 61 % (31-73); PLATELET COUNT 147 x10^3/uL (140-400); RED BLOOD COUNT 4.24 x10^6/uL (4.30-5.70); RED CELL DISTRIBUTION WIDTH 13.6 % (11.5-14.5); WHITE BLOOD COUNT 6.8 x10^3/uL (4.0-11.0)
[2020-11-15 21:19] LABS: CALCIUM 8.6 mg/dL (8.5-10.1); CREATININE 0.7 mg/dL (0.7-1.3); GFR 111.8; POTASSIUM 4.1 mmol/L (3.5-5.1)
[2020-11-15 21:25] LABS: ALBUMIN 3.4 g/dL (3.4-5.0); DIRECT BILIRUBIN 0.2 mg/dL (0.0-0.2); TOTAL BILIRUBIN 0.6 mg/dL (0.2-1.0); TOTAL PROTEIN 7.5 g/dL (6.4-8.2)
[2020-11-15 21:47] VITALS: BP 140/75
== END 2020-11-15 22:05 | disposition home or self-care (01) ==
LOC: ER 19:12
DX: R31.9 Hematuria, unspecified (principal); E11.9 Type 2 diabetes mellitus without complications; F41.9 Anxiety disorder, unspecified; I25.10 Atherosclerotic heart disease of native coronary artery without angina pectoris; J44.9 Chronic obstructive pulmonary disease, unspecified; F32.9 Major depressive disorder, single episode, unspecified; I11.9 Hypertensive heart disease without heart failure; E03.9 Hypothyroidism, unspecified; F10.20 Alcohol dependence, uncomplicated; Z85.810 Personal history of malignant neoplasm of tongue; Z87.891 Personal history of nicotine dependence; Z88.5 Allergy status to narcotic agent; Z88.1 Allergy status to other antibiotic agents; Z91.018 Allergy to other foods; Y90.9 Presence of alcohol in blood, level not specified
CPT/HCPCS: 36415; 74176; 80048; 80076; 81001; 85025; 96360; 99284; J7120

== ENCOUNTER 2021-01-01 09:14 | Inpatient (IN) | payer MEDICARE ==
[~2021-01-01] VITALS: Ht 175.3 cm; Wt 77.6 kg
--- NOTE | 2021-01-01 09:34 | PHYS DOC ---
Past History Past Medical History: Cancer, COPD Additional Past Medical Histor: tongue cancer 2009, had radiation and chemotherapy Past Surgical History: Other Additional Past Surgical Histo: skin cancer removed right neck; PEG tube placement; right carpal tunneling Smoking: Quit Greater Than 1 Year Alcohol Use: None Drug Use: None General Adult EDM: Chief Complaint: DYSPNEA/RESPIRATOY DISTRESS HPI: HPI: Patient is a 70 year old male with history of tongue cancer s/p radiation, s/p G-tube placement, history of recurrent pneumonias who presents with 1 week of shortness of breath, chills, and cough productive of green sputum. Symptoms of progressed over the last week. He wears 2 L/min nasal cannula at home at baseline, and states that he has been turning it up to 3 L/min over the past few days. Has become increasingly dyspneic with activity. He is vaccinated against Covid. Has no Covid exposures. He has had no chest pain or lower extremity edema. He has previously been on a diuretic pill, but has not been on one for some time now. Denies history of heart failure. States that his oxygen requirement is from lung scarring from his recurrent pneumonia. Review of Systems: Review of Systems: Constitutional: Complains of chills Eyes: Denies change in visual acuity HENT: Denies nasal congestion or sore throat Respiratory: Complains of shortness of breath, productive cough Cardiovascular: Denies chest pain or edema GI: Denies abdominal pain, nausea, vomiting, bloody stools or diarrhea : Denies dysuria Musculoskeletal: Denies back pain or joint pain Integument: Denies rash Neurologic: Denies headache, focal weakness or sensory changes Endocrine: Denies polyuria or polydipsia Lymphatic: Denies swollen glands Psychiatric: Denies depression or anxiety Family History: Family History: No pertinent family history Allergies: Allergies: Allergies Coded Allergies Type Severity Reaction Last Updated Verified spinach Allergy Severe Anaphylaxis 12/20/19 Yes ciprofloxacin Allergy Intermediate 12/20/19 Yes codeine Allergy Intermediate 12/20/19 Yes Physical Exam: PE: Constitutional: Well developed, well nourished, no acute distress, non-toxic appearance. [] HENT: Normocephalic, atraumatic, bilateral external ears normal, oropharynx moist, no oral exudates, nose normal. [] Eyes: PERRLA, EOMI, conjunctiva normal, no discharge. [] Neck: Normal range of motion, no tenderness, supple, no stridor. [] Cardiovascular:Heart rate regular rhythm, no murmur [] Lungs & Thorax: Mild tachypnea and increased work of breathing. Bilateral Rales in lower lung lawson clearing apically. [] Abdomen: Bowel sounds normal, soft, no tenderness, no masses, no pulsatile masses. [] Skin: Warm, dry, no erythema, no rash. [] Back: No tenderness, no CVA tenderness. [] Extremities: No tenderness, no cyanosis, no clubbing, ROM intact, no edema. [] Neurologic: Alert and oriented X 3, normal motor function, normal sensory function, no focal deficits noted. [] Psychologic: Affect normal, judgement normal, mood normal. [] Current Patient Data: Vital Signs: Vital Signs Date Time Temp Pulse Resp B/P (MAP) Pulse Ox O2 Delivery O2 Flow Rate FiO2 01/01/21 09:15 99.4 91 21 142/75 76 Room Air EKG: EKG: Sinus rhythm. Rate 89. Normal intervals. Normal axis. No acute ischemic changes. [] Radiology/Procedures: Radiology/Procedures: [] Impressions: PATIENT: KUSH HARGROVE ACCOUNT: [id number] : 1950 LOCATION: ER AGE: 70 SEX: M EXAM STATUS: REG ER ORD. PHYSICIAN: SARAHI BETTENCOURT MD REASON: shortbess of breath, productive cough, chills, hx of pna PROCEDURE: CHEST AP ONLY EXAMINATION: XR CHEST 1V CLINICAL HISTORY: Shortness of breath, productive cough, chills, hx of pna EXAM DATE/TIME: 01/01/2021 9:52 AM COMPARISON: 06/10/2020 FINDINGS: Lines, Tubes, and Devices: None. Cardiomediastinal Silhouette: Normal heart size. Aortic atherosclerotic calcification. Lungs and Pleura: Persistent pulmonary hypoexpansion with curvilinear left basilar subsegmental atelectasis and/or scarring, similar to prior study. Nonspecific mild diffuse interstitial prominence, similar to slightly increased from prior study and may be related to chronic changes. No evidence of pleural effusion. Bones and Soft Tissues: Degenerative changes of the thoracic spine. IMPRESSION: No definitive evidence of acute cardiopulmonary abnormality or significant interval change as described. Electronically signed by: Miller Sierra DO (01/01/2021 10:42 AM) [id number] DICTATED AND SIGNED BY: MILLER SIERRA DO DATE: 01/01/21 1039 CC: JESENIA BOWSER MD; SARAHI BETTENCOURT MD ~MTH0 0 Heart Score: C/O Chest Pain: No Risk Factors: Risk Factors: DM, Current or recent (<one month) smoker, HTN, HLP, family history of CAD, obesity. Risk Scores: Score 0 - 3: 2.5% MACE over next 6 weeks - Discharge Home Score 4 - 6: 20.3% MACE over next 6 weeks - Admit for Clinical Observation Score 7 - 10: 72.7% MACE over next 6 weeks - Early Invasive Strategies Course & Med Decision Making: Course & Med Decision Making Pertinent Labs and Imaging studies reviewed. (See chart for details) Patient is a 70-year-old male with past medical history of tongue cancer s/p radiation, s/p G-tube placement, and history of recurrent pneumonia on 2 L/min nasal cannula at baseline who presents with 1 week of progressive dyspnea, productive cough, and chills. On arrival is afebrile, hemodynamically stable. He is satting low 90s on 2-1/2 L/min nasal cannula. During his short ambulation from triage to his room without oxygen he desaturated to 76%. His exam is concerning for bilateral lower lung field rales. Overall concerning for recurrent pneumonia. Labs chest x-ray ordered. 10:30 Labs reassuring. Chest x-ray read as no acute process, but I am concerned about a left lower lobe infiltrate. Given his desaturation, work of breathing I feel that it would be best to treat him for community-acquired pneumonia with ceftriaxone and Cipro and admit for continued management. Discussed with Dr. Grover, who has accepted the admission. 11:17 Dragon Disclaimer: Kassi Disclaimer: This electronic medical record was generated, in whole or in part, using a voice recognition dictation system. Departure Departure: Disposition: ADMITTED INPATIENT Admitting Physician: Ariela Grover Condition: STABLE Referrals: JESENIA BOWSER MD (PCP) SARAHI BETTENCOURT MD Jan 01, 2021 09:34
[2021-01-01 10:36] LABS: BASO % 0 % (0-3); EOS % 0 % (0-3); HEMOGLOBIN 11.9 g/dL (13.0-17.5); LYMPH # 0.8 x10^3/uL (1.0-4.8); LYMPH % 10 % (24-48); MEAN CORPUSCULAR HEMOGLOBIN 31 pg (25-35); MEAN CORPUSCULAR HGB CONC 33 g/dL (31-37); MEAN CORPUSCULAR VOLUME 94 fL (79-100); MONO # 1.2 x10^3/uL (0.0-1.1); MONO % 16 % (0-9); NEUT # 5.6 x10^3uL (1.8-7.7); NEUT % 73 % (31-73); PLATELET COUNT 161 x10^3/uL (140-400); RED BLOOD COUNT 3.84 x10^6/uL (4.30-5.70); RED CELL DISTRIBUTION WIDTH 13.9 % (11.5-14.5); WHITE BLOOD COUNT 7.6 x10^3/uL (4.0-11.0)
--- NOTE | 2021-01-01 10:44 | RAD ---
EXAMINATION: XR CHEST 1V CLINICAL HISTORY: Shortness of breath, productive cough, chills, hx of pna EXAM DATE/TIME: 01/01/2021 9:52 AM COMPARISON: 06/10/2020 FINDINGS: Lines, Tubes, and Devices: None. Cardiomediastinal Silhouette: Normal heart size. Aortic atherosclerotic calcification. Lungs and Pleura: Persistent pulmonary hypoexpansion with curvilinear left basilar subsegmental atele ctasis and/or scarring, similar to prior study. Nonspecific mild diffuse interstitial prominence, sim ilar to slightly increased from prior study and may be related to chronic changes. No evidence of ple ural effusion. Bones and Soft Tissues: Degenerative changes of the thoracic spine. IMPRESSION: No definitive evidence of acute cardiopulmonary abnormality or significant interval change as describ ed. Electronically signed by: Miller Helton DO (01/01/2021 10:42 AM) [id number]
[2021-01-01 10:50] LABS: CALCIUM 8.5 mg/dL (8.5-10.1); CREATININE 0.8 mg/dL (0.7-1.3); GFR 95.8; POTASSIUM 4.4 mmol/L (3.5-5.1)
[2021-01-01 10:56] LABS: ALBUMIN 3.1 g/dL (3.4-5.0); ALBUMIN/GLOBULIN RATIO 0.8 (1.0-1.7); TOTAL BILIRUBIN 0.4 mg/dL (0.2-1.0)
[2021-01-01] MEDS ORDERED: AZITHROMYCIN 500 MG in IV NORMAL SALINE 250ML 250 ML IV ONE (11:15)
[2021-01-01] MEDS ORDERED: IV NORMAL SALINE 250ML 250 ML ONE (11:17)
[2021-01-01] MEDS ORDERED: IV NORMAL SALINE 50ML 50 ML ONE (11:18)
[2021-01-01] MEDS ORDERED: AZITHROMYCIN 500 MG VIAL. IV ONE (11:18)
[2021-01-01] MEDS ORDERED: cefTRIAXone SODIUM 1 GM VIAL ONE (11:18)
--- NOTE | 2021-01-01 11:37 | EKG ---
[facility] ED [facility] [place] [id number] Test Date: 2021-01-01 Test Time: 10:59:30 Pat Name: KUSH HARGROVE Department: Room: Gender: M Adjunct Instructor: : 1950 Requested By: SARAHI BETTENCOURT Order Number: [id number] Reading MD: Measurements Intervals [place] Rate: 89 P: 32 MO: 180 QRS: 4 QRSD: 92 T: 33 QT: 336 QTc: 410 Interpretive Statements SINUS RHYTHM NORMAL ECG RI6.02 No previous ECG available for comparison
--- NOTE | 2021-01-01 15:45 | NUR ---
The patient, KUSH AHRGROVE, 70 y/o, M admitted by KAYLEE ANAND MD, was given written information regarding hospital policies, unit procedures and contact persons. Valuables were checked and left with patient at the bedside. Pt VSS at this time, refer to chart.
[2021-01-01] MEDS ORDERED: LORazepam 0.5 MG TABLET PO PRN (19:00)
[2021-01-01] MEDS ORDERED: ZOLPIDEM 5 MG TABLET. PO PRN (19:00)
--- NOTE | 2021-01-01 20:20 | HP ---
ADMIT DATE: 01/01/2021 HISTORY OF PRESENT ILLNESS: The patient is a 70-year-old male patient who came to the Emergency Room complaining of increasing shortness of breath, cough with greenish sputum, feeling cold and his oxygen requirement has increased, normally is on 2 liters of oxygen. He has increased it to 3 liters yesterday to keep his oxygen saturation higher than 90. His symptoms started about a week ago and was progressively worsening. He apparently has been vaccinated with Moderna, first vaccination was on 08/05/2020, the second one was 09/02/2020. The patient denied any chest pain or swelling of the legs. He was extensively investigated and his lab work were all unremarkable. His chest x-ray showed the normal heart size. Aortic atherosclerotic calcification. Lungs and pleura showed persistent pulmonary hyperexpansion with curvilinear left basilar subsegmental atelectasis and/or scarring similar to prior study, nonspecific mild diffuse interstitial prominence similar to slight or slightly increased from prior study and indicate may be related to chronic changes. No evidence of pleural effusion. He was treated with IV ceftriaxone and Zithromax and was admitted for community-acquired pneumonia, acute on chronic hypoxic respiratory failure and COPD exacerbation. PAST MEDICAL HISTORY: Significant for tongue cancer treated with radiation in 2018. He also had tonsillectomy and radical neck dissection in 2007 and has hypertension, hypothyroidism, hyperlipidemia, coronary artery disease, status post myocardial infarction, peripheral vascular disease, gastroesophageal reflux disease, benign prostatic hypertrophy, insomnia, vitamin B12 deficiency as well as dysphagia. PAST SURGICAL HISTORY: Significant for tonsillectomy and radical neck dissection in 2007. He has also had a history of tongue cancer, treated with radiation in 2007. He has percutaneous endoscopic gastrostomy tube placement. FAMILY HISTORY: Positive for myocardial infarction, colon cancer, COPD, anxiety, and depression. ALLERGIES: HE IS ALLERGIC TO CIPRO AND CODEINE. SOCIAL HISTORY: He lives with his . He quit smoking a year ago. He does not drink alcohol or recreational drugs. REVIEW OF SYSTEMS: As per history of present illness. MEDICATIONS: From previous admission, he is on Crestor 40 mg at bedtime, sertraline 150 mg daily, lorazepam 0.5 mg twice a day, Ambien 10 mg at bedtime. He is also on furosemide 20 mg once a day, levothyroxine sodium 25 mcg once a day. PHYSICAL EXAMINATION: GENERAL: On arrival to the emergency room, he looked well and was clearly in no apparent respiratory distress, pale, but no jaundice, cyanosis, no lymphadenopathy, no thyromegaly, no jugular venous distention. No limb edema. VITAL SIGNS: His heart rate was 91, blood pressure is 142/75, temperature was 99.4, respiratory rate 21, and oxygen saturation was only 76% on room air, improved to 96% on 3 liters of oxygen. HEAD, EYES, EARS, NOSE, AND THROAT: Normocephalic, atraumatic. NECK: Supple. HEART: Showed normal first and second heart sounds, no gallop or murmur. CHEST: Shows central trachea, equally reduced expansion, reduced air entry, vesicular breath sounds with bilateral basal crepitation and a few scattered rhonchi bilaterally. ABDOMEN: Distended, soft with a [place] Mouse button in place. There is no guarding or rigidity. No organomegaly. All hernial orifice intact. Bowel sounds normal. NEUROLOGIC: He was grossly intact. LABORATORY DATA: His lab work on admission showed a white cell count of 7600, hemoglobin 11.9, hematocrit 36, MCV 94, and a platelet count of 161,000. His chemistry showed a serum sodium 134, potassium 4.4, chloride 97, bicarbonate 32, anion gap of 5, BUN 11, creatinine 0.8. Estimated GFR was 95 mL per minute. His glucose was 98, calcium was 8.5. Total bilirubin, AST, ALT, alkaline phosphatase were normal. His total protein was 7, albumin was 3.1. ASSESSMENT AND PLAN: This is a 70-year-old male who was admitted with acute on chronic hypoxic respiratory failure, community-acquired pneumonia, chronic obstructive pulmonary disease exacerbation. He has a multitude of other medical problems including hypertension, hyperlipidemia, hypothyroidism, coronary artery disease, peripheral vascular disease, gastroesophageal reflux disease, benign prostatic hypertrophy, insomnia, vitamin B12, as well as dysphagia. My plan is to continue with IV antibiotic. I will add also some steroids and Combivent inhaler. CARLOS DR: Britney TID: [id number]
[2021-01-01 20:50] VITALS: BP 136/73
[2021-01-01] MEDS ORDERED: ACETAMINOPHEN 325 MG TABLET PO PRN (21:00)
[2021-01-01] MEDS: DULoxetine HCL 30 MG CAPSULE.DR PO SCH (21:00)
[2021-01-01] MEDS: LORazepam 0.5 MG TABLET PEG PRN (21:19)
[2021-01-01] MEDS: methylPREDNISolone SOD SUCC PF 40 MG/ML VIAL. IV SCH (21:19)
[2021-01-01] MEDS: ATORVASTATIN CALCIUM 20 MG TABLET PEG SCH (21:19)
[2021-01-01] MEDS: ZOLPIDEM 5 MG TABLET. PEG PRN (21:29)
[2021-01-01 23:21] VITALS: BP 120/75
[2021-01-02] MEDS: LEVOTHYROXINE 100 MCG TABLET PEG SCH (06:01)
[2021-01-02] MEDS: LEVOTHYROXINE 25 MCG TABLET. PEG SCH (06:01)
[2021-01-02 06:14] VITALS: BP 121/64
[2021-01-02 06:50] LABS: BASO % 0 % (0-3); EOS % 0 % (0-3); HEMATOCRIT 39.8 % (39.0-53.0); HEMOGLOBIN 13.2 g/dL (13.0-17.5); LYMPH # 0.7 x10^3/uL (1.0-4.8); LYMPH % 6 % (24-48); MEAN CORPUSCULAR HEMOGLOBIN 31 pg (25-35); MEAN CORPUSCULAR HGB CONC 33 g/dL (31-37); MEAN CORPUSCULAR VOLUME 94 fL (79-100); MONO # 0.6 x10^3/uL (0.0-1.1); MONO % 6 % (0-9); NEUT # 10.1 x10^3uL (1.8-7.7); NEUT % 89 % (31-73); PLATELET COUNT 165 x10^3/uL (140-400); RED BLOOD COUNT 4.24 x10^6/uL (4.30-5.70); RED CELL DISTRIBUTION WIDTH 14.2 % (11.5-14.5); WHITE BLOOD COUNT 11.4 x10^3/uL (4.0-11.0)
[2021-01-02 07:12] LABS: ALBUMIN 3.1 g/dL (3.4-5.0); ALBUMIN/GLOBULIN RATIO 0.7 (1.0-1.7); CREATININE 0.7 mg/dL (0.7-1.3); GFR 111.8; POTASSIUM 4.1 mmol/L (3.5-5.1); TOTAL BILIRUBIN 0.5 mg/dL (0.2-1.0); TOTAL PROTEIN 7.7 g/dL (6.4-8.2)
[2021-01-02] MEDS: SERTRALINE 100 MG TABLET. PEG SCH (09:00)
[2021-01-02] MEDS ORDERED: LACTOBACILLUS RHAMNOSUS GG 1 CAPSULE. PO SCH (09:00)
[2021-01-02 10:37] VITALS: BP 150/75
[2021-01-02] MEDS: methylPREDNISolone SOD SUCC PF 40 MG/ML VIAL. IV SCH ×2 (11:12→20:19)
[2021-01-02] MEDS: AZITHROMYCIN 500 MG in IV NORMAL SALINE 250ML 250 ML IV SCH (12:09)
[2021-01-02 14:14] VITALS: BP 162/73
[2021-01-02 19:40] VITALS: BP 114/63
[2021-01-02] MEDS: DULoxetine HCL 30 MG CAPSULE.DR PO SCH (20:19)
[2021-01-02] MEDS: ATORVASTATIN CALCIUM 20 MG TABLET PEG SCH (20:19)
[2021-01-02] MEDS: ZOLPIDEM 5 MG TABLET. PEG PRN (22:58)
[2021-01-02] MEDS: LORazepam 0.5 MG TABLET PEG PRN (23:07)
--- NOTE | 2021-01-03 02:49 | PN ---
DATE: 01/02/2021 SUBJECTIVE: The patient is resting, slightly propped up in bed, in no apparent distress. He has continued to have cough that is productive, but feeling slightly better today. Continues to have the tingling and numbness in his hands. We did start him on Cymbalta. PHYSICAL EXAMINATION: GENERAL: When I examined him, he looked well and was clearly in no apparent respiratory distress. There was no pallor, jaundice, cyanosis or thyromegaly. No jugular venous distention. No lower limb edema. VITAL SIGNS: His heart rate was 73, blood pressure was 162/73, temperature was 98.4, respiratory rate was 18 and oxygen saturation was 92% on 2 liters of oxygen. HEAD, EYES, EARS, NOSE AND THROAT: Normocephalic, atraumatic. NECK: Supple. HEART: Showed normal first and second heart sounds. No gallop, rub or murmur. CHEST: Showed central trachea, equal bilateral expansion, air entry, vesicular breath sounds. Has bilateral coarse crepitation posteriorly. I could not appreciate any rhonchi. ABDOMEN: Slightly distended, soft with a Robert-Gross button in place. There is no guarding or rigidity. No organomegaly. All hernial orifice intact. Bowel sounds normal. NEUROLOGIC: He was grossly intact. His intake and output were incompletely recorded. LABORATORY DATA: Showed a white cell count of 11,400, hemoglobin 13, hematocrit 39, MCV 94 and platelet count of 165,000. His chemistry showed serum sodium 135, potassium 4.1, chloride 97, bicarbonate 33, anion gap of 5, BUN 12, creatinine was 0.7. Estimated GFR was 112 mL per minute. His glucose was 155, calcium was 9. Total bilirubin, AST, ALT, alkaline phosphatase were normal. Total protein 7.7, albumin 3.1. His COVID-19 by PCR was negative. ASSESSMENT: 1. Acute on chronic hypoxic respiratory failure. 2. Community-acquired pneumonia. 3. Chronic obstructive pulmonary disease exacerbation. 4. He has multiple other medical problems including: A. Hypertension. B. Hyperlipidemia. C. Hypothyroidism. D. Peripheral vascular disease. E. Gastroesophageal reflux disease. F. Benign prostatic hypertrophy. PLAN: To continue with steroids. Continue with IV antibiotic. Continue with nebulized albuterol and Atrovent. We will evaluate him on a daily basis and discharge him home when he is ready to continue on a tapering course of steroids and oral antibiotic. AKILAH DR: Britney TID: [id number]
[2021-01-03] MEDS: LEVOTHYROXINE 100 MCG TABLET PEG SCH (06:06)
[2021-01-03] MEDS: LEVOTHYROXINE 25 MCG TABLET. PEG SCH (06:06)
[2021-01-03 06:17] VITALS: BP 107/57
[2021-01-03] MEDS: SERTRALINE 100 MG TABLET. PEG SCH (09:38)
[2021-01-03] MEDS: methylPREDNISolone SOD SUCC PF 40 MG/ML VIAL. IV SCH ×2 (09:39→20:48)
[2021-01-03] MEDS: AZITHROMYCIN 500 MG in IV NORMAL SALINE 250ML 250 ML IV SCH (12:28)
[2021-01-03] MEDS: LORazepam 0.5 MG TABLET PEG PRN ×2 (16:37→20:49)
[2021-01-03 18:56] VITALS: BP 152/85
[2021-01-03] MEDS: ATORVASTATIN CALCIUM 20 MG TABLET PEG SCH (20:48)
[2021-01-03] MEDS: DULoxetine HCL 30 MG CAPSULE.DR PO SCH (20:48)
[2021-01-03] MEDS: ZOLPIDEM 5 MG TABLET. PEG PRN (20:49)
--- NOTE | 2021-01-03 22:07 | PN ---
DATE: 01/03/2021 SUBJECTIVE: The patient is resting, slightly propped up in bed, in no apparent distress, continued to have some cough, but generally feeling better. OBJECTIVE: GENERAL: When I examined him, he looked well with no pallor, jaundice, cyanosis, no lymphadenopathy, no thyromegaly, no jugular venous distention. No limb edema. VITAL SIGNS: His heart rate was 68, blood pressure is 107/57, temperature 97.9, respiratory rate was 22 and oxygen saturation was 94% on 2 liters of oxygen. HEAD, EYES, EARS, NOSE, AND THROAT: Normocephalic, atraumatic. NECK: Supple. HEART: Normal first and second heart sounds, no gallop or murmur. CHEST: Shows central trachea, equal bilateral expansion, air entry, vesicular breath sounds with no crepitation or rhonchi anteriorly. Posteriorly, there are bilateral coarse crackles seemed to be chronic in nature. ABDOMEN: Soft with Robert-Gross button in place. No tenderness. No guarding or rigidity. No organomegaly. NEUROLOGIC: He was grossly intact. His intake was 840, output was 350. LABORATORY DATA: No lab work was done this morning. ASSESSMENT: 1. Acute on chronic hypoxic respiratory failure. 2. Community-acquired pneumonia. 3. Chronic obstructive pulmonary disease. 4. The patient has multiple other medical problems including: A. Hypertension. B. Hyperlipidemia. C. Hypothyroidism. D. Peripheral vascular disease. E. Gastroesophageal reflux disease. F. Benign prostatic hypertrophy. PLAN: To continue with steroids. Continue with IV antibiotic. Continue with all other medication. I will evaluate him again tomorrow. Once he remains stable, he can be discharged to continue treatment as an outpatient. SHELBY DR: Britney TID: [id number]
[2021-01-04 05:00] VITALS: BP 155/82
[2021-01-04] MEDS: LEVOTHYROXINE 25 MCG TABLET. PEG SCH (06:05)
[2021-01-04] MEDS: LEVOTHYROXINE 100 MCG TABLET PEG SCH (06:05)
[2021-01-04 06:25] LABS: HEMATOCRIT 37.7 % (39.0-53.0); HEMOGLOBIN 12.8 g/dL (13.0-17.5); RED BLOOD COUNT 4.09 x10^6/uL (4.30-5.70); RED CELL DISTRIBUTION WIDTH 13.6 % (11.5-14.5); WHITE BLOOD COUNT 10.1 x10^3/uL (4.0-11.0)
[2021-01-04 06:45] LABS: ALBUMIN 2.7 g/dL (3.4-5.0); ALBUMIN/GLOBULIN RATIO 0.6 (1.0-1.7); CALCIUM 8.7 mg/dL (8.5-10.1); CREATININE 0.6 mg/dL (0.7-1.3); GFR 133.6; POTASSIUM 4.4 mmol/L (3.5-5.1); TOTAL BILIRUBIN 0.4 mg/dL (0.2-1.0); TOTAL PROTEIN 6.9 g/dL (6.4-8.2)
[2021-01-04] MEDS: SERTRALINE 100 MG TABLET. PEG SCH (08:10)
[2021-01-04] MEDS: methylPREDNISolone SOD SUCC PF 40 MG/ML VIAL. IV SCH (08:10)
[2021-01-04] MEDS: AZITHROMYCIN 500 MG in IV NORMAL SALINE 250ML 250 ML IV SCH (11:30)
[2021-01-04 11:36] VITALS: BP 158/79
--- NOTE | 2021-01-04 13:45 | NUR ---
DISCHARGE IV DISCONTINUED AFTER IVABT DOSES. DISCHARGE EDUCATION COMPLETED, PRESCRIPTIONS GIVEN TO PATIENT ET . ALL PERTINENT QUESTIONS ANSWERED. ALL POSSESSIONS PACKED ET SENT WITH PATIENT AT TIME OF DISCHARGE. PT WILL BE ESCORTED OUT IN WHEELCHAIR.
[2021-01-04] MEDS ORDERED: AZIT250T PO (13:52)
[2021-01-04] MEDS ORDERED: CEFD300C PO (13:52)
[2021-01-04] MEDS ORDERED: DULO60CA6 PO (13:52)
--- NOTE | 2021-01-04 21:55 | DS ---
DATE OF DISCHARGE: 01/04/2021 HOSPITAL COURSE: The patient is a 70-year-old male patient with multiple medical problems who came to the Emergency Room with a complaint of increasing shortness of breath, cough with greenish sputum, feeling cold and his oxygen requirement has increased normally. He is on 2 liters of oxygen, was increased to 3 liters to keep his oxygen saturation slightly above 90. His symptoms started about a week prior to admission and progressively worsened. He has completed vaccination against coronavirus and received Moderna vaccine on 08/05/2020 and 09/02/2020. He denied any chest pain and swelling of his legs. He was extensively investigated and his lab work were all unremarkable. His chest x-ray showed persistent pulmonary hyperexpansion with a curvilinear left basilar subsegmental atelectasis and/or scarring similar to prior study and nonspecific mild diffuse interstitial prominence. He was diagnosed with community-acquired pneumonia, started on IV ceftriaxone and Zithromax and also has severe peripheral neuropathy and we started him also on Cymbalta. He remained afebrile since over the last 72 hours. His white cell count is normal. His oxygen requirement is down to 2 liters per nasal cannula and a decision was made to discharge him home to complete antibiotic treatment as an outpatient. PHYSICAL EXAMINATION: GENERAL: When I saw him today, he looked well and was clearly in no apparent respiratory distress. There is no pallor, jaundice, cyanosis or thyromegaly. No jugular venous distention. No limb edema. VITAL SIGNS: His heart rate was 74, blood pressure 158/79, temperature was 98.6, respiratory rate 20, and oxygen saturation was 93% on 2 liters of oxygen. HEAD, EYES, EARS, NOSE, EYES, EARS, NOSE, AND THROAT: Normocephalic, atraumatic. NECK: Supple. HEART: Normal first and second heart sounds, no gallop or murmur. CHEST: Shows central trachea, equal bilateral expansion, air entry, vesicular breath sounds. No crepitation or rhonchi anteriorly. There is bilateral basal coarse crepitation. I could not appreciate any rhonchi. ABDOMEN: Slightly distended, soft with a Robert-Gross button in place. There is no guarding or rigidity. No organomegaly. All hernial orifice intact. Bowel sounds normal. NEUROLOGIC: He was grossly intact. His intake over the last 24 hours and output are incompletely recorded. LABORATORY DATA: This morning showed a white cell count of 10,000, hemoglobin 13, hematocrit 37, MCV 92 and platelet count of 181,000. Serum sodium was 135, potassium 4.4, chloride 98, bicarbonate 32, anion gap of 5, BUN 20, creatinine 0.6. Estimated GFR was 133 mL per minute. His glucose was 126, calcium was 8.7. Total bilirubin, AST, ALT, alkaline phosphatase were normal. Total protein 6.9, albumin was 2.7. His coronavirus by PCR was negative. DISCHARGE MEDICATIONS: He was discharged home to continue on atorvastatin 80 mg at bedtime, levothyroxine 225 mcg once a day, lorazepam 0.5 mg twice a day, sertraline 100 mg daily and Ambien 10 mg at bedtime. He was also discharged on cefdinir 300 mg twice a day for 5 to 7 more days, Zithromax 250 mg once a day for 2 more days and Cymbalta 60 mg once a day. FINAL DISCHARGE DIAGNOSES: 1. Acute on chronic hypoxic respiratory failure. 2. Community-acquired pneumonia. 3. Chronic obstructive pulmonary disease. 4. The patient has multiple other medical problems including: A. Hypertension. B. Hyperlipidemia. C. Hypothyroidism. D. Peripheral vascular disease. E. Gastroesophageal reflux disease. F. Benign prostatic hypertrophy. SHELBY DR: Britney TID: [id number]
== END 2021-01-04 14:03 | disposition home or self-care (01) | DRG 177 ==
LOC: ER 09:14 → 1 SOUTH 11:20
PROVIDERS: ADMIT Internal Medicine; ATTEND Internal Medicine
DX: J15.6 Pneumonia due to other Gram-negative bacteria (principal); J96.21 Acute and chronic respiratory failure with hypoxia; J44.0 Chronic obstructive pulmonary disease with (acute) lower respiratory infection; J44.1 Chronic obstructive pulmonary disease with (acute) exacerbation; J15.9 Unspecified bacterial pneumonia; E03.9 Hypothyroidism, unspecified; E78.5 Hyperlipidemia, unspecified; G47.00 Insomnia, unspecified; G62.9 Polyneuropathy, unspecified; I10 Essential (primary) hypertension; I25.10 Atherosclerotic heart disease of native coronary artery without angina pectoris; I25.2 Old myocardial infarction; I73.9 Peripheral vascular disease, unspecified; K21.9 Gastro-esophageal reflux disease without esophagitis; N40.0 Benign prostatic hyperplasia without lower urinary tract symptoms; R13.10 Dysphagia, unspecified; Z80.0 Family history of malignant neoplasm of digestive organs; Z81.8 Family history of other mental and behavioral disorders; Z82.49 Family history of ischemic heart disease and other diseases of the circulatory system; Z82.5 Family history of asthma and other chronic lower respiratory diseases; Z85.810 Personal history of malignant neoplasm of tongue; Z85.828 Personal history of other malignant neoplasm of skin; Z87.01 Personal history of pneumonia (recurrent); Z87.891 Personal history of nicotine dependence; Z92.21 Personal history of antineoplastic chemotherapy; Z92.3 Personal history of irradiation; Z93.1 Gastrostomy status; Z88.1 Allergy status to other antibiotic agents; Z88.5 Allergy status to narcotic agent; Z20.822 Contact with and (suspected) exposure to COVID-19
CPT/HCPCS: 36415; 71045; 80053; 83880; 85025; 85027; 93005; 96365; 96366; 96368; J0456; J0696; J2920; J7050; U0003; 99285-25

== ENCOUNTER → 2021-01-12 | Outpatient (CLI) | payer MEDICARE ==
[2021-01-04 11:36] VITALS: BP 158/79
[~2021-01-12] MED LIST changes: +DULO60CA6 PO
[2021-01-12 14:57] LABS: BASO % 0 % (0-3); EOS # 0.1 x10^3/uL (0.0-0.7); EOS % 1 % (0-3); HEMATOCRIT 40.2 % (39.0-53.0); HEMOGLOBIN 13.1 g/dL (13.0-17.5); LYMPH # 1.9 x10^3/uL (1.0-4.8); LYMPH % 18 % (24-48); MEAN CORPUSCULAR HEMOGLOBIN 30 pg (25-35); MEAN CORPUSCULAR HGB CONC 33 g/dL (31-37); MEAN CORPUSCULAR VOLUME 93 fL (79-100); MONO # 1.3 x10^3/uL (0.0-1.1); MONO % 12 % (0-9); NEUT # 7.7 x10^3uL (1.8-7.7); NEUT % 70 % (31-73); PLATELET COUNT 343 x10^3/uL (140-400); RED BLOOD COUNT 4.34 x10^6/uL (4.30-5.70); RED CELL DISTRIBUTION WIDTH 13.9 % (11.5-14.5)
[2021-01-12 15:04] LABS: ALBUMIN/GLOBULIN RATIO 0.6 (1.0-1.7); CALCIUM 8.9 mg/dL (8.5-10.1); GFR 74.1; POTASSIUM 5.3 mmol/L (3.5-5.1); TOTAL BILIRUBIN 0.4 mg/dL (0.2-1.0); TOTAL PROTEIN 7.9 g/dL (6.4-8.2)
[2021-01-12 15:24] LABS: BILIRUBIN,URINE NEG (NEG); CLARITY,URINE CLEAR; COLOR,URINE YELLOW; GLUCOSE,URINE NEG (NEG); NITRITE,URINE NEG (NEG); RBC,URINE RARE /HPF (0-2); UROBILINOGEN,URINE 0.2 mg/dL (0.2 mg/dL)
[2021-01-12 15:25] LABS: BACTERIA,URINE 0 /HPF (0-FEW); SQUAMOUS EPITHELIAL CELL,UR OCC /LPF; WBC,URINE RARE /HPF (0-4)
--- NOTE | 2021-01-12 16:45 | RAD ---
EXAM: Chest, 2 views. HISTORY: Shortness of breath. COMPARISON: 01/01/2021 FINDINGS: 2 views of the chest are obtained. There are stable chronic appearing interstitial changes with suspected superimposed basilar atelectasis. There is no consolidation, pleural effusion or pneum othorax. There are prominent air-filled loops of bowel within the upper abdomen. The heart is normal in size. IMPRESSION: Suspected chronic interstitial changes superimposed basilar atelectasis. Electronically signed by: Tiffany Samuel MD (01/12/2021 4:42 PM) [id number]
== END ==
LOC: RAD 13:45
PROVIDERS: ATTEND Family Medicine
DX: R06.02 Shortness of breath (principal); R19.7 Diarrhea, unspecified; Z79.899 Other long term (current) drug therapy
CPT/HCPCS: 36415; 71046; 80053; 81001; 85025; 87086

== ENCOUNTER → 2021-02-02 | Emergency (ER) | payer MEDICARE ==
[~2021-02-02] VITALS: Ht 175.3 cm; Wt 77.6 kg
[~2021-02-02] MED LIST changes: +HYDR-2765 PO; +HYDROcodone/APAP 7.5/325MG 1 TAB TABLET PO ONE; +IOHEXOL 300 MG/ML 75 ML VIAL. IV ONE; +IV NORMAL SALINE 1,000ML 1,000 ML IV ONE; +LIDOCAINE 1% Multi-Dose 20 ML VIAL. ONE
--- NOTE | 2021-02-02 14:31 | PHYS DOC ---
Past History Past Medical History: Cancer, COPD Additional Past Medical Histor: tongue cancer 2009, had radiation and chemotherapy Past Surgical History: Other Additional Past Surgical Histo: skin cancer removed right neck; PEG tube placement; right carpal tunneling Smoking: Quit Greater Than 1 Year Alcohol Use: None Drug Use: None Adult General Chief Complaint Chief Complaint: SHOULDER INJURY HPI HPI Patient is a 70-year-old male presenting for right shoulder pain. Reports he was seated on the side of his bed and when he lost his footing trying to get up and subsequently fell on his right shoulder. Did not hit his head, no loss of consciousness. Reports immediately experiencing focal right shoulder pain and obvious bony abnormality prompting him to come in for evaluation. Denies any motor/sensory/focal deficits just ongoing focal pain with manipulation or palpation of right shoulder Review of Systems Review of Systems Fourteen body systems of review of systems have been reviewed. See HPI for pertinent positives and negative responses, other sumner all other systems are negative, non-pertinent or non-contributory Allergies Allergies Allergies Coded Allergies Type Severity Reaction Last Updated Verified spinach Allergy Severe Anaphylaxis 01/01/21 Yes ciprofloxacin Allergy Intermediate 01/01/21 Yes codeine Allergy Intermediate 01/01/21 Yes Physical Exam Physical Exam Constitutional: Well developed, well nourished, no acute distress, non-toxic appearance. HENT: Normocephalic, atraumatic, bilateral external ears normal, oropharynx moist, no oral exudates, nose normal. Eyes: PERRLA, EOMI, conjunctiva normal, no discharge. Neck: Normal range of motion, no tenderness, supple, no stridor. Cardiovascular: Heart rate regular, sinus rhythm, no murmurs rubs or gallops Lungs & Thorax: Bilateral breath sounds clear to auscultation Abdomen: Bowel sounds normal, soft, no tenderness, no masses, no pulsatile masses. Nonsurgical abdomen, no peritoneal signs Skin: Warm, dry, no erythema, no rash. Back: No tenderness, no CVA tenderness. Extremities: No cyanosis, no clubbing, no edema. Decreased range of motion in all planes to right upper extremity due to pain, obvious closed bony abnormality present to right shoulder Neurologic: Alert and oriented X 3, normal motor & sensory function, no focal deficits noted. Median/ulnar/radial nerves to right upper extremity intact Psychologic: Affect normal, judgement normal, mood normal. Current Patient Data Vital Signs Vital Signs Date Time Temp Pulse Resp B/P (MAP) Pulse Ox O2 Delivery O2 Flow Rate FiO2 02/02/21 14:10 97.9 109 20 87/44 92 Room Air EKG EKG [] Radiology/Procedures Radiology/Procedures Chest AP only at 1435: Reason for examination: Fell with right shoulder pain. Comparison is made to previous study dated 01/12/2021. The heart size is normal. Mediastinum is unremarkable. Lung lawson are clear. No acute bony abnormalities are seen. IMPRESSION: No acute cardiopulmonary disease evident. Right shoulder 2 views: There is a comminuted fracture of the proximal right humerus with approximately 1 cm displacement at the humeral neck. There is also a nondisplaced fracture through the greater tuberosity. The scapula and clavicle appear to be intact. There is some degenerative change at the AC joint. IMPRESSION: Comminuted fracture at the humeral neck extending through the greater tuberosity and showing a 1 cm displacement at the humeral neck. Electronically signed by: Aracelis Bullock MD (02/02/2021 2:57 PM) [id number] Heart Score C/O Chest Pain: No Risk Factors: Risk Factors: DM, Current or recent (<one month) smoker, HTN, HLP, family history of CAD, obesity. Risk Scores: Risk Factors: DM, Current or recent (<one month) smoker, HTN, HLP, family history of CAD, obesity. Course & Med Decision Making Course & Med Decision Making Vitals stable. HPI, physical examination and radiographs concerning for right upper extremity bony fracture Sling applied. Orthopedic services at [facility] contacted. Due to ongoing COVID-19 pandemic and lack of OR/hospital beds, decision was made to discharge patient home with close outpatient follow-up following day in orthopedic office I updated patient on proposed plan of care for discharge home with close outpatient follow-up given that there were no life threatening/limb threatening signs or symptoms present. Joint decision made to discharge home with pain medication and Ortho follow-up I notified patient after medication reconciliation that he should avoid benzodiazepine and Ambien medications while using newly prescribed narcotic pain medication dispensed by myself Kassi Disclaimer Kassi Disclaimer This electronic medical record was generated, in whole or in part, using a voice recognition dictation system. Departure Departure: Impression: Primary Impression: Comminuted right humeral fracture Disposition: HOME / SELF CARE / HOMELESS Condition: STABLE Referrals: JESENIA BOWSER MD (PCP) LUCAI MCCARTY Jr. DO Patient Instructions: Humerus Fracture, Treated with Immobilization, Easy-to-Re ad, Shoulder Fracture (Proximal Humerus or Glenoid)-SportsMed Additional Instructions: You were seen for a fracture or broken bone of your right arm bone. We spoke with the orthopedic doctors at [facility] who need to see you in the orthopedic clinic tomorrow morning, 02/03/2021. Their information is attached to your discharge packet. If you were provided a splint use this as directed. You should not use the affected body part until you follow up with orthopedics. You should use ice, prescribed pain medication, and elevation to help with swelling and pain. Please do not take your prescribed pain medication if your systolic/top number of your blood pressure is less than 100. Do not take your sleep medicine otherwise known as Ambien or your lorazepam medications for anxiety while taking pain medication prescribed today. Return to the ED if you develop worsening pain, numbness, tingling, weakness, fever, redness, or any other new or concerning symptoms. Scripts Hydrocodone Bit/Acetaminophen (HYDROCODONE-APAP 7.5-325 ) 1 Each Tablet 0.5 TAB PO PRN Q6HRS PRN for PAIN, #10 TAB 0 Refills Prov: MARICRUZ BERMUDEZ DO 02/02/21 MARICRUZ BERMUDEZ DO Feb 02, 2021 14:31
--- NOTE | 2021-02-02 14:59 | RAD ---
Chest AP only at 1435: Reason for examination: Fell with right shoulder pain. Comparison is made to previous study dated 01/12/2021. The heart size is normal. Mediastinum is unrema rkable. Lung lawson are clear. No acute bony abnormalities are seen. IMPRESSION: No acute cardiopulmonary disease evident. Right shoulder 2 views: There is a comminuted fracture of the proximal right humerus with approximately 1 cm displacement at the humeral neck. There is also a nondisplaced fracture through the greater tuberosity. The scapula a nd clavicle appear to be intact. There is some degenerative change at the AC joint. IMPRESSION: Comminuted fracture at the humeral neck extending through the greater tuberosity and showing a 1 cm d isplacement at the humeral neck. Electronically signed by: Aracelis Bullock MD (02/02/2021 2:57 PM) [id number]
[2021-02-02 15:07] LABS: BASO # 0.1 x10^3/uL (0.0-0.2); BASO % 1 % (0-3); EOS # 0.2 x10^3/uL (0.0-0.7); EOS % 3 % (0-3); HEMATOCRIT 34.6 % (39.0-53.0); HEMOGLOBIN 11.5 g/dL (13.0-17.5); LYMPH # 1.6 x10^3/uL (1.0-4.8); LYMPH % 21 % (24-48); MEAN CORPUSCULAR HEMOGLOBIN 31 pg (25-35); MEAN CORPUSCULAR HGB CONC 33 g/dL (31-37); MEAN CORPUSCULAR VOLUME 94 fL (79-100); MONO # 0.9 x10^3/uL (0.0-1.1); MONO % 12 % (0-9); NEUT # 4.9 x10^3uL (1.8-7.7); NEUT % 63 % (31-73); PLATELET COUNT 193 x10^3/uL (140-400); RED BLOOD COUNT 3.68 x10^6/uL (4.30-5.70); RED CELL DISTRIBUTION WIDTH 14.8 % (11.5-14.5); WHITE BLOOD COUNT 7.8 x10^3/uL (4.0-11.0)
[2021-02-02 15:16] LABS: CALCIUM 8.4 mg/dL (8.5-10.1); CREATININE 0.9 mg/dL (0.7-1.3); GFR 83.7; POTASSIUM 4.3 mmol/L (3.5-5.1)
[2021-02-02 15:22] LABS: ALBUMIN/GLOBULIN RATIO 0.8 (1.0-1.7); TOTAL BILIRUBIN 0.3 mg/dL (0.2-1.0); TOTAL PROTEIN 6.6 g/dL (6.4-8.2)
[2021-02-02 15:51] VITALS: BP 122/60
== END ==
LOC: ER 14:05
DX: S42.201A Unspecified fracture of upper end of right humerus, initial encounter for closed fracture (principal); J44.9 Chronic obstructive pulmonary disease, unspecified; Z20.822 Contact with and (suspected) exposure to COVID-19; Z91.018 Allergy to other foods; Z88.1 Allergy status to other antibiotic agents; Z88.5 Allergy status to narcotic agent; W06.XXXA Fall from bed, initial encounter; Y93.89 Activity, other specified; Y92.89 Other specified places as the place of occurrence of the external cause; Y99.8 Other external cause status
CPT/HCPCS: 36415; 71045; 73030; 80053; 84484; 85025; 87426; 96361; 96374; 99284; J3010; J7030; U0003

== ENCOUNTER → 2021-02-04 | Outpatient (CLI) | payer MEDICARE ==
[2021-02-02 15:51] VITALS: BP 122/60
[~2021-02-04] MED LIST changes: -HYDROcodone/APAP 7.5/325MG 1 TAB TABLET PO ONE; -IOHEXOL 300 MG/ML 75 ML VIAL. IV ONE; -IV NORMAL SALINE 1,000ML 1,000 ML IV ONE; -LIDOCAINE 1% Multi-Dose 20 ML VIAL. ONE
--- NOTE | 2021-02-05 08:26 | RAD ---
EXAM: CT right shoulder without IV contrast DATE: 02/04/2021 11:35 AM COMPARISON: No prior INDICATION: Reason: RIGHT SHOULDER FRACTURE / Spl. Instructions: / History: TECHNIQUE: CT of the right shoulder was performed without IV contrast. Axial, coronal and sagittal re formatted images were generated. PQRS compliance statement - One or more of the following individualized dose reduction techniques wer e utilized for this study: 1. Automated exposure control 2. Adjustment of the mA and/or kV according to patient size 3. Use of iterative reconstruction technique FINDINGS: There is a comminuted fracture of the proximal right humerus. A comminuted transverse component is se en through the surgical neck of the right humerus, trace apex anterior angulation. Longitudinal compo nent extends into the base of the greater tuberosity, mildly angulated at the base. Lesser tuberosity is intact. Marked soft tissue swelling about the right shoulder. AC joint degenerative changes are seen. Degenerative changes of the spine are seen. Trace height loss at multiple thoracic levels likely phys iologic wedging. Patchy airspace opacities predominantly in the lower lobes likely atelectasis, contusion or consolida tion. Bronchiectasis is seen with debris within several of the airways. IMPRESSION: 1. Comminuted fracture of the right proximal humerus with prominent soft tissue swelling 2. AC joint DJD. 3. Parenchymal opacities right lung possibly contusion or consolidation. Electronically signed by: Rehan Robles MD (02/05/2021 8:24 AM) [id number]
== END ==
LOC: CT 11:29
PROVIDERS: ATTEND Orthopaedic Surgery
DX: S42.91XA Fracture of right shoulder girdle, part unspecified, initial encounter for closed fracture (principal); M19.011 Primary osteoarthritis, right shoulder; M47.899 Other spondylosis, site unspecified; J47.9 Bronchiectasis, uncomplicated; M25.411 Effusion, right shoulder; X58.XXXA Exposure to other specified factors, initial encounter; Y93.89 Activity, other specified; Y92.89 Other specified places as the place of occurrence of the external cause; Y99.8 Other external cause status
CPT/HCPCS: 73200

== ENCOUNTER 2021-10-24 17:02 | Emergency (ER) | payer MEDICARE ==
[~2021-10-24] VITALS: Ht 175.3 cm; Wt 70.8 kg
[~2021-10-24 17:02] MED LIST changes: +CLIN-95 PO; -CLIN300C9 PO; -DULO60CA6 PO; +DULO60CA7 PO; +LORazepam PEG; +SODI30SP NS
[2021-10-24 17:05] VITALS: BP 148/90
--- NOTE | 2021-10-24 17:27 | PHYS DOC ---
Past History Past Medical History: Cancer, COPD Additional Past Medical Histor: tongue cancer 2009, had radiation and chemotherapy (LLOYD PEÑA APRN) Past Surgical History: Other Additional Past Surgical Histo: skin cancer removed right neck; PEG tube placement; right carpal tunneling (LLOYD PEÑA APRN) Smoking: Quit Greater Than 1 Year Alcohol Use: Occasionally Drug Use: None (LLOYD PEÑA APRN) General Adult EDM: Chief Complaint: SHORTNESS OF BREATH HPI: HPI: Patient is a 71-year-old male who presents to the emergency department for shortness of breath and a nonproductive cough that started 2 days ago. Patient has a history of aspiration pneumonia and COPD. He is supposed to wear 2 to 3 L via nasal cannula at night. Upon ER arrival patient was 78% on room air. Patient was titrated on oxygen and is currently 98% on 2 L. Patient denies feve rs, chest pain, smoking. He reports that when he feels pneumonia coming on he calls Dr. Alexander and he calls them in a prescription for amoxicillin and he did start that 2 days ago. He reports that he is also taking Mucinex. (LLOYD PEÑA APRN) Review of Systems: Review of Systems: Constitutional: See HPI HENT: Reports history of tongue cancer Respiratory: See HPI Cardiovascular: See HPI (LLOYD PEÑA APRN) Allergies: Allergies: Allergies Coded Allergies Type Severity Reaction Last Updated Verified spinach Allergy Severe Anaphylaxis 09/08/21 Yes ciprofloxacin Allergy Intermediate 09/08/21 Yes codeine Allergy Intermediate 09/08/21 Yes (LLOYD PEÑA APRN) Physical Exam: PE: Constitutional: Well developed, well nourished, no acute distress, non-toxic appearance. [] HENT: Normocephalic, atraumatic, bilateral external ears normal, oropharynx moist, no oral exudates, nose normal. [] Eyes: PERRL, EOMI, conjunctiva normal, no discharge. [] Neck: Normal range of motion, no tenderness, supple, no stridor. [] Cardiovascular:Heart rate regular rhythm, no murmur [] Lungs & Thorax: Coarse lung sounds noted throughout Abdomen: Bowel sounds normal, soft, no tenderness, no masses, no pulsatile masses. [] Skin: Warm, dry, no erythema, no rash. [] Back: No tenderness, normal range of motion Extremities: No tenderness, no cyanosis, no clubbing, ROM intact, no edema. [] Neurologic: Alert and oriented X 3, normal motor function, normal sensory function, no focal deficits noted. [] Psychologic: Affect normal, judgement normal, mood normal. [] (LLOYD PEÑA APRN) Current Patient Data: Labs: Laboratory Tests Test 10/24/21 17:25 10/24/21 17:35 White Blood Count 11.6 x10^3/uL Red Blood Count 4.04 x10^6/uL Hemoglobin 12.4 g/dL Hematocrit 37.7 % Mean Corpuscular Volume 93 fL Mean Corpuscular Hemoglobin 31 pg Mean Corpuscular Hemoglobin Concent 33 g/dL Red Cell Distribution Width 15.1 % Platelet Count 193 x10^3/uL Neutrophils (%) (Auto) 80 % Lymphocytes (%) (Auto) 11 % Monocytes (%) (Auto) 8 % Eosinophils (%) (Auto) 1 % Basophils (%) (Auto) 0 % Neutrophils # (Auto) 9.3 x10^3uL Lymphocytes # (Auto) 1.2 x10^3/uL Monocytes # (Auto) 1.0 x10^3/uL Eosinophils # (Auto) 0.1 x10^3/uL Basophils # (Auto) 0.0 x10^3/uL Sodium Level 131 mmol/L Potassium Level 4.8 mmol/L Chloride Level 93 mmol/L Carbon Dioxide Level 33 mmol/L Anion Gap 5 Blood Urea Nitrogen 15 mg/dL Creatinine 0.7 mg/dL Estimated GFR (Cockcroft-Gault) 111.5 BUN/Creatinine Ratio 21 Glucose Level 94 mg/dL Lactic Acid Level 1.1 mmol/L Calcium Level 9.0 mg/dL Total Bilirubin 0.5 mg/dL Aspartate Amino Transf (AST/SGOT) 16 U/L Alanine Aminotransferase (ALT/SGPT) 15 U/L Alkaline Phosphatase 129 U/L Troponin I High Sensitivity 12 ng/L Total Protein 7.3 g/dL Albumin 3.2 g/dL Albumin/Globulin Ratio 0.8 Bedside Venous pH 7.36 Bedside Venous pCO2 63 mmHg Bedside Venous pO2 30 mmHg Venous Blood HCO3 35 mmol/L POC Venous O2 Saturation (Gricelda) 52 % Bedside FiO2 28 Current Medications Medications (Trade) Dose Ordered Sig/Gauri Route PRN Reason Start Time Stop Time Status Last Admin Dose Admin Sodium Chloride 1,000 ml @ 1,000 mls/hr Q1H IV 10/24/21 17:30 10/24/21 18:29 DC 10/24/21 18:18 Methylprednisolone Sodium Succinate (SOLU-Medrol 125MG VIAL) 125 mg 1X ONCE IV 10/24/21 17:30 10/24/21 17:31 DC 10/24/21 18:18 Albuterol/ Ipratropium (Duoneb) 3 ml 1X ONCE NEB 10/24/21 17:30 10/24/21 17:31 DC 10/24/21 18:00 (LLOYD PEÑA APRN) EKG: EKG: EKG performed by ER staff at 1718 shows sinus rhythm with a rate of 88, QTc is 412, no STEMI read by Dr. Mandujano at 1723 [] (LLOYD PEÑA APRN) Radiology/Procedures: Radiology/Procedures: []PROCEDURE: PORTABLE CHEST 1V PROCEDURE: XR CHEST 1V.10/24/2021 5:53 PM REASON FOR STUDY: Reason: soa / Spl. Instructions: / History: . COMPARISON: Study of 09/08/2021. FINDINGS: Increased pulmonary markings persist bilaterally and appear similar. No new consolidation or pleural fluid is seen. Depth of inspiration remains shallow. Heart size is. IMPRESSION: Chronic findings in the lungs. No apparent acute abnormality. Electronically signed by: Heidi Yoo Jr., MD (10/24/2021 5:54 PM) [facility] DICTATED AND SIGNED BY: HEIID YOO Jr, MD DATE: 10/24/21 461 (LLOYD PEÑA APRN) Heart Score: C/O Chest Pain: No Risk Factors: Risk Factors: DM, Current or recent (<one month) smoker, HTN, HLP, family history of CAD, obesity. Risk Scores: Score 0 - 3: 2.5% MACE over next 6 weeks - Discharge Home Score 4 - 6: 20.3% MACE over next 6 weeks - Admit for Clinical Observation Score 7 - 10: 72.7% MACE over next 6 weeks - Early Invasive Strategies (LLOYD PEÑA APRN) Course & Med Decision Making: Course & Med Decision Making Pertinent Labs and Imaging studies reviewed. (See chart for details) [] Patient presents to the emergency department today for shortness of breath and a nonproductive cough started 2 days ago. Patient is supposed to wear 2 to 3 L via nasal cannula at night. Upon ER arrival he was noted to be 78% to 83% on room air. Patient was titrated on oxygen and is currently on 2 L via nasal cannula with an oxygen saturation of 98%. Work-up in the ER consisted of blood work including troponin and lactic acid, chest x-ray. He was treated with steroids and a DuoNeb. HAND EDGER notified me that patient had a "coughing fit" and his oxygen dropped to 86% and was titrated up to 4 L via nasal cannula. On 4 L via nasal cannula patient's oxygen saturation is 99%. Patient's lab work is mostly unremarkable. He has mild hyponatremia which is replaced. He does not have an elevated troponin, no lactic acidosis, chest x- ray shows chronic pulmonary markings bilaterally without any signs of pneumonia. Negative covid and flu. I discussed and offered possible admission with patient versus discharge home. Patient reports that he has the ability to wear 4 L via nasal cannula at home and I will send him home with a steroid and an albuterol inhaler. I advised him to continue the Mucinex for the counter. Advised him to monitor his oxygen saturations at home. Patient is agreeable to discharge. I discussed with patient all findings and diagnostic testing as well as the need to follow-up with PCP for further evaluation and treatment or re turn to the ER if any new or worsening symptoms. Strict return precautions were also discussed at length. Patient voiced understanding and agreement with the plan. Patient is hemodynamically stable at the time of disposition. (LLOYD PEÑA APRN) Dragon Disclaimer: Dragon Disclaimer: This electronic medical record was generated, in whole or in part, using a voice recognition dictation system. (LLOYD PEÑA APRN) Attending Co-Sign The patient was seen and interviewed as well as examined at the bedside. The chart was reviewed. The case was discussed. Agree with the plan of care. (EDYTA LOPEZ DO) Departure Departure: Impression: Primary Impression: COPD exacerbation Disposition: HOME / SELF CARE / HOMELESS Condition: GOOD Referrals: JESENIA ALEXANDER MD (PCP) Patient Instructions: Chronic Obstructive Pulmonary Disease Exacerbation Additional Instructions: You were seen in the emergency department today for shortness of breath and a cough. Increase your fluids and rest. Your chest x-ray showed chronic findings but no pneumonia. You are being discharged home with a steroid. You are also being discharged home with an albuterol inhaler that you can use when you feel short of breath. Please increase your oxygen at home to 4 L via nasal cannula and wear this at all times. Please monitor your oxygen saturation levels at home. These return to the emergency department if they drop below 90%. Follow- up with your primary care provider tomorrow. Return to the emergency department if your oxygen saturation drops, you develop increased shortness of breath, chest pain, high fevers refractory to treatment, intractable nausea or vomiting, confusion, weakness. Scripts Albuterol Sulfate (PROAIR HFA INHALER) 8.5 Gm Hfa.aer.ad 2 PUFF IH PRN Q4-6HRS PRN for wheezing for 21 Days, #1 INHALER 0 Refills as needed for wheezing Prov: LLOYD PEÑA APRN 10/24/21 Prednisone (PREDNISONE) 20 Mg Tablet 2 TAB PO DAILY for copd for 5 Days, #10 TAB 0 Refills Prov: LLOYD PEÑA APRN 10/24/21 LLOYD PEÑA APRN October 24, 2021 17:26 EDYTA LOPEZ DO October 25, 2021 05:23
[2021-10-24] MEDS ORDERED: IV NORMAL SALINE 1,000ML 1,000 ML IV SCH (17:30)
[2021-10-24] MEDS ORDERED: IPRATRPIUM/ALBUTEROL 0.5/2.5MG 3 ML NEBU. NEB ONE (17:30)
[2021-10-24] MEDS ORDERED: methylPREDNISolone SOD SUCC PF 125 MG/2 ML VIAL. IV ONE (17:30)
--- NOTE | 2021-10-24 17:38 | EKG ---
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
[2021-10-24 17:52] LABS: BASO % 0 % (0-3); EOS # 0.1 x10^3/uL (0.0-0.7); EOS % 1 % (0-3); HEMATOCRIT 37.7 % (39.0-53.0); HEMOGLOBIN 12.4 g/dL (13.0-17.5); LYMPH # 1.2 x10^3/uL (1.0-4.8); LYMPH % 11 % (24-48); MEAN CORPUSCULAR HEMOGLOBIN 31 pg (25-35); MEAN CORPUSCULAR HGB CONC 33 g/dL (31-37); MEAN CORPUSCULAR VOLUME 93 fL (79-100); MONO % 8 % (0-9); NEUT # 9.3 x10^3uL (1.8-7.7); NEUT % 80 % (31-73); PLATELET COUNT 193 x10^3/uL (140-400); RED BLOOD COUNT 4.04 x10^6/uL (4.30-5.70); RED CELL DISTRIBUTION WIDTH 15.1 % (11.5-14.5); WHITE BLOOD COUNT 11.6 x10^3/uL (4.0-11.0)
--- NOTE | 2021-10-24 17:57 | RAD ---
PROCEDURE: XR CHEST 1V.10/24/2021 5:53 PM REASON FOR STUDY: Reason: soa / Spl. Instructions: / History: . COMPARISON: Study of 09/08/2021. FINDINGS: Increased pulmonary markings persist bilaterally and appear similar. No new consolidation o r pleural fluid is seen. Depth of inspiration remains shallow. Heart size is. IMPRESSION: Chronic findings in the lungs. No apparent acute abnormality. Electronically signed by: Vincent Yoo Jr., MD (10/24/2021 5:54 PM) [facility]
[2021-10-24 18:03] LABS: CREATININE 0.7 mg/dL (0.7-1.3); GFR 111.5; POTASSIUM 4.8 mmol/L (3.5-5.1)
[2021-10-24 18:09] LABS: ALBUMIN 3.2 g/dL (3.4-5.0); ALBUMIN/GLOBULIN RATIO 0.8 (1.0-1.7); TOTAL BILIRUBIN 0.5 mg/dL (0.2-1.0); TOTAL PROTEIN 7.3 g/dL (6.4-8.2)
[2021-10-24] MEDS ORDERED: PRED20TA PO (18:42)
[2021-10-24] MEDS ORDERED: ALBU2.5V8 IH (18:42)
[2021-10-24 18:48] LABS: INFLUENZA A PATIENT NEGATIVE (NEGATIVE); INFLUENZA B PATIENT NEGATIVE (NEGATIVE)
== END 2021-10-24 19:34 | disposition home or self-care (01) ==
LOC: ER 17:02
DX: J44.1 Chronic obstructive pulmonary disease with (acute) exacerbation (principal); Z20.822 Contact with and (suspected) exposure to COVID-19; Z87.891 Personal history of nicotine dependence; Z91.018 Allergy to other foods; Z88.1 Allergy status to other antibiotic agents; Z88.5 Allergy status to narcotic agent
CPT/HCPCS: 36415; 71045; 80053; 82803; 83605; 84484; 85025; 87428; 93005; 94640; 96361; 96374; 99285; J2930; J7030